=== PATIENT | female | born 1960 | race African-American/Black ===

== ENCOUNTER 2019-05-13 16:35 | Inpatient (IN) | payer OTHER ==
[~2019-05-13 16:35] MED LIST: Heparin 1,000 UNITS/ML VIAL ONE; Heparin 10,000 UNITS/ 10 ML VIAL ONE; Iopamidol-370 76% 500 ML 1 ML ONE
--- NOTE | 2019-05-13 17:22 | RAD ---
RADIOGRAPH CHEST 1 VIEW: DATE: 05/13/2019 TIME: 4:58 PM HISTORY: 62-year-old female with dyspnea COMPARISON: none FINDINGS: ETT at mid thoracic trachea. Esophagogastric tube visualized down to at least the level of the lower mediastinum. Cardiomegaly and widened mediastinum obscure most of the left lung inspiration is shallow. Prominent interstitial markings in the right lung. No pneumothorax identified. IMPRESSION: 1. Status post intubation with endotracheal tube. 2. Esophagogastric tube visualized down to at least the lower mediastinum, possibly in the stomach, b ut abdominal radiograph is recommended for confirmation. 3. Cardiomegaly and widening of the mediastinum.
--- NOTE | 2019-05-13 18:07 | CT ---
CT BRAIN WITHOUT CONTRAST: Comparison: 01-03-19 History: Altered mental status. Technique: Multiple contiguous axial images were obtained in a CT of the brain without contrast. FINDINGS: The brain is normal in morphology and attenuation without focal lesions or confluent areas of infarct ion. There is no evidence of hydrocephalus, intracranial hemorrhage or extraaxial fluid. The calvarium and overlying soft tissues are unremarkable. There is opacification of the majority of the ethmoid air cells. The mastoid air cells are well aerated. Mucosal thickening is seen in the maxi llary sinuses. IMPRESSION: No evidence of acute intracranial abnormality. POS: C
[2019-05-13 18:36] LABS: Hemoglobin 12.6 g/dL (12.0-16.0); Mean Corpuscular Hemoglobin 28.8 pg (27.0-31.0); Mean Corpuscular Volume 92.9 fL (78.0-98.0); Mean Platelet Volume 8.7 fL (7.4-10.4); Platelet Count 233 thou/uL (130-400); RBC Distribution Width 15.3 % (11.5-14.5); Red Blood Cell (RBC) Count 4.39 mill/uL (4.20-5.40); White Blood Cell (WBC) Count 14.6 thou/uL (4.8-10.8)
[2019-05-13 18:41] LABS: ALT (SGPT) 86 U/L (8-55); AST (SGOT) 164 U/L (5-34); Alkaline Phosphatase 129 U/L (40-110); Anion Gap 25 mmol/L (10-20); BUN (Urea Nitrogen) 108 mg/dL (9.8-20.1); Bilirubin, Total 0.7 mg/dL (0.2-1.2); Calc. Creatinine Clearance 0 mL/min (70-130); Calcium 9.3 mg/dL (7.8-10.44); Carbon Dioxide 21 mmol/L (22-29); Chloride 99 mmol/L (98-107); Estimated GFR-MDRD 5; Globulin 3.5 g/dL (2.4-3.5); Protein, Total 7.5 g/dL (6.0-8.3); Sodium 138 mmol/L (136-145)
[2019-05-13] MEDS ORDERED: Propofol 500 MG/50 ML VIAL ONE (18:43)
[2019-05-13] MEDS ORDERED: Propofol 1,000 MG/100 ML VIAL IV ONE (18:43)
[2019-05-13 18:44] LABS: Glucose 177 mg/dL (70-105); Potassium 6.9 mmol/L (3.5-5.1)
[2019-05-13 18:51] LABS: Band 5 % (5-11); Eosinophils 1 % (0-10); Lymphocytes 5 % (21-51); MDiff Complete? YES; Macrocytosis SLIGHT = 6-15 cells (100X) (0-5/hpf); Monocytes 3 % (0-10); Neutrophil 85 % (42-75); Platelet Morphology Comment Appears Adequate
[2019-05-13 19:03] LABS: CKMB 6.2 ng/mL (0-6.6)
[2019-05-13] MEDS ORDERED: Sodium Bicarb 50 MEQ/50 ML VIAL ONE (19:10)
[2019-05-13] MEDS ORDERED: Dextrose 50% Abboject 50 ML SYRINGE ONE (19:10)
[2019-05-13] MEDS ORDERED: Insulin Regular 300 UNITS/3 ML VIAL ONE (19:10)
[2019-05-13] MEDS ORDERED: Calcium Chloride 1 GM/10 ML Abboject SYRINGE ONE (19:10)
[2019-05-13 19:45] LABS: Actual Bicarbonate (HCO3a) 21.3 mEq/L (22-28); Analyzer IN Cardio ER; Base Excess (BEa) -4.3 mEq/L (-2.0 to +3.0); CO2 Tension 41.1 mmHg (35.0-45.0); Calcium, Ionized 1.25 mmol/L (1.12-1.30); Carboxyhemoglobin (COHb) 0.8 gm% (0.0-3.0); Hemoglobin (Hb) 13.1 g/dL (12.0-16.0); O2 Tension (PaO2), arterial 71.2 mmHg (80.0-100.0); Potassium - ABG Lab 5.25 mmol/L (3.70-5.30); pH, Arterial 7.33 (7.35-7.45)
[2019-05-13] MEDS ORDERED: Lorazepam 2 MG/ML VIAL ONE ×2 (19:45→20:44)
--- NOTE | 2019-05-13 20:30 | PDOC.FPRHP ---
- History of Present Illness Chief Complaint: Unresposive History of Present Illness: This is a 59 yo female with a pmh of ESRD on HD, schizophrenia with hx of catatonia, HTN, COPD, ROSITA, who presents to the ER unresponsive. Pt was at Dr. Sy's office for a shunt clot removal when she became unresponsive. She had 2 attempts at intubation in the field and then was intubated in the ER. Dr. Schulz was consulted for trialysis catheter placement. She also developed hypertensive urgency while she was in the ER with a BP as high as 226/120 that has improved with the sedation protocol. History is limited by pt's state. Pt was last hospitalized in 12/16/2018 and was there for 24 days. She was treated for acute metabolic encephalopathy, hypotension, schizophrenia with catatonia, ESRD, and deconditioning. At that point in time she was coming from rehab in which she had recently been discharged in 12/11/18 for persistent metabolic encephalopathy. She appears to be noncompliant with her ESRD and HD which maybe contributing to her current condition. ED Course: Propofol Bolus/drip Lorazepam 2mg x2 1 amp D50, 10 u reg insulin Calcium chloride - Allergies/Adverse Reactions Allergies Allergy/AdvReac Type Severity Reaction Status Date / Time Influenza Virus Vaccines Allergy Verified 05/13/19 22:18 iodine Allergy Verified 05/13/19 22:18 Iodine and Iodide Containing Allergy Verified 05/13/19 22:18 Produc Penicillins Allergy Verified 05/13/19 22:18 quetiapine Allergy Verified 05/13/19 22:18 - Home Medications Medication Instructions Recorded Confirmed Type Calcium Acetate 667 mg PO TID 05/13/19 05/13/19 History Carvedilol 3.125 mg PO BID 05/13/19 05/13/19 History Cholecalciferol (Vitamin D3) 1,000 unit PO BID 05/13/19 05/13/19 History [Vitamin D] risperiDONE 2 mg PO QPM 05/13/19 05/13/19 History - History PMHx: ESRD on HD, medical noncompliance, schizophrenia with catatonia, HTN, IDDM @ [facility]: cholecystecomy, AV fistula placement, hernia repair, BTL, tunneled right internal jugular hemodialysis catheter, right fem trialysis catheter FHx: Unknown Social: Unknown - Review of Systems ROS unobtainable: due to endotracheal tube - Vital signs BP: 207/126 HR: 72 RR: 22 Tmax: 97.5 Pox: 95% on Ventilator (Fio2 of 60%) Wt: Est. 136kg - Physical Exam Constitutional: other (Intubated, sedated) HEENT: normocephalic and atraumatic, PERRLA, MMM Neck: trachea midline, no JVD Heart: RRR, normal S1/S2, no murmurs/rubs/gallops, pulses present Lungs: good air movement, other (limited posterior exam due to positio nand body habitus. Anterior lungs clear) Abdomen: other (Moderate distension, BS+) Musculoskeletal: normal structure Neurological: DTRs 2+ Skin: no rash/lesions, capillary refill <2 seconds Heme/Lymphatic: no unusual bruising or bleeding FMR H&P: Results - Labs Result Diagrams: 05/14/19 03:29 05/14/19 03:29 Lab results: WBC 14.6 thou/uL (4.8-10.8) H 05/13/19 18:06 Hgb 12.6 g/dL (12.0-16.0) 05/13/19 18:06 Hct 40.8 % (36.0-47.0) 05/13/19 18:06 MCV 92.9 fL (78.0-98.0) 05/13/19 18:06 Plt Count 233 thou/uL (130-400) 05/13/19 18:06 Band Neuts % (Manual) 5 % (5-11) 05/13/19 18:06 Sodium 138 mmol/L (136-145) 05/13/19 18:06 Potassium 6.9 mmol/L (3.5-5.1) H* 05/13/19 18:06 Chloride 99 mmol/L (98-107) 05/13/19 18:06 Carbon Dioxide 21 mmol/L (22-29) L 05/13/19 18:06 BUN 108 mg/dL (9.8-20.1) H 05/13/19 18:06 Creatinine 10.62 mg/dL (0.6-1.1) H 05/13/19 18:06 Glucose 177 mg/dL (70-105) H 05/13/19 18:06 Lactic Acid 0.9 mmol/L (0.5-2.2) 05/13/19 18:06 Calcium 9.3 mg/dL (7.8-10.44) 05/13/19 18:06 Total Bilirubin 0.7 mg/dL (0.2-1.2) 05/13/19 18:06 AST 164 U/L (5-34) H 05/13/19 18:06 ALT 86 U/L (8-55) H 05/13/19 18:06 Alkaline Phosphatase 129 U/L (40-110) H 05/13/19 18:06 CK-MB (CK-2) 6.2 ng/mL (0-6.6) 05/13/19 18:06 B-Natriuretic Peptide 261.7 pg/mL (0-100) H 05/13/19 18:06 Serum Total Protein 7.5 g/dL (6.0-8.3) 05/13/19 18:06 Albumin 4.0 g/dL (3.5-5.0) 05/13/19 18:06 - Radiology Interpretation CT scan - head Status: report reviewed by me (No acute intracranial process) Chest x-ray Status: image reviewed by me, report reviewed by me (1. Status post intubation with endotracheal tube. 2. Esophagogastric tube visualized down to at least the lower mediastinum, possibly in the stomach, b ut abdominal radiograph is recommended for confirmation. 3. Cardiomegaly and widening of the mediastinum.) FMR H&P: A/P - Problem List (1) ESRD (end stage renal disease) Current Visit: Yes Status: Acute Code(s): N18.6 - END STAGE RENAL DISEASE (2) COPD (chronic obstructive pulmonary disease) Current Visit: Yes Status: Acute (3) Schizophrenia Current Visit: Yes Status: Acute Code(s): F20.9 - SCHIZOPHRENIA, UNSPECIFIED (4) HTN (hypertension) Current Visit: Yes Status: Acute Code(s): I10 - ESSENTIAL (PRIMARY) HYPERTENSION - Plan This is a 59 yo female with a pmh of ESRD on HD, Acute metabolic encephalopathy likely 2/2 uremia vs infection -Admit to ICU -Pt has been intubated, continue sedation protocol -ABG suggests Anion gap metabolic acidosis -CXR shows widened mediastinum, pulmonary artery congestion, cardiomegaly -Blood cultures and broad spectrum abx -Plan for emergent dialysis -BUN 108, Cr 10.6 -WBC 14.6 -Pending procal -CT chest to r/o aortic dissection -CT brain negative for hemorrhage -Consult Dr. Lowry Hyperkalemia -S/P calcium chloride, sodium bicarb, D50 and insulin -Pending emergent dialysis Hypertensive urgency -Improving on sedation protocol. Will reassess after dialysis to determine if pt needs drip Transaminitis -Slightly elevated AST/ALT, will trend. Bili normal ESRD on HD -Nephrology consulted COPD -Will monitor ROSITA Schizophrenia with hx of catatonia Code: Full Prophylaxis: Pepcid, heparin Family: none at bedside Fluids: SL Diet: NPO Lines and tubes: OG tube, 7.5 ET tube, right humoral IO, right Fem trialysis catheter Disposition: DC in 4-5 days PCP: CC Addendum - Attending - Attending Attestation Date/Time: 05/14/19 0901 I personally evaluated the patient and discussed the management with Dr. Purcell. See separate attestation. I agree with the History, Examination, Assessment and Plan documented above with any addition or exceptions noted below.
[2019-05-13 21:18] LABS: Puncture Site R RADIAL
[2019-05-13 21:19] LABS: ALV-art Gradient 305.225 (0-20)
--- NOTE | 2019-05-13 21:31 | CON ---
DATE OF CONSULTATION: 05/13/2019 CONSULTING PHYSICIAN: Kerrie Crane MD REQUESTING PHYSICIAN: Chuy Piper MD REASON FOR CONSULTATION: Need for emergent hemodialysis. IMPRESSION: 1. End-stage renal disease, on hemodialysis, unable to dialyze today due to clotted access. 2. Severe hyperkalemia, improving in the context of end-stage renal disease. 3. Cardiopulmonary failure in the context of fluid overload. 4. Hypovolemia. PLAN: 1. The patient will need an alternative access, possibly temporary femoral dialysis catheter for emergent hemodialysis. The patient to remain on daily dialysis until the ultrafiltration optimizes the patient's hemodynamics. 2. Further management will be dependent on the clinical course. HISTORY OF PRESENT ILLNESS: History is that of 59-year-old female patient who could not get dialysis today because of the clotted access. The patient went to [facility] and was in the middle of thrombectomy when the patient developed severe respiratory distress, necessitating the EMS to be called to transfer the patient to the emergency room. On presentation to the emergency room, the patient was noted to be severely hyperkalemic and hypovolemic with pulmonary congestion, decision has been taken to involve Renal because of the need for emergent hemodialysis. PAST MEDICAL HISTORY: Significant for end-stage renal disease, hypertension, morbid obesity, and schizophrenic bipolar disorder. MEDICATIONS: Reviewed as documented on [facility]. ALLERGIES: TO CONTRAST. FAMILY HISTORY: Unremarkable. SOCIAL HISTORY: No alcohol. No tobacco. No illicit drug use. Lives at home. REVIEW OF SYSTEMS: Could not be obtained given the patient is intubated and sedated. PHYSICAL EXAMINATION: GENERAL: The patient was noted to be on life support. HEENT: Remarkable for endotracheal tube in place. CARDIOVASCULAR SYSTEM: First and second heart sounds were heard. RESPIRATORY SYSTEM: Revealed vented sounds. DIGESTIVE SYSTEM: Revealed an obese abdomen. EXTREMITIES: Showed no peripheral edema. SKIN: No new gross rash. LYMPHATICS: No peripheral lymphadenopathy. SUMMARY: A 59-year-old female patient who suffered from cardiopulmonary failure while undergoing thrombectomy necessitating transfer to the ER where the patient was noted to be severely hyperkalemic and hypovolemic. Thank you for this consultation. We will follow with you. Job ID: [id number]
[2019-05-13] MEDS ORDERED: Acetaminophen 650 MG Suppository PR PRN (21:59)
[2019-05-13] MEDS ORDERED: Piperacillin/Tazobactam 4.5 GM in Sodium Chloride 0.9% 100 ML IVPB SCH (21:59)
[2019-05-13] MEDS ORDERED: Ventilator Sedation Protocol 1 EACH FS ONE (21:59)
[2019-05-13] MEDS ORDERED: Vancomycin HCl 1 GM in Sodium Chloride 0.9% 250 ML 250 ML IVPB SCH (21:59)
[2019-05-13] MEDS ORDERED: Morphine 2 MG/ML SYRINGE SLOW IVP PRN (22:02)
[2019-05-13] MEDS ORDERED: Propofol BOLUS 1,000 MG/100 ML VIAL IV PRN (22:02)
[2019-05-13] MEDS ORDERED: DISCONTINUE PREVIOUS NARCOTIC PAIN MEDICATIONS AND BENZODIAZEPINES FS SCH (22:02)
[2019-05-13] MEDS ORDERED: fentaNYL Citrate/PF 2,000 MCG in Sodium Chloride 0.9% 60 ML IV SCH (22:02)
[2019-05-13] MEDS ORDERED: Fentanyl BOLUS 250 ML IVPB PRN (22:02)
[2019-05-13] MEDS ORDERED: Vancomycin 1 GM in Premix Bag 1 BAG IVPB SCH ×2 (22:15→23:45)
[2019-05-13] MEDS ORDERED: Hydrocortisone Sod Succ/PF 100 mg/2 ml Vial IVP SCH (22:15)
[2019-05-13] MEDS ORDERED: diphenhydrAMINE 50 MG/ML VIAL IVP SCH (22:15)
--- NOTE | 2019-05-13 22:32 | PDOC.BPN ---
- Brief Progress Note Date/Time: 05/13/196 I personally evaluated the patient and discussed the management with Dr. Michaels in the ER. I agree with the History, Examination, Assessment and Plan documented as discussed. History leading up to mental status change is scant. This could be sepsis form pulmonary infections or bacteriemia or hyperkalemia/uremia. In light of broad differential, COVID testing performed, emergency HD arranged. Ventilatory support. CT of chest report pending. Empiric antibiotics initiated.
--- NOTE | 2019-05-13 22:54 | CT ---
CT THORAX WITH CONTRAST: DATE: 05/13/2019 HISTORY: 59-year-old female with respiratory failure. Abnormal chest radiograph: Widened mediastinum COMPARISON: 06/22/2012 FINDINGS: Endotracheal tube distal tip at mid-lower thoracic trachea. Widening of the mediastinum is due to med iastinal lipomatosis plus a large number of mildly and moderately enlarged mediastinal lymph nodes, similar to the previous CT. Enteric tube within the esophagus, coursing through the gastric corpus, distal tip outside of the fie ld of view. There is area of consolidation in the left lower lobe stretching from superior segment 2 posterior la teral base, with air bronchogram. This is new since the previous CT. There is a smaller area of consolidation broadly abutting the right posteromedial pleural surface. Questionable tiny bilateral pleural effusions. There is cardiomegaly with four-chamber dilation. The previously demonstrated moderate-sized pericard ial effusion is no longer present. There is another focus of consolidation at the apex of the left upper lobe, abutting the apical pleur al surface without air bronchogram. This could represent atelectasis. IMPRESSION: 1. Widening of the mediastinum is due to combination of mediastinal lipomatosis and a large number of mildly enlarged and moderately enlarged mediastinal lymph nodes, similar to 06/22/2012. 2. Bilateral lower lobe consolidations, left greater than right, could represent pneumonia or aspirat ion pneumonitis. 3. Left apical consolidation. 4. Cardiomegaly with four-chamber dilation.
[2019-05-13] MEDS: Propofol 1,000 MG/100 ML VIAL IV PRN (23:13)
[2019-05-13] MEDS ORDERED: HOLD VANCOMYCIN FOR LEVEL >20 FS SCH (23:45)
[2019-05-13] MEDS ORDERED: Vancomycin HCl 1.5 GM in Sodium Chloride 0.9% 250 ML 300 ML IVPB SCH (23:45)
[2019-05-13] MEDS ORDERED: Vancomycin HCl 750 MG in Sodium Chloride 0.9% 250 ML 250 ML IVPB SCH (23:45)
[2019-05-14 00:44] LABS: HBSAg Index 0.16 S/CO (0-0.99); Hep B Surf Ag Non-Reactive S/CO (NonReactive)
[2019-05-14] MEDS ORDERED: Vancomycin 1 GM in Premix Bag 1 BAG IVPB SCH (02:30)
[2019-05-14] MEDS ORDERED: Cefepime 1 GM in Sodium Chloride 0.9% 100 ML IVPB SCH (03:00)
[2019-05-14] MEDS: Propofol 1,000 MG/100 ML VIAL IV PRN ×6 (03:16→23:16)
[2019-05-14 04:45] LABS: ALT (SGPT) 78 U/L (8-55); AST (SGOT) 82 U/L (5-34); Albumin 4.2 g/dL (3.5-5.0); Alkaline Phosphatase 121 U/L (40-110); Anion Gap 25 mmol/L (10-20); BUN (Urea Nitrogen) 45 mg/dL (9.8-20.1); Calc. Creatinine Clearance 21 mL/min (70-130); Calcium 9.9 mg/dL (7.8-10.44); Carbon Dioxide 22 mmol/L (22-29); Chloride 93 mmol/L (98-107); Estimated GFR-MDRD 10; Globulin 3.7 g/dL (2.4-3.5); Glucose 138 mg/dL (70-105); Protein, Total 7.9 g/dL (6.0-8.3); Sodium 136 mmol/L (136-145)
[2019-05-14 04:48] LABS: Band 4 % (5-11); Lymphocytes 10 % (21-51); MDiff Complete? YES; Mean Corpuscular HGB CONC 30.8 g/dL (32.0-36.0); Mean Corpuscular Hemoglobin 28.2 pg (27.0-31.0); Mean Corpuscular Volume 91.6 fL (78.0-98.0); Mean Platelet Volume 9.1 fL (7.4-10.4); Neutrophil 86 % (42-75); Platelet Count 259 thou/uL (130-400); RBC Distribution Width 15.5 % (11.5-14.5); Red Blood Cell (RBC) Count 4.61 mill/uL (4.20-5.40); White Blood Cell (WBC) Count 14.1 thou/uL (4.8-10.8)
--- NOTE | 2019-05-14 06:48 | PDOC.FM ---
- Subjective Subjective: pt intubated and sedated, responding to verbal and painful stimuli - Objective Vital Signs & Weight: Vital Signs (12 hours) Temp Pulse Resp Pulse Ox 05/14/19 06:00 14 05/14/19 04:00 98.1 F 14 05/14/19 03:07 81 05/14/19 02:00 14 05/14/19 00:41 74 05/14/19 00:02 79 05/14/19 00:00 97.8 F 14 05/13/19 22:30 75 05/13/19 22:00 98.7 F 05/13/19 21:59 14 96 Weight Weight 120.9 kg Most Recent Monitor Data Heart Rate from ECG 80 NIBP 147/90 NIBP BP-Mean 109 Respiration from ECG 14 SpO2 100 I&O: 05/12/19 05/13/19 05/14/19 06:59 06:59 06:59 Intake Total 336 Output Total 50 Balance 286 Result Diagrams: 05/14/19 03:29 05/14/19 03:29 Phys Exam - Physical Examination Constitutional: NAD HEENT: moist MMs Neck: no JVD, supple Respiratory: no wheezing, no rales, no rhonchi Cardiovascular: no significant murmur Gastrointestinal: soft, no distention Musculoskeletal: pulses present, edema present Neurological: moves all 4 limbs Psychiatric: normal affect Skin: no rash Dx/Plan (1) Acute metabolic encephalopathy Code(s): G93.41 - METABOLIC ENCEPHALOPATHY Status: Acute (2) COPD (chronic obstructive pulmonary disease) Status: Acute (3) ESRD (end stage renal disease) Code(s): N18.6 - END STAGE RENAL DISEASE Status: Acute (4) HTN (hypertension) Code(s): I10 - ESSENTIAL (PRIMARY) HYPERTENSION Status: Acute (5) Schizophrenia Code(s): F20.9 - SCHIZOPHRENIA, UNSPECIFIED Status: Acute - Plan Plan: Acute metabolic encephalopathy likely 2/2 uremia vs infection - intubated, continue sedation protocol - CT/CXR c/w fluid overload, interstitial edema - B/UCx NGTD, procal elevated - continue broad spectrum abx - COVID pending Hyperkalemia -S/P calcium chloride, sodium bicarb, D50 and insulin -nephro consulted, dialyze as needed Hypertensive urgency -resolved Transaminitis -Slightly elevated AST/ALT on admission - Bili normal, monitor ESRD on HD -Nephrology consulted COPD -Will monitor ROSITA Schizophrenia with hx of catatonia Code: Full Prophylaxis: Pepcid, heparin Lines and tubes: OG tube, 7.5 ET tube, right humoral IO, right Fem trialysis catheter Disposition: continue eval and treatment Addendum - Attending - Attending Attestation Date/Time: 05/14/19 1322 I personally evaluated the patient and discussed the management with Dr. Valdez. I agree with the History, Examination, Assessment and Plan documented above with any addition or exceptions noted below. Patient here with acute onset of respiratory distress associated with missing HD due to clogged access. She is on ventilator at the current time. COVID testing is pending as she has worsening infiltrates, continue isolation precautions. Continue HD, await further Nephro and Pulm consults.
--- NOTE | 2019-05-14 08:15 | RAD ---
PORTABLE CHEST 1 VIEW: DATE: 05/14/2019. TIME: 4:39 AM. HISTORY: Respiratory failure. COMPARISON: Previous day. FINDINGS/IMPRESSION: Endotracheal and nasogastric tubes remain in place. The heart is enlarged. Consolidation/atelectati c change of the left lung base is again noted. New infiltrates have developed at the right lung base . No pneumothoraces are seen. POS: MZA
[2019-05-14] MEDS: Heparin 5,000 UNITS/ML VIAL SC SCH ×3 (08:32→20:52)
[2019-05-14 08:35] LABS: Actual Bicarbonate (HCO3a) 25.6 mEq/L (22-28); Base Excess (BEa) 0.5 mEq/L (-2.0 to +3.0); CO2 Tension 43.1 mmHg (35.0-45.0); Calcium, Ionized 1.16 mmol/L (1.12-1.30); Carboxyhemoglobin (COHb) 1.2 gm% (0.0-3.0); Hemoglobin (Hb) 13.1 g/dL (12.0-16.0); O2 Tension (PaO2), arterial 62.5 mmHg (80.0-100.0); Potassium - ABG Lab 4.45 mmol/L (3.70-5.30); pH, Arterial 7.39 (7.35-7.45)
[2019-05-14 08:36] LABS: Puncture Site RRA
[2019-05-14 08:37] LABS: ALV-art Gradient 240.125 (0-20)
--- NOTE | 2019-05-14 09:18 | OP ---
DATE OF PROCEDURE: 05/13/2019 PREOPERATIVE DIAGNOSES: Left upper arm dialysis graft thrombosed; right AC IV started by EMS removed; in need of dialysis, acute; failed declotting effort by Dr. Sy at outpatient center today as the patient arrested, required EMS transport and procedure had to be terminated short of completion; prior history of multiple to axillary vein, graft anastomosis with normal arterial inflow. POSTOPERATIVE DIAGNOSES: Left upper arm dialysis graft thrombosed; right AC IV started by EMS removed; in need of dialysis, acute; failed declotting effort by Dr. Sy at outpatient center today as the patient arrested, required EMS transport and procedure had to be terminated short of completion; prior history of multiple to axillary vein, graft anastomosis with normal arterial inflow. PROCEDURE PERFORMED: Right femoral vein Trialysis catheter. ANESTHESIA: 1% Xylocaine. DESCRIPTION OF PROCEDURE: With the patient at bedside in the emergency room, right groin was prepared with ChloraPrep and draped in routine fashion. Local anesthetic was infiltrated in the skin and subcutaneous tissue. Seldinger technique used to place a Trialysis catheter, secured with 3-0 nylon suture. Sterile dressing applied. The patient tolerated the procedure well. Job ID: [id number]
[2019-05-14] MEDS ORDERED: Heparin 10,000 UNITS/ 10 ML VIAL ONE (09:45)
--- NOTE | 2019-05-14 14:02 | CON ---
DATE OF CONSULTATION: 05/14/2019 HISTORY OF PRESENT ILLNESS: Ana Rosa De La Torre is a 59-year-old female. She has end-stage renal disease. She also has a history of COPD. She has apparently had to her summer camp counselor's office for shunt clot removal. She developed respiratory failure in the office and apparently, attempts of intubations were unsuccessful. She subsequently was intubated in the emergency room care. She is mechanically ventilated now. It is unclear to me at this time whether or not she had missed dialysis. Looking at her lab on presentation, her potassium was 6.9, her BUN was 108, and a creatinine was 10.6, which led me to believe that she had missed dialysis. PAST MEDICAL HISTORY: Remarkable for: 1. Schizophrenia. 2. End-stage renal disease. 3. History of medical noncompliance. 4. History of hypertension. 5. Diabetes. 6. History of cholecystectomy. 7. History of multiple vascular access procedures. 8. History of herniorrhaphy. FAMILY HISTORY: Unknown. REVIEW OF SYSTEMS: Not obtainable. PHYSICAL EXAMINATION: VITAL SIGNS: She is extremely hypertensive when she presented. Currently, blood pressure 118/76, heart rate 78, respiratory rates in the teens. HEAD AND NECK: Unremarkable. LUNGS: Clear anteriorly. HEART: Regular rhythm. ABDOMEN: Soft. DIAGNOSTIC DATA: Chest x-ray shows an alveolar infiltrate in the right. MEDICATIONS: Reviewed. She is on: 1. Cefepime. 2. Vancomycin. IMPRESSION: 1. Dialysis access malfunction. 2. Right lung infiltrate, it could be an aspiration-related pneumonitis or an atypical presentation for volume overload. 3. Bilateral pleural effusions. 4. Mediastinal lymph nodes seen on CT, which are unchanged compared to 7 years ago. 5. Cardiomegaly. 6. Hypertension. 7. Diabetes. 8. Schizophrenia. 9. History of medical noncompliance. 10. Respiratory failure. Hopefully, we can see an improvement in her respiratory status. COVID screen was ordered. It seems unlikely that this is a COVID case. We will make further recommendations we know the COVID status. Critical care time was 40 min. Job ID: [id number] MTDD
--- NOTE | 2019-05-14 19:27 | PRG ---
DATE OF SERVICE: 05/14/2019 SUBJECTIVE: The patient was seen and examined, still on life support, hemodynamically stable. OBJECTIVE: HEENT: Unremarkable except for endotracheal tube in place. CARDIOVASCULAR SYSTEM: First and second heart sounds were heard. RESPIRATORY SYSTEM: Revealed vented sounds. DIGESTIVE SYSTEM: Revealed an obese abdomen. EXTREMITIES: Showed no peripheral edema. SKIN: No new gross rash. LYMPHATICS: No peripheral lymphadenopathy. LABORATORY INVESTIGATION: Showed a creatinine of 5.53, BUN of 45. IMPRESSION: 1. End-stage renal disease, hemodialysis dependent. 2. Cardiopulmonary failure in the context of fluid overload and hyperkalemia. 3. Morbid obesity. 4. Bilateral pleural effusions. PLAN: 1. The patient to undergo dialysis today with ultrafiltration as tolerated by hemodynamics. Hopefully, this will improve the patient's respiratory status towards extubation. 2. Further management to be dependent on the clinical course. Job ID: [id number]
[2019-05-14] MEDS: Famotidine/PF 20 mg/2ml Vial SLOW IVP SCH (20:52)
[2019-05-14] MEDS: Cefepime 0.5 GM, Admixture Fee 1 EACH in Sodium Chloride 0.9% 100 ML IVPB SCH (20:52)
[2019-05-15] MEDS: Lorazepam 2 MG/ML VIAL SLOW IVP PRN ×2 (00:53→17:59)
[2019-05-15] MEDS: Propofol 1,000 MG/100 ML VIAL IV PRN ×6 (03:28→23:53)
[2019-05-15 04:46] LABS: #Basophils 0.1 thou/uL (0.0-0.2); #Lymphocytes 1.7 thou/uL (1.20-3.40); #Monocytes 1.2 thou/uL (0.11-0.59); #Neutrophils 7.2 thou/uL (1.40-6.50); %Basophils 0.6 % (0.0-1.0); %Eosinophils 0.4 % (0.0-10.0); %Lymphocytes 16.8 % (21.0-51.0); %Monocytes 11.8 % (0.0-10.0); %Neutrophils 70.4 % (42.0-75.0); Hemoglobin 12.4 g/dL (12.0-16.0); Mean Corpuscular HGB CONC 31.7 g/dL (32.0-36.0); Mean Corpuscular Hemoglobin 28.4 pg (27.0-31.0); Mean Corpuscular Volume 89.7 fL (78.0-98.0); Mean Platelet Volume 8.8 fL (7.4-10.4); Platelet Count 242 thou/uL (130-400); RBC Distribution Width 15.5 % (11.5-14.5); Red Blood Cell (RBC) Count 4.38 mill/uL (4.20-5.40); White Blood Cell (WBC) Count 10.3 thou/uL (4.8-10.8)
[2019-05-15 05:19] LABS: ALT (SGPT) 47 U/L (8-55); AST (SGOT) 33 U/L (5-34); Albumin 3.5 g/dL (3.5-5.0); Alkaline Phosphatase 95 U/L (40-110); Anion Gap 20 mmol/L (10-20); BUN (Urea Nitrogen) 37 mg/dL (9.8-20.1); Bilirubin, Total 0.6 mg/dL (0.2-1.2); Calc. Creatinine Clearance 21 mL/min (70-130); Calcium 9.7 mg/dL (7.8-10.44); Carbon Dioxide 24 mmol/L (22-29); Chloride 95 mmol/L (98-107); Estimated GFR-MDRD 9; Globulin 3.5 g/dL (2.4-3.5); Glucose 84 mg/dL (70-105); Potassium 3.7 mmol/L (3.5-5.1); Sodium 135 mmol/L (136-145)
--- NOTE | 2019-05-15 06:38 | PDOC.FM ---
- Subjective Subjective: pt intubated and sedated. minimally responsive. - Objective Vital Signs & Weight: Vital Signs (12 hours) Temp Pulse Resp Pulse Ox 05/15/19 06:00 14 05/15/19 04:00 97.1 F L 14 05/15/19 02:47 82 05/15/19 02:00 16 05/15/19 00:00 98.6 F 14 05/14/19 22:00 14 05/14/19 21:43 99 05/14/19 20:00 98.6 F 16 95 05/14/19 19:48 105 H Weight Admit Weight 120.9 kg Weight 120.9 kg Most Recent Monitor Data Heart Rate from ECG 77 NIBP 123/66 NIBP BP-Mean 85 Respiration from ECG 19 SpO2 100 I&O: 05/13/19 05/14/19 05/15/19 06:59 06:59 06:59 Intake Total 336 295 Output Total 200 550 Balance 136 -255 Result Diagrams: 05/15/19 04:17 05/15/19 04:17 Phys Exam - Physical Examination Constitutional: NAD HEENT: moist MMs Neck: no JVD Respiratory: clear to auscultation bilateral Cardiovascular: no significant murmur Gastrointestinal: non-tender, no distention Musculoskeletal: no edema Neurological: moves all 4 limbs Psychiatric: normal affect Skin: no rash Dx/Plan (1) Acute metabolic encephalopathy Code(s): G93.41 - METABOLIC ENCEPHALOPATHY Status: Acute (2) COPD (chronic obstructive pulmonary disease) Status: Acute (3) ESRD (end stage renal disease) Code(s): N18.6 - END STAGE RENAL DISEASE Status: Acute (4) HTN (hypertension) Code(s): I10 - ESSENTIAL (PRIMARY) HYPERTENSION Status: Acute (5) Schizophrenia Code(s): F20.9 - SCHIZOPHRENIA, UNSPECIFIED Status: Acute - Plan Plan: Acute metabolic encephalopathy likely 2/2 uremia vs infection - intubated, continue sedation protocol, initiate tube feeds - CT/CXR c/w fluid overload, interstitial edema - B/UCx NGTD, procal elevated - continue broad spectrum abx, consider adding atypical coverage if pt decompensates - COVID pending Hyperkalemia -S/P calcium chloride, sodium bicarb, D50 and insulin -nephro consulted, dialyze as needed Hypertensive urgency -resolved Transaminitis -Slightly elevated AST/ALT on admission - Bili normal, monitor ESRD on HD -Nephrology consulted COPD -Will monitor ROSITA Schizophrenia with hx of catatonia Code: Full Prophylaxis: Pepcid, heparin Lines and tubes: OG tube, 7.5 ET tube, right humoral IO, right Fem trialysis catheter Disposition: continue respiratory support, dialyze as needed Addendum - Attending - Attending Attestation Date/Time: 05/15/19 1208 I personally evaluated the patient and discussed the management with Dr. Valdez. I agree with the History, Examination, Assessment and Plan documented above with any addition or exceptions noted below. Patient overall stable. Continues to be ventilated. On isolation bc COVID pending. I have lower suspicion for that at this time as her CXR tends to be improving on my read. Continue current mgmt and continue HD per Nephro.
--- NOTE | 2019-05-15 08:18 | RAD ---
CHEST 1 VIEW: INDICATION: History of ICU and pulmonary congestion. COMPARISON: Prior exam dated 05/14/2019. FINDINGS: There is persistent cardiomegaly. There is improvement in the pulmonary vascular congestion and cent ral edema pattern. Small bilateral pleural effusions persist, left greater than right. No pneumotho rax is evident. ET tube and gastric catheter are unchanged in position. No pneumothorax is evident. IMPRESSION: 1. Improvement in the central edema pattern and pulmonary vascular congestion. No airspace consolid ation to suggest pneumonia. 2. Residual small bilateral pleural effusions. POS: BH
[2019-05-15 08:35] LABS: Actual Bicarbonate (HCO3a) 23.9 mEq/L (22-28); CO2 Tension 32.6 mmHg (35.0-45.0); Calcium, Ionized 1.14 mmol/L (1.12-1.30); Carboxyhemoglobin (COHb) 1.3 gm% (0.0-3.0); Hemoglobin (Hb) 12.9 g/dL (12.0-16.0); O2 Tension (PaO2), arterial 124.4 mmHg (80.0-100.0); Potassium - ABG Lab 3.85 mmol/L (3.70-5.30); pH, Arterial 7.48 (7.35-7.45)
[2019-05-15 08:43] LABS: Puncture Site RB
[2019-05-15 09:45] LABS: Vancomycin, Random 5.5 ug/mL (See Comment)
[2019-05-15] MEDS: Heparin 5,000 UNITS/ML VIAL SC SCH ×3 (09:54→20:27)
[2019-05-15] MEDS ORDERED: Heparin 10,000 UNITS/ 10 ML VIAL ONE (10:38)
--- NOTE | 2019-05-15 13:55 | PRG ---
DATE OF SERVICE: 05/15/2019 SUBJECTIVE: Ms. De La Torre's COVID status is still unknown. I do believe that she will be COVID negative. Her chest x-ray has improved dramatically. This argues that this is all volume related. Her hemodynamics are unchanged. OBJECTIVE: VITAL SIGNS: Blood pressure 111/70, heart rate is in the 80s, respiratory rates in the teens. LUNGS: Unchanged. HEART: Unchanged. ABDOMEN: Unchanged. LABORATORY DATA: Potassium 3.7, BUN 37, creatinine 5.6. LABORATORY DATA: White count 10.3, hemoglobin 12.4, platelets 242. IMPRESSION: 1. End-stage renal disease with a history of noncompliance with dialysis. 2. Difficult dialysis access. 3. Status post failed declotting attempt for access, now with a right femoral vein Trialysis catheter. PLAN: Continue with dialysis. Awaiting COVID. If her COVID is negative, which I suspect it will be, isolation can be discontinued. She can be moved out of Critical Care Unit. Critical care time 30 min. Job ID: [id number] MTDD
[2019-05-15] MEDS: Vancomycin HCl 1.25 GM in Sodium Chloride 0.9% 250 ML 250 ML IVPB SCH ×2 (15:52→16:14)
--- NOTE | 2019-05-15 15:58 | PQF ---
CLINICAL DOCUMENTATION IMPROVEMENT CLARIFICATION FORM: ICD-10 Updated PLEASE DO AN ADDENDUM TO THE PROGRESS NOTE WITH ANY DOCUMENTATION UPDATES OR ADDITIONS AND CARRY THROUGH TO DC SUMMARY. THANK YOU. DATE: 05/15/19 ATTN: DR. OCONNELL Please exercise your independent, professional judgment in responding to the clarification form. Clinical indicators are provided on the bottom of this form for your review Please check appropriate box(s): [ x] Acute Respiratory Failure: [ x] with Hypoxia[ ] with Hypercapnia [ ] Acute On Chronic Respiratory Failure: [ ] with Hypoxia [ ] with Hypercapnia [ ] Acute Respiratory Failure due to: (etiology) [ ] ARDS (Acute Respiratory Distress Syndrome) [ ] Chronic Respiratory Failure only [ ] with Hypoxia [ ] with Hypercapnia [ ] Respiratory Insufficiency [ ] Hypoxia [ ] Other diagnosis [ ] Unable to determine In addition, please specify: Present on Admission (POA): [ ] Yes [ ] No [ ] Unable to determine For continuity of documentation, please document condition throughout progress notes and discharge summary. Thank You. CLINICAL INDICATORS - SIGNS / SYMPTOMS / LABS / RESULTS AND LOCATION IN MR ER NOTE: "THE PATIENT BECAME UNRESPONSIVE DURING HER APPOINTMENT. ON ARRIVAL, EMS REPORTS THE PATIENT WAS HYPOXIC AND IN SEVERE RESPIRATORY DISTRESS" RISKS: HYPERKALEMIA (ER NOTE) PULMONARY EDEMA (ER NOTE) HYPERTENSIVE EMERGENCY (ER NOTE) END STAGE RENAL DISEASE (ER NOTE) TREATMENT: INTUBATION WITH MECHANICAL VENTILATION (ER NOTE) CRITICAL CARE MONITORING PULMONARY CONSULT 05/13 ABGS SAP Structural Design Engineer Crystal Reports Winform ViewerAcute Respiratory Failure: ABG pH < 7.35 or > 7.45; Decreased oxygen saturation (<90% room air or < 95% on oxygen); PCO2 > 50 mm Hg; PO2 < 60 mm Hg; Labored or rapid respirations ARDS: Dx Criteria [[place] ARDS]: Respiratory symptoms within one week of a known clinical insult (e.g. shock, infection, surgery, trauma) Bilateral opacities in CXR/Chest CT not due to CHF or fluid (This form is maintained as a part of the permanent medical record) 2014 [employer]. All Rights Reserved [email or web address] [email or web address] THROAT HOSPITALLowell
--- NOTE | 2019-05-15 19:02 | PRG ---
DATE OF SERVICE: SUBJECTIVE: The patient noted still on life support. Noted with following vital signs. OBJECTIVE: VITAL SIGNS: Afebrile, temperature 97.7, pulse 97, respiratory rate of , blood pressure 101/65, O2 saturation 100%. HEENT: Unremarkable. CARDIOVASCULAR: First and second heart sounds were heard. RESPIRATORY: Clear to auscultation. DIGESTIVE SYSTEMS: Revealed a benign abdomen with positive bowel sounds. EXTREMITIES: No peripheral edema. SKIN: No new gross rash. LYMPHATICS: No peripheral lymphadenopathy. LABORATORY INVESTIGATION: Showed a potassium of 3.7, BUN of 37, creatinine 5.64. IMPRESSION: 1. End-stage renal disease. 2. Cardiopulmonary failure. 3. Severe hyperkalemia, resolved. PLAN: 1. The patient to be dialyzed today in accordance with the schedule. 2. Hopefully, the patient could be extubated very soon. 3. Still awaiting the COVID-19 result. 4. Further management to be dependent on the clinical course. Job ID: [id number]
[2019-05-15] MEDS: Famotidine/PF 20 mg/2ml Vial SLOW IVP SCH (20:26)
[2019-05-15] MEDS: Cefepime 0.5 GM, Admixture Fee 1 EACH in Sodium Chloride 0.9% 100 ML IVPB SCH (20:26)
[2019-05-16] MEDS: Lorazepam 2 MG/ML VIAL SLOW IVP PRN ×3 (00:24→20:09)
[2019-05-16] MEDS: Propofol 1,000 MG/100 ML VIAL IV PRN ×4 (04:39→20:48)
--- NOTE | 2019-05-16 06:54 | PDOC.FM ---
- Subjective Subjective: pt intubated and sedated, no spontaneous breaths. agitation with sedation holidays. - Objective Vital Signs & Weight: Vital Signs (12 hours) Temp Pulse Resp Pulse Ox 05/16/19 06:00 14 05/16/19 04:00 97.9 F 16 05/16/19 03:08 78 05/16/19 02:00 14 05/16/19 00:46 79 05/16/19 00:00 98.4 F 14 05/15/19 22:26 81 05/15/19 22:00 14 05/15/19 20:00 17 05/15/19 19:30 96 05/15/19 19:00 97.8 F Weight Admit Weight 120.9 kg Weight 121.2 kg Most Recent Monitor Data Heart Rate from ECG 82 NIBP 136/87 NIBP BP-Mean 103 Respiration from ECG 14 SpO2 98 I&O: 05/14/19 05/15/19 05/16/19 06:59 06:59 06:59 Intake Total 834 734 9046 Output Total 200 550 300 Balance 136 -255 1936 Result Diagrams: 05/16/19 09:49 05/16/19 09:48 Phys Exam - Physical Examination Constitutional: NAD HEENT: moist MMs Neck: no JVD Respiratory: clear to auscultation bilateral transmitted breath sounds Cardiovascular: RRR, no significant murmur Gastrointestinal: soft, no distention Musculoskeletal: no edema, pulses present Skin: no rash Dx/Plan (1) Acute metabolic encephalopathy Code(s): G93.41 - METABOLIC ENCEPHALOPATHY Status: Acute (2) COPD (chronic obstructive pulmonary disease) Status: Acute (3) ESRD (end stage renal disease) Code(s): N18.6 - END STAGE RENAL DISEASE Status: Acute (4) HTN (hypertension) Code(s): I10 - ESSENTIAL (PRIMARY) HYPERTENSION Status: Acute (5) Schizophrenia Code(s): F20.9 - SCHIZOPHRENIA, UNSPECIFIED Status: Acute - Plan Plan: Acute Hypoxic respiratory failure, likely 2/2 volume overload - intubated, continue sedation protocol, tube feeds - CT/CXR c/w fluid overload, interstitial edema - B/UCx NGTD, procal downtrended - continue broad spectrum abx, consider adding atypical coverage if pt decompensates - COVID pending Hyperkalemia -S/P calcium chloride, sodium bicarb, D50 and insulin -nephro consulted, dialyze as needed Hypertensive urgency -resolved Transaminitis -Slightly elevated AST/ALT on admission - Bili normal, monitor ESRD on HD -Nephrology consulted COPD -Will monitor ROSITA Schizophrenia with hx of catatonia Code: Full Prophylaxis: Pepcid, heparin Lines and tubes: OG tube, 7.5 ET tube, right humoral IO, right Fem trialysis catheter Disposition: continue respiratory support, dialyze as needed Addendum - Attending - Attending Attestation Date/Time: 05/16/19 1111 I personally evaluated the patient and discussed the management with Dr. Valdez. I agree with the History, Examination, Assessment and Plan documented above with any addition or exceptions noted below.
--- NOTE | 2019-05-16 07:50 | RAD ---
EXAM: Portable chest PROVIDED CLINICAL HISTORY: Respiratory insufficiency COMPARISON: 05/15/2019 FINDINGS: Significant interval change with respect to the prior examination is not apparent. IMPRESSION: As above.
[2019-05-16] MEDS: Heparin 5,000 UNITS/ML VIAL SC SCH ×3 (09:22→20:08)
[2019-05-16 10:11] LABS: Hemoglobin 13.1 g/dL (12.0-16.0); Mean Corpuscular HGB CONC 31.9 g/dL (32.0-36.0); Mean Corpuscular Hemoglobin 28.4 pg (27.0-31.0); Mean Corpuscular Volume 88.9 fL (78.0-98.0); Platelet Count 228 thou/uL (130-400); RBC Distribution Width 15.6 % (11.5-14.5)
[2019-05-16 10:22] LABS: Band 1 % (5-11); Lymphocytes 18 % (21-51); MDiff Complete? YES; Monocytes 15 % (0-10); Neutrophil 65 % (42-75); RBC Morphology Normal
[2019-05-16 10:32] LABS: ALT (SGPT) 32 U/L (8-55); AST (SGOT) 19 U/L (5-34); Albumin 3.5 g/dL (3.5-5.0); Alkaline Phosphatase 89 U/L (40-110); Anion Gap 23 mmol/L (10-20); BUN (Urea Nitrogen) 50 mg/dL (9.8-20.1); Bilirubin, Total 0.6 mg/dL (0.2-1.2); Calc. Creatinine Clearance 17 mL/min (70-130); Calcium 10.1 mg/dL (7.8-10.44); Carbon Dioxide 21 mmol/L (22-29); Chloride 92 mmol/L (98-107); Estimated GFR-MDRD 7; Globulin 3.6 g/dL (2.4-3.5); Glucose 100 mg/dL (70-105); Potassium 4.5 mmol/L (3.5-5.1); Protein, Total 7.1 g/dL (6.0-8.3); Sodium 131 mmol/L (136-145)
--- NOTE | 2019-05-16 16:35 | PDOC.EVN ---
Event Note - Event Note Event Note: Discussed patient's case with family resource management specialist , and have been reviewing her [facility] notes daily. I had previously discussed her case with Dr. Alexander as well. She is still awaiting the results of her COVID-19 testing and as of this morning was still intubated although Dr. Brewer had not rounded on her yet. They are going to keep me informed of her clinical progression but while she is still on isolation precautions I am not going to schedule interventional radiology for thrombectomy or OR for catheter placement since she has a femoral dialysis catheter in place.
--- NOTE | 2019-05-16 16:45 | PRG ---
DATE OF SERVICE: 05/16/2019 SUBJECTIVE: The patient is seen and examined. Still intubated. Noted with following vital signs. OBJECTIVE: VITAL SIGNS: Afebrile, temperature 97.9, pulse 78, respiratory rate of 16, O2 saturation of 96% with blood pressure 136/87. HEENT: Remarkable for endotracheal tube in place. CARDIOVASCULAR SYSTEM: First and second heart sounds were heard. RESPIRATORY SYSTEM: Revealed vented sounds. DIGESTIVE SYSTEM: Revealed an obese abdomen. EXTREMITIES: No peripheral edema. SKIN: No new gross rash. LYMPHATICS: No peripheral lymphadenopathy. LABORATORY INVESTIGATION: Showed a creatinine of 6.88, BUN of 50, potassium 4.5. IMPRESSION: 1. End-stage renal disease, on a Monday, Monday, Monday schedule dialysis. 2. Cardiopulmonary failure in the context of hypervolemia/hyperkalemia. 3. Morbid obesity. 4. Schizophrenic bipolar disorder. PLAN: 1. The patient to be dialyzed tomorrow in accordance with the schedule. Ultrafiltration as tolerated by hemodynamics. 2. Please note that this patient has a court-mandated Risperdal dosing. Therefore, at the time of the extubation of this patient, recommendation will be for this patient to go back on her Risperdal because of her schizophrenic bipolar disorder. Otherwise, the patient goes into a catatonic phase. 3. Still awaiting the results of the COVID-19. All further management to be dependent on the clinical course. Job ID: [id number]
[2019-05-16] MEDS ORDERED: methylPREDNISolone Sod Succ/PF 125 MG/2 ML VIAL IVP SCH (17:00)
[2019-05-16] MEDS: Famotidine/PF 20 mg/2ml Vial SLOW IVP SCH (20:08)
[2019-05-16] MEDS: risperiDONE 1 MG TAB PO SCH (20:08)
[2019-05-16] MEDS: Cefepime 0.5 GM, Admixture Fee 1 EACH in Sodium Chloride 0.9% 100 ML IVPB SCH (20:09)
[2019-05-17] MEDS: Propofol 1,000 MG/100 ML VIAL IV PRN ×2 (01:02→05:45)
[2019-05-17] MEDS: Acetaminophen 325 MG TAB PO PRN (04:17)
[2019-05-17 04:54] LABS: ALT (SGPT) 26 U/L (8-55); AST (SGOT) 16 U/L (5-34); Albumin 3.3 g/dL (3.5-5.0); Alkaline Phosphatase 78 U/L (40-110); Anion Gap 23 mmol/L (10-20); BUN (Urea Nitrogen) 66 mg/dL (9.8-20.1); Bilirubin, Total 0.7 mg/dL (0.2-1.2); Calc. Creatinine Clearance 14 mL/min (70-130); Calcium 9.6 mg/dL (7.8-10.44); Carbon Dioxide 19 mmol/L (22-29); Chloride 94 mmol/L (98-107); Estimated GFR-MDRD 6; Globulin 3.5 g/dL (2.4-3.5); Glucose 177 mg/dL (70-105); Potassium 5.2 mmol/L (3.5-5.1); Protein, Total 6.8 g/dL (6.0-8.3); Sodium 131 mmol/L (136-145)
[2019-05-17 04:55] LABS: Band 5 % (5-11); Hemoglobin 11.2 g/dL (12.0-16.0); Lymphocytes 11 % (21-51); MDiff Complete? YES; Mean Corpuscular HGB CONC 31.2 g/dL (32.0-36.0); Mean Corpuscular Hemoglobin 27.6 pg (27.0-31.0); Mean Corpuscular Volume 88.4 fL (78.0-98.0); Mean Platelet Volume 8.7 fL (7.4-10.4); Monocytes 1 % (0-10); Neutrophil 82 % (42-75); Nucleated RBC 3 % (0); Platelet Count 259 thou/uL (130-400); Platelet Morphology Comment Appears Adequate; RBC Distribution Width 15.4 % (11.5-14.5); Red Blood Cell (RBC) Count 4.06 mill/uL (4.20-5.40); White Blood Cell (WBC) Count 10.6 thou/uL (4.8-10.8)
--- NOTE | 2019-05-17 07:05 | PDOC.FM ---
- Subjective Subjective: pt intubated, mildly sedated, responds to verbal stimuli. no events overnight - Objective Vital Signs & Weight: Vital Signs (12 hours) Temp Pulse Resp BP Pulse Ox 05/17/19 06:00 99.5 F 14 05/17/19 04:00 100.8 F H 14 05/17/19 02:30 84 05/17/19 02:00 21 H 05/17/19 00:00 100.3 F H 14 05/16/19 23:00 100.5 F H 05/16/19 22:08 95 133/74 05/16/19 22:00 16 05/16/19 20:00 14 05/16/19 19:28 100 Weight Admit Weight 120.9 kg Weight 113.4 kg Most Recent Monitor Data Heart Rate from ECG 88 NIBP 95/51 NIBP BP-Mean 65 Respiration from ECG 14 SpO2 100 I&O: 05/16/19 05/17/19 05/18/19 06:59 06:59 06:59 Intake Total 2236 1349 Output Total 300 0 Balance 1936 1349 Result Diagrams: 05/17/19 04:14 05/17/19 04:14 Phys Exam - Physical Examination Constitutional: NAD HEENT: moist MMs Respiratory: clear to auscultation bilateral Cardiovascular: no significant murmur Gastrointestinal: no distention Musculoskeletal: no edema Neurological: moves all 4 limbs Psychiatric: normal affect Skin: no rash Dx/Plan (1) Acute metabolic encephalopathy Code(s): G93.41 - METABOLIC ENCEPHALOPATHY Status: Acute (2) COPD (chronic obstructive pulmonary disease) Status: Acute (3) ESRD (end stage renal disease) Code(s): N18.6 - END STAGE RENAL DISEASE Status: Acute (4) HTN (hypertension) Code(s): I10 - ESSENTIAL (PRIMARY) HYPERTENSION Status: Acute (5) Schizophrenia Code(s): F20.9 - SCHIZOPHRENIA, UNSPECIFIED Status: Acute - Plan Plan: Acute Hypoxic respiratory failure, likely 2/2 volume overload - intubated, continue sedation protocol, hold tube feeds for possible surgery - CT/CXR c/w fluid overload, interstitial edema - B/UCx NGTD, procal downtrended - continue broad spectrum abx, consider adding atypical coverage if pt decompensates - COVID neg Hyperkalemia -S/P calcium chloride, sodium bicarb, D50 and insulin -nephro consulted, dialyze as needed Hypertensive urgency -resolved Transaminitis -Slightly elevated AST/ALT on admission - Bili normal, monitor ESRD on HD -Nephrology consulted - declot fistula today, tunnel cath placement by surg COPD -Will monitor ROSITA Schizophrenia with hx of catatonia Code: Full Prophylaxis: Pepcid, heparin Lines and tubes: OG tube, 7.5 ET tube, right Fem trialysis catheter Disposition: pt to remain intubated/sedated for possible surg today, consider extubation afterward. hold tube feeds Addendum - Attending - Attending Attestation Date/Time: 05/17/19 4128 I personally evaluated the patient and discussed the management with Dr. Valdez. I agree with the History, Examination, Assessment and Plan documented above with any addition or exceptions noted below. Patient overall stable. COVID negative. Anticipate that all of her respiratory arrest was due to fluid overload from lack of HD. She continue to improve with subsequent HD sessions. Nephro and Pulm on board. Hopeful extubation in the near future. She is going for fistula maintenance today with General Surgery.
[2019-05-17] MEDS ORDERED: methylPREDNISolone Sod Succ/PF 125 MG/2 ML VIAL IVP SCH (07:45)
--- NOTE | 2019-05-17 07:48 | RAD ---
EXAM: Portable chest PROVIDED CLINICAL HISTORY: Respiratory insufficiency COMPARISON: 05/16/2019 FINDINGS: Significant interval change with respect to the prior examination is not apparent. IMPRESSION: As above.
[2019-05-17] MEDS ORDERED: Dextrose 50% Abboject 50 ML SYRINGE ONE (07:49)
--- NOTE | 2019-05-17 07:50 | PRG ---
DATE OF SERVICE: 05/17/2019 SUBJECTIVE: Ana Rosa De La Torre's COVID was negative fortunately. OBJECTIVE: VITAL SIGNS: She is afebrile, respiratory rates in the teens, blood pressure currently 143/78, heart rate is 103, and oximetry is 100%. We turned her IMV down to 2. LUNGS: Remarkable for distant breath sounds. HEART: Regular rhythm. ABDOMEN: Soft. EXTREMITIES: Without edema. DIAGNOSTIC DATA: Chest x-ray shows recurrence of pulmonary edema. Today, she is positive 1349 on intake and output. White count 10.6, hemoglobin 11.2, platelets 259. Sodium 131, potassium 5.2, chloride 94, bicarb 19, BUN 66, and creatinine 8.44. IMPRESSION: 1. Respiratory failure after respiratory arrest associated with volume overload, most likely. 2. Recurrent volume overload. She probably needs to be dialyzed on a daily basis. PLAN: She does have an adequate leak today. She had a very small leak yesterday when the cuff was deflated. She has received 2 doses of steroids as of this morning. She will be extubated after dialysis if she is stable. CRITICAL CARE TIME: 30 minutes. Job ID: [id number]
--- NOTE | 2019-05-17 07:51 | PRG ---
DATE OF SERVICE: 05/16/2019 SUBJECTIVE: Ms. De La Torre remains intubated. OBJECTIVE: VITAL SIGNS: Afebrile. Heart rate 75, blood pressure 135/78, respiratory rate 14. Lungs ,heart , abdomen unchanged LABORATORY DATA: Her COVID test is still pending . Chest radiographs reviewed. Pulmonary edema has resolved. IMPRESSION: Until we know her COVID status, extubation will not be attempted. I suspect all of her problems were related to inadequate dialysis combined with noncompliance. Unfortunately, we do not have the COVID test back. Extubate once COVID status known. Index of suspicion for COVID is low. Job ID: [id number] MTDD
[2019-05-17] MEDS ORDERED: Lidocaine 2% w/Epinephrine 1:200K 20 ML VIAL ONE (08:23)
[2019-05-17] MEDS ORDERED: Heparin 10,000 UNITS/1 ML VIAL ONE (08:23)
[2019-05-17] MEDS ORDERED: Sodium Chloride 0.9% 20 ML ONE (08:23)
[2019-05-17] MEDS ORDERED: Bupivacaine 0.25% HCL 30 ML VIAL ONE (08:23)
[2019-05-17] MEDS ORDERED: Heparin 5,000 UNITS/ML VIAL ONE (08:23)
[2019-05-17] MEDS ORDERED: Protamine Sulfate 50 MG/5 ML VIAL ONE (08:23)
[2019-05-17] MEDS ORDERED: Midazolam HCl 2 mg/2 ml Vial ONE (08:43)
[2019-05-17] MEDS ORDERED: Fentanyl 100 MCG/2 ML VIAL ONE (08:43)
--- NOTE | 2019-05-17 09:27 | CON ---
DATE OF CONSULTATION: REASON FOR CONSULT: Need for dialysis access. HISTORY OF PRESENT ILLNESS: Ms. De La Torre is a 59-year-old woman, who has a left upper arm AV graft placed in August of 2017. She apparently presented to the [facility] and was found to have thrombosis of the graft and was sent to [facility] for thrombectomy. In the middle of this procedure; however, she became very short of breath and was transferred to the emergency room. She ended up getting intubated and admitted to CCU for rule out COVID versus fluid overload. She has responded to dialysis and has not been febrile and her COVID test came back negative. She has a femoral Trialysis catheter in place, which was placed by Dr. Schulz, and has been undergoing dialysis regularly and her inspector glass or mirror feels like she is likely going to be ready for extubation today after dialysis. However, her graft is still clotted and she does not have good permanent access. I do not have images from the [facility], but apparently this has had problems with thrombosis in the past. He had been able to clear the outflow and that looked good, but had not evaluated the inflow when she had her respiratory issues by report. PAST MEDICAL HISTORY: Diabetes, hypertension, heart failure, hyperlipidemia, end-stage renal disease, on dialysis; schizophrenia, and obstructive sleep apnea. SURGICAL HISTORY: Tubal ligation, hernia surgery, laparoscopic cholecystectomy, left AV fistula, and left AV graft. FAMILY HISTORY: Cancer in her father of unknown type. SOCIAL HISTORY: The patient does not smoke, drink, or use illicit drugs. ALLERGIES: SHE REPORTS ALLERGIES OR ADVERSE DRUG REACTIONS TO PENICILLIN, IODINE, INFLUENZA VACCINES, AND QUETIAPINE. CURRENT MEDICATIONS: Include, 1. Cefepime. 2. Pepcid. 3. Vent sedation protocol. 4. Subcu heparin. 5. Solu-Medrol. 6. Risperidone. 7. Sliding scale vancomycin. 8. Multiple p.r.n.. REVIEW OF SYSTEMS: Not obtainable as the patient is intubated and sedated. PHYSICAL EXAMINATION: VITAL SIGNS: The patient's T-max has been 100.8, T current 99.6. Heart rate this morning is 104. She is 100% saturated on the ventilator. Blood pressure 90/57. Breathing 14 times a minute. GENERAL: Reveals a deeply sedated woman, in no acute distress. She is not flushed or toxic, jaundiced or icteric. HEENT: Unremarkable. OG tube and endotracheal tube are in place. HEART: Regular in its rate and rhythm without murmurs, rubs, or gallops. LUNGS: She has coarse breath sounds bilaterally. ABDOMEN: Soft and nondistended. She does not exhibit any apparent tenderness on palpation and does not have any palpable masses or hernias. EXTREMITIES: Warm, well perfused without edema. There is no thrill or bruit in her left upper arm AV graft. NEURO: Unable to evaluate. PSYCHIATRIC: Unable to evaluate. LABORATORY DATA: Her white count is normal at 10.6. She does have a bit of a left shift with 82% neutrophils, hematocrit is 35.9, and platelets are 259. Potassium this morning is 5.2, bicarb 19. BUN and creatinine, 66 and 8.44. ASSESSMENT AND PLAN: End-stage renal failure with clotted dialysis access. Apparently, this has clotted before and it is unclear whether she might have an inflow problem, although by Dr. Sy's report, her outflow looks good. This has likely been thrombosed for at least a week, so chances of restoring flow and salvaging the graft are rather low. I have recommended placement of a tunneled dialysis catheter and attempted thrombectomy. Her daughter has given consent for this by phone and she is being taken to the operating room for this procedure. She is on scheduled antibiotics with a dose of cefepime last night and her last dose of vancomycin on the , so we will likely give her another dose of antibiotics preoperatively. Job ID: [id number] MTDD
[2019-05-17] MEDS ORDERED: Heparin 10,000 UNITS/ 10 ML VIAL ONE (09:38)
[2019-05-17] MEDS ORDERED: Ioversol 68 % 50 ML VIAL ONE ×2 (10:06→10:41)
[2019-05-17] MEDS ORDERED: Ondansetron PF 4 MG/2 ML Vial ONE (10:47)
[2019-05-17] MEDS ORDERED: diphenhydrAMINE 50 MG/ML VIAL ONE (10:47)
[2019-05-17] MEDS ORDERED: PHENYLEPHRINE-NS 100 MCG/ML 10 ML SYRINGE ONE (10:47)
[2019-05-17] MEDS ORDERED: EPHEDRINE 25 MG/5 ML SYRINGE ONE (10:47)
[2019-05-17] MEDS ORDERED: Metoclopramide HCl 10 MG/2 ML VIAL ONE (10:47)
--- NOTE | 2019-05-17 11:51 | RAD ---
EXAM: XR Fluoro Per Hour Portable PROVIDED CLINICAL HISTORY: : Left upper extremity arteriovenous dialysis fistula COMPARISON: None FINDINGS\IMPRESSION: Fluoroscopy was provided for Dr. Ventura for evaluation of a left upper extremity arteriovenous dialy sis fistula correlation with intraoperative findings is recommended. Fluoroscopy: Time-16 seconds Dose 0.252 brewer centimeter squared
[2019-05-17] MEDS: Heparin 5,000 UNITS/ML VIAL SC SCH ×3 (12:15→20:57)
--- NOTE | 2019-05-17 12:33 | RAD ---
EXAM: CHEST ONE VIEW HISTORY: Post left internal jugular vein hemodialysis catheter placement. COMPARISON: 05/17/2019 FINDINGS: Endotracheal tube and nasogastric tubes remain in place. There has been interval placement of a tunne led left internal jugular vein hemodialysis catheter with the tip overlying the expected location of the SVC. Cardiac silhouette and mediastinal structures are accentuated due to patient rotation to the left. Mild increase in perihilar vasculature is seen. There is mild increase in interstitial and patchy parenchymal densities at the right lung base. Small bilateral pleural effusions are seen. No pneumothorax is identified on this exam. No other interval change. IMPRESSION: 1. Interval placement of a tunneled left internal jugular vein hemodialysis catheter without evidence of a pneumothorax. 2. Mild cardiomegaly and pulmonary vascular congestion. 3. Increased interstitial and patchy parenchymal densities right lung base which could be related to aspiration pneumonitis or pneumonia. Follow-up to resolution is recommended. 4. Small bilateral pleural effusions.
--- NOTE | 2019-05-17 12:41 | PDOC.OP ---
Operative Note - Operative Note Operative Note: DATE OF PROCEDURE: 05/17/2019 PROCEDURE: Placement of left internal jugular tunneled hemodialysis catheter with ultrasound and fluoroscopic guidance and thrombectomy of left upper arm AV graft. SURGEON: Jesus Alberto Ventura M.D. PREOPERATIVE DIAGNOSIS: End-stage renal failure and thrombosed left upper arm AV graft. POSTOPERATIVE DIAGNOSIS: End-stage renal failure and thrombosed left upper arm AV graft. HISTORY: Patient with renal failure and thrombosed left upper arm AV graft. She has a femoral dialysis catheter in place but requires permanent access. A tunneled hemodialysis catheter for ongoing dialysis has been requested by the patients bisque placer. Her AV graft has been thrombosed for about a week but an attempted thrombectomy will also be undertaken to try to salvage it. PROCEDURE: After informed consent was obtained and appropriate preoperative antibiotics were administered, the patient was taken to the Operating Room, placed in the supine position and monitored anesthesia care was administered. The neck and chest were prepped and draped in a standard sterile fashion and the patient placed in Trendelenburg position. A sterile ultrasound probe was used to identify the right IJ vein but this was only partially compressible indicating chronic thrombus. Attention was turned to the left internal jugular vein which was patent and compressible. This was accessed under direct ultrasound guidance. A wire was threaded through the needle and confirmed by ultrasound to be within the patent compressible vessel with the tip in the vena cava by fluoroscopy. Local anesthesia was infused to the skin and subcutaneous tissues of the left neck and chest. An infraclavicular incision was made and a catheter tunneled from the infraclavicular to the left IJ access site. The left IJ was sequentially dilated over the wire following which a dilator and sheath were placed over the wire and the dilator and wire removed leaving the sheath in place. The catheter was tunneled through the sheath which was then split and removed leaving the catheter in place. This was confirmed by fluoroscopy to be in good position in the superior vena cava with no kinking of the course of the catheter. Both ports easily aspirated dark venous nonpulsatile blood and easily flushed without resistance. Heparin was instilled to the quantity specified on the hub, and the hub was secured to the skin with 3-0 nylon sutures. The skin incision at the neck was closed in two layers with 4-0 Monocryl suture and Dermabond dressings were placed. The skin at the exit site was snugged up around the catheter with 4-0 Monocryl suture and Dermabond was placed there as well. Once the Dermabond was dry, an antimicrobial occlusive dressing was placed at the exit site. Attention was then turned to thrombectomy of the left upper arm AV graft. The patient's left arm was prepped and draped in standard sterile fashion and a longitudinal incision made over the proximal graft. Dissection was carried down to the graft which was dissected free circumferentially and Vesseloops placed proximally and distally. A transverse incision was made and a Kareem catheter passed up into the axillary vein and withdrawn with the balloon up removing both soft and organized thrombus. This process was repeated until there was excellent backflow. The venous arm of the graft was then flushed with heparinized saline and clamped and attention turned to the arterial inflow. The Kareem catheter was passed down into the artery and drawn back with the balloon up removing both soft and organized thrombus with excellent inflow achieved. This was flushed with heparinized saline and clamped. Angiography of the venous outflow was then performed and persistent stenosis seen near the anastomosis. Kareem catheter was used to remove some additional organized thrombus following which repeat angiography showed improved patency of that area. There was still some irregularity near the anastomosis and of the axillary vein just above the level of the anastomosis but this was not flow- limiting. Angiography of the arterial inflow showed wide patency of the anastomosis. Both arms were flushed with heparinized saline again clamped and the transverse incision and closed with a running 6-0 Prolene suture with excellent technical result flow was established through the graft and hemostasis verified. The Doppler was used to confirm that there was ongoing flow in the graft. The subcutaneous tissues were reapproximated with a running 3-0 Monocryl suture and the skin was closed with a running subcuticular 4-0 Monocryl suture. Dermabond dressings were placed. The patient was taken to CCU in good condition. Estimated blood loss was minimal. There were no complications. There were no specimens.
[2019-05-17] MEDS ORDERED: Vancomycin HCl 750 MG in Sodium Chloride 0.9% 250 ML 250 ML IVPB SCH (14:15)
--- NOTE | 2019-05-17 16:32 | PRG ---
DATE OF SERVICE: 05/17/2019 SUBJECTIVE: The patient was seen and examined. Awake, on life support, hemodynamically stable. OBJECTIVE: HEENT: Unremarkable. CARDIOVASCULAR SYSTEM: First and second heart sounds were heard. RESPIRATORY SYSTEM: Clear to auscultation. DIGESTIVE SYSTEM: Revealed a benign abdomen. EXTREMITIES: No peripheral edema. SKIN: No new gross rash. LYMPHATICS: No peripheral lymphadenopathy. IMPRESSION: 1. End-stage renal disease, on hemodialysis due for dialysis today. 2. Mild hyperkalemia. 3. Cardiopulmonary failure in the context of hypervolemia. 4. Morbid obesity. 5. Bipolar schizophrenia. PLAN: 1. The patient to be dialyzed today. 2. Likely after dialysis, the patient to be extubated. 3. Further management to be dependent on the clinical course. Job ID: [id number]
[2019-05-17] MEDS ORDERED: Activase 2 MG VIAL CATH SCH (18:30)
[2019-05-17] MEDS: Famotidine/PF 20 mg/2ml Vial SLOW IVP SCH (20:56)
[2019-05-17] MEDS ORDERED: Morphine 2 MG/ML SYRINGE SLOW IVP PRN (21:21)
[2019-05-17] MEDS ORDERED: fentaNYL Citrate/PF 2,000 MCG in Sodium Chloride 0.9% 60 ML IV SCH (21:21)
[2019-05-17] MEDS ORDERED: Propofol BOLUS 1,000 MG/100 ML VIAL IV PRN (21:21)
[2019-05-17] MEDS ORDERED: Propofol 1,000 MG/100 ML VIAL IV PRN (21:21)
[2019-05-17] MEDS ORDERED: DISCONTINUE PREVIOUS NARCOTIC PAIN MEDICATIONS AND BENZODIAZEPINES FS SCH (21:21)
[2019-05-17] MEDS ORDERED: Fentanyl BOLUS 250 ML IVPB PRN (21:21)
[2019-05-17] MEDS ORDERED: Lorazepam 2 MG/ML VIAL SLOW IVP PRN (21:21)
[2019-05-18] MEDS: Cefepime 0.5 GM, Admixture Fee 1 EACH in Sodium Chloride 0.9% 100 ML IVPB SCH (01:30)
[2019-05-18] MEDS: risperiDONE 1 MG TAB PO SCH ×2 (01:30→21:33)
--- NOTE | 2019-05-18 06:36 | PDOC.FM ---
- Objective Vital Signs & Weight: Vital Signs (12 hours) Temp Pulse Resp BP Pulse Ox 05/18/19 06:00 16 05/18/19 04:00 17 05/18/19 02:00 100 14 126/83 05/18/19 00:00 99.4 F 18 05/17/19 22:00 27 H 05/17/19 21:57 91 125/66 05/17/19 20:00 15 100 05/17/19 19:00 98.8 F Weight Admit Weight 120.9 kg Weight 110.9 kg Most Recent Monitor Data Heart Rate from ECG 82 NIBP 128/63 NIBP BP-Mean 84 Respiration from ECG 15 SpO2 99 I&O: 05/16/19 05/17/19 05/18/19 06:59 06:59 06:59 Intake Total 2236 1349 302.3 Output Total 300 0 Balance 1936 1349 302.3 Result Diagrams: 05/17/19 04:14 05/17/19 04:14 Dx/Plan (1) Acute metabolic encephalopathy Code(s): G93.41 - METABOLIC ENCEPHALOPATHY Status: Acute (2) COPD (chronic obstructive pulmonary disease) Status: Acute (3) ESRD (end stage renal disease) Code(s): N18.6 - END STAGE RENAL DISEASE Status: Acute (4) HTN (hypertension) Code(s): I10 - ESSENTIAL (PRIMARY) HYPERTENSION Status: Acute (5) Schizophrenia Code(s): F20.9 - SCHIZOPHRENIA, UNSPECIFIED Status: Acute
--- NOTE | 2019-05-18 06:39 | PDOC.FM ---
- Subjective Subjective: pt intubated and sedated, no events overnight. - Objective Vital Signs & Weight: Vital Signs (12 hours) Temp Pulse Resp BP Pulse Ox 05/18/19 06:00 16 05/18/19 04:00 17 05/18/19 02:00 100 14 126/83 05/18/19 00:00 99.4 F 18 05/17/19 22:00 27 H 05/17/19 21:57 91 125/66 05/17/19 20:00 15 100 05/17/19 19:00 98.8 F Weight Admit Weight 120.9 kg Weight 110.9 kg Most Recent Monitor Data Heart Rate from ECG 82 NIBP 128/63 NIBP BP-Mean 84 Respiration from ECG 15 SpO2 99 I&O: 05/16/19 05/17/19 05/18/19 06:59 06:59 06:59 Intake Total 2236 1349 302.3 Output Total 300 0 Balance 1936 1349 302.3 Result Diagrams: 05/18/19 06:42 05/18/19 06:42 Phys Exam - Physical Examination Constitutional: NAD HEENT: moist MMs Neck: no JVD Respiratory: clear to auscultation bilateral Cardiovascular: no significant murmur Gastrointestinal: non-tender, no distention Musculoskeletal: no edema Skin: no rash Dx/Plan (1) Acute metabolic encephalopathy Code(s): G93.41 - METABOLIC ENCEPHALOPATHY Status: Acute (2) COPD (chronic obstructive pulmonary disease) Status: Acute (3) ESRD (end stage renal disease) Code(s): N18.6 - END STAGE RENAL DISEASE Status: Acute (4) HTN (hypertension) Code(s): I10 - ESSENTIAL (PRIMARY) HYPERTENSION Status: Acute (5) Schizophrenia Code(s): F20.9 - SCHIZOPHRENIA, UNSPECIFIED Status: Acute - Plan Plan: Acute Hypoxic respiratory failure, likely 2/2 volume overload - intubated, continue sedation protocol, resume tube feeds - CT/CXR c/w fluid overload, interstitial edema - B/UCx NGTD, procal downtrended - continue broad spectrum abx, consider adding atypical coverage if pt decompensates - COVID neg Hyperkalemia -S/P calcium chloride, sodium bicarb, D50 and insulin -nephro consulted, dialyze as needed Hypertensive urgency -resolved Transaminitis -Slightly elevated AST/ALT on admission - Bili normal, monitor ESRD on HD -Nephrology consulted - s/p declot fistula, tunnel cath placement by surg COPD -Will monitor ROSITA Schizophrenia with hx of catatonia Code: Full Prophylaxis: Pepcid, heparin Lines and tubes: OG tube, 7.5 ET tube, right Fem trialysis catheter Disposition: evaluate for extubation today Addendum - Attending - Attending Attestation Date/Time: 05/18/19 1092 I personally evaluated the patient and discussed the management with Dr. Valdez. I agree with the History, Examination, Assessment and Plan documented above with any addition or exceptions noted below. Patient stable. Awaiting hopeful extubation today from her respiratory failure from fluid overload. Anticipate stopping abx today as no evidence for infection. Continue HD per Nephro recs.
[2019-05-18 06:51] LABS: #Basophils 0.1 thou/uL (0.0-0.2); #Eosinphils 0.1 thou/uL (0.0-0.7); #Lymphocytes 2.2 thou/uL (1.20-3.40); #Monocytes 1.8 thou/uL (0.11-0.59); #Neutrophils 8.4 thou/uL (1.40-6.50); %Eosinophils 0.5 % (0.0-10.0); %Lymphocytes 17.5 % (21.0-51.0); %Monocytes 14.3 % (0.0-10.0); %Neutrophils 66.6 % (42.0-75.0); Hemoglobin 11.4 g/dL (12.0-16.0); Mean Corpuscular HGB CONC 31.2 g/dL (32.0-36.0); Mean Corpuscular Hemoglobin 28.3 pg (27.0-31.0); Mean Corpuscular Volume 90.7 fL (78.0-98.0); Mean Platelet Volume 8.7 fL (7.4-10.4); Platelet Count 263 thou/uL (130-400); RBC Distribution Width 15.6 % (11.5-14.5); Red Blood Cell (RBC) Count 4.04 mill/uL (4.20-5.40); White Blood Cell (WBC) Count 12.6 thou/uL (4.8-10.8)
[2019-05-18 07:10] LABS: ALT (SGPT) 16 U/L (8-55); AST (SGOT) 23 U/L (5-34); Albumin 3.6 g/dL (3.5-5.0); Alkaline Phosphatase 79 U/L (40-110); Anion Gap 23 mmol/L (10-20); BUN (Urea Nitrogen) 35 mg/dL (9.8-20.1); Calc. Creatinine Clearance 18 mL/min (70-130); Carbon Dioxide 23 mmol/L (22-29); Chloride 93 mmol/L (98-107); Estimated GFR-MDRD 9; Globulin 3.8 g/dL (2.4-3.5); Glucose 75 mg/dL (70-105); Potassium 4.1 mmol/L (3.5-5.1); Protein, Total 7.4 g/dL (6.0-8.3); Sodium 135 mmol/L (136-145)
[2019-05-18] MEDS: Heparin 5,000 UNITS/ML VIAL SC SCH ×3 (08:03→21:33)
--- NOTE | 2019-05-18 09:35 | PRG ---
DATE OF SERVICE: 05/18/2019 SUBJECTIVE: The patient was reduced to vent rate of 2 yesterday which she tolerated relatively well. She had placement of tunnelled dialysis catheter last evening and underwent dialysis until late last night. As such, she was placed on IMV over the night and is currently on CPAP in anticipation of weaning and possible extubation. She is awake and follow simple commands. She complains of pain most commonly in the upper chest, associated with her catheter placement. OBJECTIVE: VITAL SIGNS: Blood pressure 114/69, heart rate 104, saturation 95% . GENERAL: She is comfortable on the ventilator and has maximal spontaneous vital capacity of 1100. She is awake and follow simple commands. She nods her head that she wishes to be extubated. NECK: Modest JVD, although she is fairly supine. LUNGS: Clear to auscultation. HEART: Regular rate and rhythm with resting tachycardia. ABDOMEN: Obese, soft. There is no organomegaly. EXTREMITIES: No edema. Her access in the left upper arm does not have a palpable thrill or palpable pulse. She has a new tunnelled catheter over the left anterior chest. LABORATORY DATA: White count 12,600, hemoglobin 11.4, platelet count 263,000. Electrolytes notable for BUN 35 and creatinine of 5.9. Her coronavirus screen is negative. IMPRESSION: 1. Respiratory failure, most likely secondary to volume overload and under dialysis. 2. End-stage renal disease with clotted left upper arm graft and placement of new tunnelled catheter. 3. History of schizophrenia. PLAN: She is tolerating significant reduction in IMV. She is awake and alert with a good spontaneous volume and oxygen status. Hemodynamically she is stable and I anticipate extubation today. Job ID: [id number] [facility]
[2019-05-18] MEDS ORDERED: Haloperidol Lactate 5 MG/ML VIAL SLOW IVP SCH (14:45)
[2019-05-18] MEDS: Carvedilol 3.125 MG TAB PO SCH (21:33)
[2019-05-18] MEDS: Famotidine/PF 20 mg/2ml Vial SLOW IVP SCH (21:33)
[2019-05-19 05:26] LABS: ALT (SGPT) 8 U/L (8-55); AST (SGOT) 24 U/L (5-34); Albumin 3.4 g/dL (3.5-5.0); Alkaline Phosphatase 78 U/L (40-110); Anion Gap 24 mmol/L (10-20); BUN (Urea Nitrogen) 50 mg/dL (9.8-20.1); Bilirubin, Total 0.8 mg/dL (0.2-1.2); Calc. Creatinine Clearance 13 mL/min (70-130); Calcium 9.6 mg/dL (7.8-10.44); Carbon Dioxide 22 mmol/L (22-29); Chloride 94 mmol/L (98-107); Estimated GFR-MDRD 6; Globulin 3.6 g/dL (2.4-3.5); Glucose 85 mg/dL (70-105); Potassium 4.9 mmol/L (3.5-5.1); Sodium 135 mmol/L (136-145)
--- NOTE | 2019-05-19 07:19 | PDOC.FM ---
- Subjective Subjective: pt resting comfortably in bed, pain associated with tunnel cath. denies sob, cough - Objective Vital Signs & Weight: Vital Signs (12 hours) Temp Pulse Resp BP BP Pulse Ox 05/19/19 04:29 98.1 F 93 18 123/65 100 05/19/19 00:00 98.4 F 96 18 171/106 H 100 05/18/19 20:00 98.2 F 106 H 26 H 106/65 100 Weight Admit Weight 120.9 kg Weight 110.9 kg Most Recent Monitor Data Heart Rate from ECG 118 NIBP 160/73 NIBP BP-Mean 102 Respiration from ECG 28 SpO2 100 I&O: 05/18/19 05/19/19 05/20/19 06:59 06:59 06:59 Intake Total 302.3 295 Balance 302.3 295 Result Diagrams: 05/18/19 06:42 05/19/19 05:00 Phys Exam - Physical Examination Constitutional: NAD HEENT: moist MMs Respiratory: clear to auscultation bilateral Cardiovascular: no significant murmur Gastrointestinal: no distention Musculoskeletal: pulses present Neurological: moves all 4 limbs Psychiatric: normal affect Skin: no rash Dx/Plan (1) Acute metabolic encephalopathy Code(s): G93.41 - METABOLIC ENCEPHALOPATHY Status: Acute (2) COPD (chronic obstructive pulmonary disease) Status: Acute (3) ESRD (end stage renal disease) Code(s): N18.6 - END STAGE RENAL DISEASE Status: Acute (4) HTN (hypertension) Code(s): I10 - ESSENTIAL (PRIMARY) HYPERTENSION Status: Acute (5) Schizophrenia Code(s): F20.9 - SCHIZOPHRENIA, UNSPECIFIED Status: Acute - Plan Plan: Acute Hypoxic respiratory failure, likely 2/2 volume overload - extubated 05/17 - CT/CXR c/w fluid overload, interstitial edema - B/UCx NGTD, procal downtrended - COVID neg Hyperkalemia -S/P calcium chloride, sodium bicarb, D50 and insulin -nephro consulted, dialyze as needed Hypertensive urgency -resolved Transaminitis -Slightly elevated AST/ALT on admission - Bili normal, monitor ESRD on HD -Nephrology consulted - s/p declot fistula, tunnel cath placement by surg COPD -Will monitor ROSITA Schizophrenia with hx of catatonia Code: Full Prophylaxis: Pepcid, heparin Disposition: dc planning Addendum - Attending - Attending Attestation Date/Time: 05/19/19 7806 I personally evaluated the patient and discussed the management with Dr. Valdez. I agree with the History, Examination, Assessment and Plan documented above with any addition or exceptions noted below. Patient stable, continue to wean O2. She is overall doing well s/p extubation. Continue HD per Nephro.
[2019-05-19] MEDS: Aspirin 81 mg Enteric Coated Tablet PO SCH (08:52)
[2019-05-19] MEDS: Carvedilol 3.125 MG TAB PO SCH ×2 (08:53→23:07)
[2019-05-19] MEDS: Atorvastatin Calcium 20 MG TAB PO SCH (08:53)
[2019-05-19] MEDS: Heparin 5,000 UNITS/ML VIAL SC SCH ×3 (08:53→23:08)
[2019-05-19 17:23] LABS: #Eosinphils 0.2 thou/uL (0.0-0.7); #Lymphocytes 1.5 thou/uL (1.20-3.40); #Monocytes 1.1 thou/uL (0.11-0.59); #Neutrophils 5.3 thou/uL (1.40-6.50); %Basophils 0.4 % (0.0-1.0); %Eosinophils 2.1 % (0.0-10.0); %Lymphocytes 18.8 % (21.0-51.0); %Monocytes 13.9 % (0.0-10.0); %Neutrophils 64.8 % (42.0-75.0); Hemoglobin 11.4 g/dL (12.0-16.0); Mean Corpuscular HGB CONC 32.8 g/dL (32.0-36.0); Mean Corpuscular Volume 88.4 fL (78.0-98.0); Mean Platelet Volume 8.4 fL (7.4-10.4); Platelet Count 303 thou/uL (130-400); RBC Distribution Width 15.6 % (11.5-14.5); Red Blood Cell (RBC) Count 3.92 mill/uL (4.20-5.40); White Blood Cell (WBC) Count 8.2 thou/uL (4.8-10.8)
--- NOTE | 2019-05-19 18:11 | PRG ---
DATE OF SERVICE: 05/19/2019 SUBJECTIVE: Ms. De La Torre has done well since she was extubated. She did not receive dialysis today. She has no recollection of the events surrounding her deterioration in hospitalization. PHYSICAL EXAMINATION: VITAL SIGNS: Blood pressure 149/65, heart rate 111, temperature 99.1, respiratory rate 20, saturation is 95 on 4 L oxygen. GENERAL: She is slow, probably consistent with her schizophrenia. She does note that she is in the hospital, but needed to be oriented that she was in [place]. LUNGS: Show basilar crackles, but no wheezing. HEART: Regular rate and rhythm. She has a grade 1 murmur. ABDOMEN: Obese, soft. EXTREMITIES: Her fistula in the left upper arm has no thrill. She has a left subclavian tunneled catheter. LABORATORY DATA: White count today 8200, hemoglobin 11.4, platelet count 303,000. Differential is normal. Her electrolytes include sodium 135, potassium 4.9, chloride 94, CO2 of 22, BUN 50, creatinine 8.2. Liver tests are normal. IMPRESSION: 1. End-stage renal disease without absolute indication for dialysis today. 2. History of schizophrenia. 3. Status post respiratory failure requiring intubation. This most likely related to volume overload and noncompliance with home dialysis regimen. PLAN: Slowly increase her activity as tolerated. There have been issues with her medication compliance in the past and it would seem that she would do better in a supervised long-term care setting. Job ID: [id number]
[2019-05-19] MEDS: risperiDONE 1 MG TAB PO SCH (23:08)
[2019-05-19] MEDS: Famotidine/PF 20 mg/2ml Vial SLOW IVP SCH (23:08)
[2019-05-20] MEDS: Acetaminophen 325 MG TAB PO PRN ×2 (00:49→14:57)
[2019-05-20] MEDS ORDERED: Heparin 10,000 UNITS/ 10 ML VIAL ONE (08:45)
[2019-05-20 08:51] LABS: Anion Gap 23 mmol/L (10-20); BUN (Urea Nitrogen) 73 mg/dL (9.8-20.1); Calc. Creatinine Clearance 10 mL/min (70-130); Carbon Dioxide 26 mmol/L (22-29); Chloride 92 mmol/L (98-107); Estimated GFR-MDRD 5; Glucose 145 mg/dL (70-105); Potassium 4.5 mmol/L (3.5-5.1); Sodium 136 mmol/L (136-145)
[2019-05-20] MEDS: Atorvastatin Calcium 20 MG TAB PO SCH (09:28)
[2019-05-20] MEDS: Carvedilol 3.125 MG TAB PO SCH ×2 (09:28→20:50)
[2019-05-20] MEDS: Aspirin 81 mg Enteric Coated Tablet PO SCH (09:28)
[2019-05-20] MEDS: Heparin 5,000 UNITS/ML VIAL SC SCH ×3 (09:29→20:50)
--- NOTE | 2019-05-20 09:47 | PDOC.FM ---
- Subjective Subjective: Doing well, pt has continued pain associated with tunnel cath. No new complaints at this time. - Objective Vital Signs & Weight: Vital Signs (12 hours) Temp Pulse Resp BP Pulse Ox 05/20/19 07:45 98.7 F 84 22 H 150/85 H 95 Weight Admit Weight 120.9 kg Weight 110.9 kg Most Recent Monitor Data Heart Rate from ECG 118 NIBP 160/73 NIBP BP-Mean 102 Respiration from ECG 28 SpO2 100 I&O: 05/19/19 05/20/19 05/21/19 06:59 06:59 06:59 Intake Total 295 Balance 295 Result Diagrams: 05/19/19 17:15 05/22/19 05:16 Phys Exam - Physical Examination Constitutional: NAD HEENT: moist MMs, sclera anicteric Neck: no JVD, supple Respiratory: no wheezing, clear to auscultation bilateral Cardiovascular: RRR, no significant murmur Gastrointestinal: soft, non-tender Musculoskeletal: pulses present Neurological: normal sensation, moves all 4 limbs Psychiatric: normal affect, A&O x 3 Skin: no rash, normal turgor Dx/Plan (1) Volume overload Code(s): E87.70 - FLUID OVERLOAD, UNSPECIFIED Status: Resolved Qualifiers: Hypervolemia type: unspecified Qualified Code(s): E87.70 - Fluid overload, unspecified (2) COPD (chronic obstructive pulmonary disease) Status: Acute (3) ESRD (end stage renal disease) Code(s): N18.6 - END STAGE RENAL DISEASE Status: Acute (4) HTN (hypertension) Code(s): I10 - ESSENTIAL (PRIMARY) HYPERTENSION Status: Acute (5) Schizophrenia Code(s): F20.9 - SCHIZOPHRENIA, UNSPECIFIED Status: Acute (6) Obstructive sleep apnea Code(s): G47.33 - OBSTRUCTIVE SLEEP APNEA (ADULT) (PEDIATRIC) Status: Chronic (7) Schizophrenia Code(s): F20.9 - SCHIZOPHRENIA, UNSPECIFIED Status: Chronic Qualifiers: Schizophrenia type: unspecified Qualified Code(s): F20.9 - Schizophrenia, unspecified (8) Hyperkalemia Code(s): E87.5 - HYPERKALEMIA Status: Resolved - Plan Plan: Acute Hypoxic respiratory failure, likely 2/2 volume overload A- improving. extubated /. Pt still on 4L O2. CT/CXR c/w fluid overload, interstitial edema. B/UCx negative, procal downtrended. COVID neg P- continue dialysis, expect respiratory status to improve with more fluid pulled off. -f/u nephro recs Hyperkalemia -resolved. 2/2 ESRD. Dailysis per nephro Hypertensive urgency -resolved Transaminitis -Slightly elevated AST/ALT on admission. Bili normal, monitor ESRD on HD -Nephrology consulted. s/p declot fistula, tunnel cath placement by surg COPD -stable, Will monitor ROSITA -MD aware Schizophrenia with hx of catatonia -stable, continue risperidal Code: Full Prophylaxis: Pepcid, heparin Addendum - Attending - Attending Attestation Date/Time: 05/28/19 5705 I personally evaluated the patient and discussed the management with Dr. Ingram on 05/20/19. I agree with the History, Examination, Assessment and Plan documented above with any addition or exceptions noted below. Stable of Vent. For surgical revision of dialysis catheter tomorrow.
[2019-05-20 13:46] VITALS: BMI 41.9
--- NOTE | 2019-05-20 14:54 | RAD ---
Exam: Modified barium swallow, the presence of a speech pathologist HISTORY: Dysphagia, unspecified. Feeding difficulties Exposure: 1.5 minutes, 94.0 mcg/sq m FINDINGS: In the presence of a speech pathologist, the patient was ministered nectar thick, thin liquid, puree and mechanical soft consistencies. Penetration with nectar thick consistencies. Penetration and aspiration with thin liquid consistency. IMPRESSION: Penetration and aspiration. Please refer to speech pathologist report for feeding recomme ndation.
[2019-05-20] MEDS: predniSONE 50 MG TAB PO SCH (18:13)
[2019-05-20] MEDS: Famotidine/PF 20 mg/2ml Vial SLOW IVP SCH (20:50)
[2019-05-20] MEDS: risperiDONE 1 MG TAB PO SCH (20:50)
--- NOTE | 2019-05-20 20:54 | PRG ---
DATE OF SERVICE: 05/20/2019 SUBJECTIVE: Ana Rosa De La Torre is doing reasonably well. She has no recollection of her stay in the ICU. OBJECTIVE: VITAL SIGNS: She is afebrile. Heart rate is 99, respiratory rate is 22, oximetry on a cannula, blood pressure . LUNGS: Clear. HEART: Regular rhythm. ABDOMEN: Soft. LABORATORY DATA: Sodium 136, potassium 4.5, chloride 92, bicarb 26, BUN 73, creatinine 10.51. IMPRESSION: 1. Respiratory failure associated with volume overload, clotted access. 2. History of medical noncompliance. PLAN: Long-term care would be the best option, meaning permanent long-term care given that she cannot reliably be compliant with followup. From pulmonary standpoint, she is stable at this point in time. We will follow from a distance. Job ID: [id number]
--- NOTE | 2019-05-20 21:45 | PRG ---
DATE OF SERVICE: 05/20/2019 SUBJECTIVE: The patient was seen and examined today at dialysis, doing very well. Noted with the following vital signs. OBJECTIVE: VITAL SIGNS: Afebrile, temperature 98.7, pulse 84, respiratory rate 22, blood pressure 160/85, O2 saturation 95%. HEENT: Unremarkable. CARDIOVASCULAR: First and second heart sounds were heard. RESPIRATORY: Clear to auscultation. DIGESTIVE: Benign abdomen with positive bowel sounds. EXTREMITIES: No peripheral edema. SKIN: No new gross rash. LYMPHATICS: No peripheral lymphadenopathy. IMPRESSION: 1. End-stage renal disease, on hemodialysis. 2. Cardiopulmonary failure, status post ventilatory support. 3. Morbid obesity. 4. Bipolar schizophrenia disorder. PLAN: 1. The patient to continue with dialysis on Monday, Monday, and Monday. 2. Further management to be dependent on the clinical course. Job ID: [id number]
[2019-05-21] MEDS: predniSONE 50 MG TAB PO SCH ×2 (01:32→06:16)
[2019-05-21 05:37] LABS: Anion Gap 15 mmol/L (10-20); BUN (Urea Nitrogen) 53 mg/dL (9.8-20.1); Calc. Creatinine Clearance 13 mL/min (70-130); Calcium 9.9 mg/dL (7.8-10.44); Carbon Dioxide 28 mmol/L (22-29); Chloride 96 mmol/L (98-107); Estimated GFR-MDRD 6; Glucose 188 mg/dL (70-105); Potassium 5.2 mmol/L (3.5-5.1); Sodium 134 mmol/L (136-145)
[2019-05-21] MEDS ORDERED: diphenhydrAMINE 50 MG CAP PO SCH (06:30)
[2019-05-21] MEDS ORDERED: Activase 2 MG VIAL CATH SCH (06:45)
[2019-05-21] MEDS ORDERED: Sterile Water 10 ML VIAL IVP SCH (06:45)
[2019-05-21] MEDS: Carvedilol 3.125 MG TAB PO SCH ×2 (07:05→21:29)
[2019-05-21] MEDS: Aspirin 81 mg Enteric Coated Tablet PO SCH (07:47)
[2019-05-21] MEDS: Heparin 5,000 UNITS/ML VIAL SC SCH ×3 (07:47→21:29)
[2019-05-21] MEDS: Atorvastatin Calcium 20 MG TAB PO SCH (07:47)
[2019-05-21] MEDS ORDERED: Fentanyl 100 MCG/2 ML VIAL ONE (08:09)
[2019-05-21] MEDS ORDERED: Ketamine 50 MG/ML (10ML VIAL) ONE (08:10)
--- NOTE | 2019-05-21 08:51 | PDOC.FM ---
- Subjective Subjective: Pt has no complaints today. no sob, no cp, no cough. - Objective Vital Signs & Weight: Vital Signs (12 hours) Pulse Ox 05/21/19 08:00 98 Weight Admit Weight 120.9 kg Weight 110.9 kg Most Recent Monitor Data Heart Rate from ECG 118 NIBP 160/73 NIBP BP-Mean 102 Respiration from ECG 28 SpO2 100 Result Diagrams: 05/19/19 17:15 05/22/19 05:16 Phys Exam - Physical Examination Constitutional: NAD HEENT: moist MMs, sclera anicteric Neck: supple, full ROM Respiratory: no wheezing bilateral crackles in lung base Cardiovascular: RRR, no significant murmur Gastrointestinal: soft, non-tender Musculoskeletal: no edema, pulses present Neurological: normal sensation, moves all 4 limbs Psychiatric: normal affect, A&O x 3 Skin: no rash, normal turgor Dx/Plan (1) Volume overload Code(s): E87.70 - FLUID OVERLOAD, UNSPECIFIED Status: Resolved Qualifiers: Hypervolemia type: unspecified Qualified Code(s): E87.70 - Fluid overload, unspecified (2) COPD (chronic obstructive pulmonary disease) Status: Acute (3) ESRD (end stage renal disease) Code(s): N18.6 - END STAGE RENAL DISEASE Status: Acute (4) HTN (hypertension) Code(s): I10 - ESSENTIAL (PRIMARY) HYPERTENSION Status: Acute (5) Schizophrenia Code(s): F20.9 - SCHIZOPHRENIA, UNSPECIFIED Status: Acute (6) Obstructive sleep apnea Code(s): G47.33 - OBSTRUCTIVE SLEEP APNEA (ADULT) (PEDIATRIC) Status: Chronic (7) Schizophrenia Code(s): F20.9 - SCHIZOPHRENIA, UNSPECIFIED Status: Chronic Qualifiers: Schizophrenia type: unspecified Qualified Code(s): F20.9 - Schizophrenia, unspecified (8) Hyperkalemia Code(s): E87.5 - HYPERKALEMIA Status: Resolved - Plan Plan: Acute Hypoxic respiratory failure, likely 2/2 volume overload A- improving. extubated /. Pt still on 2L O2. CT/CXR c/w fluid overload, interstitial edema. B/UCx negative, procal downtrended. COVID neg P- continue dialysis, expect respiratory status to improve with more fluid pulled off. -f/u nephro recs ESRD on HD -Nephrology consulted. s/p declot fistula, tunnel cath placement by surg. Plans for new HD cath and possible angioplasty of fistula Hyperkalemia -2/2 ESRD. Dailysis per nephro Hypertensive urgency -resolved Transaminitis -Slightly elevated AST/ALT on admission. Bili normal, monitor COPD -stable, Will monitor ROSITA -MD aware Schizophrenia with hx of catatonia -stable, continue risperidal Code: Full Prophylaxis: Pepcid, heparin Addendum - Attending - Attending Attestation Date/Time: 06/14/19 2883 I personally evaluated the patient and discussed the management with Dr. Ingram on 05/21/19 I agree with the History, Examination, Assessment and Plan documented above with any addition or exceptions noted below. Improved volume status. For shunt revision. HD.
[2019-05-21] MEDS ORDERED: Midazolam HCl 2 mg/2 ml Vial ONE (09:32)
[2019-05-21] MEDS ORDERED: Iopamidol 300 61% 100 ML VIAL FS ONE (10:53)
[2019-05-21] MEDS ORDERED: Lidocaine 2% w/Epinephrine 1:200K 20 ML VIAL ONE (11:05)
[2019-05-21] MEDS ORDERED: Bupivacaine 0.25% HCL 30 ML VIAL ONE (11:05)
[2019-05-21] MEDS ORDERED: Sodium Chloride 0.9% 20 ML ONE (11:05)
[2019-05-21] MEDS ORDERED: Heparin 10,000 UNITS/1 ML VIAL ONE (11:05)
--- NOTE | 2019-05-21 11:32 | SPC ---
EXAM: SPC INTRO CATH DIALY CIRC/AV S Thrombolysis, thrombectomy and TYPEWRITER OPERATOR AUTOMATIC of venous outflow of the arteriovenous dialysis fistula PROVIDED CLINICAL HISTORY: End-stage renal disease. Patient has clotted left upper extremity arteriovenous dialysis fistula. Eulalio w was reestablished 1-2 days ago in the operating room. However, the left upper extremity arteriovenous dialysis fistula is again clotted. COMPARISON: 12/14/2018 TECHNIQUE: After informed consent was obtained, the patient was placed on the angiography table in the supine po sition. The left upper extremity was meticulously prepped and draped in usual sterile fashion. The skin and subcutaneous tissues were infiltrated with buffered 1% lidocaine for local anesthesia at the intended puncture sites. The arteriovenous dialysis fistula was accessed in both the venous and arterial directions utilizing micropuncture technique. 5 Cymraes vascular sheaths were placed. A 5 Cymraes Berenstein catheter was advanced over a 0.035 inch Bentson guidewire to the level of the s ubclavian vein. The guidewire was removed, and venography was performed. Catheter was withdrawn and venography was again performed demonstrating narrowing in the region of the left axillary vein. The c atheter was advanced to the level of the subclavian vein. An additional 5 Cymraes Berenstein catheter and 0.035 inch Bentson guidewire were then advanced to the arteriovenous anastomosis and int o the artery. Guidewire was removed, and contrast was injected demonstrating occlusion of the left upper extremity arteriovenous fistula with appropriate arterial runoff. Approximately 3 mL of a mixture initially consisting of 5 mg of recombinant TPA mixed with sterile wa ter for a total volume of 10 mL was injected along the arterial inflow. Approximately 6 mL was then injected along the venous outflow. A 6 mm x 4 cm angioplasty balloon was placed over the guidewire an d angioplasty was performed from the level of the axillary vein to the level of the vascular sheath along the venous outflow. The 5 Cymraes vascular sheath directed in the arterial direction was replace d for a 6 Cymraes vascular sheath. A 5.5 Cymraes Kareem catheter was then advanced over the 0.035 inch Bentson guidewire directed in the arterial direction and placed just distal to the arteriovenous anastomosis. Thrombectomy was performed after inflation of the balloon. No flow was present within the arteriovenous dialysis fistula. TYPEWRITER OPERATOR [employer]AT[employer] was then again performed along the venous outflow followed ag ain by thrombectomy with the Kareem balloon. Again flow was unable to be established in the fistula. At this time, the procedure was terminated. The sheath was removed, and hemostasis was achie jose juan with direct pressure. Dry sterile dressing was placed at catheter entry sites. Patient tolerated the procedure well and without immediate complication. Fluoroscopy: Time-7.5 minutes Dose 6020 mGy centimeter squared IMPRESSION: 1. Clotted left upper extremity arteriovenous dialysis fistula with focal narrowing at the level of t he axillary vein. 2. Thrombolysis with recombinant TPA followed by percutaneous transluminal angioplasty and mechanical thrombectomy were performed. However, flow was unable to be reestablished in the arteriovenous dialysis fistula in the left upper extremity. 3. Above findings discussed with Dr. Ventura at the termination of this procedure.
[2019-05-21] MEDS ORDERED: Ondansetron HCl/PF 4 MG/2 ML Vial IVP PRN (12:52)
[2019-05-21] MEDS ORDERED: Promethazine HCl 25 MG/ML VIAL SLOW IVP PRN (12:52)
[2019-05-21] MEDS ORDERED: Promethazine HCl 25 MG/ML VIAL IM PRN (12:52)
--- NOTE | 2019-05-21 13:28 | RAD ---
CHEST 1 VIEW: Date: 05/21/2019 HISTORY: Status post hemodialysis catheter placement. COMPARISON: Radiograph dated 05/17/2019. FINDINGS: Left IJ dialysis catheter is in place with tip in the inferior SVC. Mild volume overload. Heart size is enlarged. No pneumothorax. IMPRESSION: Uncomplicated placement of the hemodialysis catheter. POS: HOME
--- NOTE | 2019-05-21 15:24 | PDOC.OP ---
Operative Note - Operative Note Operative Note: PROCEDURE: Replacement of tunneled left internal jugular hemodialysis catheter with fluoroscopic guidance PREOPERATIVE DIAGNOSIS: Poorly functioning hemodialysis catheter POSTOPERATIVE DIAGNOSIS: Poorly functioning hemodialysis catheter SURGEON: Jesus Alberto Ventura MD DATE OF SERVICE: 05/21/2019 PROCEDURE IN DETAIL: After informed consent was obtained and appropriate preoperative antibiotics were administered, the patient was taken to the operating room and was placed in the supine position and total IV sedation was administered. The neck and chest were prepped and draped in the standard sterile fashion including the old hemodialysis catheter within the sterile prep. After draping, the external portion of the existing catheter was excluded from the field with a Tegaderm. Local anesthesia was infused to the skin and subcutaneous tissues of the left neck and chest. The previous IJ access site was reopened and the catheter dissected free circumferentially. An infraclavicular incision was made and a new catheter tunneled up from this site to the right IJ access site. The existing right IJ hemodialysis catheter was then clamped and cut. The patient was placed in Trendelenburg and a wire placed through the internal portion of the old catheter following which that portion was removed and discarded. The wire was confirmed by fluoroscopy to be within the superior vena cava. The dilator and sheath were placed over the wire and the wire and dilator removed leaving the sheath in place. The new catheter was tunneled through the sheath which was split and removed leaving the old catheter in place. The tip was not advancing appropriately down into the superior vena cava, instead going across likely into the right subclavian vein. The catheter was drawn back and then readvanced several times to try to get the tip to curve appropriately downward. The guidewire was placed through the catheter, following which it was able to be advanced down into the superior vena cava over the wire and the wire was removed. The hub was sutured to the skin. The course of the catheter was confirmed by fluoroscopy to be smooth with the tip in the superior vena cava. Both ports easily aspirated dark nonpulsatile blood and easily flushed without resistance. Heparin was instilled into the ports to the quantity specified on the hub. The left IJ access site was closed in 2 layers with 4-0 Monocryl suture and Dermabond dressings were applied. The skin at the exit site was snugged up around the catheter with a 4-0 Monocryl suture and Dermabond placed at that site as well. A Biopatch and Tegaderm dressing was placed. The external portion of the old catheter was then removed and a sterile gauze and Tegaderm dressing placed at that site. The patient was taken to recovery in good condition. Estimated blood loss was minimal. There were no complications. There were no specimens.
[2019-05-21] MEDS: Acetaminophen 325 MG TAB PO PRN ×2 (16:37→21:29)
--- NOTE | 2019-05-21 19:13 | PRG ---
DATE OF SERVICE: SUBJECTIVE: Patient noted with the following vital signs. OBJECTIVE: VITAL SIGNS: Afebrile, temperature 98.6, pulse 106, respiratory rate of 18, O2 saturation of 97%, and blood pressure 136/82. HEENT EXAMINATION: Unremarkable. CARDIOVASCULAR SYSTEM: First and second heart sounds were heard. RESPIRATORY SYSTEM: Clear to auscultation. DIGESTIVE SYSTEM: Revealed a benign abdomen. EXTREMITIES: No peripheral edema. SKIN EXAMINATION: No new gross rash. LYMPHATICS: No peripheral lymphadenopathy. LABORATORY INVESTIGATION: Showed a chemistry with potassium of 5.2 and creatinine IMPRESSION: 1. End-stage renal disease, hemodialysis dependent. 2. Morbid obesity. 3. Cardiopulmonary failure. 4. Clotted arteriovenous graft. PLAN: 1. The patient to undergo hemodialysis catheter replacement today. 2. Couple of attempts at declotting this patient's AV graft proved abortive. The patient likely to be evaluated as an outpatient with possible attempt at declotting the graft. 3. Further management will be dependent on the clinical course. Job ID: [id number]
[2019-05-21] MEDS: risperiDONE 1 MG TAB PO SCH (21:29)
[2019-05-21] MEDS: Famotidine/PF 20 mg/2ml Vial SLOW IVP SCH (21:29)
[2019-05-22 05:50] LABS: Anion Gap 19 mmol/L (10-20); BUN (Urea Nitrogen) 76 mg/dL (9.8-20.1); Calc. Creatinine Clearance 10 mL/min (70-130); Carbon Dioxide 24 mmol/L (22-29); Chloride 97 mmol/L (98-107); Estimated GFR-MDRD 5; Potassium 4.5 mmol/L (3.5-5.1); Sodium 135 mmol/L (136-145)
[2019-05-22 05:51] LABS: Calcium 9.6 mg/dL (7.8-10.44); Glucose 225 mg/dL (70-105)
[2019-05-22] MEDS: Atorvastatin Calcium 20 MG TAB PO SCH (07:40)
[2019-05-22] MEDS: Aspirin 81 mg Enteric Coated Tablet PO SCH (07:40)
[2019-05-22] MEDS: Carvedilol 3.125 MG TAB PO SCH (07:41)
[2019-05-22] MEDS: Heparin 5,000 UNITS/ML VIAL SC SCH ×2 (07:41→14:44)
--- NOTE | 2019-05-22 08:37 | PDOC.FM ---
- Subjective Subjective: Pt reports feeling well, denies SOB. no new complaints - Objective Vital Signs & Weight: Vital Signs (12 hours) Temp Pulse Resp BP Pulse Ox 05/22/19 07:04 98 F 94 19 99/62 100 05/21/19 23:21 99.0 F 108 H 20 118/60 100 Weight Admit Weight 120.9 kg Weight 110.9 kg Most Recent Monitor Data Heart Rate from ECG 118 NIBP 160/73 NIBP BP-Mean 102 Respiration from ECG 28 SpO2 100 I&O: 05/21/19 05/22/19 05/23/19 06:59 06:59 06:59 Intake Total 600 Balance 600 Result Diagrams: 05/19/19 17:15 05/22/19 05:16 Phys Exam - Physical Examination Constitutional: NAD HEENT: moist MMs, sclera anicteric Neck: supple, full ROM Respiratory: no wheezing mild bilat crackles in lung bases Cardiovascular: no significant murmur tachy Gastrointestinal: soft, non-tender Musculoskeletal: pulses present Neurological: normal sensation, moves all 4 limbs Psychiatric: normal affect, A&O x 3 Skin: no rash, normal turgor Dx/Plan (1) COPD (chronic obstructive pulmonary disease) Status: Acute (2) ESRD (end stage renal disease) Code(s): N18.6 - END STAGE RENAL DISEASE Status: Acute (3) HTN (hypertension) Code(s): I10 - ESSENTIAL (PRIMARY) HYPERTENSION Status: Acute (4) Schizophrenia Code(s): F20.9 - SCHIZOPHRENIA, UNSPECIFIED Status: Acute (5) Obstructive sleep apnea Code(s): G47.33 - OBSTRUCTIVE SLEEP APNEA (ADULT) (PEDIATRIC) Status: Chronic (6) Schizophrenia Code(s): F20.9 - SCHIZOPHRENIA, UNSPECIFIED Status: Chronic Qualifiers: Schizophrenia type: unspecified Qualified Code(s): F20.9 - Schizophrenia, unspecified - Plan Plan: Acute Hypoxic respiratory failure, likely 2/2 volume overload A- stable extubated /. Pt now on RA. CT/CXR c/w fluid overload, interstitial edema. B/UCx negative, procal downtrended. COVID neg P- continue dialysis, expect respiratory status to improve with more fluid pulled off. -f/u nephro recs -possible DC today ESRD on HD -HD cath replaced yesterday per surgery. dialysis today. possible DC after Hyperkalemia -resolved. dialysis today Hypertensive urgency -resolved Transaminitis -Slightly elevated AST/ALT on admission. Bili normal, monitor COPD -stable, Will monitor ROSITA -MD aware Schizophrenia with hx of catatonia -stable, continue risperidal Code: Full Prophylaxis: Pepcid, heparin Addendum - Attending - Attending Attestation Date/Time: 06/14/19 0337 I personally evaluated the patient and discussed the management with Dr. Ingram on 05/22/19. I agree with the History, Examination, Assessment and Plan documented above with any addition or exceptions noted below. Stable for d/c.
[2019-05-22] MEDS ORDERED: Heparin 10,000 UNITS/ 10 ML VIAL ONE (10:39)
[2019-05-22] MEDS: Acetaminophen 325 MG TAB PO PRN (14:43)
--- NOTE | 2019-05-22 17:14 | PRG ---
DATE OF SERVICE: SUBJECTIVE: The patient noted with the following vital signs. OBJECTIVE: VITAL SIGNS: Afebrile, temperature 98, pulse 94, respiratory rate of 19, O2 saturation of 100%, blood pressure 99/62. GENERAL: The patient is seen and examined at dialysis, doing very well. HEENT: Unremarkable. CARDIOVASCULAR: First and second heard sounds were heard. RESPIRATORY: Clear to auscultation. DIGESTIVE: Revealed a benign abdomen. Positive bowel sounds. EXTREMITIES: No peripheral edema. SKIN: No new gross rash. LYMPHATICS: No peripheral lymphadenopathy. IMPRESSION: 1. End-stage renal disease, on hemodialysis. 2. Cardiopulmonary failure, much improved. PLAN: 1. We will continue with scheduled Monday, Monday, and Monday schedule dialysis. 2. Further management to be dependent on the clinical course. Job ID: [id number]
[2019-05-22 21:12] VITALS: BP 103/71; TEMP 99
--- NOTE | 2019-05-23 14:20 | DIS ---
DATE OF ADMISSION: 05/13/2019 DATE OF DISCHARGE: 05/22/2019 DISCHARGE ATTENDING: Gianfranco Smith MD RESIDENT: Gianfranco Ingram MD I personally saw the patient for a total of 3 days. CONSULTATIONS: 1. Surgery, Dr. Jesus Alberto Ventura. 2. Pulmonology, Dr. Jose Brewer. 3. Palliative Care. 4. Nephrology, Dr. Kerrie Crane. PROCEDURES: 1. On 05/13/2019, chest CT, impression, widening of the mediastinum, which is due to combination of mediastinal lipomatosis and a large number of mildly enlarged and moderately enlarged mediastinal lymph nodes, similar to 06/22/2012; bilateral lobe consolidations, left greater than the right, could represent pneumonia or aspiration pneumonitis; left apical consolidation; cardiomegaly with 4-chamber dilation. 2. On 05/13/2019, brain CT, impression, no evidence of acute intracranial abnormality. 3. On 05/13/2019, chest x-ray, impression, status post intubation with endotracheal tube. Esophagogastric tube visualized down to at least the lower mediastinum, possibly in the stomach, but abdominal radiography is recommended for confirmation. Cardiomegaly, widening of mediastinum. 4. C-arm fluoroscopy on 06/13/2019. Impression, fluoroscopy was provided for Dr. Ventura. 5. On 05/21/2019, impression, clotted left upper extremity AV dialysis fistula with focal narrowing at the level of the axillary vein, thrombolysis with recombinant tPA followed by percutaneous transluminal angioplasty and mechanical thrombectomy were performed. However, the flow was unable to be reestablished in the arteriovenous dialysis fistula in the left upper extremity. 6. On 05/21/2019, chest x-ray, uncomplicated placement of hemodialysis catheter. DISCHARGE MEDICATIONS: 1. Furosemide 40 mg p.o. daily, resumed at home. 2. Aspirin 81 mg p.o. daily. 3. Atorvastatin 20 mg p.o. daily. 4. Ropinirole one tablet p.o. daily. 5. Sensipar one tablet p.o. daily. 6. Multivitamin one each p.o. daily. 7. Guaifenesin 200 mg p.o. q.4 hours p.r.n. 8. Simethicone 80 mg p.o. t.i.d. p.r.n. 9. MiraLAX p.r.n. 10. Loperamide p.r.n. 11. Tums p.r.n. 12. Acetaminophen p.r.n. 13. Coreg 3.125 mg p.o. b.i.d. with meals. 14. Keppra 500 mg p.o. b.i.d. 15. Risperdal 2 mg daily. 16. Renvela 800 mg p.o. b.i.d. 17. Vitamin D 1000 units p.o. b.i.d. 18. Calcium acetate 667 mg p.o. t.i.d. DISCONTINUED MEDICATIONS: 1. Furosemide 40 mg p.o. b.i.d. 2. Clonidine 0.1 mg TD daily. 3. Carvedilol 6.25 mg p.o. b.i.d. Of note, the patient had home insulin regimen, but dosing was not certain and so, the patient was instructed to resume her home regimen once she gets home and knows what it is. PRIMARY DIAGNOSIS: Acute hypoxic respiratory failure secondary to volume overload. SECONDARY DIAGNOSES: 1. End-stage renal disease, on hemodialysis. 2. Hyperkalemia. 3. Hypertensive urgency. 4. Transaminitis. 5. Chronic obstructive pulmonary disease. 6. Obstructive sleep apnea. 7. Schizophrenia with history of catatonia. HISTORY OF PRESENT ILLNESS AND HOSPITAL COURSE: This is a 59-year-old female, who presented to the emergency department, unresponsive. The patient has history of end-stage renal disease, noncompliance to hemodialysis requiring hospitalizations in past for this problem. The patient had respiratory distress and was intubated. The patient was dialyzed and respiratory status improved. The patient was eventually extubated. Of note, the patient was for some time placed on broad-spectrum antibiotics for concern for infection. Blood cultures resulted negative and antibiotics were eventually discontinued. The patient had no improvement of respiratory status with further dialysis. The patient was eventually weaned from nasal cannula oxygen to room air. Goals of care discussions were had with the patient considering history of frequent readmissions for noncompliance and end-stage renal disease. The possibility of hospice was discussed with the patient who decided to continue dialysis and expressed a newfound fervor to adhere to dialysis regimen without missing any in the future. Otherwise hospitalization was significant for hyperkalemia, which was resolved with dialysis. Hypertensive urgency, which was resolved with dialysis. Otherwise, chronic medical conditions were managed with home medication regimen. Procedures were significant for the fact that the patient had clotted off fistula access in the left upper extremity. A hemodialysis catheter was placed and then replaced during this hospitalization. Plans were made for further outpatient management of dialysis access. She was discharged with stable working access through a hemodialysis catheter. DISPOSITION: Stable. DISCHARGE INSTRUCTIONS: 1. Location: Home. 2. Activity: As tolerated. 3. Followup: Follow up with primary care physician in 14 days, with Dr. Sy in 7 days. 4. Diet: Renal diet, diabetic diet. Job ID: [id number]
== END 2019-05-22 20:05 | disposition home or self-care (01) | DRG 981 ==
LOC: EDBD 16:35 → ERS 16:35 → CCU 17:32 → T4-A 05-18 21:15
PROVIDERS: ADMIT Family Medicine; ATTEND Family Medicine
PROC: 0BH18EZ Insertion of Endotracheal Airway into Trachea, Via Natural or Artificial Opening Endoscopic (ICD-10-PCS; principal; 2019-05-13)
PROC: 06HM33Z Insertion of Infusion Device into Right Femoral Vein, Percutaneous Approach (ICD-10-PCS; 2019-05-13)
PROC: 8E0ZXY6 Isolation (ICD-10-PCS; 2019-05-13)
PROC: 5A1955Z Respiratory Ventilation, Greater than 96 Consecutive Hours (ICD-10-PCS; 2019-05-13)
PROC: 05C80ZZ Extirpation of Matter from Left Axillary Vein, Open Approach (ICD-10-PCS; 2019-05-17)
PROC: 0JH63XZ Insertion of Tunneled Vascular Access Device into Chest Subcutaneous Tissue and Fascia, Percutaneous Approach (ICD-10-PCS; 2019-05-17)
PROC: 02HV33Z Insertion of Infusion Device into Superior Vena Cava, Percutaneous Approach (ICD-10-PCS; 2019-05-17)
PROC: B518YZA Fluoroscopy of Superior Vena Cava using Other Contrast, Guidance (ICD-10-PCS; 2019-05-17)
PROC: B548ZZA Ultrasonography of Superior Vena Cava, Guidance (ICD-10-PCS; 2019-05-17)
PROC: 0J2TXYZ Change Other Device in Trunk Subcutaneous Tissue and Fascia, External Approach (ICD-10-PCS; 2019-05-22)
PROC: 5A1D70Z Performance of Urinary Filtration, Intermittent, Less than 6 Hours Per Day (ICD-10-PCS; 2019-05-22)
DX: J96.01 Acute respiratory failure with hypoxia (principal); N18.6 End stage renal disease; G93.41 Metabolic encephalopathy; I12.0 Hypertensive chronic kidney disease with stage 5 chronic kidney disease or end stage renal disease; E87.2 Acidosis; T82.868A Thrombosis due to vascular prosthetic devices, implants and grafts, initial encounter; J90 Pleural effusion, not elsewhere classified; Z68.42 Body mass index [BMI] 45.0-49.9, adult; E87.5 Hyperkalemia; I16.0 Hypertensive urgency; R74.0 Nonspecific elevation of levels of transaminase and lactic acid dehydrogenase [LDH]; E87.70 Fluid overload, unspecified; J44.9 Chronic obstructive pulmonary disease, unspecified; G47.33 Obstructive sleep apnea (adult) (pediatric); E11.22 Type 2 diabetes mellitus with diabetic chronic kidney disease; F20.9 Schizophrenia, unspecified; Y83.1 Surgical operation with implant of artificial internal device as the cause of abnormal reaction of the patient, or of later complication, without mention of misadventure at the time of the procedure; E86.1 Hypovolemia; E66.01 Morbid (severe) obesity due to excess calories; F31.9 Bipolar disorder, unspecified; Z99.2 Dependence on renal dialysis; Z91.15 Patient's noncompliance with renal dialysis; Z90.49 Acquired absence of other specified parts of digestive tract; Z98.51 Tubal ligation status; Z20.828 Contact with and (suspected) exposure to other viral communicable diseases
CPT/HCPCS: 31500; 36415; 36416; 36901; 36902; 36904; 70450; 71045; 71260; 74230; 75902; 76000; 80048; 80053; 80202; 82553; 82805; 83605; 83880; 84145; 84484; 85025; 87040; 87340; 90935; 94002; 94003; 96365; 96366; 96375; 96376; 99292; C1725; C1752; C1757; C1769; G0257; J0692; J1200; J1630; J1642; J1644; J1815; J2060; J2250; J2405; J2704; J2720; J2765; J2930; J2997; J3010; J3370; J3490; J7050; J7512; Q0163; Q9967; S0020; S0028; U0001

== ENCOUNTER 2019-07-26 15:51 | Inpatient (IN) | payer OTHER ==
[~2019-07-26 15:51] MED LIST changes: -Heparin 1,000 UNITS/ML VIAL ONE; -Iopamidol-370 76% 500 ML 1 ML ONE
[2019-07-26] MEDS: Propofol 1,000 MG/100 ML VIAL IV PRN ×2 (17:30→20:53)
[2019-07-26] MEDS ORDERED: Acetaminophen 325 MG TAB PO PRN (17:44)
[2019-07-26] MEDS ORDERED: Ondansetron PF 4 MG/2 ML Vial IVP PRN (17:44)
[2019-07-26] MEDS ORDERED: Ventilator Sedation Protocol 1 EACH FS ONE (17:50)
[2019-07-26 17:53] LABS: Actual Bicarbonate (HCO3a) 24.3 mEq/L (22-28); Base Excess (BEa) 0.5 mEq/L (-2.0 to +3.0); CO2 Tension 36.4 mmHg (35.0-45.0); Calcium, Ionized (arterial) 1.29 mmol/L (1.12-1.30); Carboxyhemoglobin (COHb) 0.9 gm% (0.0-3.0); Hemoglobin (Hb) 11.5 g/dL (12.0-16.0); O2 Tension (PaO2), arterial 76.4 mmHg (80.0-100.0); Potassium - ABG Lab 3.93 mmol/L (3.70-5.30); pH, Arterial 7.44 (7.35-7.45)
[2019-07-26 17:55] LABS: Puncture Site RRAD
[2019-07-26] MEDS ORDERED: Morphine 2 MG/ML SYRINGE SLOW IVP PRN (17:58)
[2019-07-26] MEDS ORDERED: Propofol BOLUS 1,000 MG/100 ML VIAL IV PRN (17:58)
[2019-07-26] MEDS ORDERED: Fentanyl BOLUS 250 ML IVPB PRN (17:58)
[2019-07-26] MEDS ORDERED: DISCONTINUE PREVIOUS NARCOTIC PAIN MEDICATIONS AND BENZODIAZEPINES FS SCH (17:58)
[2019-07-26] MEDS: Lorazepam 2 MG/ML VIAL SLOW IVP PRN (18:19)
--- NOTE | 2019-07-26 18:29 | RAD ---
RADIOGRAPH CHEST 1 VIEW: DATE: 07/26/2019 TIME: 6:12 PM HISTORY: 59-year-old female with acute respiratory failure COMPARISON: 07/01/2019 FINDINGS: Left internal jugular double lumen dialysis catheter remains deep in the lower portion of the right a trium. There is a new endotracheal tube at mid thoracic trachea. New esophageal tube coursing into left upper quadrant of abdomen, distal portion outside of field of view. New finding of dense opacifi cation of lower two thirds of left lung, and new finding of mild haziness throughout the right lung. No pneumothorax identified. IMPRESSION: 1) status post intubation 2) opacification of large portion of left lower lobe: Pneumonia is a possibility 3) questionable diffuse mild pulmonary interstitial edema
[2019-07-26 18:36] LABS: #Eosinphils 0.1 thou/uL (0.0-0.7); #Lymphocytes 2.9 thou/uL (1.20-3.40); #Monocytes 1.1 thou/uL (0.11-0.59); #Neutrophils 6.1 thou/uL (1.40-6.50); %Basophils 0.3 % (0.0-1.0); %Eosinophils 1.2 % (0.0-10.0); %Lymphocytes 28.4 % (21.0-51.0); %Monocytes 10.5 % (0.0-10.0); %Neutrophils 59.6 % (42.0-75.0); Hemoglobin 11.3 g/dL (12.0-16.0); Mean Corpuscular HGB CONC 27.7 g/dL (32.0-36.0); Mean Corpuscular Hemoglobin 26.8 pg (27.0-31.0); Mean Corpuscular Volume 96.7 fL (78.0-98.0); Mean Platelet Volume 8.5 fL (7.4-10.4); Platelet Count 274 thou/uL (130-400); RBC Distribution Width 15.2 % (11.5-14.5); Red Blood Cell (RBC) Count 4.21 mill/uL (4.20-5.40); White Blood Cell (WBC) Count 10.2 thou/uL (4.8-10.8)
--- NOTE | 2019-07-26 18:40 | HP ---
REASON FOR ADMISSION: Acute respiratory failure with hypoxia and hypercarbia, acute metabolic encephalopathy, possible seizure. HISTORY OF PRESENTING ILLNESS: Please note majority of this history is obtained by talking to ER physician at [facility] and [facility] where the patient arrived initially and was later transferred here. Per records from [facility], the patient was found to be confused by her daughter. She was scheduled to go for her dialysis and was getting ready, but then she was found confused by her daughter. EMS was summoned and the patient was taken to [facility]. She was initially tried on BiPAP due to hypoxia. As the patient became more obtunded, she was intubated for airway and elevated CO2 of around 80. Currently, the patient is not oriented and is sedated with propofol and is on the ventilator. She is not in any distress at present. PAST MEDICAL AND SURGICAL HISTORY: 1. History of end-stage renal disease, on hemodialysis. 2. Underlying psychiatric history, likely schizoaffective disorder. 3. Obesity. 4. Hypertension. 5. History of catatonia with schizophrenia. She has prolonged periods of days when she does not talk or communicate. 6. History of COPD. 7. Obstructive sleep apnea. 8. She was intubated in April of 2019 and hospitalized here. 9. Noncompliance with medication. 10. Diabetes mellitus, which is insulin dependent. 11. Cholecystectomy. 12. Dialysis access procedures in the left upper extremity. 13. Hernia repair. 14. Currently has a tunneled catheter in the left subclavian for dialysis. CURRENT MEDICATIONS: Per Glance, the patient is on: 1. Lipitor 20 mg daily. 2. Aspirin 81 mg daily. 3. Calcium acetate 667 mg p.o. 3 times daily. 4. Carvedilol 3.125 mg twice daily. 5. Vitamin D3 of 1000 units p.o. twice daily. 6. Sensipar 30 mg daily. 7. Multivitamin one tablet once daily. 8. Risperidone 2 mg p.o. q.p.m. 9. Ropinirole 0.25 mg p.o. daily. 10. Keppra 500 mg twice daily. 11. Sevelamer 800 mg twice daily. ALLERGIES: TO INFLUENZA VACCINE, IODINE, PENICILLIN, AND SEROQUEL. PERSONAL HISTORY: Per prior records, does not abuse alcohol or drugs. She lives with her daughter. FAMILY HISTORY: Per prior records, positive for hypertension and diabetes. CODE STATUS: Presumed to be full in the past. Her daughter is involved in her care. I will try to contact her shortly. REVIEW OF SYSTEMS: Cannot be obtained as the patient is currently intubated. PHYSICAL EXAMINATION: GENERAL: The patient is a 59-year-old female who is currently intubated and is on the ventilator. VITAL SIGNS: Blood pressure 124/70, pulse 70 per minute, respiratory rate 16 per minute, saturating 99% on 50% FiO2. NECK: Supple. There is mild elevation in JVP. EYES: Extraocular muscles intact. Pupils are 3 mm and sluggishly reacting to light. ORAL CAVITY: Mucous membranes are dry. No exudates or congestion. CARDIOVASCULAR: S1 and S2 heard. Regular rhythm. RESPIRATORY: Air entry 1+ bilateral. No rhonchi, but has rales in the infra-axillary area. ABDOMEN: Soft. Bowel sounds heard. No tenderness, rigidity, or guarding. Likely has a ventral hernia, which is reducible. EXTREMITIES: No peripheral edema or calf tenderness. VASCULAR: Peripheral pulses 1+ bilateral. No ischemic ulcerations or gangrene. CENTRAL NERVOUS SYSTEM: No gross focal deficits noted. The patient is currently intubated and is sedated on propofol. PSYCHIATRIC: Cannot be assessed as the patient is currently intubated and sedated. LABORATORY DATA: Please note all of these labs were done at [facility]. ABG done here shows a pH of 7.44, pCO2 of 36, PO2 of 76, bicarb of 24. Electrolytes on the blood gas shows sodium of 137, potassium of 3.9, calcium 1.29, chloride 98. Further blood work done at [facility] shows a white count of 7, hemoglobin and hematocrit 10 and 38, platelet count is 278, MCV is 103 with 54% neutrophils, and 29% lymphocytes. Sodium 139, potassium 4.3, chloride 100, serum bicarb 33, serum glucose 134, BUN 61, creatinine 11, albumin is 3.0, AST 19, ALT 19, total bilirubin 0.4, and alkaline phosphatase 80. Serum alcohol levels were less than 3 mg/dL. Urine drug screen done is negative. Lactic acid 0.9. Troponin-I 0.04, CK-MB 0.6, and CK levels 32. Venous blood gas done at [facility] shows a pH of 7.19, pCO2 of 84, PO2 of 64. CLINICAL IMPRESSION AND PLAN: The patient will be admitted to ICU for acute respiratory failure with hypoxia and hypercarbia; acute encephalopathy, unclear whether it is related to seizure versus obesity hypoventilation with sleep apnea. She is currently on ventilator with a rate of 16, tidal volume of 500, FiO2 of 50, pressure support of 10, and PEEP of 5. I have spoken to Dr. Sy, will be dialyzing her shortly. Dr. Brewer is aware of the patient in the ICU. Her current blood gas on current settings appears to be stable. We will continue her on aspirin, Lipitor, PhosLo, Sensipar, Keppra for seizures, and ropinirole along with Risperdal for schizoaffective disorder. We will obtain a portable stat x-ray and EEG if one can be obtained on the weekend. The patient is well known to our service due to prior hospitalization with schizoaffective disorder and catatonia. Job ID: [id number]
[2019-07-26] MEDS ORDERED: Vecuronium 10 MG VIAL IV PRN (18:47)
[2019-07-26] MEDS ORDERED: Sterile Water 10 ML VIAL IVP PRN (18:48)
[2019-07-26 18:56] LABS: ALT (SGPT) 11 U/L (8-55); AST (SGOT) 13 U/L (5-34); Albumin 3.5 g/dL (3.5-5.0); Alkaline Phosphatase 81 U/L (40-110); Anion Gap 20 mmol/L (10-20); BUN (Urea Nitrogen) 63 mg/dL (9.8-20.1); Bilirubin, Total 0.5 mg/dL (0.2-1.2); Calc. Creatinine Clearance 0 mL/min (70-130); Calcium 10.8 mg/dL (7.8-10.44); Carbon Dioxide 28 mmol/L (22-29); Chloride 98 mmol/L (98-107); Estimated GFR-MDRD 4; Globulin 3.2 g/dL (2.4-3.5); Glucose 71 mg/dL (70-105); Potassium 4.5 mmol/L (3.5-5.1); Protein, Total 6.7 g/dL (6.0-8.3); Sodium 141 mmol/L (136-145)
[2019-07-26] MEDS: Atorvastatin Calcium 20 MG TAB PO SCH (20:53)
[2019-07-26] MEDS: levETIRAcetam 500 MG TAB PO SCH (20:53)
[2019-07-26] MEDS: Sevelamer Carbonate 800 MG TAB PO SCH (20:53)
[2019-07-27 01:27] LABS: HBSAB Concentration 1.25 mIU/mL; HBSAg Index 0.14 S/CO (0-0.99); Hep B Core Total Ab Non-Reactive (NonReactive); Hep B Core Total Index 0.08 S/CO (0-0.79); Hep B Surf AB Non-Reactive (NonReactive); Hep B Surf Ag Non-Reactive S/CO (NonReactive); Hep C IgG Ab Non-Reactive (NonReactive); Hep C Index 0.19 S/CO (0-0.79)
[2019-07-27] MEDS: Propofol 1,000 MG/100 ML VIAL IV PRN ×3 (03:55→20:02)
[2019-07-27 05:00] LABS: #Basophils 0.1 thou/uL (0.0-0.2); #Eosinphils 0.1 thou/uL (0.0-0.7); #Lymphocytes 2.7 thou/uL (1.20-3.40); #Neutrophils 7.7 thou/uL (1.40-6.50); %Basophils 0.9 % (0.0-1.0); %Lymphocytes 23.4 % (21.0-51.0); %Monocytes 8.3 % (0.0-10.0); %Neutrophils 66.4 % (42.0-75.0); Hemoglobin 11.7 g/dL (12.0-16.0); Mean Corpuscular HGB CONC 29.5 g/dL (32.0-36.0); Mean Corpuscular Hemoglobin 27.6 pg (27.0-31.0); Mean Corpuscular Volume 93.7 fL (78.0-98.0); Mean Platelet Volume 8.7 fL (7.4-10.4); Platelet Count 324 thou/uL (130-400); RBC Distribution Width 15.6 % (11.5-14.5); Red Blood Cell (RBC) Count 4.25 mill/uL (4.20-5.40); White Blood Cell (WBC) Count 11.6 thou/uL (4.8-10.8)
[2019-07-27 05:15] LABS: Anion Gap 21 mmol/L (10-20); BUN (Urea Nitrogen) 48 mg/dL (9.8-20.1); Calc. Creatinine Clearance 11 mL/min (70-130); Calcium 10.4 mg/dL (7.8-10.44); Carbon Dioxide 25 mmol/L (22-29); Chloride 97 mmol/L (98-107); Estimated GFR-MDRD 5; Glucose 64 mg/dL (70-105); Potassium 3.5 mmol/L (3.5-5.1); Sodium 139 mmol/L (136-145)
[2019-07-27] MEDS ORDERED: Dextrose 50% Abboject 50 ML SYRINGE ONE (05:46)
[2019-07-27] MEDS ORDERED: Dextrose 5% in Water 1,000 ML IV PRN (05:47)
[2019-07-27] MEDS ORDERED: Dextrose 50% Abboject 50 ML SYRINGE IVP PRN (05:47)
[2019-07-27] MEDS: rOPINIRole HCl 0.25 MG TAB PO SCH (08:55)
[2019-07-27] MEDS: Multivit, Therapeutic 1 TAB PO SCH (08:56)
[2019-07-27] MEDS: levETIRAcetam 500 MG TAB PO SCH ×2 (08:56→20:02)
[2019-07-27] MEDS: Enoxaparin Sodium 30 MG/0.3 ML SYRINGE SC SCH (08:57)
[2019-07-27] MEDS: Cinacalcet HCl 30 MG TAB PO SCH (08:58)
[2019-07-27] MEDS: Calcium Acetate 667 MG CAP PO SCH ×3 (08:59→17:18)
[2019-07-27] MEDS: Cefepime 1 GM in Sodium Chloride 0.9% 100 ML IVPB SCH (08:59)
[2019-07-27] MEDS: Aspirin 81 mg Enteric Coated Tablet PO SCH (08:59)
[2019-07-27] MEDS: Sevelamer Carbonate 800 MG TAB PO SCH ×2 (09:00→20:02)
[2019-07-27] MEDS ORDERED: Prevnar 13-Val Conj/PF 0.5 ML SYRINGE IM ONE (09:00)
[2019-07-27] MEDS ORDERED: Haloperidol Lactate 5 MG/ML VIAL ONE (09:59)
--- NOTE | 2019-07-27 11:45 | PDOC.HOSPP ---
- Subjective Encounter Date: 07/27/19 Encounter Time: 09:30 Subjective: is awake on vent will be shortly getting HD - Objective Vital Signs & Weight: Vital Signs (12 hours) Temp Pulse Resp BP 07/27/19 10:00 19 07/27/19 09:00 97.4 F L 07/27/19 08:00 18 07/27/19 07:33 70 113/78 07/27/19 06:00 19 07/27/19 04:00 98.4 F 18 07/27/19 02:41 66 110/71 07/27/19 02:00 16 07/27/19 00:00 98.6 F 16 Weight Weight 229 lb 15.074 oz Most Recent Monitor Data Heart Rate from ECG 73 NIBP 115/63 NIBP BP-Mean 80 Respiration from ECG 16 SpO2 96 I&O: 07/26/19 07/27/19 07/28/19 06:59 06:59 06:59 Intake Total 30 Output Total 15 0 Balance 15 0 Result Diagrams: 07/27/19 03:56 07/27/19 03:56 Hospitalist ROS - Medication Medications: Active Medications Generic Name Dose Route Start Last Admin Trade Name Freq PRN Reason Stop Dose Admin Aspirin 81 mg 07/27/19 09:00 07/27/19 08:59 Ecotrin PO 81 mg DAILY LILLY Administration Atorvastatin Calcium 20 mg 07/26/19 21:00 07/26/19 20:53 Lipitor PO 20 mg HS LILLY Administration Calcium Acetate 667 mg 07/27/19 08:00 07/27/19 08:59 Phoslo PO 667 mg TID-WM LILLY Administration Cinacalcet 30 mg 07/27/19 09:00 07/27/19 08:58 Sensipar PO 30 mg DAILY LILLY Administration Enoxaparin Sodium 30 mg 07/27/19 09:00 07/27/19 08:57 Lovenox SC 30 mg 0900 LILLY Administration Cefepime HCl 1 gm/ Sodium 100 mls @ 200 mls/hr 07/27/19 09:00 07/27/19 08:59 Chloride IVPB 100 mls Q24H LILLY Administration Levetiracetam 500 mg 07/26/19 21:00 07/27/19 08:56 Keppra PO 500 mg BID LILLY Administration Lorazepam 2 mg 07/26/19 17:58 07/26/19 18:19 Ativan SLOW IVP 08/25/19 17:58 2 mg Q1H PRN Administration Breakthrough agitation Multivitamins 1 tab 07/27/19 09:00 07/27/19 08:56 Theragran PO 1 tab DAILY LILLY Administration Propofol 1,000 mg 07/26/19 17:58 07/27/19 10:05 Diprivan IV 08/25/19 17:58 1,000 mg INF PRN Administration TO ACHIEVE GOAL RASS Protocol Ropinirole HCl 0.25 mg 07/27/19 09:00 07/27/19 08:55 Requip PO 0.25 mg DAILY LILLY Administration Sevelamer Carbonate 800 mg 07/26/19 21:00 07/27/19 09:00 Renvela PO 800 mg BID LILLY Administration - Exam General Appearance: awake alert Eye: PERRL, anicteric sclera ENT: no oropharyngeal lesions, moist mucosa Neck: supple, no JVD Heart: RRR, no murmur Respiratory: no wheezes, no rales, rhonchi Gastrointestinal: soft, non-tender, non-distended, normal bowel sounds Extremities: no cyanosis, no edema Neurological: cranial nerve grossly intact, no focal deficits Hosp A/P (1) Acute respiratory failure with hypoxia and hypercapnia Code(s): J96.01 - ACUTE RESPIRATORY FAILURE WITH HYPOXIA; J96.02 - ACUTE RESPIRATORY FAILURE WITH HYPERCAPNIA Status: Acute (2) Volume overload Code(s): E87.70 - FLUID OVERLOAD, UNSPECIFIED Status: Acute Qualifiers: (3) Acute metabolic encephalopathy Code(s): G93.41 - METABOLIC ENCEPHALOPATHY Status: Acute (4) HTN (hypertension) Code(s): I10 - ESSENTIAL (PRIMARY) HYPERTENSION Status: Chronic Qualifiers: Hypertension type: essential hypertension Qualified Code(s): I10 - Essential (primary) hypertension (5) Schizophrenia Code(s): F20.9 - SCHIZOPHRENIA, UNSPECIFIED Status: Chronic Qualifiers: Schizophrenia type: unspecified Qualified Code(s): F20.9 - Schizophrenia, unspecified (6) Anemia of renal disease Code(s): D63.1 - ANEMIA IN CHRONIC KIDNEY DISEASE Status: Chronic (7) Diabetes type 2, controlled Code(s): E11.9 - TYPE 2 DIABETES MELLITUS WITHOUT COMPLICATIONS Status: Chronic Qualifiers: Diabetes mellitus inspector of dredging insulin use: with inspector of dredging use Diabetes mellitus complication status: with kidney complications Diabetes mellitus complication detail: with chronic kidney disease Chronic kidney disease stage : on chronic dialysis Qualified Code(s): E11.22 - Type 2 diabetes mellitus with diabetic chronic kidney disease; N18.6 - End stage renal disease; Z79.4 - care home (current) use of insulin; Z99.2 - Dependence on renal dialysis (8) Dyslipidemia Code(s): E78.5 - HYPERLIPIDEMIA, UNSPECIFIED Status: Chronic (9) ESRD (end stage renal disease) on dialysis Code(s): N18.6 - END STAGE RENAL DISEASE; Z99.2 - DEPENDENCE ON RENAL DIALYSIS Status: Chronic (10) Obstructive sleep apnea Code(s): G47.33 - OBSTRUCTIVE SLEEP APNEA (ADULT) (PEDIATRIC) Status: Chronic (11) Physical deconditioning Code(s): R53.81 - OTHER MALAISE Status: Chronic (12) Obesity (BMI 30-39.9) Code(s): E66.9 - OBESITY, UNSPECIFIED Status: Acute - Plan await covid 19 test results from [place] [facility], if they dont arrive by this afternoon please obtain another specimen she got HD yesterday with removal of 5 lts and will have another 3 hr session today on empiric cefepime will see patient today nebs, risperdal and home meds as above was intubated in april of this year as well prognosis guarded weaning and extubation per pulmonary advice hemostable now
[2019-07-27] MEDS ORDERED: Heparin 10,000 UNITS/ 10 ML VIAL ONE (12:37)
--- NOTE | 2019-07-27 14:03 | CON ---
DATE OF CONSULTATION: 07/27/2019 HISTORY OF PRESENT ILLNESS: Ms. De La Torre is a 59-year-old female with a history of mental illness and end-stage renal disease. She presented to [facility], was intubated, transferred to [facility]. She is admitted and dialyzed yesterday at 5 L and they are attempting to dialyze another 5 L today. It is unclear whether or not she is compliant, but I doubt she is. She has a history of catatonic schizophrenia. PAST MEDICAL HISTORY: Remarkable for: 1. COPD. 2. Sleep apnea. 3. Respiratory failure in April of this year. 4. Reported history of noncompliance according to old records. 5. Diabetes. 6. History of cholecystectomy. 7. History of vascular access procedures. 8. History of herniorrhaphy. 9. History of lipid disorder. FAMILY HISTORY: Negative for lung disease in early age. REVIEW OF SYSTEMS: Not obtainable. PHYSICAL EXAMINATION: GENERAL: She is mechanically ventilated. She is currently being dialyzed. VITAL SIGNS: Heart rate is in the 70s, blood pressure 111/89, respiratory rates in the teens. HEAD AND NECK: Unremarkable. LUNGS: Clear anteriorly. HEART: Regular rhythm. ABDOMEN: Soft. EXTREMITIES: Without edema. IMAGING STUDIES: Chest x-ray showed mild pulmonary edema on presentation. LABORATORY DATA: White count 11.6, hemoglobin 11.7, and platelets 324. Electrolytes are normal. BUN 48 and creatinine 9.37. COVID serology is pending. It is unclear why COVID serology was ordered on her. She has not been febrile since admission. IMPRESSION: Respiratory failure associated with volume overload. PLAN: Supportive care. Extubation once her COVID status is known and once she has been adequately dialyzed. Critical care time 30 min. Job ID: [id number] MTDD
--- NOTE | 2019-07-27 14:09 | RAD ---
Exam: Chest one view HISTORY:Ventilated patient. Respiratory distress. Comparison: 07/26/2019 FINDINGS: Lines and tubes: Stable endotracheal tube, nasogastric tube and left-sided HemoSplit dialysis cathete r. Cardiac silhouette: Normal Aorta: Unremarkable Pulmonary vessels: Normal Costophrenic angles: Clear LUNGS: Persistent opacification of the left lung base. Pneumothorax: None Osseous abnormalities: None IMPRESSION: No significant interval change.
--- NOTE | 2019-07-27 18:19 | PRG ---
DATE OF SERVICE: 07/27/2019 SUBJECTIVE: The patient was seen and examined, still on life support. Noted with the following vital signs. OBJECTIVE: VITAL SIGNS: Blood pressure 124/97, pulse 76, respirations 16, O2 saturation 100%. HEENT: Unremarkable. CARDIOVASCULAR: First and second heart sounds were heard. RESPIRATORY: Clear to auscultation. DIGESTIVE SYSTEM: Revealed a benign abdomen. EXTREMITIES: No peripheral edema. IMPRESSION: 1. End-stage renal disease, on dialysis. The patient was dialyzed today with ultrafiltration of 3 L. 2. Cardiopulmonary failure, on ventilator. PLAN: 1. The patient will be re-evaluated tomorrow for possible continued need for dialysis. Otherwise, most likely, dialysis will be skipped tomorrow and put back the patient on normal schedule of Monday, Monday, and Monday. 2. Cardiopulmonary management per the Pulmonary Team. 3. Further management to be dependent on the clinical course. Job ID: [id number]
[2019-07-27] MEDS: Atorvastatin Calcium 20 MG TAB PO SCH (20:02)
[2019-07-27] MEDS: risperiDONE 1 MG TAB PO SCH (20:02)
[2019-07-27] MEDS: Lorazepam 2 MG/ML VIAL SLOW IVP PRN (21:55)
[2019-07-27] MEDS: fentaNYL Citrate/PF 2,000 MCG in Sodium Chloride 0.9% 60 ML IV SCH (22:58)
[2019-07-28] MEDS: Lorazepam 2 MG/ML VIAL SLOW IVP PRN ×4 (02:13→23:50)
[2019-07-28 04:10] LABS: #Basophils 0.1 thou/uL (0.0-0.2); #Eosinphils 0.2 thou/uL (0.0-0.7); #Lymphocytes 3.2 thou/uL (1.20-3.40); #Monocytes 1.1 thou/uL (0.11-0.59); #Neutrophils 8.3 thou/uL (1.40-6.50); %Basophils 1.1 % (0.0-1.0); %Eosinophils 1.6 % (0.0-10.0); %Lymphocytes 24.8 % (21.0-51.0); %Monocytes 8.3 % (0.0-10.0); %Neutrophils 64.2 % (42.0-75.0); Hemoglobin 12.5 g/dL (12.0-16.0); Mean Corpuscular HGB CONC 29.1 g/dL (32.0-36.0); Mean Corpuscular Volume 92.8 fL (78.0-98.0); Mean Platelet Volume 8.6 fL (7.4-10.4); Platelet Count 351 thou/uL (130-400); RBC Distribution Width 16.2 % (11.5-14.5); Red Blood Cell (RBC) Count 4.63 mill/uL (4.20-5.40)
[2019-07-28 04:31] LABS: Anion Gap 20 mmol/L (10-20); BUN (Urea Nitrogen) 44 mg/dL (9.8-20.1); Calc. Creatinine Clearance 11 mL/min (70-130); Calcium 10.6 mg/dL (7.8-10.44); Carbon Dioxide 24 mmol/L (22-29); Chloride 97 mmol/L (98-107); Estimated GFR-MDRD 5; Glucose 121 mg/dL (70-105); Potassium 3.7 mmol/L (3.5-5.1); Sodium 137 mmol/L (136-145)
[2019-07-28] MEDS: Calcium Acetate 667 MG CAP PO SCH ×3 (07:25→17:08)
[2019-07-28] MEDS: Aspirin 81 mg Enteric Coated Tablet PO SCH (07:25)
[2019-07-28] MEDS: Cefepime 1 GM in Sodium Chloride 0.9% 100 ML IVPB SCH (07:36)
[2019-07-28] MEDS: levETIRAcetam 500 MG TAB PO SCH ×2 (07:37→20:37)
[2019-07-28] MEDS: Cinacalcet HCl 30 MG TAB PO SCH (07:37)
[2019-07-28] MEDS: Enoxaparin Sodium 30 MG/0.3 ML SYRINGE SC SCH (07:37)
[2019-07-28] MEDS: Multivit, Therapeutic 1 TAB PO SCH (07:38)
[2019-07-28] MEDS: rOPINIRole HCl 0.25 MG TAB PO SCH (07:38)
[2019-07-28] MEDS: Sevelamer Carbonate 800 MG TAB PO SCH ×2 (07:38→20:36)
--- NOTE | 2019-07-28 11:08 | PDOC.HOSPP ---
- Subjective Encounter Date: 07/28/19 Encounter Time: 07:30 Subjective: On vent, awake not in distress - Objective Vital Signs & Weight: Vital Signs (12 hours) Temp Pulse Resp BP 07/28/19 10:05 98 07/28/19 07:48 96 104/76 07/28/19 06:00 18 07/28/19 04:00 18 07/28/19 03:00 97.9 F 07/28/19 02:23 89 117/79 07/28/19 02:00 19 07/28/19 00:00 19 Weight Admit Weight 229 lb Weight 229 lb 0.964 oz Most Recent Monitor Data Heart Rate from ECG 88 NIBP 85/51 NIBP BP-Mean 62 Respiration from ECG 17 SpO2 100 I&O: 07/27/19 07/28/19 07/29/19 06:59 06:59 06:59 Intake Total 30 324.5 Output Total 15 150 0 Balance 15 174.5 0 Result Diagrams: 07/28/19 03:30 07/28/19 03:30 Hospitalist ROS - Medication Medications: Active Medications Generic Name Dose Route Start Last Admin Trade Name Freq PRN Reason Stop Dose Admin Aspirin 81 mg 07/27/19 09:00 07/28/19 07:25 Ecotrin PO 81 mg DAILY LILLY Administration Atorvastatin Calcium 20 mg 07/26/19 21:00 07/27/19 20:02 Lipitor PO 20 mg HS LILLY Administration Calcium Acetate 667 mg 07/27/19 08:00 07/28/19 07:25 Phoslo PO 667 mg TID-WM LILLY Administration Cinacalcet 30 mg 07/27/19 09:00 07/28/19 07:37 Sensipar PO 30 mg DAILY LILLY Administration Enoxaparin Sodium 30 mg 07/27/19 09:00 07/28/19 07:37 Lovenox SC 30 mg 0900 LILLY Administration Fentanyl Citrate 2,000 mcg/ 100 mls @ 0 mls/hr 07/26/19 17:58 07/27/19 22:58 Sodium Chloride IV 08/25/19 17:58 100 mls INF LILLY Administration Protocol Per Protocol Cefepime HCl 1 gm/ Sodium 100 mls @ 200 mls/hr 07/27/19 09:00 07/28/19 07:36 Chloride IVPB 100 mls Q24H LILLY Administration Levetiracetam 500 mg 07/26/19 21:00 07/28/19 07:37 Keppra PO 500 mg BID LILLY Administration Lorazepam 2 mg 07/26/19 17:58 07/28/19 05:33 Ativan SLOW IVP 08/25/19 17:58 2 mg Q1H PRN Administration Breakthrough agitation Multivitamins 1 tab 07/27/19 09:00 07/28/19 07:38 Theragran PO 1 tab DAILY LILLY Administration Propofol 1,000 mg 07/26/19 17:58 07/27/19 20:02 Diprivan IV 08/25/19 17:58 1,000 mg INF PRN Administration TO ACHIEVE GOAL RASS Protocol Risperidone 2 mg 07/27/19 21:00 07/27/19 20:02 Risperidone PO 2 mg QPM LILLY Administration Ropinirole HCl 0.25 mg 07/27/19 09:00 07/28/19 07:38 Requip PO 0.25 mg DAILY LILLY Administration Sevelamer Carbonate 800 mg 07/26/19 21:00 07/28/19 07:38 Renvela PO 800 mg BID LILLY Administration - Exam General Appearance: awake alert Eye: PERRL, anicteric sclera ENT: no oropharyngeal lesions, moist mucosa Neck: supple, no JVD Heart: RRR, no murmur Respiratory: no wheezes, no rales Gastrointestinal: soft, non-tender, non-distended, normal bowel sounds Extremities: no cyanosis, no edema Neurological: cranial nerve grossly intact, no focal deficits Hosp A/P (1) Acute respiratory failure with hypoxia and hypercapnia Code(s): J96.01 - ACUTE RESPIRATORY FAILURE WITH HYPOXIA; J96.02 - ACUTE RESPIRATORY FAILURE WITH HYPERCAPNIA Status: Acute (2) Volume overload Code(s): E87.70 - FLUID OVERLOAD, UNSPECIFIED Status: Resolved Qualifiers: (3) Acute metabolic encephalopathy Code(s): G93.41 - METABOLIC ENCEPHALOPATHY Status: Resolved (4) HTN (hypertension) Code(s): I10 - ESSENTIAL (PRIMARY) HYPERTENSION Status: Chronic Qualifiers: Hypertension type: essential hypertension Qualified Code(s): I10 - Essential (primary) hypertension (5) Schizophrenia Code(s): F20.9 - SCHIZOPHRENIA, UNSPECIFIED Status: Chronic Qualifiers: Schizophrenia type: unspecified Qualified Code(s): F20.9 - Schizophrenia, unspecified (6) Anemia of renal disease Code(s): D63.1 - ANEMIA IN CHRONIC KIDNEY DISEASE Status: Chronic (7) Diabetes type 2, controlled Code(s): E11.9 - TYPE 2 DIABETES MELLITUS WITHOUT COMPLICATIONS Status: Chronic Qualifiers: Diabetes mellitus penitentiary insulin use: with penitentiary use Diabetes mellitus complication status: with kidney complications Diabetes mellitus complication detail: with chronic kidney disease Chronic kidney disease stage : on chronic dialysis Qualified Code(s): E11.22 - Type 2 diabetes mellitus with diabetic chronic kidney disease; N18.6 - End stage renal disease; Z79.4 - half-way (current) use of insulin; Z99.2 - Dependence on renal dialysis (8) Dyslipidemia Code(s): E78.5 - HYPERLIPIDEMIA, UNSPECIFIED Status: Chronic (9) ESRD (end stage renal disease) on dialysis Code(s): N18.6 - END STAGE RENAL DISEASE; Z99.2 - DEPENDENCE ON RENAL DIALYSIS Status: Chronic (10) Obstructive sleep apnea Code(s): G47.33 - OBSTRUCTIVE SLEEP APNEA (ADULT) (PEDIATRIC) Status: Chronic (11) Physical deconditioning Code(s): R53.81 - OTHER MALAISE Status: Chronic (12) Obesity (BMI 30-39.9) Code(s): E66.9 - OBESITY, UNSPECIFIED Status: Chronic - Plan await covid 19 test results from [place] [facility] she got back to back HD with nearly 8 liters fluid removed. on empiric cefepime nebs, risperdal and home meds as above was intubated in april of this year as well prognosis guarded weaning and extubation per pulmonary advice hemostable
--- NOTE | 2019-07-28 12:27 | CON ---
DATE OF CONSULTATION: CONSULTING PHYSICIAN: Kerrie Crane MD REQUESTING PHYSICIAN: Nash Bone MD REASON FOR CONSULTATION: Need for maintenance hemodialysis. IMPRESSION: 1. End-stage renal disease, hemodialysis dependent. 2. Cardiopulmonary failure, query cause possibly related to fluid overload. 3. Morbid obesity. 4. Bipolar schizophrenic disorder. PLAN: 1. The patient to be dialyzed today with a modified dialysis to lay emphasis more on ultrafiltration with passage of about 5 L of ultrafiltration by the end of dialysis. 2. Repeat dialysis likely tomorrow with continued ultrafiltration as tolerated by hemodynamics pending when patient is able to be extubated. 3. Further management will be dependent on the clinical course. Whatever this patient's weight is at the end of dialysis will become the new estimated dry weight of this patient. HISTORY OF PRESENT ILLNESS: History is that of a 59-year-old female patient with bipolar schizophrenia, who was preparing to go to dialysis and became confused, and so was redirected to the [facility] ER, where BiPAP was initially used and the patient subsequently got intubated, and transferred to the hospital here for further management. The need for maintenance hemodialysis necessitated this renal consultation. PAST MEDICAL HISTORY: As documented in the body of the history. In addition, the patient does have history of hypertension, COPD, obstructive sleep apnea, hernia, type 2 diabetes, status post cholecystectomy. MEDICATIONS: Reviewed as documented on [employer]. FAMILY HISTORY: Not significantly related to present illness. SOCIAL HISTORY: The patient does have history of schizoaffective disorder with occasional . REVIEW OF SYSTEMS: Could not be obtained as the patient is intubated. PHYSICAL EXAMINATION: GENERAL: The patient was found to be on ventilator, hemodynamically stable. HEENT: Unremarkable. Endotracheal tube in place. CARDIOVASCULAR SYSTEM: First and second heart sounds were heard. RESPIRATORY SYSTEM: Revealed vented sounds. DIGESTIVE SYSTEM: Revealed obese abdomen. EXTREMITIES: No peripheral edema. SKIN: No new gross rash. LYMPHATICS: No peripheral lymphadenopathy. SUMMARY: A 59-year-old female patient with end-stage renal disease, here with cardiopulmonary failure. Thank you for this consultation. We will follow with you. Job ID: [id number]
[2019-07-28] MEDS ORDERED: Sodium Chloride 0.9% 250 ML IV SCH (13:15)
[2019-07-28] MEDS ORDERED: Sodium Chloride 0.9% 1,000 ML IV SCH ×2 (13:30)
--- NOTE | 2019-07-28 15:39 | PRG ---
DATE OF SERVICE: 07/28/2019 SUBJECTIVE: Ana Rosa De La Torre awakens and nods, follows commands. She moves all extremities. OBJECTIVE: VITAL SIGNS: Heart rate is in 80s, respiratory rates in the teens, blood pressure is 94/78. GENERAL: She was sedated this morning, anticipating that her COVID test would not come back, but after lunch, it came back negative. LUNGS: Clear. HEART: Regular rhythm. ABDOMEN: Soft. EXTREMITIES: Without edema. NEUROLOGIC: Nonfocal. LABORATORY DATA: White count 13, hemoglobin 12.5, platelets 351. Electrolytes are normal. BUN 44, creatinine 9.01. IMPRESSION: 1. Respiratory failure associated with noncompliance with dialysis, volume overload. 2. End-stage renal disease. 3. COVID negative. 4. Schizophrenia that tends to be paranoid at times and catatonic at other times. I have recommended extubation when she wakes up if she passes a leak test. She had a spontaneous breathing trial, was started after COVID test came back . Critical care time 35 min. Job ID: [id number] MTDD
[2019-07-28] MEDS: methylPREDNISolone Sod Succ 40 MG VIAL IVP SCH ×2 (17:08→23:50)
[2019-07-28] MEDS: Atorvastatin Calcium 20 MG TAB PO SCH (20:36)
[2019-07-28] MEDS: risperiDONE 1 MG TAB PO SCH (20:37)
[2019-07-29] MEDS: Lorazepam 2 MG/ML VIAL SLOW IVP PRN ×4 (04:14→19:55)
[2019-07-29 05:02] LABS: #Lymphocytes 1.4 thou/uL (1.20-3.40); #Monocytes 0.2 thou/uL (0.11-0.59); #Neutrophils 8.6 thou/uL (1.40-6.50); %Basophils 0.4 % (0.0-1.0); %Eosinophils 0.2 % (0.0-10.0); %Lymphocytes 13.4 % (21.0-51.0); %Monocytes 1.8 % (0.0-10.0); %Neutrophils 84.2 % (42.0-75.0); Hemoglobin 11.8 g/dL (12.0-16.0); Mean Corpuscular HGB CONC 31.2 g/dL (32.0-36.0); Mean Corpuscular Hemoglobin 28.8 pg (27.0-31.0); Mean Corpuscular Volume 92.5 fL (78.0-98.0); Platelet Count 272 thou/uL (130-400); RBC Distribution Width 16.2 % (11.5-14.5); Red Blood Cell (RBC) Count 4.08 mill/uL (4.20-5.40); White Blood Cell (WBC) Count 10.2 thou/uL (4.8-10.8)
[2019-07-29] MEDS: methylPREDNISolone Sod Succ 40 MG VIAL IVP SCH ×3 (05:46→17:45)
[2019-07-29] MEDS: Aspirin 81 mg Enteric Coated Tablet PO SCH (10:02)
[2019-07-29] MEDS: Multivit, Therapeutic 1 TAB PO SCH (10:02)
[2019-07-29] MEDS: Calcium Acetate 667 MG CAP PO SCH ×3 (10:02→17:45)
[2019-07-29] MEDS: Sevelamer Carbonate 800 MG TAB PO SCH ×2 (10:02→22:32)
[2019-07-29] MEDS: Cinacalcet HCl 30 MG TAB PO SCH (10:02)
[2019-07-29] MEDS: Enoxaparin Sodium 30 MG/0.3 ML SYRINGE SC SCH ×3 (10:03→17:51)
[2019-07-29] MEDS: rOPINIRole HCl 0.25 MG TAB PO SCH (10:03)
[2019-07-29] MEDS: levETIRAcetam 500 MG TAB PO SCH ×2 (10:03→22:32)
[2019-07-29] MEDS: Cefepime 1 GM in Sodium Chloride 0.9% 100 ML IVPB SCH (10:08)
--- NOTE | 2019-07-29 10:38 | PRG ---
DATE OF SERVICE: 07/29/2019 SUBJECTIVE: Ana Rosa De La Torre remains mechanically ventilated. She did not pass a leak test today. OBJECTIVE: VITAL SIGNS: Blood pressure , heart rate 91, respiratory rate is in the teens. She is having an EEG done. LUNGS: Clear. HEART: Regular rhythm. ABDOMEN: Soft. She nods. Moves all extremities to command. LABORATORY DATA: White count 10.2, hemoglobin 11.8, platelets 272. Sodium 137, potassium 3.7, chloride 97, bicarb 24, BUN 44, creatinine 9. IMPRESSION: 1. Respiratory failure associated with volume overload, clinically improving. 2. She has failed a leak test again. It is unlikely that she has vocal cord edema, but to be safe, we will give her steroids for one more day and then extubate her with the bronchoscope at the bedside tomorrow most likely. Critical care time 30 min. Job ID: [id number] MTDD
[2019-07-29] MEDS: fentaNYL Citrate/PF 2,000 MCG in Sodium Chloride 0.9% 60 ML IV SCH ×2 (10:54→22:23)
[2019-07-29] MEDS ORDERED: Heparin 10,000 UNITS/ 10 ML VIAL ONE (12:35)
--- NOTE | 2019-07-29 16:59 | EKG ---
Test Reason : Blood Pressure : / mmHG Vent. Rate : 070 BPM Atrial Rate : 070 BPM P-R Int : 142 ms QRS Dur : 086 ms QT Int : 370 ms P-R-T Axes : 054 087 072 degrees QTc Int : 399 ms Normal sinus rhythm T wave abnormality, consider anterior ischemia Abnormal ECG Confirmed by JOSE BUTLER ([id number]) on 07/29/2019 4:59:28 PM Referred By: SONIA Confirmed By:JOSE BUTLER
--- NOTE | 2019-07-29 19:49 | PDOC.HOSPP ---
- Subjective Encounter Date: 07/29/19 - Objective Vital Signs & Weight: Vital Signs (12 hours) Temp Pulse Resp BP 07/29/19 18:37 59 L 07/29/19 18:00 16 07/29/19 16:00 16 07/29/19 14:50 51 L 117/74 07/29/19 14:00 16 07/29/19 12:00 97.7 F 16 07/29/19 10:31 75 07/29/19 10:00 16 07/29/19 08:00 98.0 F 18 Weight Admit Weight 229 lb Weight 229 lb 8.019 oz Most Recent Monitor Data Heart Rate from ECG 50 NIBP 131/72 NIBP BP-Mean 91 Respiration from ECG 23 SpO2 97 I&O: 07/28/19 07/29/19 07/30/19 06:59 06:59 06:59 Intake Total 324.5 2611.9 500 Output Total 150 0 Balance 174.5 2611.9 500 Result Diagrams: 07/29/19 04:24 07/28/19 03:30 Additional Labs: Accuchecks 07/28/19 07/28/19 07/28/19 20:43 17:35 12:11 POC Glucose 112 H 110 118 H 07/28/19 07/27/19 07/27/19 03:35 20:16 15:29 POC Glucose 116 H 135 H 131 H 07/27/19 09:11 POC Glucose 96 Hospitalist ROS - Medication Medications: Active Medications Generic Name Dose Route Start Last Admin Trade Name Freq PRN Reason Stop Dose Admin Aspirin 81 mg 07/27/19 09:00 07/29/19 10:02 Ecotrin PO 81 mg DAILY LILLY Administration Atorvastatin Calcium 20 mg 07/26/19 21:00 07/28/19 20:36 Lipitor PO 20 mg HS LILLY Administration Calcium Acetate 667 mg 07/27/19 08:00 07/29/19 17:45 Phoslo PO 667 mg TID-WM LILLY Administration Cinacalcet 30 mg 07/27/19 09:00 07/29/19 10:02 Sensipar PO 30 mg DAILY LILLY Administration Enoxaparin Sodium 30 mg 07/27/19 09:00 07/29/19 17:51 Lovenox SC 30 mg 0900 LILLY Administration Fentanyl Citrate 2,000 mcg/ 100 mls @ 0 mls/hr 07/26/19 17:58 07/29/19 10:54 Sodium Chloride IV 08/25/19 17:58 100 mls INF LILLY Administration Protocol Per Protocol Cefepime HCl 1 gm/ Sodium 100 mls @ 200 mls/hr 07/27/19 09:00 07/29/19 10:08 Chloride IVPB 100 mls Q24H LILLY Administration Levetiracetam 500 mg 07/26/19 21:00 07/29/19 10:03 Keppra PO 500 mg BID LILLY Administration Lorazepam 2 mg 07/26/19 17:58 07/29/19 17:45 Ativan SLOW IVP 08/25/19 17:58 2 mg Q1H PRN Administration Breakthrough agitation Methylprednisolone Sodium Succinate 40 mg 07/28/19 18:00 07/29/19 17:45 Solu-Medrol IVP 40 mg Q6HR LILLY Administration Multivitamins 1 tab 07/27/19 09:00 07/29/19 10:02 Theragran PO 1 tab DAILY LILLY Administration Propofol 1,000 mg 07/26/19 17:58 07/27/19 20:02 Diprivan IV 08/25/19 17:58 1,000 mg INF PRN Administration TO ACHIEVE GOAL RASS Protocol Risperidone 2 mg 07/27/19 21:00 07/28/19 20:37 Risperidone PO 2 mg QPM LILLY Administration Ropinirole HCl 0.25 mg 07/27/19 09:00 07/29/19 10:03 Requip PO 0.25 mg DAILY LILLY Administration Sevelamer Carbonate 800 mg 07/26/19 21:00 07/29/19 10:02 Renvela PO 800 mg BID LILLY Administration Hosp A/P - Plan Hosp A/P (1) Acute respiratory failure with hypoxia and hypercapnia Code(s): J96.01 - ACUTE RESPIRATORY FAILURE WITH HYPOXIA; J96.02 - ACUTE RESPIRATORY FAILURE WITH HYPERCAPNIA Status: Acute (2) Volume overload Code(s): E87.70 - FLUID OVERLOAD, UNSPECIFIED Status: Resolved Qualifiers: (3) Acute metabolic encephalopathy Code(s): G93.41 - METABOLIC ENCEPHALOPATHY Status: Resolved (4) HTN (hypertension) Code(s): I10 - ESSENTIAL (PRIMARY) HYPERTENSION Status: Chronic Qualifiers: Hypertension type: essential hypertension Qualified Code(s): I10 - Essential (primary) hypertension (5) Schizophrenia Code(s): F20.9 - SCHIZOPHRENIA, UNSPECIFIED Status: Chronic Qualifiers: Schizophrenia type: unspecified Qualified Code(s): F20.9 - Schizophrenia, unspecified (6) Anemia of renal disease Code(s): D63.1 - ANEMIA IN CHRONIC KIDNEY DISEASE Status: Chronic (7) Diabetes type 2, controlled Code(s): E11.9 - TYPE 2 DIABETES MELLITUS WITHOUT COMPLICATIONS Status: Chronic Qualifiers: Diabetes mellitus marine oil terminal superintendent insulin use: with snf use Diabetes mellitus complication status: with kidney complications Diabetes mellitus complication detail: with chronic kidney disease Chronic kidney disease stage : on chronic dialysis Qualified Code(s): E11.22 - Type 2 diabetes mellitus with diabetic chronic kidney disease; N18.6 - End stage renal disease; Z79.4 - rat exterminator (current) use of insulin; Z99.2 - Dependence on renal dialysis (8) Dyslipidemia Code(s): E78.5 - HYPERLIPIDEMIA, UNSPECIFIED Status: Chronic (9) ESRD (end stage renal disease) on dialysis Code(s): N18.6 - END STAGE RENAL DISEASE; Z99.2 - DEPENDENCE ON RENAL DIALYSIS Status: Chronic (10) Obstructive sleep apnea Code(s): G47.33 - OBSTRUCTIVE SLEEP APNEA (ADULT) (PEDIATRIC) Status: Chronic (11) Physical deconditioning Code(s): R53.81 - OTHER MALAISE Status: Chronic (12) Obesity (BMI 30-39.9) Code(s): E66.9 - OBESITY, UNSPECIFIED Status: Chronic - Plan Respiratory failure due to volume overload improving with hemodialysis and fluid removal. Plan for extubation tomorrow. No signs of sepsis. Discontinue cefepime. Change enoxaparin to subcu heparin for DVT prophylaxis since the patient is on dialysis.
[2019-07-29] MEDS: Atorvastatin Calcium 20 MG TAB PO SCH (22:32)
[2019-07-29] MEDS: risperiDONE 1 MG TAB PO SCH (22:32)
[2019-07-29] MEDS: Heparin 5,000 UNITS/ML VIAL SC SCH (22:34)
[2019-07-30] MEDS: methylPREDNISolone Sod Succ 40 MG VIAL IVP SCH ×4 (01:58→21:21)
[2019-07-30 05:08] LABS: Hypochromia SLIGHT = 6-15 cells (100X) (0-5/hpf); Lymphocytes 14 % (21-51); MDiff Complete? YES; Mean Corpuscular HGB CONC 30.3 g/dL (32.0-36.0); Mean Corpuscular Hemoglobin 27.7 pg (27.0-31.0); Mean Corpuscular Volume 91.5 fL (78.0-98.0); Mean Platelet Volume 8.8 fL (7.4-10.4); Monocytes 3 % (0-10); Neutrophil 83 % (42-75); Platelet Count 295 thou/uL (130-400); Platelet Morphology Comment Appears Adequate; RBC Distribution Width 15.9 % (11.5-14.5); Red Blood Cell (RBC) Count 3.95 mill/uL (4.20-5.40); White Blood Cell (WBC) Count 9.5 thou/uL (4.8-10.8)
[2019-07-30 05:13] LABS: Anion Gap 17 mmol/L (10-20); BUN (Urea Nitrogen) 41 mg/dL (9.8-20.1); Calc. Creatinine Clearance 14 mL/min (70-130); Calcium 10.4 mg/dL (7.8-10.44); Carbon Dioxide 25 mmol/L (22-29); Chloride 98 mmol/L (98-107); Estimated GFR-MDRD 7; Glucose 129 mg/dL (70-105); Potassium 3.9 mmol/L (3.5-5.1); Sodium 136 mmol/L (136-145)
[2019-07-30] MEDS: Heparin 5,000 UNITS/ML VIAL SC SCH ×2 (08:02→21:22)
[2019-07-30] MEDS: Aspirin 81 mg Enteric Coated Tablet PO SCH (08:04)
[2019-07-30] MEDS: Cinacalcet HCl 30 MG TAB PO SCH (08:05)
[2019-07-30] MEDS: Sevelamer Carbonate 800 MG TAB PO SCH ×3 (08:05→22:03)
[2019-07-30] MEDS: levETIRAcetam 500 MG TAB PO SCH ×3 (08:05→22:04)
[2019-07-30] MEDS: rOPINIRole HCl 0.25 MG TAB PO SCH (08:05)
[2019-07-30] MEDS: Multivit, Therapeutic 1 TAB PO SCH (08:05)
[2019-07-30] MEDS: Calcium Acetate 667 MG CAP PO SCH ×3 (08:05→16:11)
[2019-07-30 13:52] VITALS: BMI 36.9
[2019-07-30] MEDS ORDERED: Haloperidol Lactate 5 MG/ML VIAL IM PRN (15:10)
--- NOTE | 2019-07-30 16:57 | PRG ---
DATE OF SERVICE: 07/30/2019 SUBJECTIVE: Ms. De La Torre did well this morning. She awakened quickly. She passed a leak test. She passed spontaneous breathing trial, although she did spend a lot of time sleeping. She has subsequently been extubated. She has been placed on BiPAP. She nods that she is comfortable on BiPAP. OBJECTIVE: LUNGS: Clear. HEART: Regular rhythm. ABDOMEN: Soft. EXTREMITIES: Without asymmetry. Apparently, she has not planned for dialysis today. Blood pressure is in the 80 to 90 range. LABORATORY DATA: White count is 9.5, hemoglobin 11.0, and platelets 295. Electrolytes are unremarkable. BUN 41 and creatinine 7.33. Intake and outputs positive 1480. She has positive 4 L over the last 2 days. IMPRESSION: Status post mechanical ventilation for volume overload, clinically stable postextubation. She does probably have obesity hypoventilation syndrome. She will be given BiPAP for a while whenever she is sleeping. Critical care time 30 min. Job ID: [id number] MTDD
--- NOTE | 2019-07-30 20:25 | PDOC.HOSPP ---
- Subjective Encounter Date: 07/30/19 Subjective: Extubated this morning. She follows commands but does not communicate verbally. - Objective Vital Signs & Weight: Vital Signs (12 hours) Temp Pulse Resp Pulse Ox 07/30/19 20:00 97.3 F L 100 07/30/19 16:00 98.4 F 98 07/30/19 14:59 82 07/30/19 13:30 93 17 98 07/30/19 13:13 57 L 07/30/19 12:00 97.5 F L 20 92 L 07/30/19 10:35 58 L 07/30/19 10:00 29 H Weight Admit Weight 229 lb Weight 222 lb 0.088 oz Most Recent Monitor Data Heart Rate from ECG 63 NIBP 128/69 NIBP BP-Mean 88 Respiration from ECG 16 SpO2 100 I&O: 07/29/19 07/30/19 07/31/19 06:59 06:59 06:59 Intake Total 2611.9 1480.7 361.6 Output Total 0 0 0 Balance 2611.9 1480.7 361.6 Result Diagrams: 07/30/19 04:05 07/30/19 04:05 Additional Labs: Accuchecks 07/29/19 07/29/19 19:12 04:31 POC Glucose 160 H 184 H Hospitalist ROS - Medication Medications: Active Medications Generic Name Dose Route Start Last Admin Trade Name Freq PRN Reason Stop Dose Admin Aspirin 81 mg 07/27/19 09:00 07/30/19 08:04 Ecotrin PO 81 mg DAILY LILLY Administration Atorvastatin Calcium 20 mg 07/26/19 21:00 07/29/19 22:32 Lipitor PO 20 mg HS LILLY Administration Calcium Acetate 667 mg 07/27/19 08:00 07/30/19 16:11 Phoslo PO Not Given TID-WM LILLY Cinacalcet 30 mg 07/27/19 09:00 07/30/19 08:05 Sensipar PO 30 mg DAILY LILLY Administration Heparin Sodium (Porcine) 5,000 units 07/29/19 21:00 07/30/19 08:02 Heparin SC 5,000 units BID LILLY Administration Sodium Chloride 1,000 mls @ 0 mls/hr 07/28/19 13:30 07/29/19 22:22 Normal Saline 0.9% IV 1,000 mls .Q0M LILLY Administration KVO Levetiracetam 500 mg 07/26/19 21:00 07/30/19 08:05 Keppra PO 500 mg BID LILLY Administration Multivitamins 1 tab 07/27/19 09:00 07/30/19 08:05 Theragran PO 1 tab DAILY LILLY Administration Risperidone 2 mg 07/27/19 21:00 07/29/19 22:32 Risperidone PO 2 mg QPM LILLY Administration Ropinirole HCl 0.25 mg 07/27/19 09:00 07/30/19 08:05 Requip PO 0.25 mg DAILY LILLY Administration Sevelamer Carbonate 800 mg 07/26/19 21:00 07/30/19 08:05 Renvela PO 800 mg BID LILLY Administration - Exam General Appearance: NAD, awake alert Neck: supple, no JVD Heart: RRR Respiratory: normal chest expansion, no tachypnea Neurological: cranial nerve grossly intact Hosp A/P - Plan Hosp A/P (1) Acute respiratory failure with hypoxia and hypercapnia Code(s): J96.01 - ACUTE RESPIRATORY FAILURE WITH HYPOXIA; J96.02 - ACUTE RESPIRATORY FAILURE WITH HYPERCAPNIA Status: Acute (2) Volume overload Code(s): E87.70 - FLUID OVERLOAD, UNSPECIFIED Status: Resolved Qualifiers: (3) Acute metabolic encephalopathy Code(s): G93.41 - METABOLIC ENCEPHALOPATHY Status: Resolved (4) HTN (hypertension) Code(s): I10 - ESSENTIAL (PRIMARY) HYPERTENSION Status: Chronic Qualifiers: Hypertension type: essential hypertension Qualified Code(s): I10 - Essential (primary) hypertension (5) Schizophrenia Code(s): F20.9 - SCHIZOPHRENIA, UNSPECIFIED Status: Chronic Qualifiers: Schizophrenia type: unspecified Qualified Code(s): F20.9 - Schizophrenia, unspecified (6) Anemia of renal disease Code(s): D63.1 - ANEMIA IN CHRONIC KIDNEY DISEASE Status: Chronic (7) Diabetes type 2, controlled Code(s): E11.9 - TYPE 2 DIABETES MELLITUS WITHOUT COMPLICATIONS Status: Chronic Qualifiers: Diabetes mellitus salvage determiner insulin use: with salvage determiner use Diabetes mellitus complication status: with kidney complications Diabetes mellitus complication detail: with chronic kidney disease Chronic kidney disease stage : on chronic dialysis Qualified Code(s): E11.22 - Type 2 diabetes mellitus with diabetic chronic kidney disease; N18.6 - End stage renal disease; Z79.4 - residential (current) use of insulin; Z99.2 - Dependence on renal dialysis (8) Dyslipidemia Code(s): E78.5 - HYPERLIPIDEMIA, UNSPECIFIED Status: Chronic (9) ESRD (end stage renal disease) on dialysis Code(s): N18.6 - END STAGE RENAL DISEASE; Z99.2 - DEPENDENCE ON RENAL DIALYSIS Status: Chronic (10) Obstructive sleep apnea Code(s): G47.33 - OBSTRUCTIVE SLEEP APNEA (ADULT) (PEDIATRIC) Status: Chronic (11) Physical deconditioning Code(s): R53.81 - OTHER MALAISE Status: Chronic (12) Obesity (BMI 30-39.9) Code(s): E66.9 - OBESITY, UNSPECIFIED Status: Chronic - Plan Respiratory failure due to volume overload improving with hemodialysis and fluid removal. Extubated successfully. BiPAP planned as needed for hypercarbia associated with obesity hypoventilation syndrome. No signs of sepsis and antibiotics has been discontinued. Continue subcu heparin for DVT prophylaxis.
[2019-07-30] MEDS: Atorvastatin Calcium 20 MG TAB PO SCH ×2 (21:16→22:04)
[2019-07-30] MEDS: risperiDONE 1 MG TAB PO SCH ×2 (21:16→22:03)
[2019-07-31 04:59] LABS: Anion Gap 18 mmol/L (10-20); BUN (Urea Nitrogen) 62 mg/dL (9.8-20.1); Calc. Creatinine Clearance 11 mL/min (70-130); Calcium 10.6 mg/dL (7.8-10.44); Carbon Dioxide 26 mmol/L (22-29); Chloride 96 mmol/L (98-107); Estimated GFR-MDRD 5; Glucose 148 mg/dL (70-105); Potassium 4.5 mmol/L (3.5-5.1); Sodium 135 mmol/L (136-145)
[2019-07-31 05:27] LABS: Band 9 % (5-11); Hemoglobin 11.1 g/dL (12.0-16.0); Lymphocytes 9 % (21-51); MDiff Complete? YES; Mean Corpuscular HGB CONC 29.4 g/dL (32.0-36.0); Mean Corpuscular Hemoglobin 27.6 pg (27.0-31.0); Mean Corpuscular Volume 94.1 fL (78.0-98.0); Mean Platelet Volume 8.9 fL (7.4-10.4); Monocytes 2 % (0-10); Neutrophil 80 % (42-75); Platelet Count 273 thou/uL (130-400); Platelet Morphology Comment Appears Adequate; RBC Distribution Width 15.8 % (11.5-14.5); Red Blood Cell (RBC) Count 4.03 mill/uL (4.20-5.40); White Blood Cell (WBC) Count 9.1 thou/uL (4.8-10.8)
[2019-07-31] MEDS: Calcium Acetate 667 MG CAP PO SCH ×3 (08:36→18:15)
--- NOTE | 2019-07-31 09:47 | EEG ---
duplicate see other report MTDD
[2019-07-31] MEDS: rOPINIRole HCl 0.25 MG TAB PO SCH (09:54)
[2019-07-31] MEDS: Sevelamer Carbonate 800 MG TAB PO SCH ×2 (09:54→20:37)
[2019-07-31] MEDS: Aspirin 81 mg Enteric Coated Tablet PO SCH (09:54)
[2019-07-31] MEDS: Cinacalcet HCl 30 MG TAB PO SCH (09:54)
[2019-07-31] MEDS: Multivit, Therapeutic 1 TAB PO SCH (09:54)
[2019-07-31] MEDS: methylPREDNISolone Sod Succ 40 MG VIAL IVP SCH ×2 (09:54→20:37)
[2019-07-31] MEDS: levETIRAcetam 500 MG TAB PO SCH ×2 (09:54→20:37)
[2019-07-31] MEDS: Heparin 5,000 UNITS/ML VIAL SC SCH ×2 (09:55→20:37)
--- NOTE | 2019-07-31 10:14 | EEG ---
DATE OF SERVICE: 07/29/2019 This EEG was performed using 24 channel [employer] video digital EEG machine with 24 disk electrodes . This was an extended 2 hour 10 minutes of inpatient video EEG recording. Digital analysis of the EEG was done for spike and seizure detection, which revealed no abnormalities. BACKGROUND: The posterior background rhythm was not observed. HYPERVENTILATION: Not performed. PHOTIC STIMULATION: Not performed. SLEEP: No stage change was observed. EEG DIAGNOSES: 1. Generalized irregular theta activity with superimposed beta. 2. Absence of posterior background rhythm. CLINICAL INTERPRETATION: This EEG is consistent with moderate generalized nonspecific cerebral dysfunction. No ictal or interictal epileptiform abnormalities seen during the recording. Job ID: [id number] [facility]
[2019-07-31] MEDS ORDERED: Heparin 10,000 UNITS/ 10 ML VIAL ONE (12:46)
--- NOTE | 2019-07-31 17:13 | PRG ---
DATE OF SERVICE: 07/31/2019 SUBJECTIVE: Ana Rosa De La Torre is in no distress. Her paranoia is starting to come out. OBJECTIVE: VITAL SIGNS: Heart rates in the 60s, blood pressure 124/68, respiratory rates in the 20s. LUNGS: Clear. HEART: Regular rhythm. ABDOMEN: Soft. LABORATORY DATA: White count 9.1, hemoglobin 11.1, and platelets 273,000. Sodium 135, potassium 4.5, chloride 96, bicarb 26, BUN 62, and creatinine 9.2. IMPRESSION: 1. Respiratory failure, associated with volume overload. 2. Paranoid schizophrenia. She is convinced the dialysis nurse is making her cough. She can transfer out of critical care unit. Probably, she is a candidate to go home here in 24 to 48 hours. Unfortunately, her behavior change much when she is at home. It has been emphasized again how important it is for her not to miss her dialysis appointments. Job ID: [id number]
[2019-07-31] MEDS: Atorvastatin Calcium 20 MG TAB PO SCH (20:37)
[2019-07-31] MEDS: risperiDONE 1 MG TAB PO SCH (20:37)
--- NOTE | 2019-07-31 21:26 | PDOC.HOSPP ---
- Subjective Encounter Date: 07/31/19 Subjective: Feeling better. - Objective Vital Signs & Weight: Vital Signs (12 hours) Temp Pulse Resp BP Pulse Ox 07/31/19 18:46 98.3 F 71 16 147/77 H 99 07/31/19 16:00 97.9 F 07/31/19 12:00 98.4 F Weight Admit Weight 229 lb Weight 231 lb 14.821 oz Most Recent Monitor Data Heart Rate from ECG 85 NIBP 139/70 NIBP BP-Mean 93 Respiration from ECG 17 SpO2 99 I&O: 07/30/19 07/31/19 08/01/19 06:59 06:59 06:59 Intake Total 1480.7 603.6 647 Output Total 0 0 0 Balance 1480.7 603.6 647 Result Diagrams: 07/31/19 03:05 07/31/19 03:05 Additional Labs: Accuchecks 07/31/19 07/31/19 20:44 04:20 POC Glucose 184 H 153 H Hospitalist ROS - Medication Medications: Active Medications Generic Name Dose Route Start Last Admin Trade Name Freq PRN Reason Stop Dose Admin Aspirin 81 mg 07/27/19 09:00 07/31/19 09:54 Ecotrin PO 81 mg DAILY LILLY Administration Atorvastatin Calcium 20 mg 07/26/19 21:00 07/31/19 20:37 Lipitor PO 20 mg HS LILLY Administration Calcium Acetate 667 mg 07/27/19 08:00 07/31/19 18:15 Phoslo PO Not Given TID-WM LILLY Cinacalcet 30 mg 07/27/19 09:00 07/31/19 09:54 Sensipar PO 30 mg DAILY LILLY Administration Heparin Sodium (Porcine) 5,000 units 07/29/19 21:00 07/31/19 20:37 Heparin SC 5,000 units BID LILLY Administration Sodium Chloride 1,000 mls @ 0 mls/hr 07/28/19 13:30 07/29/19 22:22 Normal Saline 0.9% IV 1,000 mls .Q0M LILLY Administration KVO Levetiracetam 500 mg 07/26/19 21:00 07/31/19 20:37 Keppra PO 500 mg BID LILLY Administration Methylprednisolone Sodium Succinate 40 mg 07/30/19 21:00 07/31/19 20:37 Solu-Medrol IVP 40 mg Q12HR LILLY Administration Multivitamins 1 tab 07/27/19 09:00 07/31/19 09:54 Theragran PO 1 tab DAILY LILLY Administration Risperidone 2 mg 07/27/19 21:00 07/31/19 20:37 Risperidone PO 2 mg QPM LILLY Administration Ropinirole HCl 0.25 mg 07/27/19 09:00 07/31/19 09:54 Requip PO 0.25 mg DAILY LILLY Administration Sevelamer Carbonate 800 mg 07/26/19 21:00 07/31/19 20:37 Renvela PO 800 mg BID LILLY Administration - Exam General Appearance: awake alert ENT: normocephalic atraumatic Neck: supple Respiratory: normal chest expansion, no tachypnea Gastrointestinal: soft Extremities: no cyanosis Neurological: cranial nerve grossly intact Hosp A/P - Plan Hosp A/P (1) Acute respiratory failure with hypoxia and hypercapnia Code(s): J96.01 - ACUTE RESPIRATORY FAILURE WITH HYPOXIA; J96.02 - ACUTE RESPIRATORY FAILURE WITH HYPERCAPNIA Status: Acute (2) Volume overload Code(s): E87.70 - FLUID OVERLOAD, UNSPECIFIED Status: Resolved Qualifiers: (3) Acute metabolic encephalopathy Code(s): G93.41 - METABOLIC ENCEPHALOPATHY Status: Resolved (4) HTN (hypertension) Code(s): I10 - ESSENTIAL (PRIMARY) HYPERTENSION Status: Chronic Qualifiers: Hypertension type: essential hypertension Qualified Code(s): I10 - Essential (primary) hypertension (5) Schizophrenia Code(s): F20.9 - SCHIZOPHRENIA, UNSPECIFIED Status: Chronic Qualifiers: Schizophrenia type: unspecified Qualified Code(s): F20.9 - Schizophrenia, unspecified (6) Anemia of renal disease Code(s): D63.1 - ANEMIA IN CHRONIC KIDNEY DISEASE Status: Chronic (7) Diabetes type 2, controlled Code(s): E11.9 - TYPE 2 DIABETES MELLITUS WITHOUT COMPLICATIONS Status: Chronic Qualifiers: Diabetes mellitus superintendent container terminal insulin use: with intermediate use Diabetes mellitus complication status: with kidney complications Diabetes mellitus complication detail: with chronic kidney disease Chronic kidney disease stage : on chronic dialysis Qualified Code(s): E11.22 - Type 2 diabetes mellitus with diabetic chronic kidney disease; N18.6 - End stage renal disease; Z79.4 - computer terminal operator (current) use of insulin; Z99.2 - Dependence on renal dialysis (8) Dyslipidemia Code(s): E78.5 - HYPERLIPIDEMIA, UNSPECIFIED Status: Chronic (9) ESRD (end stage renal disease) on dialysis Code(s): N18.6 - END STAGE RENAL DISEASE; Z99.2 - DEPENDENCE ON RENAL DIALYSIS Status: Chronic (10) Obstructive sleep apnea Code(s): G47.33 - OBSTRUCTIVE SLEEP APNEA (ADULT) (PEDIATRIC) Status: Chronic (11) Physical deconditioning Code(s): R53.81 - OTHER MALAISE Status: Chronic (12) Obesity (BMI 30-39.9) Code(s): E66.9 - OBESITY, UNSPECIFIED Status: Chronic - Plan Respiratory failure due to volume overload improving with hemodialysis and fluid removal. Extubated successfully. BiPAP planned as needed for hypercarbia associated with obesity hypoventilation syndrome. No signs of sepsis and antibiotics has been discontinued. Continue subcu heparin for DVT prophylaxis. Continue HD per nephrology. DC within the next 24hr.
[2019-08-01 06:57] LABS: Anion Gap 15 mmol/L (10-20); BUN (Urea Nitrogen) 56 mg/dL (9.8-20.1); Calc. Creatinine Clearance 12 mL/min (70-130); Calcium 9.5 mg/dL (7.8-10.44); Carbon Dioxide 26 mmol/L (22-29); Chloride 98 mmol/L (98-107); Estimated GFR-MDRD 6; Glucose 177 mg/dL (70-105); Potassium 4.3 mmol/L (3.5-5.1); Sodium 135 mmol/L (136-145)
[2019-08-01 07:54] LABS: Hemoglobin 11.6 g/dL (12.0-16.0); Mean Corpuscular HGB CONC 30.1 g/dL (32.0-36.0); Mean Corpuscular Hemoglobin 28.2 pg (27.0-31.0); Mean Corpuscular Volume 93.7 fL (78.0-98.0); Mean Platelet Volume 8.9 fL (7.4-10.4); Platelet Count 233 thou/uL (130-400); RBC Distribution Width 15.5 % (11.5-14.5); Red Blood Cell (RBC) Count 4.11 mill/uL (4.20-5.40); White Blood Cell (WBC) Count 9.4 thou/uL (4.8-10.8)
[2019-08-01 07:57] VITALS: BP 143/87; TEMP 98.2
[2019-08-01] MEDS: Sevelamer Carbonate 800 MG TAB PO SCH (08:22)
[2019-08-01] MEDS: rOPINIRole HCl 0.25 MG TAB PO SCH (08:23)
[2019-08-01] MEDS: Multivit, Therapeutic 1 TAB PO SCH (08:23)
[2019-08-01] MEDS: Heparin 5,000 UNITS/ML VIAL SC SCH (08:23)
[2019-08-01] MEDS: Cinacalcet HCl 30 MG TAB PO SCH (08:23)
[2019-08-01] MEDS: methylPREDNISolone Sod Succ 40 MG VIAL IVP SCH (08:23)
[2019-08-01] MEDS: Calcium Acetate 667 MG CAP PO SCH ×2 (08:23→13:26)
[2019-08-01] MEDS: levETIRAcetam 500 MG TAB PO SCH (08:23)
[2019-08-01] MEDS: Aspirin 81 mg Enteric Coated Tablet PO SCH (08:23)
[2019-08-01 08:31] LABS: Lymphocytes 26 % (21-51); MDiff Complete? YES; Monocytes 9 % (0-10); Neutrophil 65 % (42-75); RBC Morphology Normal
--- NOTE | 2019-08-01 17:11 | PRG ---
DATE OF SERVICE: 08/01/2019 SUBJECTIVE: The patient is seen and examined, noted with the following vital signs. OBJECTIVE: VITAL SIGNS: Afebrile, temperature 98.2, pulse 95, respiratory rate 20, oxygen saturation 97%, blood pressure 143/87. HEENT: Unremarkable. CARDIOVASCULAR SYSTEM: First and second heart sounds were heard. RESPIRATORY SYSTEM: Clear to auscultation. DIGESTIVE SYSTEM: Revealed a benign abdomen. Positive bowel sounds. EXTREMITIES: No peripheral edema. SKIN: No new gross rash. LYMPHATICS: No peripheral lymphadenopathy. IMPRESSION: 1. End-stage renal disease, on hemodialysis Monday, Monday, Monday. 2. Morbid obesity. 3. Respiratory failure, status post ventilator. 4. Bipolar schizophrenic disorder. PLAN: 1. The patient to continue with current regimen of dialysis on Monday, Monday, Monday with ultrafiltration as tolerated by hemodynamics. 2. The patient's dry weight to be adjusted at the time of discharge. 3. Given clear instruction through the outpatient dialysis unit in terms of goal/target dry weight during dialysis. 4. Further management to be dependent on the clinical course. Job ID: [id number]
--- NOTE | 2019-08-01 21:24 | DIS ---
DATE OF ADMISSION: 07/26/2019 DATE OF DISCHARGE: 08/01/2019 DISCHARGE DIAGNOSES: 1. Acute on chronic respiratory failure with hypoxia and hypercarbia. 2. Volume overload. 3. End-stage renal disease, on dialysis. 4. Dyslipidemia. 5. Acute metabolic encephalopathy. 6. Hypertension. 7. Schizophrenia. 8. Anemia of chronic kidney disease. 9. Diabetes mellitus, type 2. 10. Obstructive sleep apnea. 11. Physical deconditioning. 12. Obesity. DISCHARGE MEDICATIONS: 1. Aspirin 81 mg orally daily. 2. Atorvastatin 20 mg orally daily. 3. Calcium acetate 667 mg orally t.i.d. 4. Cinacalcet 30 mg orally daily. 5. Keppra 500 mg orally twice daily. 6. Multivitamin one tablet orally daily. 7. Ropinirole 0.25 mg orally daily. 8. Sevelamer 800 mg orally b.i.d. 9. Tylenol 500 mg orally q.4 hours as needed for pain or fever. 10. Cepacol sore throat one time daily for throat pain. 11. Calcium carbonate 500 mg take three tablets orally q.6 hours for indigestion. 12. Carvedilol 3.125 orally twice daily with meals. 13. Lasix 40 mg orally daily. 14. Vitamin D3 of 1000 unit orally twice daily. 15. Guaifenesin 200 mg orally q.4 hours as needed for cough. 16. Insulin aspart 10 units subcu twice daily. 17. Loperamide 2 mg as needed for diarrhea. 18. Risperidone 3 mg orally daily. 19. Simethicone 80 mg orally t.i.d. 20. Polyethylene glycol 17 g orally daily. HISTORY OF PRESENT ILLNESS AND HOSPITAL COURSE: The patient is a 59-year-old female with past medical history of end-stage renal disease on hemodialysis, schizoaffective disorder, obesity, hypertension, catatonic behavior with schizophrenia, COPD and ROSITA, who presented to the hospital with confusion and shortness of breath. The patient presented initiating in the ER, where she was placed on BiPAP due to hypoxia. She became more obtunded and was intubated. Blood gas revealed hypercarbia. The patient was transferred to our facility for further management. She was admitted to the ICU and initial imaging studies revealed volume overload. Nephrology Service consulted and the patient underwent dialysis with removal of a liter of fluid. Her status progressively improved and she was successfully extubated within 48 hours. The patient continued her dialysis regimen per Nephrology recommendations. She is requiring CPAP at night for obstructive sleep apnea. At this time, the patient's mental status returned to baseline and she can continue her outpatient dialysis to control her volume overload. Job ID: [id number]
== END 2019-08-01 16:41 | disposition home or self-care (01) | DRG 208 ==
LOC: CCU 17:38 → T4-B 07-31 18:25 → UNDODISIN 08-01 15:29
PROVIDERS: ADMIT Family Medicine; ATTEND Internal Medicine
PROC: 5A1945Z Respiratory Ventilation, 24-96 Consecutive Hours (ICD-10-PCS; principal; 2019-07-26)
PROC: 8E0ZXY6 Isolation (ICD-10-PCS; 2019-07-26)
PROC: 5A1D70Z Performance of Urinary Filtration, Intermittent, Less than 6 Hours Per Day (ICD-10-PCS; 2019-07-29)
PROC: 5A09357 Assistance with Respiratory Ventilation, Less than 24 Consecutive Hours, Continuous Positive Airway Pressure (ICD-10-PCS; 2019-07-30)
PROC: 5A1D70Z Performance of Urinary Filtration, Intermittent, Less than 6 Hours Per Day (ICD-10-PCS; 2019-07-31)
PROC: 5A09357 Assistance with Respiratory Ventilation, Less than 24 Consecutive Hours, Continuous Positive Airway Pressure (ICD-10-PCS; 2019-08-01)
DX: J96.21 Acute and chronic respiratory failure with hypoxia (principal); G93.41 Metabolic encephalopathy; N18.6 End stage renal disease; I12.0 Hypertensive chronic kidney disease with stage 5 chronic kidney disease or end stage renal disease; F20.0 Paranoid schizophrenia; Z20.828 Contact with and (suspected) exposure to other viral communicable diseases; J44.9 Chronic obstructive pulmonary disease, unspecified; G47.33 Obstructive sleep apnea (adult) (pediatric); R56.9 Unspecified convulsions; J96.22 Acute and chronic respiratory failure with hypercapnia; E87.70 Fluid overload, unspecified; D63.1 Anemia in chronic kidney disease; E11.22 Type 2 diabetes mellitus with diabetic chronic kidney disease; E78.5 Hyperlipidemia, unspecified; R53.81 Other malaise; E66.01 Morbid (severe) obesity due to excess calories; F31.9 Bipolar disorder, unspecified; Z90.49 Acquired absence of other specified parts of digestive tract; Z79.82 Long term (current) use of aspirin; Z88.0 Allergy status to penicillin; Z91.041 Radiographic dye allergy status; Z88.7 Allergy status to serum and vaccine; Z88.8 Allergy status to other drugs, medicaments and biological substances; Z79.4 Long term (current) use of insulin; Z99.2 Dependence on renal dialysis; Z68.38 Body mass index [BMI] 38.0-38.9, adult; Z91.15 Patient's noncompliance with renal dialysis
CPT/HCPCS: 36415; 36416; 71045; 80048; 80053; 82805; 83880; 85007; 85025; 85027; 86704; 86706; 86803; 87340; 90935; 93005; 93010; 94002; 94003; 94660; 95712; 95819; 95957; G0257; J0692; J1630; J1644; J1650; J2060; J2704; J2920; J3010; J3490; P9045

== ENCOUNTER 2019-09-12 10:14 | Day surgery (SDC) | payer OTHER ==
[2019-09-11 15:44] VITALS: BMI 38.1
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
[~2019-09-12 10:14] MED LIST changes: +Bupivacaine HCl 0.5%/Epinephrine 1:200,000/PF 30 ml Vial ONE; +EPHEDRINE 25 MG/5 ML SYRINGE ONE; +Glycopyrrolate 0.2 MG/ML 5 ML SYRINGE ONE; -Heparin 10,000 UNITS/ 10 ML VIAL ONE; +Lidocaine 1% PF 5 ML VIAL ONE; +Metoclopramide HCl 10 MG/2 ML VIAL ONE; +Ondansetron PF 4 MG/2 ML Vial ONE; +PHENYLEPHRINE-NS 100 MCG/ML 10 ML SYRINGE ONE; +PROPOFOL 200 MG/20 ML VIAL ONE
[2019-09-12] MEDS ORDERED: Fentanyl 100 MCG/2 ML VIAL ONE ×2 (11:32→11:50)
[2019-09-12] MEDS ORDERED: Heparin 10,000 UNITS/1 ML VIAL ONE (11:39)
[2019-09-12] MEDS ORDERED: Heparin 5,000 UNITS/ML VIAL ONE (11:39)
[2019-09-12] MEDS ORDERED: Bupivacaine PF 0.5% 30 ML VIAL ONE ×2 (11:39→12:04)
[2019-09-12] MEDS ORDERED: Protamine Sulfate 50 MG/5 ML VIAL ONE (11:39)
[2019-09-12] MEDS ORDERED: Lidocaine 1% w/Epinephrine 1:100K 20 ML VIAL ONE (11:39)
[2019-09-12] MEDS ORDERED: Sodium Chloride 0.9% 10 ML ONE (11:39)
[2019-09-12] MEDS ORDERED: Levofloxacin 500 mg/D5W 100 ml Premix Bag ONE (11:47)
[2019-09-12] MEDS ORDERED: Midazolam HCl 2 mg/2 ml Vial ONE ×2 (11:50→12:08)
[2019-09-12] MEDS ORDERED: PROPOFOL 40 ML ONE (11:50)
[2019-09-12] MEDS ORDERED: Propofol 500 MG/50 ML VIAL ONE (11:50)
[2019-09-12] MEDS ORDERED: Famotidine/PF 20 mg/2ml Vial ONE (11:50)
[2019-09-12 11:54] LABS: Potassium 5.4 mmol/L (3.5-5.1)
[2019-09-12] MEDS ORDERED: Ketamine 50 MG/ML (10ML VIAL) ONE (12:08)
[2019-09-12] MEDS ORDERED: Ondansetron HCl/PF 4 MG/2 ML Vial IVP PRN (14:19)
--- NOTE | 2019-09-12 15:01 | RAD ---
Chest one view HISTORY: Dyspnea. Surgery. Follow-up. COMPARISON: 09/10/2019. FINDINGS: Cardiac silhouette is magnified and upper limits of normal in size. Mediastinum is rotated leftward with the patient. Pulmonary vasculature is engorged with patchy bibas ilar infiltrates. No evidence of pneumothorax. Left internal jugular dialysis type catheter is in place. IMPRESSION : Bibasilar infiltrates may be related to pulmonary vascular congestion/edema. Findings are otherwise s table.
--- NOTE | 2019-09-12 15:27 | OP ---
DATE OF PROCEDURE: 09/12/2019 PREOPERATIVE DIAGNOSES: 1. End-stage renal disease. 2. Morbid obesity. 3. Left arm dialysis fistula right arm equivocal for use, more likely basilic vein is a possibility. 4. Dysfunctional left IJ hemodialysis catheter. POSTOPERATIVE DIAGNOSES: 1. End-stage renal disease. 2. Morbid obesity. 3. Left arm dialysis fistula right arm equivocal for use, more likely basilic vein is a possibility. 4. Dysfunctional left IJ hemodialysis catheter. PROCEDURE PERFORMED: 1. Right arm primary fistula, perforating branch antecubital vein, outflow basilic vein only, antecubital regained retrograde fibrotic, cephalic vein fibrotic. The patient will need a basilic vein transposition fistula. 2. Removal of old left IJ cuffed tunneled hemodialysis catheter. 3. Placement of new left IJ cuffed tunneled hemodialysis catheter, fluoroscopy used. ANESTHESIA: Regional, TIVA, and local with 0.5% Marcaine 30 mL, mixed with 1% Xylocaine with epinephrine. INDICATIONS FOR PROCEDURE: In the preoperative area prior to the procedure, I discussed with the patient and her daughter merits of a primary fistula over that of a graft and they consented to proceed with attempts at fistula formation, but a graft is indicated. DESCRIPTION OF PROCEDURE: The patient was taken to the operating room where under regional anesthesia and intravenous sedation, right upper extremity was prepared with ChloraPrep and draped in fashion. Proximal volar incision was made and carried down to skin and subcutaneous tissue below the antecubital fossa longitudinally. The brachial, radial, and ulnar arteries dissected free. There was abundant scar tissue from multiple phlebotomy attempts overlying. The antecubital vein and cephalic vein were thrombosed. Perforating branch dissected free and there was abundant scarring from previous IV access attempts, making this difficult. There was some venous bleeding, controlled with clips and cautery and ties. The vein dissected free. Branches were divided between clips. The brachial, ulnar, and radial arteries dissected free. The patient was given 6000 units of heparin after the perforating branch spatulated and calibrated, passing coronary dilators from a 2 mm to 4 mm coronary dilator, and extracted out the basilic vein outflow. There was good backbleeding. It was flushed with heparinized saline solution. After adequate circulation time, the brachial, radial, and ulnar arteries were clamped with atraumatic vascular clamps and an arteriotomy was made over the distal brachial artery onto the proximal radial artery for a length consideration regions that I could not exclusively use the proximal radial artery. The end vein to proximal radial artery anastomosis created with continuous suture of 6-0 Prolene, completing the anastomosis, releasing clamps, noting a good Doppler signal in outflow of the basilic vein. Good hemostasis noted. The patient was given 25 mg of protamine intravenously. Subcutaneous tissue was approximated with 3-0 Monocryl, skin with subdermal 4-0 Monocryl, and [place] glue applied. Neck and chest and old hemodialysis catheter area were prepared with ChloraPrep and draped in routine fashion. Local anesthetic infiltrated in the skin and subcutaneous tissue about the operative site. An incision was made on the left side of the neck overlying the curve of the catheter and incision carried down to skin and platysma, catheter dissected free, clamped, divided, and a J-wire threaded through the old catheter, which was removed. The old catheter exit site was removed. The area was re-prepared with ChloraPrep. A new stab incision was made over the left chest. Using the tunneling device, pre-curved [employer] cuffed tunneled hemodialysis catheter tunneled between the 2 incisions, placed the fabric cuff beneath the skin exit site. Catheter was secured with 2 interrupted suture of 3-0 nylon. Sterile dressings applied. Dilator and Peel-Away sheath were placed over the J-wire under fluoroscopic visualization into the superior vena cava. Dilator and J-wire were removed. Catheter placed with Peel-Away sheath. Peel-Away sheath removed. Platysma was approximated with 4-0 Monocryl, skin with subdermal 4-0 Monocryl, and [place] glue and sterile dressings applied. Each port aspirated blood and flushed with saline solution and heparinized saline solution with 1000 units of heparin per mL, indicating volume of the port. Job ID: [id number]
== END 2019-09-12 16:25 | disposition home or self-care (01) ==
LOC: SDC 10:14
PROVIDERS: ATTEND Specialist
PROC: 03180ZD Bypass Left Brachial Artery to Upper Arm Vein, Open Approach (ICD-10-PCS; principal; 2019-09-12)
DX: I13.0 Hypertensive heart and chronic kidney disease with heart failure and stage 1 through stage 4 chronic kidney disease, or unspecified chronic kidney disease (principal); E11.22 Type 2 diabetes mellitus with diabetic chronic kidney disease; N18.6 End stage renal disease; I50.9 Heart failure, unspecified; Z79.4 Long term (current) use of insulin; Z79.82 Long term (current) use of aspirin; Z79.899 Other long term (current) drug therapy; Z88.0 Allergy status to penicillin; Z88.8 Allergy status to other drugs, medicaments and biological substances; Z91.041 Radiographic dye allergy status; Z99.2 Dependence on renal dialysis
CPT/HCPCS: 36416; 71045; 84132; C1752; J0670; J1644; J1956; J2250; J2405; J2704; J2720; J2765; J3010; S0020; S0028

== ENCOUNTER 2019-10-17 07:49 | Outpatient (CLI) | payer OTHER ==
--- NOTE | 2019-09-10 17:12 | RAD ---
Exam: Chest one view HISTORY:Preoperative exam Comparison: 01/15/2014 FINDINGS: Cardiac silhouette:Cardiomegaly. Lines and tubes: Left-sided HemoSplit dialysis catheter terminates over the right atrial silhouette Aorta: Unremarkable Pulmonary vessels: Normal Costophrenic angles: Clear LUNGS: Hyperinflated. Chronic changes. No masses or consolidation. Pneumothorax: None Osseous abnormalities: None IMPRESSION: No acute cardiopulmonary process.
[2019-09-10 18:16] LABS: #Basophils 0.1 thou/uL (0.0-0.2); #Eosinphils 0.2 thou/uL (0.0-0.7); #Lymphocytes 2.4 thou/uL (1.20-3.40); #Monocytes 0.8 thou/uL (0.11-0.59); #Neutrophils 5.1 thou/uL (1.40-6.50); %Basophils 0.8 % (0.0-1.0); %Eosinophils 2.1 % (0.0-10.0); %Lymphocytes 28.4 % (21.0-51.0); %Monocytes 8.8 % (0.0-10.0); Hemoglobin 10.7 g/dL (12.0-16.0); Mean Corpuscular HGB CONC 30.2 g/dL (32.0-36.0); Mean Corpuscular Volume 95.9 fL (78.0-98.0); Platelet Count 289 thou/uL (130-400); RBC Distribution Width 15.5 % (11.5-14.5); Red Blood Cell (RBC) Count 3.69 mill/uL (4.20-5.40); White Blood Cell (WBC) Count 8.5 thou/uL (4.8-10.8)
[2019-09-10 18:39] LABS: Anion Gap 20 mmol/L (10-20); BUN (Urea Nitrogen) 73 mg/dL (9.8-20.1); Calc. Creatinine Clearance 0 mL/min (70-130); Calcium 9.4 mg/dL (7.8-10.44); Carbon Dioxide 26 mmol/L (22-29); Chloride 99 mmol/L (98-107); Estimated GFR-MDRD 5; Glucose 180 mg/dL (70-105); Potassium 5.3 mmol/L (3.5-5.1); Sodium 140 mmol/L (136-145)
[2019-09-11 11:52] LABS: SARS-CoV-2 MS2 Positive; SARS-CoV-2 N Gene Negative; SARS-CoV-2 S Gene Negative; SARS-CoV-2 by NAA Not Detected (NotDetected); SARS-CoV-2 orf1ab Negative
== END 2019-10-17 07:50 | disposition home or self-care (01) ==
LOC: EEVIPCON → LABBT 07:49
PROVIDERS: ATTEND Specialist
DX: Z01.818 Encounter for other preprocedural examination (principal); Z20.828 Contact with and (suspected) exposure to other viral communicable diseases; N18.6 End stage renal disease; E66.01 Morbid (severe) obesity due to excess calories
CPT/HCPCS: 71045; 80048; 85025; 87635; 93005; 93010; U0003

== ENCOUNTER 2019-10-18 06:53 | Outpatient (CLI) | payer OTHER ==
[2019-10-19 12:32] LABS: SARS-CoV-2 MS2 Positive; SARS-CoV-2 N Gene Negative; SARS-CoV-2 S Gene Negative; SARS-CoV-2 by NAA Not Detected (NotDetected); SARS-CoV-2 orf1ab Negative
== END 2019-10-18 06:54 | disposition home or self-care (01) ==
LOC: LABBT 06:53
PROVIDERS: ATTEND Specialist
DX: Z20.828 Contact with and (suspected) exposure to other viral communicable diseases (principal)
CPT/HCPCS: 87635; U0003

== ENCOUNTER 2019-10-22 10:33 | Day surgery (SDC) | payer OTHER ==
[2019-10-17 10:14] VITALS: BMI 41.1
--- NOTE | 2019-10-18 14:09 | HP ---
HISTORY OF PRESENT ILLNESS: Ana Rosa De La Torre is a 59-year-old morbidly obese black female, on home oxygen, followed up in my office after 09/12/2019 right arm primary fistula and removal of old dialysis catheter and placement of a new one. This was done under regional and TIVA anesthesia. Findings at operation were that her cephalic vein was fibrotic due to iatrogenic blood draws and IVs, and she has basilic vein outflow. She will need a basilic vein transposition fistula in the future. Plan is under regional and TIVA anesthesia local supplementation. IV access and blood draws through dialysis catheter. We will schedule that. She dialyzes Monday, Monday, and Monday at [facility]. PAST MEDICAL HISTORY: Morbidly obese, 232 pounds, 63 inches; chronic heart failure; end-stage renal disease; Dr. Sy; benign hypertension; chronic back pain; epigastric pain; bipolar illness; sleep apnea; COPD. PAST SURGICAL HISTORY: Bilateral tubal ligation, laparoscopic cholecystectomy, hernia repair in 1984, left AV fistula by Dr. Ventura on 03/10/2017, thrombosed; and EGD, colonoscopy, hyperplastic polypectomy, repeat colonoscopy in five years. Colonoscopy performed on 06/13/2016, left arm dialysis access, thrombectomy attempt unsuccessful, recent 09/12/2019 right upper arm fistula. ASSESSMENT AND PLAN: End-stage renal disease. We will plan basilic vein transposition fistula, regional and TIVA anesthesia. IV access and blood draws through dialysis catheter. Risks and benefits explained. We will plan this in early October. Job ID: [id number]
[~2019-10-22 10:33] MED LIST changes: -Bupivacaine HCl 0.5%/Epinephrine 1:200,000/PF 30 ml Vial ONE; -Glycopyrrolate 0.2 MG/ML 5 ML SYRINGE ONE; -Metoclopramide HCl 10 MG/2 ML VIAL ONE; -Ondansetron PF 4 MG/2 ML Vial ONE; +Rocuronium Bromide 10 MG/ML (10ML VIAL) ONE
[2019-10-22] MEDS ORDERED: Acetaminophen 500 MG TAB ONE (11:26)
[2019-10-22 11:36] LABS: #Basophils 0.1 thou/uL (0.0-0.2); #Eosinphils 0.2 thou/uL (0.0-0.7); #Lymphocytes 2.2 thou/uL (1.20-3.40); #Monocytes 0.7 thou/uL (0.11-0.59); #Neutrophils 6.1 thou/uL (1.40-6.50); %Basophils 0.5 % (0.0-1.0); %Eosinophils 1.7 % (0.0-10.0); %Lymphocytes 24.1 % (21.0-51.0); %Monocytes 7.7 % (0.0-10.0); Hemoglobin 11.2 g/dL (12.0-16.0); Mean Corpuscular HGB CONC 29.4 g/dL (32.0-36.0); Mean Corpuscular Hemoglobin 28.4 pg (27.0-31.0); Mean Corpuscular Volume 96.7 fL (78.0-98.0); Mean Platelet Volume 7.8 fL (7.4-10.4); Platelet Count 315 thou/uL (130-400); RBC Distribution Width 14.5 % (11.5-14.5); Red Blood Cell (RBC) Count 3.93 mill/uL (4.20-5.40); White Blood Cell (WBC) Count 9.3 thou/uL (4.8-10.8)
[2019-10-22 11:37] LABS: Polychromasia SLIGHT = 2-3 cells (100X) (0-2/hpf)
[2019-10-22 11:58] LABS: Anion Gap 13 mmol/L (10-20); BUN (Urea Nitrogen) 38 mg/dL (9.8-20.1); Calc. Creatinine Clearance 16 mL/min (70-130); Calcium 9.6 mg/dL (7.8-10.44); Carbon Dioxide 30 mmol/L (22-29); Chloride 96 mmol/L (98-107); Estimated GFR-MDRD 8; Glucose 175 mg/dL (70-105); Potassium 4.3 mmol/L (3.5-5.1); Sodium 135 mmol/L (136-145)
[2019-10-22] MEDS ORDERED: Bupivacaine 0.25% HCL 30 ML VIAL ONE (13:16)
[2019-10-22] MEDS ORDERED: Lidocaine 1% w/Epinephrine 1:100K 20 ML VIAL ONE (13:16)
[2019-10-22] MEDS ORDERED: Protamine Sulfate 50 MG/5 ML VIAL ONE (13:16)
[2019-10-22] MEDS ORDERED: Heparin 5,000 UNITS/ML VIAL ONE (13:16)
[2019-10-22] MEDS ORDERED: SUGAMMADEX SODIUM 200 MG/2 ML VIAL ONE (13:21)
[2019-10-22] MEDS ORDERED: Fentanyl 100 MCG/2 ML VIAL ONE ×3 (13:21→15:41)
[2019-10-22] MEDS ORDERED: Levofloxacin 500 mg/D5W 100 ml Premix Bag ONE (14:35)
[2019-10-22] MEDS ORDERED: HYDROcodone/Acetaminophen 5/325 mg Tablet ONE (15:42)
[2019-10-22] MEDS ORDERED: Heparin 1,000 UNITS/ML VIAL ONE (16:26)
--- NOTE | 2019-10-22 18:46 | OP ---
DATE OF PROCEDURE: 10/22/2019 PREOPERATIVE DIAGNOSES: End-stage renal disease, thrombosed fistula in right arm, had planned basilic vein transposition fistula but thrombosed on arrival. PROCEDURE PERFORMED: Right arm dialysis graft, tapered 4T06 PTFE graft, brachial artery above the antecubital fossa to the axillary vein. Axillary vein of excellent caliber and plenty of room for revision if necessary. ANESTHESIA: General, local 0.25% Marcaine 60 mL with 1% Xylocaine with epinephrine 20 mL, 30 mL volume mixture used. DESCRIPTION OF PROCEDURE: The patient was taken to the operating room, where under general anesthesia, right upper extremity was prepared with ChloraPrep and draped in routine fashion. She had a previous fistula that on presentation for surgery this morning, I could not hear a thrill or bruit and anticipated need for a prosthetic graft. At the time of surgery, I listened with a Doppler and thought that I could hear a signal in the fistula. Incision was made in the proximal volar forearm, carried across the antecubital fossa and the fistula noted to be thrombosed. Brachial artery dissected free with silastic vessel loops. Incision was made in the right axilla, carried down through skin and subcutaneous tissue, deep fascia, identifying a large brachial/axillary vein. This was dissected free, controlled with silastic Ramirez loops proximally and distally. There was a with silastic loops. Dionna Wick tunneler was used to tunnel a tapered PTFE graft, placing the 4 mm end of the brachial artery above the antecubital fossa and 6 mm end near the axilla. The patient was given 6000 units of heparin intravenously. After adequate circulation time, the brachial artery clamped proximally and distally, and longitudinal arteriotomy made sharply to accommodate a 2.5 to 3 cm anastomosis and 4 mm end of the PTFE graft to the side brachial artery with continuous suture of 6-0 Prolene for anastomosis. Completed anastomosis and releasing the vascular clamps, noting good arterial flow. Axillary vein was controlled proximally and distally with silastic vessel loops. Longitudinal venotomy made sharply, elongated with the Ramirez scissors for a 3 cm anastomosis, placing stay sutures of 6-0 Prolene in the vein and graft tailored for length in the 6 mm end, and end graft to side axillary vein anastomosis was completed with continuous suture of 6-0 Prolene. Arterial inflow released, flushing the air, and then venous outflow released and flow established and good Doppler signal noted. Good hemostasis noted. Protamine 50 mg intravenously administered by Anesthesia. Subcutaneous tissue was approximated with 3-0 Monocryl, skin with subdermal 4-0 Monocryl, and [place] glue applied. The patient tolerated the procedure well. Job ID: [id number]
== END 2019-10-22 17:50 | disposition home or self-care (01) ==
LOC: SDC 10:33
PROVIDERS: ATTEND Specialist
PROC: 05SB3ZZ Reposition Right Basilic Vein, Percutaneous Approach (ICD-10-PCS; principal; 2019-10-22)
DX: I13.2 Hypertensive heart and chronic kidney disease with heart failure and with stage 5 chronic kidney disease, or end stage renal disease (principal); N18.6 End stage renal disease; I50.9 Heart failure, unspecified; E66.01 Morbid (severe) obesity due to excess calories; F31.9 Bipolar disorder, unspecified; J44.9 Chronic obstructive pulmonary disease, unspecified; G47.30 Sleep apnea, unspecified; Z68.41 Body mass index [BMI] 40.0-44.9, adult; Z79.4 Long term (current) use of insulin; Z79.899 Other long term (current) drug therapy; Z88.0 Allergy status to penicillin; Z88.7 Allergy status to serum and vaccine; Z88.8 Allergy status to other drugs, medicaments and biological substances; Z91.041 Radiographic dye allergy status
CPT/HCPCS: 36416; 80048; 85025; J1644; J1956; J2704; J2720; J3010; L8670; S0020

== ENCOUNTER 2019-11-14 21:07 | Emergency (ER) | payer OTHER ==
[2019-11-14 22:15] LABS: #Basophils 0.1 thou/uL (0.0-0.2); #Eosinphils 0.2 thou/uL (0.0-0.7); #Lymphocytes 2.5 thou/uL (1.20-3.40); #Monocytes 0.9 thou/uL (0.11-0.59); #Neutrophils 4.9 thou/uL (1.40-6.50); %Basophils 0.9 % (0.0-1.0); %Eosinophils 2.6 % (0.0-10.0); %Monocytes 10.8 % (0.0-10.0); %Neutrophils 56.6 % (42.0-75.0); Hemoglobin 10.5 g/dL (12.0-16.0); Mean Corpuscular HGB CONC 30.6 g/dL (32.0-36.0); Mean Corpuscular Hemoglobin 29.5 pg (27.0-31.0); Mean Corpuscular Volume 96.2 fL (78.0-98.0); Mean Platelet Volume 8.4 fL (7.4-10.4); Platelet Count 270 thou/uL (130-400); RBC Distribution Width 14.3 % (11.5-14.5); Red Blood Cell (RBC) Count 3.56 mill/uL (4.20-5.40); White Blood Cell (WBC) Count 8.6 thou/uL (4.8-10.8)
[2019-11-14 22:22] LABS: INR-International Normal Ratio 0.9; PTT 26.9 sec (22.9-36.1); Prothrombin Time 12.8 sec (12.0-14.7)
--- NOTE | 2019-11-14 23:23 | ULT ---
TRANSABDOMINAL AND TRANSVAGINAL PELVIC ULTRASOUND WITH GRAYSCALE, COLOR-FLOW AND SPECTRAL DOPPLER FABRIZIO GING: HISTORY:Pelvic pain. Heavy vaginal bleeding. Abnormal Pap smear FINDINGS: Uterus: 12.2 x 4.6 x 4.8cm Endometrium: 4 mm in thickness Right ovary: 2.2 x 1.3 x 2.3cm Left ovary: 1.7 x 2.7 x 2.1 cm No endometrial fluid is seen. Flow is demonstrated to both ovaries. No adnexal mass or free fluid in the cul-de-sac is identified. There is a hyperechoic mass in the lower uterine segment measuring 5.5 x 4.4 x 4.3 cm. IMPRESSION: 5.5 x 4.4 x 4.3 cm hyperechoic mass in the lower uterine segment. Gynecologic consultatio n and biopsy would be helpful.
== END 2019-11-15 00:27 | disposition home or self-care (01) ==
LOC: ERS 21:07
DX: N93.9 Abnormal uterine and vaginal bleeding, unspecified (principal); E11.9 Type 2 diabetes mellitus without complications; I10 Essential (primary) hypertension; J44.9 Chronic obstructive pulmonary disease, unspecified; Z79.4 Long term (current) use of insulin
CPT/HCPCS: 36415; 76856; 85025; 85610; 85730; 93976

== ENCOUNTER 2019-11-19 14:46 | Inpatient (IN) | payer OTHER ==
[2019-11-19] MEDS ORDERED: Acetaminophen 500 MG TAB ONE (16:21)
[2019-11-19 16:24] LABS: #Basophils 0.1 thou/uL (0.0-0.2); #Eosinphils 0.2 thou/uL (0.0-0.7); #Lymphocytes 2.6 thou/uL (1.20-3.40); #Monocytes 0.9 thou/uL (0.11-0.59); #Neutrophils 5.4 thou/uL (1.40-6.50); %Basophils 0.9 % (0.0-1.0); %Eosinophils 2.3 % (0.0-10.0); %Lymphocytes 28.2 % (21.0-51.0); %Monocytes 9.3 % (0.0-10.0); %Neutrophils 59.3 % (42.0-75.0); Hemoglobin 10.4 g/dL (12.0-16.0); Mean Corpuscular HGB CONC 31.3 g/dL (32.0-36.0); Mean Corpuscular Hemoglobin 29.3 pg (27.0-31.0); Mean Corpuscular Volume 93.4 fL (78.0-98.0); Mean Platelet Volume 7.6 fL (7.4-10.4); Platelet Count 309 thou/uL (130-400); RBC Distribution Width 14.4 % (11.5-14.5); Red Blood Cell (RBC) Count 3.55 mill/uL (4.20-5.40); White Blood Cell (WBC) Count 9.2 thou/uL (4.8-10.8)
[2019-11-19 16:46] LABS: ALT (SGPT) Less than 7 U/L (8-55); AST (SGOT) 14 U/L (5-34); Albumin 3.6 g/dL (3.5-5.0); Alkaline Phosphatase 84 U/L (40-110); Anion Gap 17 mmol/L (10-20); BUN (Urea Nitrogen) 52 mg/dL (9.8-20.1); Bilirubin, Total 0.5 mg/dL (0.2-1.2); Calc. Creatinine Clearance 0 mL/min (70-130); Calcium 9.4 mg/dL (7.8-10.44); Carbon Dioxide 27 mmol/L (22-29); Chloride 97 mmol/L (98-107); Estimated GFR-MDRD 6; Globulin 3.4 g/dL (2.4-3.5); Glucose 159 mg/dL (70-105); Potassium 4.2 mmol/L (3.5-5.1); Sodium 137 mmol/L (136-145)
[2019-11-19] MEDS ORDERED: Ondansetron PF 4 MG/2 ML Vial ONE (17:26)
[2019-11-19] MEDS ORDERED: Morphine 2 MG/ML VIAL ONE (17:26)
[2019-11-19] MEDS ORDERED: Acetaminophen 650 MG Suppository PR PRN (20:08)
[2019-11-19] MEDS ORDERED: Dextrose 5% in Water 1,000 ML IV PRN (20:14)
[2019-11-19] MEDS ORDERED: HumaLOG 300 UNITS/3 ML VIAL SC PRN (20:14)
[2019-11-19] MEDS ORDERED: Dextrose 50% Abboject 50 ML SYRINGE SLOW IVP PRN (20:14)
[2019-11-19] MEDS: Famotidine 20 MG TAB PO SCH (21:45)
[2019-11-19 23:59] VITALS: BMI 41.3
--- NOTE | 2019-11-20 00:51 | HP ---
CHIEF COMPLAINT: Vaginal bleeding. HISTORY OF PRESENT ILLNESS: This is a 59-year-old female who was sent for admission from the clinic at [facility] [place] where she saw Dr. Nieves today. She was seen in the emergency department on 11/13 with episodic bleeding since August. It started getting very heavy last week, where she was soaking through 1-1/2 packs diapers in a day. It was apparently stable and an ultrasound had been performed, which showed a 5.5 x 4.4 x 4.3 cm hyperechoic mass in the lower uterine segment. that was thought to be a fibroid. She was set up for outpatient followup, which she had today. She was seen by Dr. Nieves and was having very heavy vaginal bleeding. He performed a pelvic exam which showed a fungating mass involving the cervix. A tissue biopsy was taken and sent to pathology. Monsel's solution was then applied with Kerlix packing to help with the bleeding. She reportedly had a Pap smear on August 28 showing ASCUS with positive high-risk HPV type 18. She has not had followup for that yet. When trying to take history from the patient, she was very sleepy and had difficulty staying awake for the conversation after receiving morphine in the ED, but was able to tell me that she has not had any change in her history since she was operated on by Dr. Schulz last month. PAST MEDICAL HISTORY: In reviewing her chart includes end-stage renal disease, on dialysis; morbid obesity; chronic heart failure; hypertension; COPD; schizophrenia; obstructive sleep apnea; insulin-dependent diabetes. PAST SURGICAL HISTORY: Includes: 1. Bilateral tubal ligation. 2. Laparoscopic cholecystectomy. 3. Hernia repair. 4. Left AV fistula. 5. Right fistula. 6. Right arm dialysis graft on 11/02. MEDICATIONS: Include: 1. Carvedilol 2. NovoLog. 3. Calcium acetate. 4. Risperdal ALLERGIES: 1. INFLUENZA VIRUS VACCINE. 2. IODINE. 3. PENICILLINS. 4. QUETIAPINE. SOCIAL HISTORY: Denies alcohol, drug use, or tobacco use. FAMILY HISTORY: Unable to obtain. PHYSICAL EXAMINATION: VITAL SIGNS: Blood pressure 105/65, pulse 84, respiratory rate 18, temperature 98.1, O2 saturation 94% on 2 L nasal cannula. GENERAL: Sleepy, but arousable. Exam otherwise deferred at this time, as the patient does not stay awake for consent. GENITOURINARY: The diaper appears clean and dry at this time. LABORATORY: Hemoglobin 10.4, hematocrit 33.2, creatinine 8.14, glucose 159. ASSESSMENT AND PLAN: A 59-year-old female with a bleeding, fungating mass likely to be cervical cancer. The tissue biopsy performed in the office was sent to pathology and is pending. I will consult the internal medicine hospitalist group to manage her numerous medical comorbidities. I will also consult Nephrology for her dialysis needs. I appreciate all input from these consulting providers regarding her non gynecologic issues. We will continue pad counts and I will defer further exam until tomorrow to remove her packing. Job ID: [id number] [facility]
--- NOTE | 2019-11-20 03:45 | CON ---
DATE OF CONSULTATION: 11/19/2019 DATE OF REFERRAL: 11/19/2019. TIME OF ASSESSMENT: PRIMARY CARE PHYSICIAN: Dr. Debra Weiss. CHIEF COMPLAINT: Vaginal bleeding. HISTORY OF PRESENT ILLNESS: Ms. De La Torre is a 59-year-old woman who was admitted to the hospital by Dr. Frank of [facility] due to severe vaginal bleeding. Currently, the patient is drowsy after given morphine in the emergency department, therefore ability to provide much history is limited. Per her notes, the patient has been having intermittent vaginal bleeding since August 2019 with recent visits to the emergency department. In the last week, the bleeding has gotten significantly worse. At the moment, the patient states that the bleeding has lessened. She has had workup including a pelvic ultrasound on 11/14/2019, which showed a 5.5 x 4.4 x 4.3 cm hyperechoic mass in the lower uterine segment. The patient followed up as an outpatient and was seen by Dr. Nieves. Apparently, she was found to have a fungating mass involving the cervix and biopsies were taken. Per ED reports, she recently started to experience rectal pain. REVIEW OF SYSTEMS: All other review of systems apart from those mentioned above, unable to be assessed due to degree of drowsiness during assessment. The patient denies any nausea or vomiting. Denies any abdominal pain at present. No lightheadedness or dizziness. No chest pain or palpitations. ED COURSE: In the emergency department, the patient was noted to have a low blood pressure of 108/63 at initial presentation. Repeat blood pressure was 129/76. She was given 1 g of extra-strength Tylenol for her pain. Following that, she was given 2 mg of morphine and 4 mg of ondansetron. LABORATORY STUDIES: The patient had laboratory studies done, which showed a white count of 9.2, hemoglobin of 10.4, hematocrit 33.2, platelets 309. Sodium 137, potassium 4.2, BUN 52, creatinine 8.14, GFR 6, glucose 159, calcium 9.4. LFTs unremarkable. Albumin 3.6. The patient does have end-stage renal disease and is under the care of Dr. Lara. She gets dialysis Monday, Monday, and Fridays. PAST MEDICAL HISTORY: 1. Type 2 diabetes mellitus. 2. Heart failure. 3. Hyperlipidemia. 4. End-stage renal disease, on dialysis Monday, Monday, and Monday. 5. Essential hypertension. 6. Chronic back pain. 7. Bipolar disorder. 8. Sleep apnea. 9. COPD. 10. Obesity. PAST SURGICAL HISTORY: 1. Bilateral tubal ligation in February 1984. 2. Umbilical hernia repair in October 1984. 3. Laparoscopic cholecystectomy in February 2001. 4. Left AV fistula done by Dr. Ventura in February 2017. 5. EGD/colonoscopy with hyperplastic polypectomy. 6. Left arm graft declot, unsuccessful on June 2019. 7. Right arm dialysis graft in October 2019. SOCIAL HISTORY: She denies any tobacco use. Denies any alcohol consumption or drug use. FAMILY HISTORY: Father and diagnosed with hypertension. Mother alive and diagnosed with diabetes and hypertension. ALLERGIES: 1. IODINE CONTRAST. 2. PENICILLIN. 3. QUETIAPINE. 4. INFLUENZA VIRUS VACCINE. CURRENT MEDICATIONS: 1. Acetaminophen. 2. Calcium acetate. 3. Carvedilol. 4. Vitamin D3. 5. Benadryl. 6. NovoLog. 7. Multivitamin with iron. 8. Risperidone. PHYSICAL EXAMINATION: GENERAL: The patient appears to be in no acute distress, but with difficulty staying awake. She is very drowsy following morphine given in the emergency department. She is responsive to voice, but falls asleep quickly. VITAL SIGNS: Temperature 98.1, pulse 84, respirations 18, O2 saturation 94% on 2 L by nasal cannula, blood pressure 105/65. Repeat blood pressure was 107/69. HEENT: Normocephalic and atraumatic. Pupils equal, round, reactive to light. Sclerae without icterus. Oropharynx is clear. NECK: Supple. LUNGS: Clear bilaterally without wheezes, rales, or rhonchi. CARDIAC: Regular rate and rhythm. ABDOMEN: Soft, nontender, and nondistended. Normoactive bowel sounds present. No guarding or rigidity. No renal angle tenderness. EXTREMITIES: No lower extremity swelling or edema. NEUROLOGIC: The patient is alert and oriented x3, but quickly falls asleep during assessment. Easily woken and responsive to voice. States she feels tired. SKIN: Warm and dry. INVESTIGATIONS: As mentioned above in HPI. IMPRESSION AND PLAN: Ms. De La Torre is a 59-year-old woman, who is admitted to the hospital by Dr. Frank due to persistent heavy vaginal bleeding associated with a uterine mass, who has been referred to us for medical management of the following. 1. Diabetes mellitus. We will check glucose. Monitor insulin sliding scale. The patient is being kept n.p.o.; therefore, we will hold home dose of insulin to avoid any hypoglycemic episodes. We will hold off any fluids given the fact she is a renal patient on dialysis and due for dialysis tomorrow. 2. Hypertension. Blood pressure is on the low side. Continue to monitor blood pressure closely. If blood pressure drops, we will consider a small bolus of 250 mL D5 half-normal saline. We will continue to monitor closely for now. 3. End-stage renal disease. The patient is on dialysis Monday, Monday, and Monday. Nephrology has been consulted. She is due for dialysis tomorrow. Continue to monitor renal function. Add on phosphorus and magnesium to the labs. 4. Heart failure. We will check with morning labs. Resume home medications as appropriate once verified. Obtain baseline EKG. 5. Vaginal bleeding. As per Dr. Frank's recommendations. 6. Gastrointestinal prophylaxis with famotidine. 7. Deep venous thrombosis prophylaxis. Mechanical SCDs only. No pharmacoprophylaxis given active bleeding. 8. Surrogate decision maker is her daughter, Afsaneh Naranjo. Case discussed with attending, who agrees with plan of care as described above. Job ID: [id number]
[2019-11-20] MEDS: Acetaminophen 325 MG TAB PO PRN ×2 (03:50→16:59)
--- NOTE | 2019-11-20 07:39 | PDOC.BPN ---
- Brief Progress Note Encounter Date: 11/20/19 Encounter Time: 07:20 S: Patient remains very drowsy but reports she is doing ok. Feels like bleeding was not an issue overnight. O: Vital Signs - Most Recent Temp Pulse Resp BP Pulse Ox 97.8 F 96 18 124/75 94 L 11/20/19 03:21 11/20/19 03:21 11/20/19 03:21 11/20/19 03:21 11/20/19 04:02 Gen - drowsy but arousable, NAD Abd - obese, mildly tender diffusely, non-distended, no rebound or guarding Pelvic - deferred Ext - No edema A/P: Plan to remove packing later this morning to assess bleeding. Biopsy pathology pending. Will hand off to Dr. Madrigal this morning for further management. Appreciate input from consulting providers.
[2019-11-20] MEDS: Calcium Acetate 667 MG CAP PO SCH ×3 (08:15→16:59)
[2019-11-20] MEDS: Carvedilol 3.125 MG TAB PO SCH ×2 (08:16→16:59)
[2019-11-20] MEDS: Multivitamin W/ Minerals 1 TAB PO SCH (08:16)
[2019-11-20] MEDS: Cholecalciferol 1,000 UNITS (25 MCG) TAB PO SCH ×2 (08:16→20:38)
--- NOTE | 2019-11-20 08:28 | PDOC.HOSPP ---
- Subjective Encounter Date: 11/20/19 Encounter Time: 09:00 Subjective: Patient very sleepy. Was alert and acting normal last night. This AM has been very lethargic, hard to wake up. Dr. Madrigal called me to bedside because she looked so different than yesterday. Patient denies any focal neuro complaints, pain, or other symptoms besides being very sleepy and hard to wake up. - Objective Vital Signs & Weight: Vital Signs (12 hours) Temp Pulse Resp BP Pulse Ox 11/20/19 07:45 98.3 F 94 18 123/77 100 11/20/19 04:02 94 L 11/20/19 03:21 97.8 F 96 18 124/75 93 L 11/19/19 23:14 98.3 F 88 18 108/69 92 L 11/19/19 21:00 94 L 11/19/19 20:54 88 107/69 Weight Weight 233 lb 11.04 oz Result Diagrams: 11/20/19 09:52 11/20/19 09:52 Hospitalist ROS - Review of Systems Constitutional: denies: fever, chills Respiratory: denies: cough, shortness of breath Cardiovascular: denies: chest pain, palpitations Gastrointestinal: denies: nausea, vomiting, abdominal pain, diarrhea - Medication Medications: Active Medications Generic Name Dose Route Start Last Admin Trade Name Freq PRN Reason Stop Dose Admin Acetaminophen 650 mg 11/19/19 20:08 11/20/19 03:50 Acetaminophen 325 Mg Tab PO 650 mg Q4H PRN Administration Headache/Fever/Mild Pain (1-3) Calcium Acetate 1,334 mg 11/20/19 08:00 11/20/19 08:15 Calcium Acetate 667 Mg Cap PO 1,334 mg TID-WM LILLY Administration Carvedilol 3.125 mg 11/20/19 08:00 11/20/19 08:16 Carvedilol 3.125 Mg Tab PO 3.125 mg BID-WM LILLY Administration Cholecalciferol 2,000 units 11/20/19 09:00 11/20/19 08:16 Cholecalciferol 1,000 Units (25 Mcg) Tab PO 2,000 units BID LILLY Administration Famotidine 20 mg 11/19/19 21:00 11/19/19 21:45 Famotidine 20 Mg Tab PO 20 mg QPM LILLY Administration Iron/Minerals/Multivitamins 1 tab 11/20/19 09:00 11/20/19 08:16 Multivitamin W/ Minerals 1 Tab PO 1 tab DAILY LILLY Administration - Exam General - other findings: lethargic, will answer questions very slowly, barely opens eyes ENT: moist mucosa Heart: RRR, no murmur, no gallops, no rubs Respiratory: CTAB, no wheezes, no rales, no ronchi Gastrointestinal: soft, non-tender, non-distended, normal bowel sounds Neurological: cranial nerve grossly intact, no weakness, no focal deficits, no new deficit Neurological - other findings: speech a little slurred, nurse says she has a little at baseline Psychiatric: somnolent Hosp A/P (1) Acute metabolic encephalopathy Code(s): G93.41 - METABOLIC ENCEPHALOPATHY Status: Acute (2) Vaginal bleeding Code(s): N93.9 - ABNORMAL UTERINE AND VAGINAL BLEEDING, UNSPECIFIED Status: Acute (3) COPD (chronic obstructive pulmonary disease) Status: Chronic (4) Diabetes type 2, controlled Code(s): E11.9 - TYPE 2 DIABETES MELLITUS WITHOUT COMPLICATIONS Status: Chronic Qualifiers: (5) Dyslipidemia Code(s): E78.5 - HYPERLIPIDEMIA, UNSPECIFIED Status: Chronic (6) ESRD (end stage renal disease) on dialysis Code(s): N18.6 - END STAGE RENAL DISEASE; Z99.2 - DEPENDENCE ON RENAL DIALYSIS Status: Chronic (7) HTN (hypertension) Code(s): I10 - ESSENTIAL (PRIMARY) HYPERTENSION Status: Chronic Qualifiers: (8) Morbid obesity with BMI of 40.0-44.9, adult Code(s): E66.01 - MORBID (SEVERE) OBESITY DUE TO EXCESS CALORIES; Z68.41 - BODY MASS INDEX [BMI]40.0-44.9, ADULT Status: Chronic (9) Obstructive sleep apnea Code(s): G47.33 - OBSTRUCTIVE SLEEP APNEA (ADULT) (PEDIATRIC) Status: Chronic - Plan Vitals stable Uncertain eitiology of somnolence. Will get labs that patient apparently refused this AM. Blood sugar check right now 115. Will also get blood culture and ABG. Patient with history of blood sugar dropping per patient. Will consider adding some IV fluids if patient not able to eat today per gynecology. 1106- reassessment, patient much more alert, got up and ambulated to bathroom, lab unchanged. Uncertain eitiology of somnolence but no evidence stroke, infection, or electrolyte abnormality. Will continue to monitor.
--- NOTE | 2019-11-20 10:04 | CON ---
DATE OF CONSULTATION: 11/19/2019 HISTORY OF PRESENT ILLNESS: This is a 59-year-old female who was admitted to the hospital for vaginal bleeding. The patient denies any nausea, vomiting, or chest pain. PAST MEDICAL HISTORY: Significant for hypertension, diabetes mellitus, end-stage renal disease, hypertension, bipolar disorder, sleep apnea, COPD, tubal ligation, history of left graft multiple surgeries, history of right arm graft surgery. SOCIAL HISTORY: No alcohol or drug use. FAMILY HISTORY: Negative for ESRD. ALLERGIES: REVIEWED. HOME MEDICATIONS: List reviewed. HOSPITAL MEDICATIONS: List reviewed. REVIEW OF SYSTEMS: A 15-point review of system was performed negative except for positives noted above. HEENT: Eyes intact, no diplopia. Ears: No hearing loss or earache. Nose: No discharge or bleeding. Chest: No cough or phlegm. Abdomen: No nausea or vomiting. Genitourinary: No hematuria. No Park catheter. Musculoskeletal: No low back pain. No joint swelling or pain. Neurological: No syncope. No seizures. Skin: No complaints of rash or itching. Psychiatric: No depression. Constitutional: No weight loss or loss of appetite. PHYSICAL EXAMINATION: General: The patient is awake and alert. Vital Signs: Afebrile, pulse 75, breathing at 16, blood pressure 130/70. HEENT: Head normocephalic and atraumatic. Eyes intact, no ulcers. Nose intact, no ulcers. Ears intact, no ulcers. Neck: Supple. No JVD. Chest: Symmetrical and clear. Cardiovascular: Shows S1 and S2, no rub, no murmur. Gastrointestinal: Abdomen is soft, bowel sounds positive. Extremities: Show no edema or ulcers. Skin: Shows no rash or petechiae. Musculoskeletal: Shows no joint swelling or stiffness. Genitourinary: Shows no Park or CVA tenderness. Neurologic: Motor intact. Cranial nerves intact. LABORATORY DATA: Labs reviewed. ASSESSMENT: 1. Stage 6 chronic kidney disease, plan dialysis tomorrow. 2. Hypertension, stable. 3. Anemia, stable. 4. Medication based on GFR appropriate. Job ID: [id number]
[2019-11-20 10:10] LABS: INR-International Normal Ratio 0.9; PTT 29.7 sec (22.9-36.1)
[2019-11-20 10:11] LABS: #Basophils 0.1 thou/uL (0.0-0.2); #Eosinphils 0.2 thou/uL (0.0-0.7); #Lymphocytes 2.1 thou/uL (1.20-3.40); #Monocytes 0.8 thou/uL (0.11-0.59); #Neutrophils 5.7 thou/uL (1.40-6.50); %Basophils 1.7 % (0.0-1.0); %Eosinophils 2.7 % (0.0-10.0); %Lymphocytes 23.6 % (21.0-51.0); %Monocytes 9.1 % (0.0-10.0); Hemoglobin 9.4 g/dL (12.0-16.0); Mean Corpuscular HGB CONC 29.8 g/dL (32.0-36.0); Mean Corpuscular Hemoglobin 28.8 pg (27.0-31.0); Mean Corpuscular Volume 96.7 fL (78.0-98.0); Mean Platelet Volume 7.4 fL (7.4-10.4); Platelet Count 290 thou/uL (130-400); RBC Distribution Width 14.2 % (11.5-14.5); Red Blood Cell (RBC) Count 3.26 mill/uL (4.20-5.40)
[2019-11-20 10:24] LABS: Anion Gap 17 mmol/L (10-20); BUN (Urea Nitrogen) 58 mg/dL (9.8-20.1); Calc. Creatinine Clearance 12 mL/min (70-130); Calcium 9.7 mg/dL (7.8-10.44); Carbon Dioxide 30 mmol/L (22-29); Chloride 96 mmol/L (98-107); Estimated GFR-MDRD 6; Glucose 120 mg/dL (70-105); Magnesium 2.6 mg/dL (1.6-2.6); Phosphorus 7.4 mg/dL (2.3-4.7); Potassium 5.1 mmol/L (3.5-5.1); Sodium 138 mmol/L (136-145)
[2019-11-20 10:57] LABS: HBSAg Index 0.15 S/CO (0-0.99); Hep B Surf Ag Non-Reactive S/CO (NonReactive)
[2019-11-20 11:27] LABS: Hypochromia SLIGHT = 6-15 cells (100X) (0-5/hpf); MDiff Complete? YES; Platelet Morphology Comment Appears Adequate; Polychromasia SLIGHT = 2-3 cells (100X) (0-2/hpf)
--- NOTE | 2019-11-20 11:55 | PRG ---
DATE OF SERVICE: 11/20/2019 SUBJECTIVE: A 59-year-old female, being seen for end-stage renal disease. The patient denied nausea, vomiting, or chest pain. OBJECTIVE: General: The patient is awake and alert. Vital signs: Afebrile, pulse 94, breathing 16, blood pressure 123/77. HEENT: Head normocephalic and atraumatic. Eyes intact, no ulcers. Nose intact, no ulcers. Ears intact, no ulcers. Neck: Supple. No JVD. Chest: Symmetrical and clear. Cardiovascular: Shows S1 and S2, no rub, no murmur. Gastrointestinal: Abdomen is soft, bowel sounds positive. Extremities: Show no edema or ulcers. Skin: Shows no rash or petechiae. Musculoskeletal: Shows no joint swelling or stiffness. Genitourinary: Shows no Park or CVA tenderness. Neurologic: Motor intact. Cranial nerves intact. LABORATORY DATA: Hemoglobin 9.4. ASSESSMENT: 1. Stage 6 chronic kidney disease, stable. 2. Hypertension, stable. 3. Anemia, stable. PLAN: Dialysis today. Job ID: [id number]
[2019-11-20] MEDS ORDERED: Heparin 10,000 UNITS/ 10 ML VIAL ONE (13:13)
--- NOTE | 2019-11-20 15:09 | PDOC.EVN ---
Event Note - Event Note Event Note: cervical biopsy shows squamous cell carcinoma. Stains pending. I have consulted oncology for further evaluation. Given multiple comorbidities may not be a surgical candidate. Not clinically staged at this point. Thanks oncolgy for your service with Ms De La Torre.
--- NOTE | 2019-11-20 17:25 | PDOC.EVN ---
Event Note - Event Note Event Note: The patient has been counselled to the new diagnosis of squamous cell carcimona of the cervix. In our conversation family has requested evaluation with gynecology oncology. We have made contact with Dr Anne-Marie Gonzalez's office. A CT scan with contrast has been ordered. Vaginal packing has been removed which showed no evidence of persistent bleeding. Plan at this time is discharge home, pending agreement from the rest of the care team, tomorrow after CT scan. The patient is requiring premedication due to iodine allergy.
[2019-11-20] MEDS: Famotidine 20 MG TAB PO SCH (20:38)
[2019-11-20] MEDS: risperiDONE 1 MG TAB PO SCH (20:38)
[2019-11-20] MEDS ORDERED: Prevnar 13-Val Conj/PF 0.5 ML SYRINGE IM ONE (21:00)
[2019-11-20] MEDS ORDERED: predniSONE 20 MG TAB PO SCH (23:00)
[2019-11-21] MEDS: predniSONE 20 MG TAB PO SCH ×2 (02:20→08:29)
[2019-11-21] MEDS ORDERED: diphenhydrAMINE 25 MG CAP PO SCH (08:00)
[2019-11-21] MEDS: Calcium Acetate 667 MG CAP PO SCH ×3 (08:29→16:16)
[2019-11-21] MEDS: Multivitamin W/ Minerals 1 TAB PO SCH (08:31)
[2019-11-21] MEDS: Carvedilol 3.125 MG TAB PO SCH ×2 (08:31→16:16)
[2019-11-21] MEDS: Cholecalciferol 1,000 UNITS (25 MCG) TAB PO SCH ×2 (08:32→20:21)
[2019-11-21] MEDS: Acetaminophen 325 MG TAB PO PRN (08:49)
--- NOTE | 2019-11-21 11:42 | PDOC.HOSPP ---
- Subjective Encounter Date: 11/21/19 Encounter Time: 09:15 Subjective: feels good, no new complaints is eating well - Objective Vital Signs & Weight: Vital Signs (12 hours) Temp Pulse Resp BP Pulse Ox 11/21/19 07:32 98.5 F 79 18 128/73 96 11/21/19 04:20 97.3 F L 80 12 119/75 96 Weight Weight 233 lb 11.04 oz I&O: 11/20/19 11/21/19 11/22/19 06:59 06:59 06:59 Intake Total 730 Balance 730 Result Diagrams: 11/20/19 09:52 11/20/19 09:52 Additional Labs: Accuchecks 11/21/19 11/21/19 11/20/19 11:39 06:00 21:41 POC Glucose 208 H 168 H 115 H 11/20/19 11/20/19 11/20/19 16:41 09:39 05:26 POC Glucose 95 115 H 154 H Hospitalist ROS - Medication Medications: Active Medications Generic Name Dose Route Start Last Admin Trade Name Freq PRN Reason Stop Dose Admin Acetaminophen 650 mg 11/19/19 20:08 11/21/19 08:49 Acetaminophen 325 Mg Tab PO 650 mg Q4H PRN Administration Headache/Fever/Mild Pain (1-3) Calcium Acetate 1,334 mg 11/20/19 08:00 11/21/19 08:29 Calcium Acetate 667 Mg Cap PO 1,334 mg TID-WM LILLY Administration Carvedilol 3.125 mg 11/20/19 08:00 11/21/19 08:31 Carvedilol 3.125 Mg Tab PO 3.125 mg BID-WM LILLY Administration Cholecalciferol 2,000 units 11/20/19 09:00 11/21/19 08:32 Cholecalciferol 1,000 Units (25 Mcg) Tab PO 2,000 units BID LILLY Administration Famotidine 20 mg 11/19/19 21:00 11/20/19 20:38 Famotidine 20 Mg Tab PO 20 mg QPM LILLY Administration Iron/Minerals/Multivitamins 1 tab 11/20/19 09:00 11/21/19 08:31 Multivitamin W/ Minerals 1 Tab PO 1 tab DAILY LILLY Administration Risperidone 2 mg 11/20/19 21:00 10/07/20 20:38 Risperidone 1 Mg Tab PO 2 mg HS LILLY Administration - Exam General Appearance: awake alert Eye: PERRL, anicteric sclera ENT: no oropharyngeal lesions, moist mucosa Neck: supple, no JVD Heart: RRR, no murmur Respiratory: no wheezes, no rales Gastrointestinal: soft, non-tender, non-distended, normal bowel sounds Extremities: no cyanosis, no edema Neurological: cranial nerve grossly intact, no focal deficits Hosp A/P (1) Vaginal bleeding Code(s): N93.9 - ABNORMAL UTERINE AND VAGINAL BLEEDING, UNSPECIFIED Status: Acute (2) Anemia of renal disease Code(s): D63.1 - ANEMIA IN CHRONIC KIDNEY DISEASE Status: Chronic (3) COPD (chronic obstructive pulmonary disease) Status: Chronic Qualifiers: COPD type: unspecified COPD Qualified Code(s): J44.9 - Chronic obstructive pulmonary disease, unspecified (4) Diabetes type 2, controlled Code(s): E11.9 - TYPE 2 DIABETES MELLITUS WITHOUT COMPLICATIONS Status: Chronic Qualifiers: Diabetes mellitus termite helper insulin use: with long-term use Diabetes mellitus complication status: with kidney complications Diabetes mellitus complication detail: with chronic kidney disease Chronic kidney disease stage: on chronic dialysis Qualified Code(s): E11.22 - Type 2 diabetes mellitus with diabetic chronic kidney disease; N18.6 - End stage renal disease; Z79.4 - MCFP (current) use of insulin; Z99.2 - Dependence on renal dialysis (5) ESRD (end stage renal disease) on dialysis Code(s): N18.6 - END STAGE RENAL DISEASE; Z99.2 - DEPENDENCE ON RENAL DIALYSIS Status: Chronic (6) GERD (gastroesophageal reflux disease) Code(s): K21.9 - GASTRO-ESOPHAGEAL REFLUX DISEASE WITHOUT ESOPHAGITIS Status: Chronic Qualifiers: Esophagitis presence: without esophagitis Qualified Code(s): K21.9 - Gastro-esophageal reflux disease without esophagitis (7) HTN (hypertension) Code(s): I10 - ESSENTIAL (PRIMARY) HYPERTENSION Status: Chronic Qualifiers: (8) Morbid obesity with BMI of 40.0-44.9, adult Code(s): E66.01 - MORBID (SEVERE) OBESITY DUE TO EXCESS CALORIES; Z68.41 - BODY MASS INDEX [BMI]40.0-44.9, ADULT Status: Chronic (9) Obstructive sleep apnea Code(s): G47.33 - OBSTRUCTIVE SLEEP APNEA (ADULT) (PEDIATRIC) Status: Chronic (10) Schizophrenia Code(s): F20.9 - SCHIZOPHRENIA, UNSPECIFIED Status: Chronic Qualifiers: Schizophrenia type: unspecified Qualified Code(s): F20.9 - Schizophrenia, unspecified - Plan is going for CT abd and pelvis with contrast this am dc plan per Obgyn she is being set up for OBgyn onc appointment in [place] [facility] will sign off, please recall anytime if she ends up staying in hospital
--- NOTE | 2019-11-21 12:24 | PRG ---
DATE OF SERVICE: 11/21/2019 TIME OF SERVICE: 11:50. SUBJECTIVE: The patient is resting comfortably. She is responsive, although slightly inappropriate. This does not really seem to be a significant change off her baseline. Vaginal bleeding is minimal at this time. OBJECTIVE: VITAL SIGNS: Temperature 98.5, pulse 79, respirations 18, and blood pressure 128/73. LABORATORY DATA: The patient has no new labs today except [id number] glucose . Nurses have lost IV access and have been unable to re-establish. The patient is awaiting a CT scan of the abdomen and pelvis with IV contrast to further characterize her cervical cancer. Because of her arteriovenous grafts placed by Dr. Ahsan Schulz, she needs a central line for her IV contrast. We will consult General Surgery for this. Dr. Abdi has been consulted on the patient as well as Medical Oncology. The patient has been seen by CHRISTI Azar. We will await further evaluation of her tumor via imaging. Job ID: [id number]
[2019-11-21] MEDS: HumaLOG 300 UNITS/3 ML VIAL SC PRN ×2 (12:34→16:18)
[2019-11-21] MEDS ORDERED: predniSONE 50 MG TAB PO SCH (15:15)
[2019-11-21] MEDS ORDERED: diphenhydrAMINE 50 MG CAP PO SCH (15:15)
--- NOTE | 2019-11-21 17:04 | CON ---
DATE OF CONSULTATION: 11/21/2019 REASON FOR CONSULTATION: Ms. 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 HISTORY OF PRESENT ILLNESS: Ms. De La Torre is a poor historian. Much of the time I was visiting with her, she was falling asleep. She has a history of end-stage renal disease and schizophrenia and obstructive sleep apnea. She apparently recently began having difficulties with vaginal bleeding. This was episodic since August, but got worse last week, and she was seen in the emergency room. She apparently had an ultrasound that suggested a fibroid in the uterus. She was seen by Dr. Nieves as an outpatient and was noted to have a fungating cervical mass. Biopsy was performed. The bleeding was fairly extensive, so she was admitted to the hospital. She had Monsel solution applied and had a vaginal packing. This vaginal packing was removed yesterday and she has not been having bleeding since then. Pathology has returned as a squamous cell carcinoma. I have been asked to see her to discuss her options with radiation. Again, she is a poor historian. She does not report any difficulty with her urination or bowel movements. She is having no pain. She voices no other complaints. PAST MEDICAL HISTORY: 1. End-stage renal disease, on dialysis. 2. Congestive heart failure. 3. Hypertension. 4. COPD. 5. Schizophrenia. 6. Morbid obesity. 7. Obstructive sleep apnea. 8. Insulin dependent diabetes. 9. Status post bilateral tubal ligation. 10. Status post laparoscopic cholecystectomy. 11. Status post hernia repair. 12. Status post multiple fistula placement in the past for her dialysis. MEDICATIONS: 1. Carvedilol. 2. NovoLog insulin. 3. Calcium. 4. Risperdal. 5. Pepcid. ALLERGIES: INFLUENZA VIRUS VACCINE, IODINE, PENICILLIN, AND QUETIAPINE. SOCIAL HISTORY: She is disabled and lives with her daughter here in [place]. She has no alcohol or tobacco use at the present time. FAMILY HISTORY: Unable to be obtained as no family is with her at this time. REVIEW OF SYSTEMS: Twelve-system review of systems is otherwise negative. PHYSICAL EXAMINATION: VITAL SIGNS: Height 5 feet 3 inches and weight 233 pounds. Blood pressure is 139/83, pulse is 84, respirations are 20, temperature is 98.5, O2 saturation is 96% on room air. CONSTITUTIONAL: She is somewhat somnolent, but does respond to commands appropriately. She is well-developed and well-nourished. Karnofsky performance status is 70%. EYES: Pupils are equal, round, and reactive to light. Extraocular movements are intact. ENT: Oral cavity and oropharynx are normal without lesion or erythema. Palate elevates symmetrically. Gingiva is intact. NECK: Supple without cervical or supraclavicular adenopathy. No thyromegaly. Larynx midline. LUNGS: Breathing nonlabored. Clear to auscultation and percussion. CARDIOVASCULAR: Heart, regular rate and rhythm without murmur. No lower extremity edema. BACK: No tenderness on fist percussion of her spine. LYMPHATIC: No axillary or inguinal adenopathy. ABDOMEN: Obese, soft, nontender, nondistended without mass or hepatosplenomegaly. Liver percusses to normal size. SKIN: Without rash or purpura. PELVIC: Deferred at this time. Per my discussion with Dr. Nieves, she had a fungating cervical mass that was a difficult exam because of her morbid obesity and the bleeding. The mass seem to just occupy the cervix. He did not feel definite parametrial involvement. NEUROLOGIC: Cranial nerves 2 through 12 are grossly intact. Motor strength is 5/5 in both upper and lower extremities in all muscle groups tested. Reflexes are diminished, but symmetrical. Gait was not tested. LABORATORY DATA: Pathology is currently pending, but per my discussion with Dr. Nieves it showed squamous cell carcinoma. Special stains are pending. CBC revealed white blood cell count of 9000, hemoglobin of 9.4, hematocrit of 31.6, platelet count of 290,000. Chemistry group showed a BUN of 58 with a creatinine of 8.95. Phosphorus is 7.4. RADIOLOGIC DATA: CT scans have been ordered and are currently pending. ASSESSMENT: Ms. 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 She has numerous comorbidities. PLAN: I agree with Dr. Nieves that she is likely not going to be a surgical candidate even if her lesion was amenable to surgery given her extensive comorbidities. Most likely, she would be treated with radiation and preferably with chemotherapy, but this may not be possible given her need for dialysis. We will have to discuss this with Medical Oncology. The logistics of radiation as well as the benefits and risks were briefly discussed with her. The simulation and daily treatment procedure were discussed. Side effects would include but not be limited to skin reaction, fatigue, lower blood counts, burning with urination, frequency or urination, diarrhea, tenesmus, and small risk of damage to her intestines or other structures which receive radiation therapy. I will have to discuss this with family when they are available. We will discuss whether she has adequate transportation to come for her daily treatment if that is the way we decide to proceed with her treatment. We would like to initiate treatment somewhat quickly because of her recent bleeding. We will await the results of her CT scans and then best determine how to proceed. Thank you for this interesting consultation. Job ID: [id number]
--- NOTE | 2019-11-21 18:01 | PRG ---
DATE OF SERVICE: 11/21/2019 SUBJECTIVE: This is a 59-year-old female, being seen for end-stage renal disease. The patient denies any nausea, vomiting, or chest pain. OBJECTIVE: GENERAL: The patient is awake and alert. VITAL SIGNS: Afebrile. Pulse 84, breathing 16, blood pressure 139/83. HEENT: Head normocephalic and atraumatic. Eyes intact, no ulcers. Nose intact, no ulcers. Ears intact, no ulcers. NECK: Supple. No JVD. CHEST: Symmetrical and clear. CARDIOVASCULAR: Shows S1 and S2, no rub, no murmur. GASTROINTESTINAL: Abdomen is soft, bowel sounds positive. EXTREMITIES: Show no edema or ulcers. SKIN: Shows no rash or petechiae. MUSCULOSKELETAL: Shows no joint swelling or stiffness. GENITOURINARY: Shows no [place] or CVA tenderness. NEUROLOGIC: Motor intact. Cranial nerves intact. LABORATORY DATA: Reviewed. ASSESSMENT AND PLAN: 1. Stage 6 chronic kidney disease. Plan dialysis on Monday, Monday, Monday. 2. Hypertension, stable. 3. Anemia, stable. 4. Medication based on GFR appropriate. Job ID: [id number]
--- NOTE | 2019-11-21 18:03 | CT ---
EXAM: CT ABDOMEN AND PELVIS HISTORY: Pelvic mass noted on ultrasound. Cancer workup. COMPARISON: 10/17/2006 Correlation: Pelvic ultrasound 11/14/2019 Procedure: Multiple contiguous axial images were obtained and a CT of the abdomen and pelvis with IV contrast. C oronal reformats were performed. FINDINGS: Lower Chest: Scarring and atelectasis in the left lower lobe. Minimal atelectasis in the middle lobe. Vessels: Normal caliber aorta. Minimal atherosclerotic disease. Heart: Enlarged. No significant pericardial fluid Abdomen: Portal vein:Patent Gallbladder: Surgically absent Liver: within normal limits. Pancreas: within normal limits. Spleen: Triangular-shaped hypodensity involving the lateral margin of the spleen, incompletely evalua josh. Attenuation coefficient is 61 Hounsfield. Adrenals: within normal limits. Kidneys: Symmetric enhancement. No obstructive uropathy. Subcentimeter hypodensity in the right renal cortex cannot be further characterized Peritoneum: No ascites or free air, no fluid collection. Bowel: Gastric mucosa, duodenum and multiple normal caliber small bowel loops. No small bowel obstruc tion. Normal ileocecal junction. Normal caliber appendix, filled with contrast and air. Contrast in a nondistended, nondilated colon. There are diverticula in the sigmoid colon. There is bowel wall thi ckening likely due to remote bouts of diverticulitis. Currently there is no active inflammation. Mesentery and Retroperitoneum: No enlarged mesenteric or retroperitoneal lymph nodes. Abdominal Wall: Increased density involving the midline cutaneous fat suggesting calcification. Findi ngs may represent a calcified mesh from previous hernia repair versus calcification of a hematoma. Correlate clinically. Pelvis: Reproductive Organs: Heterogeneous attenuation involving the lower uterine segment. Positive cervical malignancy cannot be excluded. There is evidence of hyperdense material at the level of the lower uterine segment and vaginal vault. Correlate for possible recent intervention or hemorrhage. There is mixed attenuation fluid in the vaginal vault. Adnexal structures appear to be unremarkable. Pelvis: Enlarged right external iliac lymph node measuring 1.1 x 0.8 cm. Bladder: Mild mucosal thickening of the bladder mucosa likely due to inadequate distention. Presacral fat is preserved There is evidence of a vascular catheter via the right groin, terminating in the right common iliac v ein Bones: within normal limits. IMPRESSION: 1. Heterogeneous mass in the lower uterine segment. Correlate for cervical malignancy. 2. Mildly enlarged right external iliac lymph node. 3. Incompletely evaluated hypodensity in the spleen. Consider abdomen MRI. 4. Additional findings as above. Transcribed Date/Time: 11/21/2019 6:23 PM
[2019-11-21] MEDS: risperiDONE 1 MG TAB PO SCH (20:21)
[2019-11-21] MEDS: Famotidine 20 MG TAB PO SCH (20:21)
--- NOTE | 2019-11-21 20:44 | CON ---
DATE OF CONSULTATION: REASON FOR CONSULTATION: Squamous cell cervical cancer. HISTORY OF PRESENT ILLNESS: Ms. De La Torre is a 59-year-old female, who was seen at the [facility] [place] for vaginal bleeding since August. She underwent an ultrasound, which showed a 5.5 x 4.4 x 4.3 cm mass in the lower uterine segment. She underwent pelvic exam, which showed a fungating mass involving the cervix. A tissue biopsy was performed, which was reported positive for squamous cell carcinoma. The patient has been treated with antibiotics and had a vaginal packing, which has controlled her bleeding. PAST MEDICAL HISTORY: 1. End-stage renal disease, on dialysis. 2. Chronic heart failure. 3. Hypertension. 4. COPD. 5. Schizophrenia. 6. Obstructive sleep apnea. 7. Diabetes. 8. History of respiratory failure, requiring intubation. PAST SURGICAL HISTORY: 1. Bilateral tubal ligation. 2. Cholecystectomy. 3. Hernia repair. 4. Fistula placement. 5. Dialysis graft. ALLERGIES: TO IODINE, PENICILLIN, AND FLU VACCINE. HOME MEDICATIONS: 1. Tylenol. 2. Benadryl. 3. Calcium. 4. Carvedilol. 5. Multivitamin. 6. NovoLog insulin. 7. Risperdal. 8. D3. FAMILY HISTORY: She denies any history of breast or cervical cancer. SOCIAL HISTORY: Lives with her daughter. No alcohol, tobacco, or illicit drug use. REVIEW OF SYSTEMS: Positive for pain at central line insertion site. Otherwise, negative. PHYSICAL EXAMINATION: VITAL SIGNS: Temperature is 98.5, pulse is 84, respiratory rate 20, blood pressure is 139/83. She is 96% on room air. GENERAL: This is a well-developed, well-nourished female, in no acute distress. HEENT: Normocephalic, atraumatic. Pupils are equal and reactive to light. CV: Regular rate and rhythm. LUNGS: Clear. ABDOMEN: Obese, nontender. Bowel sounds are positive. EXTREMITIES: No clubbing or cyanosis. SKIN: No rash. NEUROLOGIC: Nonfocal. PSYCH: The patient is alert, oriented, and answering appropriately. PERTINENT LABORATORY DATA AND X-RAYS: Current WBCs are 9, hemoglobin 9.4, hematocrit 31.6, platelet count 290,000, 63% neutrophils, 24% lymphocytes. PT is 13, INR is 0.9, PTT is 29.7. Sodium is 138, potassium 5.1, chloride 96, CO2 is 30, BUN is 58, creatinine 8.95, calcium 9.7, phosphorus 7.4, magnesium 2.6, total bilirubin is 0.5, AST is 14, ALT is less than 7, alkaline phosphatase is 84. BNP is 173. Serum total protein is 7, albumin 3.6, globulin 3.4. Serology is negative for hepatitis B. ASSESSMENT: 1. Squamous cell carcinoma of the cervix. 2. End-stage renal disease, on dialysis. DISCUSSION: The patient's vaginal bleeding has been controlled with packing. She needs further staging with a CT scan. A central line has been placed in her right femoral area. She understands that we recommend she be seen by gynecological oncologist, Dr. Gonzalez in the [place] for possible hysterectomy. She will then return to our clinic for radiation and/or chemotherapy. I believe Dr. Abdi has been consulted and seen the patient. We will follow along with her hospital course. Thank you for the consult. Further recommendations once the CT scan has been obtained. Job ID: [id number]
--- NOTE | 2019-11-21 23:32 | PRG ---
DATE OF SERVICE: 11/21/2019 Ana Rosa De La Torre is one month out from placement of right upper extremity dialysis graft. We will place orders for them to use her dialysis graft for dialysis tomorrow. It has a good thrill and bruit. Job ID: [id number]
[2019-11-22] MEDS: Acetaminophen 325 MG TAB PO PRN ×2 (00:58→15:23)
[2019-11-22] MEDS: HumaLOG 300 UNITS/3 ML VIAL SC PRN (06:00)
--- NOTE | 2019-11-22 07:34 | OP ---
DATE OF PROCEDURE: 11/21/2019 PREOPERATIVE DIAGNOSES: Ana Rosa De La Torre is a 59-year-old female, evaluated and found to have cervical cancer, needs IV access for CAT scan. The patient has apparent iodine allergy. She has been prepped for that. She has been followed by Dr. Nieves. She has end-stage renal disease with difficult dialysis access. She has had a right arm fistula that thrombosed and more recently had a right upper extremity dialysis graft placed 10/22/2019. The wounds are healed. She has good thrill and bruit. She has a hemodialysis catheter present. I have been asked to see her by Dr. Nieves to place a central line. POSTOPERATIVE DIAGNOSES: Ana Rosa De La Torre is a 59-year-old female, evaluated and found to have cervical cancer, needs IV access for CAT scan. The patient has apparent iodine allergy. She has been prepped for that. She has been followed by Dr. Nieves. She has end-stage renal disease with difficult dialysis access. She has had a right arm fistula that thrombosed and more recently had a right upper extremity dialysis graft placed 10/22/2019. The wounds are healed. She has good thrill and bruit. She has a hemodialysis catheter present. I have been asked to see her by Dr. Nieves to place a central line. PROCEDURE PERFORMED: Right femoral vein triple-lumen catheter. ANESTHESIA: 1% Xylocaine. DESCRIPTION OF PROCEDURE: With the patient at bedside, right groin was clipped of hair, prepared with ChloraPrep and draped in routine fashion. Local anesthetic 1% Xylocaine was infiltrated in the skin and subcutaneous tissue and trocar catheter cannulated this femoral vein. J-wire threaded, trocar catheter removed. Seldinger technique used to place a triple-lumen catheter, secured with 3-0 silk sutures. Sterile dressing applied. Each port aspirated of blood and flushed with saline solution. The patient tolerated the procedure well. Job ID: [id number]
[2019-11-22] MEDS: Calcium Acetate 667 MG CAP PO SCH ×3 (08:23→18:29)
[2019-11-22] MEDS: Cholecalciferol 1,000 UNITS (25 MCG) TAB PO SCH (08:24)
[2019-11-22] MEDS: Multivitamin W/ Minerals 1 TAB PO SCH (08:24)
[2019-11-22] MEDS: Carvedilol 3.125 MG TAB PO SCH ×2 (08:24→18:30)
--- NOTE | 2019-11-22 08:29 | PRG ---
DATE OF SERVICE: 11/22/2019 TIME OF SERVICE: 0730 hours. SUBJECTIVE: Ms. De La Torre is resting comfortably in bed at this time. She has no complaints. She states her bleeding is decreased. OBJECTIVE: VITAL SIGNS: Temperature 97.7, pulse 86, respirations 20, O2 saturation 97%, blood pressure 155/77, T-max 98.5. LUNGS: Clear to auscultation bilaterally. ABDOMEN: Soft and nontender. Perineum has small amount of blood. EXTREMITIES: No clubbing, cyanosis, or edema. LABORATORY DATA: Point of care Accu-Chek this morning was 155. Pathology report reveals poorly differentiated squamous cell carcinoma, strongly positive P16 consistent with squamous cell. IMAGING: CT scan report is noted. CT was performed at approximately 1800 hours on 11/20 secondary to the patient needing a central line for IV contrast. Summary of CT report is a heterogeneous mass in the lower uterine segment. Measurements not given, appears to be approximately 4-5 cm and does not appear to extend significantly into the parametria. There is a mildly enlarged right external iliac lymph node. Dr. Raman came to see the patient yesterday afternoon, unfortunately her CT scan had not been performed at that time. IMPRESSION: Invasive squamous cells cancer of the cervix with significant bleeding, now improved. Likely pelvic lymphadenopathy secondary to malignancy, although cannot be definitively diagnosed at this time. Clinically, cancer is stage IIB or greater and is likely not amenable to surgical management. PLAN: Contact with the patient's family has been difficult. The only phone number was for daughter who left yesterday evening and left her cell phone in the room, so was able to contact her. Decision today will be regarding disposition. The patient is ready for discharge home. May either need follow up with Oncology and Radiation Oncology here versus followup with the Gynecologic Oncology in the [place] with Dr. Anne-Marie Gonzalez. We will communicate this with Dr. Madrigal, who is the OB hospitalist taking over at 8 a.m. and plan on discharge with appropriate outpatient followup. The patient will need PET scan in all likelihood to further identify and characterize the presence of metastasis and pelvic lymph nodes or elsewhere. No indication for transfusion at this time. Job ID: [id number]
[2019-11-22 10:08] LABS: Hemoglobin 8.5 g/dL (12.0-16.0); Mean Corpuscular HGB CONC 31.6 g/dL (32.0-36.0); Mean Corpuscular Hemoglobin 29.4 pg (27.0-31.0); Mean Platelet Volume 7.4 fL (7.4-10.4); Platelet Count 272 thou/uL (130-400); RBC Distribution Width 14.3 % (11.5-14.5); Red Blood Cell (RBC) Count 2.88 mill/uL (4.20-5.40)
--- NOTE | 2019-11-22 10:15 | PRG ---
DATE OF SERVICE: 11/22/2019 SUBJECTIVE: Visit with Ms. De La Torre this morning. She remains somnolent. She will awaken and answer questions appropriately, but fairly quickly falls back asleep. She has been this way ever since I saw her. She is not having pain. She had a little bit of vaginal bleeding last night, but has not had any since then. She voices no other complaints. OBJECTIVE: VITAL SIGNS: Height 5 feet 3 inches, weight 233 pounds, blood pressure 146/75, pulse is 90, respirations are 18, temperature is 97.7, O2 saturation is 90% on room air. GENERAL: She is very somnolent, but awakens to questions and answers appropriately. She is well developed and well nourished. Her Karnofsky performance status is 70%. LUNGS: Breathing nonlabored. Clear to auscultation. CARDIOVASCULAR: Heart, regular rate and rhythm without murmur. EXTREMITIES: No lower extremity edema. ABDOMEN: Obese, soft, nontender, nondistended without mass. DIAGNOSTIC STUDIES: CT scan of the abdomen and pelvis performed yesterday was personally reviewed. She has a hypodensity in the spleen of unknown significance. She appears to have a mass involving the cervix and possibly the lower uterine segment. By my measurements, the mass seems to measure at least 6 x 7 cm. There is a 1.1 cm right external iliac lymph node of unknown significance that is perhaps mildly enlarged. There was no other overt evidence of distant metastatic disease. 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 ASSESSMENT: Ms. 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 PLAN: I attempted to have a discussion with Ms. De La Torre this morning. Again, she will awaken and answer questions appropriately, but when she is not being talked to she usually falls back asleep. She has been this way since I have seen her. The nurse confirms that she is this way pretty much all the time. I do not know if that is related to her sleep apnea. She does not seem to be on any medications that would be causing that issue. I think it is very likely that her cancer is too large for surgery and that she should be managed with radiation plus or minus chemotherapy. I am not sure she is a candidate for chemotherapy given all her comorbidities, but will need Medical Oncology's input regarding that. Nevertheless, I explained to Ms. De La Torre that I am not a surgeon, and if she was a surgical candidate, she would need to see a gynecological oncologist in [place]. She is unsure if she wants to do that. We will need to discuss this not only with her, but also with her family. She wishes to discuss this with her family. In regard to completing her staging, I would recommend that we obtain a PET scan as an outpatient. This will help to evaluate not only the lesion in the spleen, but also the lymph node. We would like to get treatment moving fairly soon as she has had some episodes of bleeding. Nevertheless, from my standpoint, I think she could be discharged and return as an outpatient to complete her test. Obviously, if her bleeding becomes severe, she could return to the hospital for transfusion, but thus far she has not needed a transfusion. We will discuss the case with family and try to make arrangements as an outpatient. Job ID: [id number]
[2019-11-22 10:24] LABS: Anion Gap 17 mmol/L (10-20); BUN (Urea Nitrogen) 56 mg/dL (9.8-20.1); Calc. Creatinine Clearance 14 mL/min (70-130); Calcium 9.7 mg/dL (7.8-10.44); Carbon Dioxide 23 mmol/L (22-29); Chloride 94 mmol/L (98-107); Estimated GFR-MDRD 7; Glucose 188 mg/dL (70-105); Potassium 4.8 mmol/L (3.5-5.1); Sodium 129 mmol/L (136-145)
[2019-11-22 10:36] LABS: Band 1 % (5-11); Eosinophils 1 % (0-10); Hypochromia SLIGHT = 6-15 cells (100X) (0-5/hpf); Lymphocytes 20 % (21-51); MDiff Complete? YES; Monocytes 9 % (0-10); Neutrophil 69 % (42-75); Platelet Morphology Comment Appears Adequate
[2019-11-22] MEDS ORDERED: Epoetin (ESRD) 10,000 UNITS/ML VIAL SC SCH (11:15)
--- NOTE | 2019-11-22 11:29 | PRG ---
DATE OF SERVICE: 11/22/2019 SUBJECTIVE: A 59-year-old female, being seen for end-stage renal disease. The patient denied nausea, vomiting, or chest pain. PHYSICAL EXAMINATION: GENERAL: The patient is awake and alert. VITAL SIGNS: Pulse 75, breathing 16, blood pressure 156/74. HEENT: Head normocephalic and atraumatic. Eyes intact, no ulcers. Nose intact, no ulcers. Ears intact, no ulcers. Neck: Supple. No JVD. Chest: Symmetrical and clear. Cardiovascular: Shows S1 and S2, no rub, no murmur. Gastrointestinal: Abdomen is soft, bowel sounds positive. Extremities: Show no edema or ulcers. Skin: Shows no rash or petechiae. Musculoskeletal: Shows no joint swelling or stiffness. Genitourinary: Shows no [place] or CVA tenderness. Neurologic: Motor intact. Cranial nerves intact. LABORATORY DATA: Labs reviewed. ASSESSMENT AND PLAN: 1. Stage 6 chronic kidney disease, getting hemodialysis. 2. Hypertension, stable. 3. Anemia, stable. 4. Medication based on GFR appropriate. 5. has worsened, the patient will need blood if her hemoglobin drops any further. Job ID: [id number]
[2019-11-22] MEDS ORDERED: EPOETIN ALFA-EPBX (ESRD) 10,000 UNIT/ML VIAL SC SCH (12:00)
[2019-11-22 16:47] VITALS: TEMP 98.1
[2019-11-22 18:37] VITALS: BP 138/80
== END 2019-11-22 19:38 | disposition home or self-care (01) | DRG 754 ==
LOC: EEVIPCON 14:46 → ERS 14:46 → SJJU 16:17
PROVIDERS: ADMIT Obstetrics & Gynecology; ATTEND Obstetrics & Gynecology
PROC: 5A1D70Z Performance of Urinary Filtration, Intermittent, Less than 6 Hours Per Day (ICD-10-PCS; principal; 2019-11-20)
PROC: 06HY33Z Insertion of Infusion Device into Lower Vein, Percutaneous Approach (ICD-10-PCS; 2019-11-21)
DX: C53.9 Malignant neoplasm of cervix uteri, unspecified (principal); N18.6 End stage renal disease; G93.41 Metabolic encephalopathy; I13.2 Hypertensive heart and chronic kidney disease with heart failure and with stage 5 chronic kidney disease, or end stage renal disease; Z68.41 Body mass index [BMI] 40.0-44.9, adult; I50.9 Heart failure, unspecified; E11.22 Type 2 diabetes mellitus with diabetic chronic kidney disease; J44.9 Chronic obstructive pulmonary disease, unspecified; F20.9 Schizophrenia, unspecified; G47.33 Obstructive sleep apnea (adult) (pediatric); E78.5 Hyperlipidemia, unspecified; G89.29 Other chronic pain; D63.1 Anemia in chronic kidney disease; F31.9 Bipolar disorder, unspecified; M54.9 Dorsalgia, unspecified; K21.9 Gastro-esophageal reflux disease without esophagitis; E66.01 Morbid (severe) obesity due to excess calories; Z99.2 Dependence on renal dialysis; Z88.0 Allergy status to penicillin; Z28.21 Immunization not carried out because of patient refusal; Z79.899 Other long term (current) drug therapy; Z79.4 Long term (current) use of insulin; Z88.7 Allergy status to serum and vaccine; Z88.8 Allergy status to other drugs, medicaments and biological substances; Z98.51 Tubal ligation status; Z91.041 Radiographic dye allergy status
CPT/HCPCS: 36415; 36416; 74177; 80048; 80053; 83735; 83880; 84100; 85007; 85025; 85027; 85610; 85730; 86850; 86900; 86901; 87040; 87149; 87340; 90935; 96374; 96375; G0257; J1642; J1644; J2270; J2405; J7512; Q0163; Q5105

== ENCOUNTER 2019-12-16 00:09 | Emergency (ER) | payer OTHER ==
[2019-12-16 01:13] LABS: ALT (SGPT) 19 U/L (8-55); AST (SGOT) 39 U/L (5-34); Albumin 3.3 g/dL (3.5-5.0); Alkaline Phosphatase 110 U/L (40-110); BUN (Urea Nitrogen) 75 mg/dL (9.8-20.1); Bilirubin, Total 0.3 mg/dL (0.2-1.2); Calc. Creatinine Clearance 0 mL/min (70-130); Calcium 9.4 mg/dL (7.8-10.44); Carbon Dioxide 24 mmol/L (22-29); Chloride 94 mmol/L (98-107); Estimated GFR-MDRD 5; Globulin 3.6 g/dL (2.4-3.5); Glucose 146 mg/dL (70-105); Lipase 24 U/L (8-78); Potassium 5.3 mmol/L (3.5-5.1); Protein, Total 6.9 g/dL (6.0-8.3); Sodium 136 mmol/L (136-145)
[2019-12-16 01:14] LABS: Anion Gap 23 mmol/L (10-20)
[2019-12-16] MEDS ORDERED: Ondansetron ODT 8 MG TAB ONE (01:18)
[2019-12-16] MEDS ORDERED: Morphine 10 MG/ML VIAL ONE (01:18)
[2019-12-16 01:22] LABS: #Basophils 0.1 thou/uL (0.0-0.2); #Eosinphils 0.4 thou/uL (0.0-0.7); #Lymphocytes 1.5 thou/uL (1.20-3.40); #Monocytes 0.9 thou/uL (0.11-0.59); #Neutrophils 7.5 thou/uL (1.40-6.50); %Basophils 0.6 % (0.0-1.0); %Eosinophils 3.4 % (0.0-10.0); %Lymphocytes 14.3 % (21.0-51.0); %Monocytes 8.8 % (0.0-10.0); %Neutrophils 72.8 % (42.0-75.0); Hemoglobin 8.9 g/dL (12.0-16.0); Mean Corpuscular HGB CONC 32.7 g/dL (32.0-36.0); Mean Corpuscular Hemoglobin 29.8 pg (27.0-31.0); Mean Corpuscular Volume 91.3 fL (78.0-98.0); Mean Platelet Volume 8.4 fL (7.4-10.4); Platelet Count 344 thou/uL (130-400); RBC Distribution Width 14.9 % (11.5-14.5); Red Blood Cell (RBC) Count 2.97 mill/uL (4.20-5.40); White Blood Cell (WBC) Count 10.3 thou/uL (4.8-10.8)
[2019-12-16 01:46] LABS: Bilirubin Negative (Negative); Blood, Urine Trace (Negative); Clarity Clear (Clear); Glucose, Urine (Dipstick) 200 mg/dL (Negative); Ketone, Urine Negative (Negative); Leukocyte 250 Leu/uL (Negative); Nitrite Negative (Negative); Protein, Urine (Dipstick) 300 mg/dL (Neg-Trace); RBC/HPF 0-3 HPF (0-3); Specific Gravity, Urine 1.014 (1.002-1.036); Urobilinogen Normal mg/dL (Less than 2); WBC/HPF 21-50 HPF (0-3)
[2019-12-16 01:50] LABS: Bacteria/HPF 1+ HPF (None Seen)
--- NOTE | 2019-12-16 08:46 | CT ---
PRELIMINARY REPORT/[facility]/EMERGENCY AFTER HOURS PROCEDURE: EXAM: CT Abdomen and Pelvis Without Intravenous Contrast CLINICAL HISTORY: Pt presents to ED for diffuse abd pain s/p new radiation treatment for new diagnosis of ovarian treat ment last month. Pt receives radiation treatment M-F for one week so far. Significant abd distention noted. Denies changes in bowel movements/n/v. Surgical hx of tubal ligation, gall bladder removal, he rnia repair TECHNIQUE: Axial computed tomography images of the abdomen and pelvis without intravenous contrast. CONTRAST: None. COMPARISON: CT\NE\SR - CT ABDOMEN PELVIS W CON - 11/21/2019 05:40 PM CDT FINDINGS: LUNG BASES: No basilar airspace consolidation or pleural effusion. LIVER: Unremarkable. GALLBLADDER AND BILE DUCTS: Unremarkable. No calcified stone. No ductal dilation. PANCREAS: Unremarkable. SPLEEN: Unremarkable. ADRENAL GLANDS: Unremarkable. KIDNEYS, URETERS, AND BLADDER: The uterus and the cervix appears slightly enlarged compared to prior examination. There is a mild wa ll thickening of the urinary bladder which could be due to contraction, cystitis due to radiation can not be excluded. Clinical correlation recommended. STOMACH AND BOWEL: No obstruction. No wall thickening. No CT evidence of colitis or acute diverticulitis. APPENDIX: No CT evidence for appendicitis. PERITONEUM: No free fluid. No free air. LYMPH NODES: No lymphadenopathy. REPRODUCTIVE: Unremarkable as visualized. VASCULATURE: No aortic aneurysm. ABDOMINAL WALL AND SOFT TISSUES: Unremarkable. BONES: No fracture or suspicious osseous abnormality. IMPRESSION: The uterus and the cervix appears slightly enlarged compared to prior examination. There is a mild wa ll thickening of the urinary bladder which could be due to contraction, cystitis due to radiation can not be excluded. Clinical correlation recommended. ELECTRONICALLY SIGNED BY: Verean Esqueda MD Dec 16, 2019 2:27:01 AM [employer] This report is intended for review by the ordering physician only, in accordance of law. If you recei ve this report in error, please call [facility] at [phone]. FINAL REPORT CT ABDOMEN AND PELVIS PERFORMED WITHOUT CONTRAST ENHANCEMENT: Date: 12/16/2019 HISTORY: Patient is status post radiation treatment, now presents with diffuse abdominal pain and abdominal di stention. COMPARISON: 11/21/2019 CT exam. FINDINGS: Lung bases show some minimal parenchymal change in the left base which could be atelectasis. The liver is normal in size and appearance. A hypodensity within the spleen is again noted. It measur es approximately 2.3 cm, which is unchanged in size since the prior exam. It is incompletely characte rized and could be a splenic cyst. The pancreas region is unremarkable. Pancreatic head is somewhat d ifficult to define. The gallbladder has been removed. Right and left adrenal glands, and right and left kidneys are within normal limits of size. There is no obstruction. There are small subcentimeter periaortic nodes present. No significant mesenteric ruben nopathy. CT of pelvis was performed with contrast enhancement. Lower uterine or cervical-type mass is identifi ed. There is some hyperdense material within the lower uterine segment or cervix. This is a similar a ppearance to what was seen on the prior examination. I am not certain whether this represents some so rt of unusual calcification or some hyperdense material that has been previously introduced. There is some fat stranding adjacent to the uterus. There are also sigmoid diverticular changes seen. There i s some fat stranding along the border of the sigmoid colon; however, this is a similar appearance to the prior examination. Some of this may just represent some vessels or small nodes as another possibi lity. I do not believe given the stability since the prior exam it would be diverticulitis change. Bl adder is not distended. Bladder wall appears slightly thickened, even considering the underdistention . No lytic or blastic bony change. IMPRESSION: 1. Sigmoid diverticulosis. Some fat stranding or slightly prominent vessels along the mesenteric bor ruthann of the sigmoid colon. This is a similar finding to the prior examination and therefore I do not b elieve represents diverticulitis. 2. Lower uterine segment or cervical mass with once again hyperdense material seen in this region of uncertain etiology. These findings appear relatively stable as compared to that prior examination. P erhaps some minimal fat stranding in this region. There is also suggestion of some wall thickening to the bladder even through it is not distended and this could represent a radiation cystitis. 3. Stable incompletely characterized hypodense within the spleen, potentially a splenic cyst. Report in agreement with the preliminary report issued by [facility]. [place]: [facility] [place]
== END 2019-12-16 03:06 | disposition home or self-care (01) ==
LOC: ERS 00:09
DX: N30.00 Acute cystitis without hematuria (principal); C76.0 Malignant neoplasm of head, face and neck; J44.9 Chronic obstructive pulmonary disease, unspecified; I13.2 Hypertensive heart and chronic kidney disease with heart failure and with stage 5 chronic kidney disease, or end stage renal disease; I50.9 Heart failure, unspecified; N18.6 End stage renal disease; F31.9 Bipolar disorder, unspecified; F20.9 Schizophrenia, unspecified; E11.22 Type 2 diabetes mellitus with diabetic chronic kidney disease; Z79.899 Other long term (current) drug therapy; Z79.4 Long term (current) use of insulin
CPT/HCPCS: 36415; 74176; 80053; 81003; 81015; 83690; 85025; 93005; 96372; J2270; Q0162

== ENCOUNTER 2020-01-16 07:57 | Emergency (ER) | payer OTHER ==
[2020-01-16] MEDS ORDERED: Ondansetron PF 4 MG/2 ML Vial ONE (09:05)
[2020-01-16] MEDS ORDERED: Morphine 4 MG/ML VIAL ONE (09:05)
[2020-01-16 09:42] LABS: Hemoglobin 9.8 g/dL (12.0-16.0); Mean Corpuscular HGB CONC 30.6 g/dL (32.0-36.0); Mean Corpuscular Hemoglobin 28.1 pg (27.0-31.0); Mean Corpuscular Volume 91.8 fL (78.0-98.0); Mean Platelet Volume 7.4 fL (7.4-10.4); Platelet Count 200 thou/uL (130-400); RBC Distribution Width 15.7 % (11.5-14.5); White Blood Cell (WBC) Count 4.5 thou/uL (4.8-10.8)
[2020-01-16 09:59] LABS: ALT (SGPT) 10 U/L (8-55); AST (SGOT) 18 U/L (5-34); Albumin 3.6 g/dL (3.5-5.0); Alkaline Phosphatase 84 U/L (40-110); Anion Gap 14 mmol/L (10-20); BUN (Urea Nitrogen) 29 mg/dL (9.8-20.1); Bilirubin, Total 0.5 mg/dL (0.2-1.2); Calc. Creatinine Clearance 0 mL/min (70-130); Calcium 10.8 mg/dL (7.8-10.44); Carbon Dioxide 33 mmol/L (22-29); Chloride 96 mmol/L (98-107); Globulin 3.4 g/dL (2.4-3.5); Glucose 186 mg/dL (70-105); Potassium 3.9 mmol/L (3.5-5.1); Sodium 139 mmol/L (136-145)
--- NOTE | 2020-01-16 10:03 | RAD ---
RIGHT HIP 2 VIEWS: HISTORY: Right hip pain. FINDINGS/IMPRESSION: There are mild degenerative changes. No fracture, dislocation, or bony destruction is seen. POS: AH
[2020-01-16 10:10] LABS: MDiff Complete? YES
[2020-01-16 10:11] LABS: Band 3 % (5-11); Eosinophils 4 % (0-10); Hypochromia SLIGHT = 6-15 cells (100X) (0-5/hpf); Lymphocytes 7 % (21-51); Monocytes 18 % (0-10); Myelocyte 1 % (0-0); Neutrophil 66 % (42-75); Platelet Morphology Comment Appears Adequate; Polychromasia SLIGHT = 2-3 cells (100X) (0-2/hpf); Reactive Lymphocytes 1 % (0-10)
--- NOTE | 2020-01-16 10:12 | RAD ---
LUMBAR SPINE 3 VIEWS: Date: 01/16/2020 HISTORY: Low back pain. FINDINGS: Lumbar vertebra maintain normal height and alignment. Loss of disc space at L5-S1. The other disc spa janie are preserved. No evidence of spondylolisthesis. Mild degenerative spurring. Mild facet hypertrop hy. IMPRESSION: There are mild to moderate degenerative changes as described. POS: AG[facility]
[2020-01-16 11:01] LABS: Hemoglobin A1c 4.9 % (4.0-6.0)
== END 2020-01-16 11:44 | disposition home or self-care (01) ==
LOC: ERS 07:57
DX: M25.551 Pain in right hip (principal); M54.5 Low back pain; J44.9 Chronic obstructive pulmonary disease, unspecified; E11.22 Type 2 diabetes mellitus with diabetic chronic kidney disease; I13.2 Hypertensive heart and chronic kidney disease with heart failure and with stage 5 chronic kidney disease, or end stage renal disease; I50.9 Heart failure, unspecified; N18.6 End stage renal disease; Z79.899 Other long term (current) drug therapy; Z79.4 Long term (current) use of insulin
CPT/HCPCS: 36415; 72100; 80053; 83036; 85025; 96374; 96375; J2270; J2405

== ENCOUNTER 2020-02-21 07:24 | Inpatient (IN) | payer OTHER ==
--- NOTE | 2020-02-21 08:01 | RAD ---
XR Chest 1 View Portable HISTORY: Dyspnea COMPARISON: 01/13/2020 FINDINGS: The heart size is enlarged. The aorta is tortuous. The lungs are well expanded without foca l areas of consolidation, pneumothorax or pleural effusions. No kierra pulmonary edema is seen. IMPRESSION: No radiographic evidence of acute cardiopulmonary process.
[2020-02-21 08:20] LABS: #Eosinphils 0.1 thou/uL (0.0-0.7); #Lymphocytes 0.6 thou/uL (1.20-3.40); #Monocytes 0.5 thou/uL (0.11-0.59); #Neutrophils 4.6 thou/uL (1.40-6.50); %Basophils 0.1 % (0.0-1.0); %Eosinophils 2.4 % (0.0-10.0); %Lymphocytes 10.8 % (21.0-51.0); %Monocytes 8.2 % (0.0-10.0); %Neutrophils 78.6 % (42.0-75.0); Hemoglobin 10.4 g/dL (12.0-16.0); Mean Corpuscular HGB CONC 30.5 g/dL (32.0-36.0); Mean Corpuscular Hemoglobin 28.1 pg (27.0-31.0); Mean Corpuscular Volume 92.1 fL (78.0-98.0); Mean Platelet Volume 7.3 fL (7.4-10.4); Platelet Count 237 thou/uL (130-400); RBC Distribution Width 15.9 % (11.5-14.5); Red Blood Cell (RBC) Count 3.71 mill/uL (4.20-5.40); White Blood Cell (WBC) Count 5.9 thou/uL (4.8-10.8)
--- NOTE | 2020-02-21 08:38 | CT ---
CT BRAIN NONCONTRAST: DATE: 02/21/2020 HISTORY: 59-year-old female with altered mental status and acute onset bilateral lower extremity weakness FINDINGS: There is no evidence of acute intra-axial or extra-axial hemorrhage. There is no midline shift or any other mass effect. There is no extra-axial fluid collection. There is no evidence of obstructive hydrocephalus. Calvarium is intact. IMPRESSION: No acute intracranial findings.
[2020-02-21 08:44] LABS: ALT (SGPT) 11 U/L (8-55); AST (SGOT) 13 U/L (5-34); Albumin 3.4 g/dL (3.5-5.0); Alkaline Phosphatase 75 U/L (40-110); Anion Gap 15 mmol/L (10-20); BUN (Urea Nitrogen) 37 mg/dL (9.8-20.1); Bilirubin, Total 0.4 mg/dL (0.2-1.2); Calc. Creatinine Clearance 0 mL/min (70-130); Calcium 11.3 mg/dL (7.8-10.44); Carbon Dioxide 32 mmol/L (22-29); Chloride 95 mmol/L (98-107); Globulin 3.5 g/dL (2.4-3.5); Glucose 95 mg/dL (70-105); Potassium 3.8 mmol/L (3.5-5.1); Protein, Total 6.9 g/dL (6.0-8.3); Sodium 138 mmol/L (136-145)
[2020-02-21 09:04] LABS: CKMB 0.7 ng/mL (0-6.6)
[2020-02-21] MEDS ORDERED: Acetaminophen 325 MG TAB ONE (10:54)
[2020-02-21] MEDS ORDERED: Aspirin Chewable 81 MG TAB ONE (10:54)
[2020-02-21] MEDS ORDERED: hydrALAZINE 20 MG/ML VIAL SLOW IVP PRN ×2 (11:17→14:15)
[2020-02-21] MEDS ORDERED: Labetalol HCl 100 MG/20 ML VIAL SLOW IVP PRN ×2 (11:17→14:16)
[2020-02-21] MEDS ORDERED: Dextrose 5% in Water 1,000 ML IV PRN (11:23)
[2020-02-21] MEDS ORDERED: Dextrose 50% Abboject 50 ML SYRINGE SLOW IVP PRN (11:23)
[2020-02-21] MEDS ORDERED: diphenhydrAMINE 25 MG CAP PO PRN (11:23)
[2020-02-21] MEDS ORDERED: HumaLOG 300 UNITS/3 ML VIAL SC PRN (11:23)
[2020-02-21] MEDS ORDERED: Bisacodyl 5 MG TAB PO PRN (11:25)
[2020-02-21] MEDS ORDERED: Senokot S 8.6-50 MG TAB PO PRN (11:25)
[2020-02-21] MEDS ORDERED: Calcium Carbonate 500 MG ChewTAB PO PRN (11:25)
[2020-02-21] MEDS ORDERED: Ondansetron ODT 4 MG TAB PO PRN (11:25)
[2020-02-21] MEDS ORDERED: Ondansetron PF 4 MG/2 ML Vial IVP PRN (11:25)
[2020-02-21] MEDS ORDERED: Acetaminophen 325 MG TAB PO PRN (11:25)
[2020-02-21 11:34] LABS: Troponin I 0.049 ng/mL (< 0.028)
[2020-02-21 12:21] LABS: Magnesium 2.2 mg/dL (1.6-2.6); Phosphorus 5.8 mg/dL (2.3-4.7)
--- NOTE | 2020-02-21 12:25 | ULT ---
BILATERAL CAROTID DUPLEX ULTRASOUND: HISTORY: Lower extremity weakness. Evaluate for CVA. COMPARISON: 09/22/2011 TECHNIQUE: Grayscale, color-flow and spectral Doppler ultrasound imaging of the extracranial carotid artery syst ems and vertebral arteries was performed bilaterally. FINDINGS: No large amount of echogenic plaque is seen involving the common carotid or internal carotid arteries . The peak systolic velocity in the right ICA cannot be obtained. The peak systolic velocity in the ri ght CCA measures 80.5 cm/s. The peak systolic velocity in the left ICA measures 84.9 cm/s. The peak systolic velocity in the l eft CCA measures 74.6 cm/s. The right IC/CC ratio cannot be determined. The left IC/CC ratio is 1.1. Vertebral flow: Neither vertebral arteries appreciated . IMPRESSION: 1. Possible occlusion of the right internal carotid artery. 2. Neither vertebral arteries appreciated. 3. Further evaluation with CT angiogram of the neck may be beneficial Results of study conveyed to Allen Nicholas via [employer] connect 02/21/2020 at 12:22 PM Code CR
--- NOTE | 2020-02-21 12:32 | HP ---
PRIMARY CARE PHYSICIAN: Margaret Brunner MD CHIEF COMPLAINT: Bilateral lower extremity weakness. HISTORY OF PRESENT ILLNESS: The H and P was gathered from the patient and her daughter at bedside, both of which are poor historians. The patient is a 59-year-old female with a past medical history significant for hypertension; hyperlipidemia; DM, 2; end-stage renal disease (MWF), followed by Dr. Lara; CHF; COPD (2 L NC at home); cervical cancer (radiation on Tuesdays), followed by Dr. Lawson in [place]; ROSITA (noncompliant); schizophrenia affective and bipolar disorder, who presents to the emergency department via personal vehicle driven by her daughter. Both the patient and her daughter report that she was very weak this morning, so much so that she could not get up into her hemodialysis chair for therapy. The onset of her symptoms are vague at best, Both stating that her weakness started sometime yesterday afternoon. The decision was made to send the patient to the ER prior to initiating hemodialysis. The patient reports that she did suffer a fall this morning, landing on her knees. She was assisted up by her nephew. She denies any LOC or hitting her head. She denies any pain associated with the fall. She says that she was just weak. Her daughter reports that her left leg is much more weak than her right. The patient denies any back pain or surgeries to her back. She is not on any blood thinning medications. She denies any headache. She did report some double vision last night; however, it resolved spontaneously and has not reappeared. She denies any changes in speech or difficulty swallowing. No recent fever or illness. No known COVID contacts. No loss of taste or smell. The patient did not take any of her home medications prior to her hemodialysis session. The patient denies any abdominal pain, nausea, vomiting, or diarrhea. She denies any hemoptysis, hematochezia, or melena. She makes a very little urine; however, denies any dysuria or hematuria. In the emergency department, the patient presented hypertensive with a blood pressure of 186/90 with normal pulse, respirations, and SpO2 saturation. She is afebrile. CT of the brain was negative for any acute process. Chest x-ray negative for any acute process. EKG, normal sinus rhythm, no ST elevations. BNP mildly elevated at 316. Initial troponin 0.045. The patient was given full-dose aspirin and Tylenol and will be admitted to the floor. PAST MEDICAL HISTORY: 1. CHF. 2. COPD, (2L NC at home) 3. End-stage renal disease, on hemodialysis on // followed by Dr. Lara. 4. Cervical cancer, (radiation Tuesdays) followed by Dr. Lawson in [place] 5. Hypertension, chronic 6. Hyperlipidemia, chronic 7. Diabetes, type 2, on sliding scale. 8. Anemia of chronic disease. 9. Obstructive sleep apnea, noncompliant with CPAP. 10. Schizophrenia affective and bipolar disorder. SURGICAL HISTORY: 1. Hernia. 2. Gallbladder. 3. Tubal. 4. Right upper extremity fistula. 5. Removal of left upper extremity AV fistula. SOCIAL HISTORY: The patient lives with her family at home. She has no history of heavy alcohol or illicit drug use. She has never smoked. She is independent according to her family; however, sometimes she does require a wheelchair to get around. She does not work. FAMILY HISTORY: Negative for stroke. ALLERGIES: 1. FLU VACCINE. 2. IODINE. 3. PENICILLINS. 4. SEROQUEL. HOME MEDICATIONS: 1. Coreg 3.125 mg p.o. b.i.d. 2. NovoLog 70/30 sliding scale. 3. Calcium acetate 667 mg p.o. 3 times a day. 4. Risperdal 2 mg p.o. q.a.m. 5. Vitamin D3 of 2000 international units p.o. daily. 6. Tramadol 50 mg one tablet p.o. q.6 h. p.r.n. pain. 7. [place] 5/325 one to two tablets q.6 h. p.r.n. pain. REVIEW OF SYSTEMS: All review of systems are negative unless otherwise stated in the HPI. PHYSICAL EXAMINATION: VITAL SIGNS: Temperature 98.8, blood pressure 199/108, pulse 84, respirations 18, and 99% on 2 L nasal cannula. CONSTITUTIONAL: The patient is hypertensive, in no acute distress, appears mildly uncomfortable on the stretcher. HEAD: Atraumatic and normocephalic. EYES: PERRLA. Extraocular muscles intact. Sclerae nonicteric. ENT: Oropharynx clear. Uvula midline. Moist mucous membranes. No oral lesions. NECK: Full range of motion. No cervical spinous tenderness. No cervical adenopathy. RESPIRATORY/CHEST: Respirations are even and nonlabored. Clear to auscultation. Mildly diminished in the lower lobes. No rhonchi, wheezes, or rales. CARDIOVASCULAR: S1 and S2 appreciated. No murmurs, rubs, or gallops. ABDOMEN: Soft and nontender. Distant bowel sounds. No guarding. No rigidity. No rebound. Negative Rovsing. Negative Blanchard sign. BACK: No central spinous tenderness. No CVA tenderness. No swelling or inflammation. No bruising. EXTREMITIES: Upper extremities; full range of motion, normal strength, sensation intact, palpable radial pulses. Lower extremities; the left lower extremity is significantly weak, able to lift against gravity. The right extremity is slightly stronger with slight drift, but did not touch the bed. No swelling. Palpable pedal pulses. Sensation intact. NEUROLOGIC: The patient has GCS of 15. NIH of 4 per her lower extremity weakness. Speech is baseline per daughter. PSYCHIATRIC: Denies SI, HI. A and O x4. DIAGNOSTIC STUDIES: IMAGING STUDIES: CT of the brain was negative for any acute processes. Chest x-ray was negative for any cardiopulmonary process. LABORATORY RESULTS: Sodium 138, potassium 3.8, chloride 95, carbon dioxide 32, BUN 37, creatinine 7.44, glucose 95, and calcium 11.3. Total bilirubin 0.4, AST 13, ALT 11, and alkaline phosphatase 75. Initial troponin 0.045, CK-MB 0.7, and BNP 316.5. WBCs 5.9, hemoglobin 10.4, hematocrit 34.2, and platelets were 237. IMPRESSION: 1. Bilateral lower extremity weakness, rule out cerebrovascular accident. 2. Hypertensive urgency. 3. Indeterminate troponin. 4. End-stage renal disease. 5. Cervical cancer. 6. Congestive heart failure. 7. Chronic obstructive pulmonary disease. 8. Obstructive sleep apnea. 9. Diabetes mellitus, type 2. 10. Hypertension. 11. Hyperlipidemia. 12. Schizoaffective and bipolar disorder. PLAN: A 59-year-old female presents for bilateral lower extremity weakness with unclear time of onset. The patient will be admitted to the stroke unit, observation status. Expected length of stay less than 2 midnights. Upon assessment, the patient's left lower extremity is significantly weak, although both are weaker than usual per her daughter at bedside. Rule out stroke. Order MRI, carotid Doppler, and echocardiogram. Consult Stroke Team and Neurology. Continue aspirin and start high-intensity statin. Permissive hypertension. In terms of her hypertension, the patient did not receive her morning medications because it is her dialysis day. Upon assessment, she was hypertensive in the 200s. We will add labetalol and hydralazine p.r.n. We will trend her troponins. Continue aspirin and check echocardiogram. In terms of her end-stage renal disease, she sees Dr. Lara and has dialysis at [facility], we will consult Dr. Lara for maintenance hemodialysis. In terms of her CHF, BNP mildly elevated at 316. CXR, no fluid volume overload. We will trend troponins. Restart oral beta-sandra home dose. We will check echocardiogram. In terms of her COPD, she is on 2 L nasal cannula at home. We will continue supplemental oxygen as needed. In terms of her obstructive sleep apnea, the patient is noncompliant with CPAP at home. She refuses to wear CPAP in the hospital. In terms of her diabetes, the patient takes sliding scale at home. We will start her on a sliding scale and Accu-Cheks a.c. and at bedtime. In terms of her schizoaffective, bipolar disorder, the patient denies any suicidal homicidal ideation. Restart the patient's home dose of Risperdal. SCDs for DVT prophylaxis. No pharmacological DVT prophylaxis. Pepcid for GI prophylaxis. Code status is full code. Her contact is her daughterAfsaneh at [phone]. Discussed the case with attending physician, Dr. Hays. Addendum: Patient had abnormal CD US, Discussed with Dr. Hays, who consulted Dr. Gaytan via telephone. Pre-medicate for iodine allergy, CTA head and neck in morning. Job ID: [id number] [facility]
[2020-02-21 12:34] LABS: SARS-CoV-2 NAA Rapid Test Not Detected (NotDetected)
--- NOTE | 2020-02-21 14:51 | CON ---
DATE OF CONSULTATION: 02/21/2020 REASON FOR CONSULTATION: Left lower extremity weakness. HISTORY OF PRESENT ILLNESS: Ms. Ana Rosa De La Torre is a 59-year-old female with history significant for congestive heart failure, COPD, end-stage renal disease, cervical cancer, hypertension, hyperlipidemia, diabetes, anemia of chronic disease, obstructive sleep apnea, and schizophrenia and bipolar disorder presented to the emergency room with left lower extremity weakness per patient. The history is taken from the patient' daughter who is at the bedside. According to the daughter, she went to work and when she came back she was not feeling well. Per caregiver, she has not been feeling well all day and did not eat much. In the morning, she realized that she has weakness in her left leg and unable to walk, so she decided to bring her to the emergency room for further evaluation. The patient denies any nausea, vomiting, headache, chest pain, abdominal pain, recent illness or recent exposure to COVID. She also denies focal paresthesias, double vision, or loss of vision. REVIEW OF SYSTEMS: All systems reviewed, which were negative except the pertinent positives and negatives mentioned in the HPI. PAST MEDICAL HISTORY: Congestive heart failure, COPD, end-stage renal disease, cervical cancer, hypertension, hyperlipidemia, diabetes, anemia of chronic disease, obstructive sleep apnea, noncompliant on CPAP, schizophrenia, bipolar disorder. SURGICAL HISTORY: Hernia and gallbladder surgery, tubal ligation, right upper extremity fistula, removal of left upper extremity AV fistula. SOCIAL HISTORY: The patient lives at home with family. Denies smoking, alcohol, illegal drug use. FAMILY HISTORY: Negative for stroke. ALLERGIES: FLU VACCINE, IODINE, PENICILLIN, SEROQUEL. HOME MEDICATIONS: 1. Coreg 3.125 mg p.o. b.i.d. 2. NovoLog 70/30 sliding scale. 3. Calcium acetate 667 mg p.o. 3 times a day. 4. Risperdal 2 mg p.o. q.a.m. 5. Vitamin D3 2000 international units daily. 6. Tramadol 50 mg p.o. q.6 hours. 7. Norco1-2 tablets p.r.n. PHYSICAL EXAMINATION: VITAL SIGNS: Blood pressure 205/120, pulse 80, respiratory rate 18. CVS: Regular rate and rhythm. CHEST: Clear. ABDOMEN: Soft. NECK: Supple. NEUROLOGICAL: Mental status, the patient is extremely somnolent. She does not follow commands. She does not maintain eye contact. Speech is clear. Cranial nerves II through XII intact. Motor, muscle tone and bulk are normal. Strength, moving all 3 extremities except for left lower extremity, 2/5. Sensory, intact. Cerebellar, finger-nose testing intact. GAIT: Deferred due to patient's safety reasons. DATA REVIEWED: I reviewed the CT scan, which was negative for acute intracranial pathology. ASSESSMENT AND PLAN: Ms. Ana Rosa De La Torre is a 59-year-old female who was here for evaluation of left lower extremity weakness. MRI of the brain to rule out acute intracranial process. Carotid Dopplers to rule out hemodynamically significant stenosis. 2D echo to evaluate for left ventricular ejection fraction. Telemetry to rule out arrhythmias. Permissive control of blood pressure at this time. Strict control of blood glucose. Start aspirin and high-intensity statin for secondary stroke prevention. N.p.o. till cleared by speech. PT/OT/Speech. Continue medical management per primary team. Deep venous thrombosis prophylaxis. We will continue to follow. Thank you for the consult. Job ID: [id number] [facility]
[2020-02-21 14:53] LABS: Troponin I 0.053 ng/mL (< 0.028)
--- NOTE | 2020-02-21 18:48 | CON ---
DATE OF CONSULTATION: 02/21/2020 CONSULTING PHYSICIAN: Allen Nicholas NP REASON FOR CONSULTATION: End-stage renal disease evaluation and care. REASON FOR ADMISSION: Bilateral lower extremity weakness. HISTORY OF PRESENT ILLNESS: This is a 59-year-old female with history of CHF, COPD, cervical cancer, hypertension, hyperlipidemia, who came to the hospital with weakness and is having CVA workup and is having a CT angio to rule out stroke. Nephrology consulted for maintenance hemodialysis. She gets dialysis Monday, Monday, and Monday. She missed dialysis today. Last dialysis was on Monday as far as I was informed. No nausea or vomiting. The patient was seen during dialysis and tolerating well. Her blood pressure was high, but it is coming down and also working on establishing IV access to get her blood pressure medicines. PAST MEDICAL HISTORY: Positive for CHF, COPD, end-stage renal disease, cervical cancer, hypertension, hyperlipidemia, type 2 diabetes, anemia, obstructive sleep apnea, schizophrenia, and bipolar disorder. PAST SURGICAL HISTORY: Hernia repair, cholecystectomy, tubal ligation, and fistula placement. HOME MEDICATIONS: Reviewed. ALLERGIES: FLU VACCINE, IODINE, PENICILLIN, AND QUETIAPINE. SOCIAL HISTORY: No smoking, alcohol, or illicit drug abuse. FAMILY HISTORY: No history of any kidney disease. REVIEW OF SYSTEMS: CONSTITUTIONAL: Negative for weight loss or gain, ability to conduct usual activities. SKIN: Negative for rash, itching. EYES: Negative for double vision, pain. ENT/MOUTH: Negative for nose bleeding, neck stiffness, pain, tenderness. CARDIOVASCULAR: Negative for palpitations, dyspnea on exertion, orthopnea. RESPIRATORY: Negative for shortness of breath, wheezing, cough, hemoptysis, fever or night sweats. GASTROINTESTINAL: Negative for poor appetite, abdominal pain, heartburn, nausea, vomiting, constipation, or diarrhea. GENITOURINARY: Negative for urgency, frequency, dysuria, nocturia. MUSCULOSKELETAL: Negative for pain, swelling. NEUROLOGIC/PSYCHIATRIC: Negative for anxiety, depression. ALLERGY/IMMUNOLOGIC: Negative for skin rash, bleeding tendency. PHYSICAL EXAMINATION: GENERAL: This is a well-built female, in no apparent distress. VITAL SIGNS: Temperature 98.3; pulse 86; respiratory rate 20; and blood pressure 222/110, when I saw her, it was 190s/105 during dialysis. HEENT: Atraumatic, normocephalic. NECK: Supple. CV: S1 and S2 heard. RESPIRATORY: Clear. GASTROINTESTINAL: Abdomen is soft. MUSCULOSKELETAL: 1+ edema. DERMATOLOGIC: No skin rash. NEUROLOGICAL: Alert and awake. PSYCHIATRIC: Mood and affect normal. LABORATORY DATA: Hemoglobin is 10.4. Potassium 3.8, BUN is 37, and creatinine is 7.4. ASSESSMENT AND PLAN: 1. End-stage renal disease. Plan to have dialysis. The patient is seen during dialysis and tolerating well. We will continue dialysis. 2. Hypertension. Re-evaluate after hemodialysis and continue home medication and titrate as needed. 3. History of anemia of chronic disease, stable. 4. Edema, controlled. 5. Possible cerebrovascular accident. Continue workup per Primary Team. Plan is to continue dialysis on Monday, Monday, and Monday as tolerated. Thank you for the consult. We will follow. Job ID: [id number]
[2020-02-21] MEDS: risperiDONE 1 MG TAB PO SCH (20:17)
[2020-02-21] MEDS: predniSONE 50 MG TAB PO SCH (20:17)
[2020-02-21] MEDS: Atorvastatin Calcium 40 MG TAB PO SCH (20:18)
[2020-02-21] MEDS: Carvedilol 3.125 MG TAB PO SCH (20:18)
[2020-02-21] MEDS: Cholecalciferol 1,000 UNITS (25 MCG) TAB PO SCH (20:18)
[2020-02-21 20:28] LABS: Uric Acid 7.3 mg/dL (2.6-6.0)
[2020-02-21] MEDS ORDERED: Famotidine 20 MG TAB PO SCH ×2 (21:00)
[2020-02-22] MEDS: predniSONE 50 MG TAB PO SCH ×2 (01:45→10:32)
[2020-02-22] MEDS ORDERED: diphenhydrAMINE 50 MG CAP PO SCH (08:00)
[2020-02-22] MEDS ORDERED: Multivitamins CHEW w/Iron Tablet PO SCH (09:00)
[2020-02-22] MEDS: Cholecalciferol 1,000 UNITS (25 MCG) TAB PO SCH ×2 (10:31→21:09)
[2020-02-22] MEDS: Carvedilol 3.125 MG TAB PO SCH ×2 (10:31→17:32)
[2020-02-22] MEDS: Aspirin 81 mg Enteric Coated Tablet PO SCH (10:32)
--- NOTE | 2020-02-22 11:59 | PRG ---
DATE OF SERVICE: 02/22/2020 SUBJECTIVE: The patient was seen and examined at bedside and overnight events noted. The patient denies any shortness of breath or chest pain or palpitation. No history of nausea or vomiting or diarrhea or fever or chills or cramps. OBJECTIVE: GENERAL: This is a well-build female, in no apparent distress, somnolent. VITAL SIGNS: Temperature 97. Heart rate 89. Respiratory rate 18. Blood pressure 146/84. HEENT: Atraumatic, normocephalic. Oral mucosa is moist NECK: Supple. CARDIOVASCULAR: S1, S2 heard. Rate and rhythm regular. RESPIRATORY: Clear to auscultation. GASTROINTESTINAL: Abdomen is soft. MUSCULOSKELETAL: No tenderness. No edema. DERMATOLOGIC: No skin rash. NEUROLOGIC: Somnolent. PSYCHIATRIC: Mood and affect normal. LABORATORY DATA: No labs done today. ASSESSMENT AND PLAN: 1. End-stage renal disease, continue dialysis Monday, Monday, and Monday. 2. Edema. 3. History of hypertension. 4. Anemia of chronic disease. Plan to continue on dialysis Monday, Monday, and Monday as as tolerated. Job ID: [id number]
--- NOTE | 2020-02-22 13:07 | PDOC.HOSPP ---
- Subjective Encounter Date: 02/22/20 (f/u weakness) Encounter Time: 13:05 Subjective: Pt admitted yesterday for bilateral LE weakness and stroke evaluation. RN reports that pt refused MRI. Pt now somnolent - briefly opens eyes but not following commands or staying awake. Has received benadryl and steroids for CT-Angiogram to f/u ultrasound, but does not have appropriate IV access for the study. Per RN - Neurology eval did not find any Neuro conditions. - Objective Vital Signs & Weight: Vital Signs (12 hours) Temp Pulse Pulse Resp BP BP BP 02/22/20 11:04 100 137/89 02/22/20 07:22 98.7 F 89 12 146/84 H 02/22/20 04:00 98.4 F 88 20 175/91 H Pulse Ox 02/22/20 11:04 02/22/20 07:22 98 02/22/20 04:00 97 Weight Weight 222 lb 6.4 oz I&O: 02/21/20 02/22/20 02/23/20 06:59 06:59 06:59 Intake Total 840 118 Balance 840 118 Result Diagrams: 02/21/20 08:08 02/22/20 15:56 Additional Labs: Accuchecks 02/22/20 02/21/20 02/21/20 10:05 20:09 15:11 POC Glucose 143 H 75 79 EKG Reviewed by me: Yes (tele - sinus 90's ) Hospitalist ROS - Medication Medications: Active Medications Generic Name Dose Route Start Last Admin Trade Name Jaxq PRN Reason Stop Dose Admin Aspirin 81 mg 02/22/20 09:00 02/22/20 10:32 Aspirin 81 Mg Enteric Coated Tablet PO 81 mg DAILY LILLY Administration Atorvastatin Calcium 40 mg 02/21/20 21:00 02/21/20 20:18 Atorvastatin Calcium 40 Mg Tab PO 40 mg HS LILLY Administration Carvedilol 3.125 mg 02/21/20 17:00 02/22/20 10:31 Carvedilol 3.125 Mg Tab PO 3.125 mg BID-WM LILLY Administration Cholecalciferol 2,000 units 02/21/20 21:00 02/22/20 10:31 Cholecalciferol 1,000 Units (25 Mcg) Tab PO 2,000 units BID LILLY Administration Risperidone 2 mg 02/21/20 21:00 02/21/20 20:17 Risperidone 1 Mg Tab PO 2 mg HS LILLY Administration - Exam General Appearance: NAD Heart: RRR, no murmur Respiratory: no wheezes, no rales, no ronchi Respiratory - other findings: snoring while asleep Extremities: no cyanosis, no clubbing, no edema Psychiatric - other findings: unable to adequately assess. Opens eyes and falls back asleep Hosp A/P (1) Weakness Code(s): R53.1 - WEAKNESS Status: Acute (2) ESRD (end stage renal disease) Code(s): N18.6 - END STAGE RENAL DISEASE Status: Chronic (3) Encephalopathy Code(s): G93.40 - ENCEPHALOPATHY, UNSPECIFIED Status: Acute (4) Anemia of renal disease Code(s): D63.1 - ANEMIA IN CHRONIC KIDNEY DISEASE Status: Chronic (5) Diabetes type 2, controlled Code(s): E11.9 - TYPE 2 DIABETES MELLITUS WITHOUT COMPLICATIONS Status: Chronic Qualifiers: Diabetes mellitus medical clinic manager insulin use: with medical clinic manager use Diabetes mellitus complication status: with kidney complications Diabetes mellitus complication detail: with chronic kidney disease Chronic kidney disease stage: on chronic dialysis Qualified Code(s): E11.22 - Type 2 diabetes mellitus with diabetic chronic kidney disease; N18.6 - End stage renal disease; Z79.4 - USP (current) use of insulin; Z99.2 - Dependence on renal dialysis (6) Dyslipidemia Code(s): E78.5 - HYPERLIPIDEMIA, UNSPECIFIED Status: Chronic (7) GERD (gastroesophageal reflux disease) Code(s): K21.9 - GASTRO-ESOPHAGEAL REFLUX DISEASE WITHOUT ESOPHAGITIS Status: Chronic Qualifiers: Esophagitis presence: without esophagitis Qualified Code(s): K21.9 - Gastro-esophageal reflux disease without esophagitis (8) HTN (hypertension) Code(s): I10 - ESSENTIAL (PRIMARY) HYPERTENSION Status: Chronic Qualifiers: (9) Obesity (BMI 30-39.9) Code(s): E66.9 - OBESITY, UNSPECIFIED Status: Chronic (10) Obstructive sleep apnea Code(s): G47.33 - OBSTRUCTIVE SLEEP APNEA (ADULT) (PEDIATRIC) Status: Chronic - Plan 1. Weakness - unable to evaluate, pt with MS changels likely due to steroids/benadryl - d/c steroids/benadryl - monitor MS - check ammonia/bmp/mg/phos - MRi refused - monitor - possible right ICA occlusion on carotid US - will need further evaluation at another time - would need a central line here and I do not think this is indicated. Unilateral carotid stenosis would not cause bilateral weakness 2. Hypercalcemia - recheck 3. ESRD - dialysis per Dr. Murray 4. Elevated bnp and indeterminant troponin - check echo - no abnormalities on telemetry 5. HTN - continue permissive htn and reassess for possible stroke with CT tomorrow or by clinical exam 6. Elevated phos - phosphate binder with meals 7. Hx of ROSITA - will request cpap at night dvt prophy - heparin gi prophy - not indicated - resume PO when safe to take code status full pt remains at high risk in current condition
[2020-02-22 13:10] VITALS: BMI 39.4
[2020-02-22 16:32] LABS: Anion Gap 19 mmol/L (10-20); BUN (Urea Nitrogen) 30 mg/dL (9.8-20.1); Calc. Creatinine Clearance 15 mL/min (70-130); Carbon Dioxide 24 mmol/L (22-29); Chloride 95 mmol/L (98-107); Glucose 171 mg/dL (70-105); Magnesium 2.3 mg/dL (1.6-2.6); Phosphorus 4.6 mg/dL (2.3-4.7); Potassium 4.6 mmol/L (3.5-5.1); Sodium 133 mmol/L (136-145)
[2020-02-22] MEDS: HumaLOG 300 UNITS/3 ML VIAL SC PRN (17:32)
[2020-02-22] MEDS: Calcium Acetate 667 MG CAP PO SCH (17:32)
[2020-02-22] MEDS ORDERED: Folic Acid/Vit B Comp W-C PO SCH (17:45)
[2020-02-22 20:29] LABS: Cardiac Risk 4.7 (Less than 4.5)
[2020-02-22] MEDS: risperiDONE 1 MG TAB PO SCH (21:09)
[2020-02-22] MEDS: Atorvastatin Calcium 40 MG TAB PO SCH (21:09)
[2020-02-22 21:44] LABS: #Lymphocytes 0.6 thou/uL (1.20-3.40); #Monocytes 0.5 thou/uL (0.11-0.59); #Neutrophils 4.9 thou/uL (1.40-6.50); %Eosinophils 0.1 % (0.0-10.0); %Lymphocytes 9.7 % (21.0-51.0); %Monocytes 8.6 % (0.0-10.0); %Neutrophils 81.7 % (42.0-75.0); Hemoglobin 10.1 g/dL (12.0-16.0); Mean Corpuscular HGB CONC 30.5 g/dL (32.0-36.0); Mean Corpuscular Volume 91.6 fL (78.0-98.0); Mean Platelet Volume 7.3 fL (7.4-10.4); Platelet Count 240 thou/uL (130-400); Red Blood Cell (RBC) Count 3.61 mill/uL (4.20-5.40)
[2020-02-23] MEDS: HYDROcodone/Acetaminophen 5/325 mg Tablet PO PRN ×4 (05:23→21:14)
[2020-02-23 05:40] LABS: Anion Gap 17 mmol/L (10-20); BUN (Urea Nitrogen) 46 mg/dL (9.8-20.1); Calc. Creatinine Clearance 13 mL/min (70-130); Calcium 10.2 mg/dL (7.8-10.44); Carbon Dioxide 27 mmol/L (22-29); Chloride 96 mmol/L (98-107); Glucose 119 mg/dL (70-105); Potassium 4.7 mmol/L (3.5-5.1); Sodium 135 mmol/L (136-145)
--- NOTE | 2020-02-23 08:08 | PDOC.HOSPP ---
- Subjective Encounter Date: 02/23/20 (f/u weakness) Encounter Time: 08:05 Subjective: Pt admitted for stroke evaluation with c/o bilateral LE weakness. Yesterday she received steroids/benadryl and was somnolent most of the day, as pre-treatment for a contrast CT-A. Due to lack of appropriate IV access, the study was not performed. Today she is tearful and c/o pain. She points to right hip, lower back, and c/o weakness in her left leg. She states this was occurring at home. - Objective Vital Signs & Weight: Vital Signs (12 hours) Temp Pulse Resp BP Pulse Ox 02/23/20 04:00 97.9 F 77 12 109/59 L 100 02/23/20 03:32 13 02/23/20 00:00 98.4 F 84 22 H 117/70 97 02/22/20 21:20 98.7 F 82 14 140/69 96 Weight Admit Weight 222 lb 6.4 oz Weight 223 lb I&O: 02/22/20 02/23/20 02/24/20 06:59 06:59 06:59 Intake Total 840 1168 Balance 840 1168 Result Diagrams: 02/22/20 21:36 02/23/20 05:04 Additional Labs: Accuchecks 02/23/20 02/22/20 02/22/20 05:19 16:51 10:05 POC Glucose 120 H 179 H 143 H EKG Reviewed by me: Yes (tele - sinus rhythm, no alarms) Hospitalist ROS - Medication Medications: Active Medications Generic Name Dose Route Start Last Admin Trade Name Nabila PRN Reason Stop Dose Admin Hydrocodone Bitart/Acetaminophen 1 tab 02/21/20 11:25 02/23/20 05:23 Hydrocodone/Acetaminophen 5/325 Mg Tablet PO 1 tab Q4H PRN Administration Moderate Pain (4-6) Aspirin 81 mg 02/22/20 09:00 02/22/20 10:32 Aspirin 81 Mg Enteric Coated Tablet PO 81 mg DAILY LILLY Administration Atorvastatin Calcium 40 mg 02/21/20 21:00 02/22/20 21:09 Atorvastatin Calcium 40 Mg Tab PO 40 mg HS LILLY Administration Calcium Acetate 1,334 mg 02/22/20 17:00 02/22/20 17:32 Calcium Acetate 667 Mg Cap PO 1,334 mg TID-WM LILLY Administration Carvedilol 3.125 mg 02/21/20 17:00 02/22/20 17:32 Carvedilol 3.125 Mg Tab PO 3.125 mg BID-WM LILLY Administration Cholecalciferol 2,000 units 02/21/20 21:00 02/22/20 21:09 Cholecalciferol 1,000 Units (25 Mcg) Tab PO 2,000 units BID LILLY Administration Insulin Human Lispro 0 units 02/21/20 11:23 02/22/20 17:32 Humalog 300 Units/3 Ml Vial SC 2 unit .MODERATE SLIDING SC PRN Administration Moderate Correctional Scale Risperidone 2 mg 02/21/20 21:00 02/22/20 21:09 Risperidone 1 Mg Tab PO 2 mg HS LILLY Administration - Exam General Appearance: NAD Heart: RRR, no murmur Respiratory: no wheezes, no rales, no ronchi Respiratory - other findings: diminished breath sounds at bilateral bases Gastrointestinal: soft, non-distended, normal bowel sounds Extremities: no cyanosis, no clubbing, no edema Extremities - other findings: ttp along the right hip, low back without palpable abnormalities Neurological - other findings: LLE strength - 3+/5, RLE strength 5/5 Psychiatric - other findings: tearful with converstaion Hosp A/P (1) Weakness Code(s): R53.1 - WEAKNESS Status: Acute (2) ESRD (end stage renal disease) Code(s): N18.6 - END STAGE RENAL DISEASE Status: Chronic (3) Encephalopathy Code(s): G93.40 - ENCEPHALOPATHY, UNSPECIFIED Status: Acute (4) Anemia of renal disease Code(s): D63.1 - ANEMIA IN CHRONIC KIDNEY DISEASE Status: Chronic (5) Diabetes type 2, controlled Code(s): E11.9 - TYPE 2 DIABETES MELLITUS WITHOUT COMPLICATIONS Status: Chronic Qualifiers: Diabetes mellitus supervisor intermediates insulin use: with supervisor intermediates use Diabetes mellitus complication status: with kidney complications Diabetes mellitus complication detail: with chronic kidney disease Chronic kidney disease stage: on chronic dialysis Qualified Code(s): E11.22 - Type 2 diabetes mellitus with diabetic chronic kidney disease; N18.6 - End stage renal disease; Z79.4 - FPC (current) use of insulin; Z99.2 - Dependence on renal dialysis (6) Dyslipidemia Code(s): E78.5 - HYPERLIPIDEMIA, UNSPECIFIED Status: Chronic (7) GERD (gastroesophageal reflux disease) Code(s): K21.9 - GASTRO-ESOPHAGEAL REFLUX DISEASE WITHOUT ESOPHAGITIS Status: Chronic Qualifiers: Esophagitis presence: without esophagitis Qualified Code(s): K21.9 - Ga stro-esophageal reflux disease without esophagitis (8) HTN (hypertension) Code(s): I10 - ESSENTIAL (PRIMARY) HYPERTENSION Status: Chronic Qualifiers: (9) Obesity (BMI 30-39.9) Code(s): E66.9 - OBESITY, UNSPECIFIED Status: Chronic (10) Obstructive sleep apnea Code(s): G47.33 - OBSTRUCTIVE SLEEP APNEA (ADULT) (PEDIATRIC) Status: Chronic - Plan 1. Weakness - today's history and exam c/w LLE weakness with associated back pain - continue plan for MRI brain to evaluate for stroke - hold on CT-A - pt has received steroids and benadryl as pre-tx but lacks adequate IV access for the study to be performed. Possible right ICA occlusion on carotid ultrasound - await MRI report to see if there is an explanation for the weakness/pain. - Add on hip/pelvic xrays and MRI l-spine 2. Hypercalcemia - resolved, normal calcium today 3. ESRD - dialysis per Dr. Murray 4. Elevated bnp and indeterminant troponin - echo and tele normal - no indication for further work-up 5. HTN - continue permissive htn until MRI brain completed as part of stroke rule-out 6. Elevated phos - continue phosphate binder with meals 7. Hx of ROSITA - continue cpap at night dvt prophy - heparin gi prophy - not indicated code status full pt remains at high risk in current condition. Given significant pain and LLE weakness - changed to inpatient status as I antic ipate pt will be here for another 2+ days for diagnosis and treatment. She is currently unable to ambulate due to function of left leg. Addendum - Reviewed MRI and negative for stroke. The L-spine MRI shows bulging disk with compression of the S1 nerve root. Pt has received steroids for pre-treatment of contrast study - hold on any additional. Will start gabapentin for pain control - low dose, and consult Neurosurgery who will see her tomorrow. Called and left message for daughter to update at 16:23, will try again tomorrow. Treat hypertension with home med of carvedilol + oral clonidine prn. Given the significant elevation, will add on oral hydralazine and plan to titrate. Treat pain as well.
[2020-02-23] MEDS: Calcium Acetate 667 MG CAP PO SCH ×3 (08:19→17:33)
[2020-02-23] MEDS: Carvedilol 3.125 MG TAB PO SCH ×2 (08:19→17:33)
[2020-02-23] MEDS: Aspirin 81 mg Enteric Coated Tablet PO SCH (08:19)
[2020-02-23] MEDS: Folic Acid/Vit B Comp W-C PO SCH (08:19)
[2020-02-23] MEDS: Cholecalciferol 1,000 UNITS (25 MCG) TAB PO SCH ×2 (09:20→21:15)
[2020-02-23] MEDS ORDERED: cloNIDine 0.1 MG TAB PO PRN (09:55)
--- NOTE | 2020-02-23 10:43 | RAD ---
LEFT HIP: Single lateral view obtained. Correlation made to the AP pelvis. HISTORY: Back and hip pain. FINDINGS: Soft tissue attenuation limits detail. No evidence of fracture identified. Femoral head contour amalia l with joint space preserved. IMPRESSION: No acute findings. POS: AGW
--- NOTE | 2020-02-23 10:44 | RAD ---
RIGHT HIP: Single lateral view. Correlation made to AP pelvis exam. HISTORY: Back and hip pain. FINDINGS/IMPRESSION: Soft tissue attenuation limits detail. No evidence of fracture identified. POS: AGW
--- NOTE | 2020-02-23 10:48 | RAD ---
AP PELVIS: Date: 02/23/2020 INDICATION: Back and hip pain. FINDINGS/IMPRESSION: The bony pelvis appears intact. Femoral head contour is normal. No acute fracture is identified. POS: AGW
--- NOTE | 2020-02-23 12:07 | MRI ---
MRI BRAIN WITHOUT CONTRAST: Date: 02/23/2020 INDICATION: Stroke. Correlation made to the CT of 02/21/2020 which showed no acute process. Also, comparison made to MRI brain of 01/15/2020 which showed no acute process. FINDINGS: Ventricles remain normal size and position. Mild chronic ischemic white matter changes described prev iously appear stable. No evidence of restricted diffusion. No evidence of acute infarct, mass, or hemorrhage. No interval change noted. Intracranial internal carotid arteries, cerebral arteries, and basilar arteries demonstrate flow-void s. Paranasal sinuses and mastoids clear. IMPRESSION: No acute finding. No interval change from recent MRI brain. POS: AGW
--- NOTE | 2020-02-23 12:11 | PRG ---
DATE OF SERVICE: SUBJECTIVE: Patient was seen and examined at bedside and overnight events noted. Patient denies any shortness of breath or chest pain or palpitation. No history of nausea or vomiting or diarrhea or fever or chills or cramps. OBJECTIVE: General: This is a well-built female, in no apparent distress. Vital Signs: Temperature 97.9. Heart Rate 77. Respiratory rate . Blood pressure 109/59. HEENT: Atraumatic, normocephalic. Oral mucosa is moist. Neck: Supple. Cardiovascular: S1, S2 heard. Rate and rhythm regular. Respiratory: Clear to auscultation. Gastrointestinal: Abdomen is soft. Musculoskeletal: No tenderness. No edema. Dermatologic: No skin rash. Neurologic: Alert and awake and oriented x3. No focal neurologic deficits. Moving all the extremities. Psychiatric: Mood and affect normal. LABORATORY DATA: Potassium 4.7, BUN is 46, and creatinine is 7.7. ASSESSMENT AND PLAN: 1. End-stage renal disease. Continue hemodialysis on Monday, Monday, Monday as tolerated. 2. Anemia of chronic disease. 3. Hypertension. 4. Edema, controlled. 5. Continue dialysis on Monday, Monday, Monday as tolerated. Job ID: [id number]
--- NOTE | 2020-02-23 12:31 | MRI ---
MRI LUMBAR SPINE WITHOUT CONTRAST: Date: 02/23/2020 INDICATION: Back pain with left lower extremity weakness. FINDINGS: The visualized lumbar vertebra maintain normal height and alignment. Disc spaces are normally preserv ed. There is asymmetric signal seen in the lower thoracic and upper lumbar vertebra. Low T1 and T2 signal is seen in these vertebral bodies. The L4 and L5 vertebra and the sacrum shows high T1 signal. Findi ngs suggest radiation to the lower lumbar spine and pelvis, and the loss of T1 signal in the upper [place] mbar vertebra and visualized thoracic vertebra suggest fatty marrow replacement due to chronic diseas e or anemia. No significant disc bulge seen at L1-2, L2-3, or L3-4. There is mild facet hypertrophy at these level s; however, no central canal or foraminal stenosis. At L4-5, no significant disc bulge or protrusion. Facet hypertrophy. No central canal or foraminal st enosis. At L5-S1, there is a small central protrusion flattening the anterior thecal sac and mildly displacin g the traversing left S1 nerve root. This results in mild central canal stenosis. Mild left foraminal encroachment. IMPRESSION: 1. Small disc protrusion at L5-S1 centrally and to the left with slight displacement of the traversi ng left S1 nerve root and mild left foraminal encroachment as described above. 2. Marrow changes in the lower thoracic and lumbar spine as discussed above. POS: MAYRJANE
[2020-02-23] MEDS: HumaLOG 300 UNITS/3 ML VIAL SC PRN (12:38)
[2020-02-23] MEDS ORDERED: Gabapentin 100 MG CAP PO SCH (16:30)
[2020-02-23] MEDS: hydrALAZINE 25 MG TAB PO SCH ×2 (17:33→21:13)
[2020-02-23] MEDS: Morphine 2 MG/ML VIAL SLOW IVP PRN (17:34)
[2020-02-23] MEDS: Heparin 5,000 UNITS/ML VIAL SC SCH (21:13)
[2020-02-23] MEDS: risperiDONE 1 MG TAB PO SCH (21:13)
[2020-02-23] MEDS: Atorvastatin Calcium 40 MG TAB PO SCH (21:15)
[2020-02-24] MEDS: HYDROcodone/Acetaminophen 5/325 mg Tablet PO PRN ×3 (07:44→20:27)
--- NOTE | 2020-02-24 08:25 | PDOC.HOSPP ---
- Subjective Encounter Date: 02/24/20 (f/u weakness) Encounter Time: 08:23 Subjective: Pt admitted for stroke evaluation due to presenting complaint of bilateral lower extremity weakness. Yesterday the weakness was primarily the left lower extremity. MRI yesterday of l-spine shows bulging disk which explains the pain and weakness. D/W Neurosurgery - no surgery indicated, they will f/u with her as an outpatient. No overnight events. Pt today c/o pain. - Objective Vital Signs & Weight: Vital Signs (12 hours) Temp Pulse Resp BP BP Pulse Ox 02/24/20 07:50 99 02/24/20 07:15 98.4 F 80 16 136/65 99 02/24/20 03:53 98.2 F 72 20 100/57 L 97 02/23/20 23:31 98.4 F 78 18 135/62 92 L 02/23/20 21:00 14 Weight Admit Weight 222 lb 6.4 oz Weight 224 lb 9.6 oz I&O: 02/23/20 02/24/20 02/25/20 06:59 06:59 06:59 Intake Total 1168 1250 Balance 1168 1250 Result Diagrams: 02/22/20 21:36 02/23/20 05:04 Additional Labs: Accuchecks 02/24/20 02/23/20 02/23/20 05:23 21:40 15:43 POC Glucose 101 H 168 H 143 H 02/23/20 02/22/20 12:18 05:10 POC Glucose 163 H 181 H EKG Reviewed by me: Yes (teke - sinus 60-90s) Hospitalist ROS - Medication Medications: Active Medications Generic Name Dose Route Start Last Admin Trade Name Freq PRN Reason Stop Dose Admin Hydrocodone Bitart/Acetaminophen 1 tab 02/21/20 11:25 02/23/20 08:18 Hydrocodone/Acetaminophen 5/325 Mg Tablet PO 1 tab Q4H PRN Administration Moderate Pain (4-6) Hydrocodone Bitart/Acetaminophen 2 tab 02/21/20 11:25 02/24/20 07:44 Hydrocodone/Acetaminophen 5/325 Mg Tablet PO 2 tab Q4H PRN Administration Severe Pain (7-10) Aspirin 81 mg 02/22/20 09:00 02/23/20 08:19 Aspirin 81 Mg Enteric Coated Tablet PO 81 mg DAILY LILLY Administration Atorvastatin Calcium 40 mg 02/21/20 21:00 02/23/20 21:15 Atorvastatin Calcium 40 Mg Tab PO 40 mg HS LILLY Administration Calcium Acetate 1,334 mg 02/22/20 17:00 02/23/20 17:33 Calcium Acetate 667 Mg Cap PO 1,334 mg TID-WM LILLY Administration Carvedilol 3.125 mg 02/21/20 17:00 02/23/20 17:33 Carvedilol 3.125 Mg Tab PO 3.125 mg BID-WM LILLY Administration Cholecalciferol 2,000 units 02/21/20 21:00 02/23/20 21:15 Cholecalciferol 1,000 Units (25 Mcg) Tab PO 2,000 units BID LILLY Administration Clonidine 0.1 mg 02/23/20 09:55 02/23/20 11:56 Clonidine 0.1 Mg Tab PO 0.1 mg Q4H PRN Administration SBP Greater Than 180 Heparin Sodium (Porcine) 5,000 units 02/23/20 21:00 02/23/20 21:13 Heparin 5,000 Units/Ml Vial SC 5,000 units BID LILLY Administration Hydralazine HCl 25 mg 02/23/20 17:00 02/23/20 21:13 Hydralazine 25 Mg Tab PO 25 mg QID LILLY Administration Insulin Human Lispro 0 units 02/21/20 11:23 02/23/20 12:38 Humalog 300 Units/3 Ml Vial SC 2 unit .MODERATE SLIDING SC PRN Administration Moderate Correctional Scale Labetalol HCl 20 mg 02/21/20 14:16 02/23/20 14:23 Labetalol Hcl 100 Mg/20 Ml Vial SLOW IVP 20 mg Q1H PRN Administration BP > 180/100 Morphine Sulfate 2 mg 02/23/20 09:56 02/23/20 17:34 Morphine 2 Mg/Ml Vial SLOW IVP 2 mg Q4H PRN Administration Severe Pain (7-10) Risperidone 2 mg 02/21/20 21:00 02/23/20 21:13 Risperidone 1 Mg Tab PO 2 mg HS LILLY Administration Vitamin B Complex/Vit C/Folic Acid 1 tab 02/23/20 09:00 02/23/20 08:19 Folic Acid/Vit B Comp W-C PO 1 tab DAILY LILLY Administration - Exam General Appearance: NAD General - other findings: wakens to voice, easily falls back asleep Heart: RRR, no murmur Respiratory: no wheezes, no rales, no ronchi Gastrointestinal: soft, non-tender, non-distended, normal bowel sounds Extremities: no cyanosis, no clubbing, no edema Psychiatric - other findings: easily falls asleep, wakes and answers appropriately Hosp A/P (1) Weakness Code(s): R53.1 - WEAKNESS Status: Acute (2) ESRD (end stage renal disease) Code(s): N18.6 - END STAGE RENAL DISEASE Status: Chronic (3) Encephalopathy Code(s): G93.40 - ENCEPHALOPATHY, UNSPECIFIED Status: Acute (4) Anemia of renal disease Code(s): D63.1 - ANEMIA IN CHRONIC KIDNEY DISEASE Status: Chronic (5) Diabetes type 2, controlled Code(s): E11.9 - TYPE 2 DIABETES MELLITUS WITHOUT COMPLICATIONS Status: Chronic Qualifiers: Diabetes mellitus buttermaker continuous churn insulin use: with buttermaker continuous churn use Diabetes mellitus complication status: with kidney complications Diabetes mellitus complication detail: with chronic kidney disease Chronic kidney disease stage: on chronic dialysis Qualified Code(s): E11.22 - Type 2 diabetes mellitus with diabetic chronic kidney disease; N18.6 - End stage renal disease; Z79.4 - penitentiary (current) use of insulin; Z99.2 - Dependence on renal dialysis (6) Dyslipidemia Code(s): E78.5 - HYPERLIPIDEMIA, UNSPECIFIED Status: Chronic (7) GERD (gastroesophageal reflux disease) Code(s): K21.9 - GASTRO-ESOPHAGEAL REFLUX DISEASE WITHOUT ESOPHAGITIS Status: Chronic Qualifiers: Esophagitis presence: without esophagitis Qualified Code(s): K21.9 - Gastro-esophageal reflux disease without esophagitis (8) HTN (hypertension) Code(s): I10 - ESSENTIAL (PRIMARY) HYPERTENSION Status: Chronic Qualifiers: (9) Obesity (BMI 30-39.9) Code(s): E66.9 - OBESITY, UNSPECIFIED Status: Chronic (10) Obstructive sleep apnea Code(s): G47.33 - OBSTRUCTIVE SLEEP APNEA (ADULT) (PEDIATRIC) Status: Chronic - Plan 1. Weakness - secondary to bulging disk L5-S1 - not surgical - gabapentin started yesterday at low dose - will increase to 100 mg BID - pt/ot - for tx and evaluation for needs outside of acute setting - d/c aspirin and statin as no stroke - xrays reviewed and negative - abnormal carotid ultrasound - needs follow up in the outpatient setting 2. Hypercalcemia - resolved 3. ESRD - dialysis per Dr. Murray - anticipate today per M,W,F schedule 4. Elevated bnp and indeterminant troponin - echo and tele normal - no indication for further work-up 5. HTN - resume home meds. Hydralazine ordered yesterday as bp's were significantly elevated 6. Elevated phos - continue phosphate binder with meals 7. Hx of ROSITA - continue cpap at night dvt prophy - heparin gi prophy - not indicated code status full Goal of care in acute setting is to manage pain, evaluate for skilled/rehab needs prior to discharge. Will contact pt's daughter later today. Reviewed plan of care with patient/RN, no questions or further needs at end of eval. Addendum - spoke with the patient's daughter this afternoon regarding diagnosis and plan to improve pain control. Her daughter requests that pt discharge to home when ready, and have outpatient pt/ot. She states there is support with transfers and assistance with adl's. Case management consult placed to assist with arranging this.
--- NOTE | 2020-02-24 08:46 | CON ---
DATE OF CONSULTATION: 02/24/2020 HISTORY OF PRESENT ILLNESS: The patient is a 59-year-old female with multiple medical comorbidities; CHF; COPD; end-stage renal disease, on dialysis; cervical cancer, currently getting radiation treatments down in [place]; hypertension; hyperlipidemia; diabetes; as well as schizoaffective and bipolar disorder; who presented to the emergency department on 02/21/2020 for generalized weakness, particularly in the legs, making it difficult to walk and some complaints of bilateral lower extremity pain, left greater than right. The patient has been evaluated by the Medical team as well as Neurology with MRI of the brain, which has been unremarkable and a recent lumbar MRI. On lumbar MRI, the patient was found to have mild degenerative disk disease at L5-S1 with a slight left-sided disk extrusion, possibly traversing the left S1 nerve root. I visited with the patient at the bedside. She is resting comfortably currently in her room. On discussion of her pain, she reports she is having bilateral leg pain , more proximal, particularly in the left hip. This does not have a classic radicular pattern. She is seen easily moving her legs in the bed, but she is not very cooperative on my exam. PAST MEDICAL HISTORY: Congestive heart failure, COPD, end-stage renal disease, cervical cancer, hypertension, hyperlipidemia, diabetes, anemia, sleep apnea, schizoaffective and bipolar disorder. PAST SURGICAL HISTORY: Hernia repair, cholecystectomy, tubal ligation, and fistula for dialysis. SOCIAL HISTORY: The patient lives at home with her daughter. She does not smoke, drink, or use any drugs. FAMILY HISTORY: Noncontributory. ALLERGIES: SHE IS ALLERGIC TO FLU VACCINE, IODINE, PENICILLIN, AND SEROQUEL. REVIEW OF SYSTEMS: Per HPI. PHYSICAL EXAMINATION: GENERAL: The patient resting comfortably on my arrival. CONSTITUTIONAL: In no acute distress. HEAD: Normocephalic and atraumatic. EYES: PERRLA. Extraocular movements intact. ENT: [place], intact, and moist. NECK: Nontender. Free active range of motion. No meningismus or nuchal rigidity. CARDIAC: Regular rate and rhythm. PULMONARY: Symmetric chest expansion. No evidence of dyspnea. MUSCULOSKELETAL: She is seen spontaneously moving the all 4 extremities in the bed without any difficulty, but she does not cooperate well on my exam to check for focal weakness. She has normal reflexive throughout. Sensation is intact to light touch. NEUROLOGIC: A and O x4. No gross focal deficits are appreciated. ASSESSMENT AND PLAN: This is a patient with multiple medical comorbidities, who has had some recent bilateral leg pain and weakness, left greater than right. She does have some mild disk disease on her lumbar MRI with a small left-sided disk extrusion at L5-S1. However, the degree of nerve compression is quite modest. At this point, we are not recommending any neurosurgical intervention, but would recommend a conservative course with pain management, physical therapy, and possible inpatient rehabilitation if needed. I can arrange followup with our team in the next few weeks to reassess her progress. I have discussed this plan with Dr. Salguero, who is in agreement. Job ID: [id number]
[2020-02-24] MEDS: Heparin 5,000 UNITS/ML VIAL SC SCH ×2 (08:55→20:30)
[2020-02-24] MEDS: Gabapentin 100 MG CAP PO SCH (08:57)
[2020-02-24] MEDS: Folic Acid/Vit B Comp W-C PO SCH (08:57)
[2020-02-24] MEDS: Carvedilol 3.125 MG TAB PO SCH ×2 (08:57→16:27)
[2020-02-24] MEDS: Calcium Acetate 667 MG CAP PO SCH ×3 (08:57→16:27)
[2020-02-24] MEDS: Cholecalciferol 1,000 UNITS (25 MCG) TAB PO SCH ×2 (08:57→20:30)
[2020-02-24] MEDS: hydrALAZINE 25 MG TAB PO SCH ×4 (08:58→20:29)
--- NOTE | 2020-02-24 09:48 | PRG ---
DATE OF SERVICE: 02/24/2020 SUBJECTIVE: A 59-year-old female, being seen for end-stage renal disease. The patient denies any nausea, vomiting, or chest pain. PHYSICAL EXAMINATION: General: The patient is awake and alert. Vital Signs: Afebrile, pulse 75, breathing at 16, blood pressure 136/65. HEENT: Head normocephalic and atraumatic. Eyes intact, no ulcers. Nose intact, no ulcers. Ears intact, no ulcers. Neck: Supple. No JVD. Chest: Symmetrical and clear. Cardiovascular: Shows S1 and S2, no rub, no murmur. Gastrointestinal: Abdomen is soft, bowel sounds positive. Extremities: Show no edema or ulcers. Skin: Shows no rash or petechiae. Musculoskeletal: Shows no joint swelling or stiffness. Genitourinary: Shows no [place] or CVA tenderness. Neurologic: Motor intact. Cranial nerves intact. LABORATORY DATA: Reviewed. ASSESSMENT AND PLAN: 1. Stage 6 chronic kidney disease. Plan dialysis. 2. Hypertension, stable. 3. Anemia, stable. 4. Medication based on GFR, appropriate. Job ID: [id number]
[2020-02-24] MEDS: risperiDONE 1 MG TAB PO SCH (20:29)
[2020-02-25] MEDS: Morphine 2 MG/ML VIAL SLOW IVP PRN (00:15)
[2020-02-25] MEDS: Heparin 5,000 UNITS/ML VIAL SC SCH ×3 (08:06→21:42)
[2020-02-25] MEDS: Folic Acid/Vit B Comp W-C PO SCH (08:06)
[2020-02-25] MEDS: Calcium Acetate 667 MG CAP PO SCH ×3 (08:07→17:17)
[2020-02-25] MEDS: Gabapentin 100 MG CAP PO SCH (08:07)
[2020-02-25] MEDS: hydrALAZINE 25 MG TAB PO SCH ×5 (08:08→21:37)
[2020-02-25] MEDS: Cholecalciferol 1,000 UNITS (25 MCG) TAB PO SCH ×2 (08:08→21:38)
[2020-02-25] MEDS: Carvedilol 3.125 MG TAB PO SCH ×2 (08:09→17:18)
[2020-02-25] MEDS: HYDROcodone/Acetaminophen 5/325 mg Tablet PO PRN ×2 (08:09→21:39)
--- NOTE | 2020-02-25 11:44 | PRG ---
DATE OF SERVICE: 02/25/2020 SUBJECTIVE: A 59-year-old female, being seen for end-stage renal disease. The patient denied nausea, vomiting, or chest pain. SUBJECTIVE: GENERAL: The patient is awake and alert. VITAL SIGNS: Pulse rate 89, breathing rate 16, and blood pressure 141/75. HEENT: Head normocephalic and atraumatic. Eyes intact, no ulcers. Nose intact, no ulcers. Ears intact, no ulcers. Neck: Supple. No JVD. Chest: Symmetrical and clear. Cardiovascular: Shows S1 and S2, no rub, no murmur. Gastrointestinal: Abdomen is soft, bowel sounds positive. Extremities: Show no edema or ulcers. Skin: Shows no rash or petechiae. Musculoskeletal: Shows no joint swelling or stiffness. Genitourinary: Shows no Park or CVA tenderness. Neurologic: Motor intact. Cranial nerves intact. LABORATORY DATA: Reviewed. ASSESSMENT AND PLAN: 1. Stage 6 chronic kidney disease, stable. 2. Hypertension, stable. 3. Anemia, stable. 4. Medication based on GFR, appropriate. Job ID: [id number]
--- NOTE | 2020-02-25 20:21 | PDOC.HOSPP ---
- Subjective Encounter Date: 02/25/20 Encounter Time: 13:00 Subjective: Patient seen and examined for generalized weakness. No new overnight events. Feels generally weak and fatigued. Back pain improving - Objective Vital Signs & Weight: Vital Signs (12 hours) Temp Pulse Resp BP BP BP Pulse Ox 02/25/20 19:54 98.6 F 78 16 100/55 L 100 02/25/20 17:19 79 113/57 L 02/25/20 17:17 79 110/57 L 02/25/20 15:19 98.4 F 79 20 110/57 L 97 02/25/20 11:48 98 F 79 22 H 113/57 L 93 L Weight Admit Weight 222 lb 6.4 oz Weight 214 lb 1.102 oz I&O: 02/24/20 02/25/20 02/26/20 06:59 06:59 06:59 Intake Total 3313 173 9086 Output Total 1500 Balance 1250 -1140 1080 Result Diagrams: 02/22/20 21:36 02/23/20 05:04 Additional Labs: Accuchecks 02/25/20 02/25/20 02/25/20 16:43 11:54 06:00 POC Glucose 98 177 H 92 EKG Reviewed by me: Yes (Sinus rhythm on telemetry) Hospitalist ROS - Review of Systems Respiratory: denies: cough, dry, shortness of breath, hemoptysis, SOB with excertion, pleuritic pain, sputum, wheezing, other Cardiovascular: denies: chest pain, palpitations, orthopnea, paroxysmal noc. dyspnea, edema, light headedness, other - Medication Medications: Active Medications Generic Name Dose Route Start Last Admin Trade Name Freq PRN Reason Stop Dose Admin Hydrocodone Bitart/Acetaminophen 1 tab 02/21/20 11:25 02/23/20 08:18 Hydrocodone/Acetaminophen 5/325 Mg Tablet PO 1 tab Q4H PRN Administration Moderate Pain (4-6) Hydrocodone Bitart/Acetaminophen 2 tab 02/21/20 11:25 02/25/20 08:09 Hydrocodone/Acetaminophen 5/325 Mg Tablet PO 2 tab Q4H PRN Administration Severe Pain (7-10) Bisacodyl 10 mg 02/21/20 11:25 02/24/20 23:06 Bisacodyl 5 Mg Tab PO 10 mg DAILYPRN PRN Administration Constipation Calcium Acetate 1,334 mg 02/22/20 17:00 02/25/20 17:17 Calcium Acetate 667 Mg Cap PO 1,334 mg TID-WM LILLY Administration Carvedilol 3.125 mg 02/21/20 17:00 02/25/20 17:18 Carvedilol 3.125 Mg Tab PO 3.125 mg BID-WM LILLY Administration Cholecalciferol 2,000 units 02/21/20 21:00 02/25/20 08:08 Cholecalciferol 1,000 Units (25 Mcg) Tab PO 2,000 units BID LILLY Administration Clonidine 0.1 mg 02/23/20 09:55 02/23/20 11:56 Clonidine 0.1 Mg Tab PO 0.1 mg Q4H PRN Administration SBP Greater Than 180 Gabapentin 100 mg 02/24/20 09:00 02/25/20 08:07 Gabapentin 100 Mg Cap PO 100 mg DAILY LILLY Administration Heparin Sodium (Porcine) 5,000 units 02/23/20 21:00 02/25/20 08:21 Heparin 5,000 Units/Ml Vial SC Not Given BID [facility] Hydralazine HCl 25 mg 02/23/20 17:00 02/25/20 17:19 Hydralazine 25 Mg Tab PO Not Given QID [facility] Insulin Human Lispro 0 units 02/21/20 11:23 02/23/20 12:38 Humalog 300 Units/3 Ml Vial SC 2 unit .MODERATE SLIDING SC PRN Administration Moderate Correctional Scale Labetalol HCl 20 mg 02/21/20 14:16 02/23/20 14:23 Labetalol Hcl 100 Mg/20 Ml Vial SLOW IVP 20 mg Q1H PRN Administration BP > 180/100 Morphine Sulfate 2 mg 02/23/20 09:56 02/25/20 00:15 Morphine 2 Mg/Ml Vial SLOW IVP 2 mg Q4H PRN Administration Severe Pain (7-10) Ondansetron HCl 4 mg 02/21/20 11:25 02/24/20 23:16 Ondansetron Odt 4 Mg Tab PO 4 mg Q6H PRN Administration Nausea/Vomiting Risperidone 2 mg 02/21/20 21:00 02/24/20 20:29 Risperidone 1 Mg Tab PO 2 mg HS LILLY Administration Senna/Docusate Sodium 2 tab 02/21/20 11:25 02/25/20 08:09 Senokot S 8.6-50 Mg Tab PO 2 tab BIDPRN PRN Administration Constipation Sodium Chloride 10 ml 02/21/20 11:17 02/25/20 00:16 Flush - Normal Saline 10 Ml Syringe IVF 10 ml PRN PRN Administration Saline Flush Vitamin B Complex/Vit C/Folic Acid 1 tab 02/23/20 09:00 02/25/20 08:06 Folic Acid/Vit B Comp W-C PO 1 tab DAILY LILLY Administration - Exam General Appearance: awake alert Neck: supple, no JVD Heart: RRR, no gallops Respiratory: no wheezes, no ronchi Gastrointestinal: soft, non-tender, normal bowel sounds Extremities: no cyanosis, no clubbing Neurological: no new deficit Musculoskeletal: generalized weakness Hosp A/P (1) Generalized weakness Code(s): R53.1 - WEAKNESS Status: Acute (2) Diabetes mellitus, type II Status: Chronic Qualifiers: Chronic kidney disease stage: on chronic dialysis (3) Hypertension Code(s): I10 - ESSENTIAL (PRIMARY) HYPERTENSION Status: Chronic (4) Hyperlipidemia Code(s): E78.5 - HYPERLIPIDEMIA, UNSPECIFIED Status: Chronic (5) Obesity (BMI 30-39.9) Code(s): E66.9 - OBESITY, UNSPECIFIED Status: Chronic (6) Obstructive sleep apnea Code(s): G47.33 - OBSTRUCTIVE SLEEP APNEA (ADULT) (PEDIATRIC) Status: Chronic (7) other issues per previous notes - Plan DVT proph w/SCDs Generalized weakness mainly in bilateral lower extremity of unclear etiology 59-year-old female presented to the emergency room on 02/20 with bilateral lower extremity weakness to the extent that she was unable to get out of her car for her routine hemodialysis. There was no other focal deficit reported. CT scan of the brain was negative for acute CVA. Bilateral carotid Doppler showed possible occlusion of the right internal carotid artery. CT angiogram of the neck was recommended. Echocardiogram showed ejection fraction of 55-60 percent without any intracardiac thrombus. MRI of the brain was negative for acute findings. Lumbar disc protrusion MRI of the lumbar spine showed small disc protrusion at the L5-S1 with slight displacement of the traversing left S1 nerve root and mild left foraminal encroachment. Patient was evaluated by neurosurgery who recommended outpatient follow-up Abnormal carotid Doppler Patient is ALLERGIC to iodine. A CTA of the neck or MRA as outpatient is recommended, primary care physician advised to follow. CTA of neck was ordered earlier and was later canceled. End-stage renal disease on hemodialysis Will continue dialysis during her hospital stay Obstructive sleep apnea Will continue home CPAP Hypertension Will continue carvedilol with hydralazine Diabetes mellitus type II Will continue sliding scale Hyperlipidemia We will continue statins DC planning Will arrange for home health care. PT recommended inpatient rehab placement. Patient continues to have generalized weakness. Will continue physical therapy
[2020-02-25] MEDS: risperiDONE 1 MG TAB PO SCH (21:36)
[2020-02-26] MEDS: HYDROcodone/Acetaminophen 5/325 mg Tablet PO PRN ×2 (08:38→16:23)
--- NOTE | 2020-02-26 10:44 | PRG ---
DATE OF SERVICE: SUBJECTIVE: A 59-year-old female being seen for end-stage renal disease. The patient denied nausea, vomiting, or chest pain. OBJECTIVE: GENERAL: The patient is awake and alert. Vital Signs: Afebrile, pulse 75, breathing at 16, blood pressure 122/62. HEENT: Head normocephalic and atraumatic. Eyes intact, no ulcers. Nose intact, no ulcers. Ears intact, no ulcers. Neck: Supple. No JVD. Chest: Symmetrical and clear. Cardiovascular: Shows S1 and S2, no rub, no murmur. Gastrointestinal: Abdomen is soft, bowel sounds positive. Extremities: Show no edema or ulcers. Skin: Shows no rash or petechiae. Musculoskeletal: Shows no joint swelling or stiffness. Genitourinary: Shows no [place] or CVA tenderness. Neurologic: Motor intact. Cranial nerves intact. LABORATORY DATA: Reviewed. ASSESSMENT: Stage 6 chronic kidney disease, plan dialysis. Hypertension, stable. Anemia, stable. Medication based on GFR appropriate. Job ID: [id number]
[2020-02-26] MEDS: Calcium Acetate 667 MG CAP PO SCH ×3 (13:47→16:23)
[2020-02-26] MEDS: Carvedilol 3.125 MG TAB PO SCH ×2 (13:48→16:22)
[2020-02-26] MEDS: Gabapentin 100 MG CAP PO SCH (13:48)
[2020-02-26] MEDS: Cholecalciferol 1,000 UNITS (25 MCG) TAB PO SCH ×2 (13:48→20:31)
[2020-02-26] MEDS: Folic Acid/Vit B Comp W-C PO SCH (13:48)
[2020-02-26] MEDS: hydrALAZINE 25 MG TAB PO SCH ×4 (13:48→20:31)
[2020-02-26] MEDS: Heparin 5,000 UNITS/ML VIAL SC SCH ×2 (13:52→20:36)
--- NOTE | 2020-02-26 18:22 | PDOC.HOSPP ---
- Subjective Encounter Date: 02/26/20 Encounter Time: 10:30 Subjective: Patient seen and examined during hemodialysis. Continues to have low back pain especially on ambulation. Denies new focal deficit. No chest pain, shortness of breath or palpitations reported. - Objective Vital Signs & Weight: Vital Signs (12 hours) Temp Pulse Resp BP BP BP Pulse Ox 02/26/20 16:22 120/61 02/26/20 15:26 99.7 F H 90 20 120/61 98 02/26/20 13:51 82 133/71 02/26/20 13:48 82 133/71 02/26/20 13:27 98.6 F 82 18 133/71 100 02/26/20 08:38 96 02/26/20 07:52 97.9 F 86 18 122/62 96 Weight Admit Weight 222 lb 6.4 oz Weight 218 lb 4.8 oz I&O: 02/25/20 02/26/20 02/27/20 06:59 06:59 06:59 Intake Total 360 1560 450 Output Total 1500 Balance -1140 1560 450 Result Diagrams: 02/22/20 21:36 02/23/20 05:04 Additional Labs: Accuchecks 02/26/20 02/26/20 02/26/20 16:34 11:04 05:45 POC Glucose 123 H 106 H 100 02/25/20 21:21 POC Glucose 127 H EKG Reviewed by me: Yes (Sinus rhythm on telemetry) Hospitalist ROS - Review of Systems Cardiovascular: denies: chest pain, palpitations, orthopnea, paroxysmal noc. dyspnea, edema, light headedness, other Gastrointestinal: denies: nausea, vomiting, abdominal pain, diarrhea, constipation, melena, hematochezia, other - Medication Medications: Active Medications Generic Name Dose Route Start Last Admin Trade Name Freq PRN Reason Stop Dose Admin Hydrocodone Bitart/Acetaminophen 1 tab 02/21/20 11:25 02/26/20 16:23 Hydrocodone/Acetaminophen 5/325 Mg Tablet PO 1 tab Q4H PRN Administration Moderate Pain (4-6) Hydrocodone Bitart/Acetaminophen 2 tab 02/21/20 11:25 02/25/20 08:09 Hydrocodone/Acetaminophen 5/325 Mg Tablet PO 2 tab Q4H PRN Administration Severe Pain (7-10) Bisacodyl 10 mg 02/21/20 11:25 02/24/20 23:06 Bisacodyl 5 Mg Tab PO 10 mg DAILYPRN PRN Administration Constipation Calcium Acetate 1,334 mg 02/22/20 17:00 02/26/20 16:23 Calcium Acetate 667 Mg Cap PO 1,334 mg TID- LILLY Administration Carvedilol 3.125 mg 02/21/20 17:00 02/26/20 16:22 Carvedilol 3.125 Mg Tab PO 3.125 mg BID- LILLY Administration Cholecalciferol 2,000 units 02/21/20 21:00 02/26/20 13:48 Cholecalciferol 1,000 Units (25 Mcg) Tab PO 2,000 units BID LILLY Administration Clonidine 0.1 mg 02/23/20 09:55 02/23/20 11:56 Clonidine 0.1 Mg Tab PO 0.1 mg Q4H PRN Administration SBP Greater Than 180 Gabapentin 100 mg 02/24/20 09:00 02/26/20 13:48 Gabapentin 100 Mg Cap PO 100 mg DAILY LILLY Administration Heparin Sodium (Porcine) 5,000 units 02/23/20 21:00 02/26/20 13:52 Heparin 5,000 Units/Ml Vial SC Not Given BID [facility] Hydralazine HCl 25 mg 02/23/20 17:00 02/26/20 16:22 Hydralazine 25 Mg Tab PO 25 mg QID LILLY Administration Insulin Human Lispro 0 units 02/21/20 11:23 02/23/20 12:38 Humalog 300 Units/3 Ml Vial SC 2 unit .MODERATE SLIDING SC PRN Administration Moderate Correctional Scale Labetalol HCl 20 mg 02/21/20 14:16 02/23/20 14:23 Labetalol Hcl 100 Mg/20 Ml Vial SLOW IVP 20 mg Q1H PRN Administration BP > 180/100 Morphine Sulfate 2 mg 02/23/20 09:56 02/25/20 00:15 Morphine 2 Mg/Ml Vial SLOW IVP 2 mg Q4H PRN Administration Severe Pain (7-10) Ondansetron HCl 4 mg 02/21/20 11:25 02/24/20 23:16 Ondansetron Odt 4 Mg Tab PO 4 mg Q6H PRN Administration Nausea/Vomiting Risperidone 2 mg 02/21/20 21:00 02/25/20 21:36 Risperidone 1 Mg Tab PO 2 mg HS LILLY Administration Senna/Docusate Sodium 2 tab 02/21/20 11:25 02/25/20 08:09 Senokot S 8.6-50 Mg Tab PO 2 tab BIDPRN PRN Administration Constipation Sodium Chloride 10 ml 02/21/20 11:17 02/25/20 21:38 Flush - Normal Saline 10 Ml Syringe IVF 10 ml PRN PRN Administration Saline Flush Vitamin B Complex/Vit C/Folic Acid 1 tab 02/23/20 09:00 02/26/20 13:48 Folic Acid/Vit B Comp W-C PO 1 tab DAILY LILLY Administration - Exam General Appearance: awake alert Neck: supple, no JVD Heart: RRR, no gallops Respiratory: no wheezes, no ronchi Gastrointestinal: soft, non-tender, normal bowel sounds Extremities: no cyanosis, no clubbing Neurological: no new deficit Psychiatric: normal affect, A&O x 3 Hosp A/P (1) Generalized weakness Code(s): R53.1 - WEAKNESS Status: Acute (2) Diabetes mellitus, type II Status: Chronic Qualifiers: Chronic kidney disease stage: on chronic dialysis (3) Hypertension Code(s): I10 - ESSENTIAL (PRIMARY) HYPERTENSION Status: Chronic (4) Hyperlipidemia Code(s): E78.5 - HYPERLIPIDEMIA, UNSPECIFIED Status: Chronic (5) Obesity (BMI 30-39.9) Code(s): E66.9 - OBESITY, UNSPECIFIED Status: Chronic (6) Obstructive sleep apnea Code(s): G47.33 - OBSTRUCTIVE SLEEP APNEA (ADULT) (PEDIATRIC) Status: Chronic (7) other issues per previous notes - Plan DVT proph w/SCDs Generalized weakness mainly in bilateral lower extremity of unclear etiology 59-year-old female presented to the emergency room on 02/20 with bilateral lower extremity weakness to the extent that she was unable to get out of her car for her routine hemodialysis. There was no other focal deficit reported. CT scan of the brain was negative for acute CVA. Bilateral carotid Doppler showed possible occlusion of the right internal carotid artery. CT angiogram of the neck was recommended. Echocardiogram showed ejection fraction of 55-60 percent without any intracardiac thrombus. MRI of the brain was negative for acute findings. We will continue gabapentin for now. Plan discussed with the patient and her daughter who agreed with outpatient physical therapy Lumbar disc protrusion MRI of the lumbar spine showed small disc protrusion at the L5-S1 with slight displacement of the traversing left S1 nerve root and mild left foraminal encroachment. Patient was evaluated by neurosurgery who recommended outpatient follow-up Abnormal carotid Doppler Patient is ALLERGIC to iodine. A CTA of the neck or MRA as outpatient is recommended, primary care physician advised to follow. CTA of neck was ordered earlier and was later canceled. End-stage renal disease on hemodialysis Will continue dialysis during her hospital stay Obstructive sleep apnea Will continue home CPAP Hypertension Will continue carvedilol with hydralazine Diabetes mellitus type II Will continue sliding scale Hyperlipidemia We will continue statins DC planning Probably in a.m. if stable
[2020-02-26] MEDS: risperiDONE 1 MG TAB PO SCH (20:31)
[2020-02-27 05:55] LABS: #Eosinphils 0.3 thou/uL (0.0-0.7); #Lymphocytes 1.2 thou/uL (1.20-3.40); #Monocytes 0.8 thou/uL (0.11-0.59); #Neutrophils 4.1 thou/uL (1.40-6.50); %Basophils 0.4 % (0.0-1.0); %Eosinophils 4.5 % (0.0-10.0); %Lymphocytes 19.2 % (21.0-51.0); %Monocytes 12.5 % (0.0-10.0); %Neutrophils 63.4 % (42.0-75.0); Hemoglobin 9.4 g/dL (12.0-16.0); Mean Corpuscular HGB CONC 31.3 g/dL (32.0-36.0); Mean Corpuscular Hemoglobin 29.4 pg (27.0-31.0); Mean Corpuscular Volume 93.7 fL (78.0-98.0); Mean Platelet Volume 8.1 fL (7.4-10.4); Platelet Count 176 thou/uL (130-400); RBC Distribution Width 15.7 % (11.5-14.5); Red Blood Cell (RBC) Count 3.21 mill/uL (4.20-5.40); White Blood Cell (WBC) Count 6.4 thou/uL (4.8-10.8)
[2020-02-27 06:21] LABS: ALT (SGPT) 8 U/L (8-55); AST (SGOT) 14 U/L (5-34); Albumin 3.2 g/dL (3.5-5.0); Alkaline Phosphatase 69 U/L (40-110); Anion Gap 15 mmol/L (10-20); BUN (Urea Nitrogen) 28 mg/dL (9.8-20.1); Bilirubin, Total 0.5 mg/dL (0.2-1.2); Calc. Creatinine Clearance 16 mL/min (70-130); Calcium 9.2 mg/dL (7.8-10.44); Carbon Dioxide 28 mmol/L (22-29); Chloride 95 mmol/L (98-107); Globulin 2.8 g/dL (2.4-3.5); Glucose 105 mg/dL (70-105); Potassium 4.1 mmol/L (3.5-5.1); Sodium 134 mmol/L (136-145)
[2020-02-27] MEDS: Calcium Acetate 667 MG CAP PO SCH ×2 (08:57→11:27)
[2020-02-27] MEDS: Carvedilol 3.125 MG TAB PO SCH (08:57)
[2020-02-27] MEDS: hydrALAZINE 25 MG TAB PO SCH ×2 (08:58→11:27)
[2020-02-27] MEDS: Gabapentin 100 MG CAP PO SCH (08:58)
[2020-02-27] MEDS: Heparin 5,000 UNITS/ML VIAL SC SCH (08:58)
[2020-02-27] MEDS: Folic Acid/Vit B Comp W-C PO SCH (08:58)
[2020-02-27] MEDS: Cholecalciferol 1,000 UNITS (25 MCG) TAB PO SCH (08:58)
[2020-02-27] MEDS ORDERED: Aspirin 81 mg Enteric Coated Tablet PO SCH (09:00)
[2020-02-27] MEDS ORDERED: Epoetin (ESRD) 10,000 UNITS/ML VIAL SC SCH (11:00)
--- NOTE | 2020-02-27 11:09 | PRG ---
DATE OF SERVICE: 02/27/2020 SUBJECTIVE: A 59-year-old female being seen for end-stage renal disease. The patient denied nausea, vomiting, or chest pain. OBJECTIVE: GENERAL: The patient is awake, alert. VITAL SIGNS: Afebrile. Pulse 75, breathing 16, blood pressure 142/58. HEENT: Head normocephalic and atraumatic. Eyes intact, no ulcers. Nose intact, no ulcers. Ears intact, no ulcers. Neck: Supple. No JVD. Chest: Symmetrical and clear. Cardiovascular: Shows S1 and S2, no rub, no murmur. Gastrointestinal: Abdomen is soft, bowel sounds positive. Extremities: Show no edema or ulcers. Skin: Shows no rash or petechiae. Musculoskeletal: Shows no joint swelling or stiffness. Genitourinary: Shows no [place] or CVA tenderness. Neurologic: Motor intact. Cranial nerves intact. LABORATORY DATA: Reviewed. ASSESSMENT AND PLAN: 1. Stage 3 chronic kidney disease. Plan dialysis. 2. Hypertension, stable. 3. Anemia, stable. 4. Medication based on GFR appropriate. Job ID: [id number]
[2020-02-27] MEDS: HYDROcodone/Acetaminophen 5/325 mg Tablet PO PRN (11:27)
[2020-02-27] MEDS: HumaLOG 300 UNITS/3 ML VIAL SC PRN (11:28)
[2020-02-27] MEDS ORDERED: EPOETIN ALFA-EPBX (ESRD) 10,000 UNIT/ML VIAL SC SCH (12:00)
[2020-02-27 12:28] VITALS: BP 129/60; TEMP 99
--- NOTE | 2020-02-27 13:07 | PDOC.DS.DS ---
Provider - Provider Date of Admission: 02/23/20 08:05 Date of Discharge: 02/27/20 Admitting Provider: Amando Hays MD Consultations: Nephrology, Neurology, Other (Neurosurgery) Primary Care Physician: Debra Weiss MD Course - Hospital Course Hospital Course: Generalized weakness mainly in bilateral lower extremity of unclear etiology 59-year-old female presented to the emergency room on 02/20 with bilateral lower extremity weakness to the extent that she was unable to get out of her car for her routine hemodialysis. There was no other focal deficit reported. CT scan of the brain was negative for acute CVA. Bilateral carotid Doppler showed possible occlusion of the right internal carotid artery. Echocardiogram showed ejection fraction of 55-60 percent without any intracardiac thrombus. MRI of the brain was negative for acute findings. Lumbar disc protrusion with low back pain MRI of the lumbar spine showed small disc protrusion at the L5-S1 with slight displacement of the traversing left S1 nerve root and mild left foraminal encroachment. Patient was evaluated by neurosurgery who recommended outpatient follow-up. Gabapentin was started with good improvement Abnormal carotid Doppler A CTA of the neck or MRA as outpatient is recommended, primary care physician advised to follow. End-stage renal disease on hemodialysis Will continue dialysis during her hospital stay Obstructive sleep apnea Will continue home CPAP Hypertension Patient will continue carvedilol. Hydralazine was added Diabetes mellitus type II Patient was placed on sliding scale during this hospital stay. Hyperlipidemia Statins will be resumed Plan of care was discussed with the patient and the daughter. The daughter agreed to follow-up on the CTA of the neck. Resuscitation Status: 02/21/20 11:25 Resuscitation Status Routine Co-Sign Provider: Resuscitation Status: FULL: Full Resuscitation Discussed with: patient and daughter Additional comments: Afsaneh Padilla, daughter at [phone] - Labs Lab Results: 02/27/20 05:31 02/27/20 05:31 Abnormal Lab Results - Last 48 hrs 02/27/20 05:31: Sodium 134 L, Chloride 95 L, BUN 28 H, Creatinine 5.92 H, Album in 3.2 L, Albumin/Globulin Ratio 1.1 L 02/27/20 05:31: RBC 3.21 L, Hgb 9.4 L, Hct 30.1 L, MCHC 31.3 L, RDW 15.7 H, Lymphocytes % 19.2 L, Monocytes % 12.5 H, Monocytes # 0.8 H - Physical Exam Vitals: Vital Signs (12 hours) Temp Pulse Resp BP BP Pulse Ox 02/27/20 12:00 99 F 89 20 129/60 98 02/27/20 11:27 89 02/27/20 08:58 89 02/27/20 08:05 98.5 F 89 20 142/58 H 99 02/27/20 03:49 98.2 F 78 18 119/58 L 100 Weight Admit Weight 222 lb 6.4 oz Weight 217 lb 11.177 oz Physical Exam: The patient was seen and examined on the day of discharge. Problem - Problem (1) Generalized weakness Code(s): R53.1 - WEAKNESS Status: Acute (2) Diabetes mellitus, type II Status: Chronic Qualifiers: Chronic kidney disease stage: on chronic dialysis (3) Hypertension Code(s): I10 - ESSENTIAL (PRIMARY) HYPERTENSION Status: Chronic (4) Hyperlipidemia Code(s): E78.5 - HYPERLIPIDEMIA, UNSPECIFIED Status: Chronic (5) Obesity (BMI 30-39.9) Code(s): E66.9 - OBESITY, UNSPECIFIED Status: Chronic (6) Obstructive sleep apnea Code(s): G47.33 - OBSTRUCTIVE SLEEP APNEA (ADULT) (PEDIATRIC) Status: Chronic (7) other issues per previous notes Plan - Discharge Medications Prescriptions: hydrALAZINE [Apresoline] 25 mg PO TID #90 tab Gabapentin [Neurontin] 100 mg PO DAILY #30 cap Home Medications: Medication Instructions Recorded Confirmed Type Calcium Acetate 2 tab PO TID- 05/13/19 02/21/20 History Carvedilol 3.125 mg PO BID-WM 05/13/19 02/21/20 History Cholecalciferol (Vitamin D3) 2,000 unit PO BID 05/13/19 02/21/20 History [Vitamin D] risperiDONE [Risperidone] 2 mg PO HS 07/26/19 02/21/20 History HYDROcodone Bit/APAP 10/325 [Kiester] 1 tab PO TID PRN 02/21/20 02/21/20 History LORazepam [Lorazepam] 0.5 mg PO PRN PRN 02/21/20 02/21/20 History Multivitamin [Daily-Rita] 1 tab PO DAILY 02/21/20 02/21/20 History Aspirin [Ecotrin Low Strength] 81 mg PO DAILY tab 02/27/20 Rx Gabapentin [Neurontin] 100 mg PO DAILY #30 cap 02/27/20 Rx hydrALAZINE [Apresoline] 25 mg PO TID #90 tab 02/27/20 Rx Allergies: Influenza Virus Vaccines Allergy (Verified 02/21/20 16:26) iodine Allergy (Verified 02/21/20 16:26) Iodine and Iodide Containing Produc Allergy (Verified 02/21/20 16:26) Penicillins Allergy (Verified 02/21/20 16:26) quetiapine Allergy (Verified 02/21/20 16:26) - Follow up Plan Referrals: Alberto Salguero MD [Active] - 14 Days Debra Weiss MD [Primary Care Provider] - 7 Days Disposition: HOME Quality - Care Measures CORE MEASURES:: N/A
--- NOTE | 2020-02-29 13:59 | EKG ---
Test Reason : Blood Pressure : / mmHG Vent. Rate : 091 BPM Atrial Rate : 091 BPM P-R Int : 146 ms QRS Dur : 084 ms QT Int : 366 ms P-R-T Axes : 081 089 068 degrees QTc Int : 450 ms Normal sinus rhythm Normal ECG Confirmed by BALWINDER HUMMEL DO ([id number]), scientific publications editor TAYLOR GOSS ([id number]) on 02/29/2020 1:59:07 PM Referred By: Confirmed By:BALWINDER HUMMEL DO
== END 2020-02-27 16:06 | disposition home or self-care (01) | DRG 551 ==
LOC: ERS 07:24 → 2SE 10:29 → OBSVTOIN 02-23 08:05
PROVIDERS: ADMIT Internal Medicine; ATTEND Internal Medicine
PROC: 5A1D70Z Performance of Urinary Filtration, Intermittent, Less than 6 Hours Per Day (ICD-10-PCS; principal; 2020-02-21)
PROC: 5A09357 Assistance with Respiratory Ventilation, Less than 24 Consecutive Hours, Continuous Positive Airway Pressure (ICD-10-PCS; 2020-02-22)
DX: M51.27 Other intervertebral disc displacement, lumbosacral region (principal); N18.6 End stage renal disease; I13.2 Hypertensive heart and chronic kidney disease with heart failure and with stage 5 chronic kidney disease, or end stage renal disease; F20.89 Other schizophrenia; G93.40 Encephalopathy, unspecified; G47.33 Obstructive sleep apnea (adult) (pediatric); E78.5 Hyperlipidemia, unspecified; Z20.822 Contact with and (suspected) exposure to COVID-19; E11.65 Type 2 diabetes mellitus with hyperglycemia; I50.9 Heart failure, unspecified; J44.9 Chronic obstructive pulmonary disease, unspecified; C53.9 Malignant neoplasm of cervix uteri, unspecified; F31.9 Bipolar disorder, unspecified; D63.1 Anemia in chronic kidney disease; I16.0 Hypertensive urgency; E83.52 Hypercalcemia; R79.89 Other specified abnormal findings of blood chemistry; I65.21 Occlusion and stenosis of right carotid artery; Z99.81 Dependence on supplemental oxygen; Z99.2 Dependence on renal dialysis; Z98.51 Tubal ligation status; Z88.1 Allergy status to other antibiotic agents; Z88.0 Allergy status to penicillin; Z88.7 Allergy status to serum and vaccine; Z88.8 Allergy status to other drugs, medicaments and biological substances; Z79.899 Other long term (current) drug therapy; Z79.4 Long term (current) use of insulin; Z91.19 Patient's noncompliance with other medical treatment and regimen; Z91.041 Radiographic dye allergy status
CPT/HCPCS: 0240U; 36415; 36416; 70450; 70551; 71045; 72148; 72170; 80048; 80053; 80061; 82140; 82553; 82607; 82746; 83735; 83880; 84100; 84443; 84484; 84550; 85025; 90935; 93005; 93306; 93880; 94660; G0257; G0378; J1644; J2270; J7512; Q0162; Q0163

== ENCOUNTER 2020-03-26 12:38 | Emergency (ER) | payer OTHER ==
[2020-03-26] MEDS ORDERED: Acetaminophen 325 MG TAB ONE (13:19)
[2020-03-26 13:28] LABS: #Eosinphils 0.1 thou/uL (0.0-0.7); #Lymphocytes 1.1 thou/uL (1.20-3.40); #Monocytes 0.8 thou/uL (0.11-0.59); #Neutrophils 4.6 thou/uL (1.40-6.50); %Basophils 0.4 % (0.0-1.0); %Eosinophils 1.6 % (0.0-10.0); %Lymphocytes 16.2 % (21.0-51.0); %Monocytes 12.2 % (0.0-10.0); %Neutrophils 69.7 % (42.0-75.0); Hemoglobin 10.1 g/dL (12.0-16.0); Mean Corpuscular HGB CONC 31.2 g/dL (32.0-36.0); Mean Corpuscular Hemoglobin 29.9 pg (27.0-31.0); Mean Platelet Volume 7.4 fL (7.4-10.4); Platelet Count 260 thou/uL (130-400); RBC Distribution Width 15.2 % (11.5-14.5); Red Blood Cell (RBC) Count 3.37 mill/uL (4.20-5.40); White Blood Cell (WBC) Count 6.6 thou/uL (4.8-10.8)
--- NOTE | 2020-03-26 13:40 | CT ---
EXAM: CT brain without contrast HISTORY: Headache after ground-level fall COMPARISON: 02/21/2020; MRI brain 02/23/2020 TECHNIQUE: Multiple contiguous axial images were obtained and a CT of the brain without contrast. Sag ittal and coronal reformats were performed. FINDINGS: The brain is normal in morphology and attenuation without focal lesions or confluent areas of infarction. There is no evidence of hydrocephalus, intracranial hemorrhage, or extra-axial fluid collection. The calvarium and overlying soft tissues are unremarkable. The visualized paranasal sinuses and masto id air cells are well aerated. IMPRESSION: No evidence of acute intracranial abnormality
[2020-03-26 13:51] LABS: ALT (SGPT) 7 U/L (8-55); AST (SGOT) 12 U/L (5-34); Albumin 3.4 g/dL (3.5-5.0); Alkaline Phosphatase 70 U/L (40-110); Anion Gap 15 mmol/L (10-20); BUN (Urea Nitrogen) 44 mg/dL (9.8-20.1); Bilirubin, Total 0.5 mg/dL (0.2-1.2); CK (CPK) 29 U/L (29-168); Calc. Creatinine Clearance 0 mL/min (70-130); Calcium 10.5 mg/dL (7.8-10.44); Carbon Dioxide 32 mmol/L (22-29); Chloride 96 mmol/L (98-107); Globulin 3.3 g/dL (2.4-3.5); Glucose 105 mg/dL (70-105); Potassium 3.9 mmol/L (3.5-5.1); Protein, Total 6.7 g/dL (6.0-8.3); Sodium 139 mmol/L (136-145)
--- NOTE | 2020-03-26 14:06 | RAD ---
RADIOGRAPH RIGHT HAND 3VIEWS: DATE: 03/26/2020 HISTORY: 59-year-old female with right hand pain FINDINGS: There is no evidence of fracture or dislocation. There is no evidence of periostitis, permeative lesi on, osteolytic lesion, or osteoblastic lesion. The joint spaces are maintained without erosions or significant osteophytes. IMPRESSION: No osseous abnormality identified
--- NOTE | 2020-03-26 14:08 | RAD ---
EXAM: 3 views of the right wrist HISTORY: Wrist pain COMPARISON: None FINDINGS: 3 views of the right wrist shows no evidence of acute fracture or dislocation. No soft tiss ue swelling is seen. No degenerative changes are present. IMPRESSION: No evidence of acute osseous abnormality.
--- NOTE | 2020-03-26 14:09 | RAD ---
PORTABLE CHEST ONE VIEW: 03/26/20 at 12:42 p.m. HISTORY: Chest pain. COMPARISON: 02/21/20. FINDINGS: The heart is enlarged. The aorta is tortuous. The lungs are expanded without lobar consolidation, pne umothoraces, kierra pulmonary edema, or pleural effusions. There are degenerative changes in the spine . IMPRESSION: No acute process. POS: OFF
== END 2020-03-26 15:15 | disposition home or self-care (01) ==
LOC: ERS 12:38
DX: M25.531 Pain in right wrist (principal); R07.89 Other chest pain; I13.2 Hypertensive heart and chronic kidney disease with heart failure and with stage 5 chronic kidney disease, or end stage renal disease; Z99.2 Dependence on renal dialysis; R51.9 Headache, unspecified; W01.0XXA Fall on same level from slipping, tripping and stumbling without subsequent striking against object, initial encounter; N18.6 End stage renal disease; J44.9 Chronic obstructive pulmonary disease, unspecified; Z79.4 Long term (current) use of insulin; Z79.899 Other long term (current) drug therapy; E11.22 Type 2 diabetes mellitus with diabetic chronic kidney disease; E83.52 Hypercalcemia; I50.9 Heart failure, unspecified
CPT/HCPCS: 29125; 36415; 70450; 71045; 80053; 82550; 84484; 85025; 93005

== ENCOUNTER 2020-04-03 03:18 | Emergency (ER) | payer OTHER ==
[2020-04-03] MEDS ORDERED: Orphenadrine Citrate 60 MG/2 ML VIAL IM SCH (03:45)
--- NOTE | 2020-04-03 08:23 | CT ---
PRELIMINARY REPORT/[facility]/EMERGENCY AFTER HOURS PROCEDURE: EXAM: CT Pelvis Without Intravenous Contrast. CLINICAL HISTORY: LEFT HIP/LEG PAIN PT FELL LAST WEEK COMPARISON: CT\IN\SR - CT ABDOMEN PELVIS WO CON - 12/16/2019 02:[address]\IN\SR - CT ABDOMEN PELVIS W CON - 11/21/2019 05:40 PM CDT FINDINGS: No acute fracture or dislocation is seen in the pelvis or hips within the limitations due to low bone density. Pubic symphysis and sacroiliac joints appear intact. Partially imaged lumbosacral degenerat kathryn changes. No sizable hematoma is seen. Uterus is present with multiple internal calcific patients. Mild urinary bladder wall thickening, possibly reflect cystitis. Numerous colonic diverticula, with minimal stranding adjacent to the sigmoid colon. Trace fluid in the pelvis. Chronic anterior pelvic w all stranding and calcification. Aortoiliac and peripheral artery calcifications. IMPRESSION: 1. No acute fracture or dislocation is seen in the pelvis or hips within the limitations due to low b one density. 2. Possible early acute diverticulitis in the sigmoid colon. ELECTRONICALLY SIGNED BY: Pablo Britt MD Apr 03, 2020 4:30:38 AM SAND DIGGER This report is intended for review by the ordering physician only, in accordance of law. If you recei ve this report in error, please call [facility] at [phone]. FINAL REPORT EMERGENT AFTER HOURS CT OF THE PELVIS WITHOUT CONTRAST: COMPARISON: 12/31/2019. FINDINGS/IMPRESSION: I agree with the findings and impression given in the preliminary report per [facility] physici an. 1. No evidence of acute osseous abnormality. 2. There are stranding changes surrounding the sigmoid colon which contains diverticula consistent w ith acute diverticulitis. POS: PAVEL
== END 2020-04-03 04:54 | disposition home or self-care (01) ==
LOC: ERS 03:18
DX: M25.552 Pain in left hip (principal); M79.605 Pain in left leg; I13.2 Hypertensive heart and chronic kidney disease with heart failure and with stage 5 chronic kidney disease, or end stage renal disease; N18.6 End stage renal disease; I50.9 Heart failure, unspecified; J44.9 Chronic obstructive pulmonary disease, unspecified; E11.22 Type 2 diabetes mellitus with diabetic chronic kidney disease; Z99.2 Dependence on renal dialysis; Z79.4 Long term (current) use of insulin; Z79.899 Other long term (current) drug therapy; W18.30XA Fall on same level, unspecified, initial encounter; Y92.009 Unspecified place in unspecified non-institutional (private) residence as the place of occurrence of the external cause
CPT/HCPCS: 72192; 96372; J2360

== ENCOUNTER 2020-04-03 07:15 | Emergency (ER) | payer OTHER ==
[2020-04-03] MEDS ORDERED: HYDROcodone/Acetaminophen 5/325 mg Tablet ONE (07:57)
[2020-04-03] MEDS ORDERED: HYDROcodone/Acetaminophen 10/325 mg Tablet ONE (08:02)
== END 2020-04-03 08:05 | disposition home or self-care (01) ==
LOC: ERS 07:15
DX: S63.501A Unspecified sprain of right wrist, initial encounter (principal); E11.9 Type 2 diabetes mellitus without complications; I10 Essential (primary) hypertension; J44.9 Chronic obstructive pulmonary disease, unspecified; N18.6 End stage renal disease; Z79.4 Long term (current) use of insulin; Z79.899 Other long term (current) drug therapy; M25.552 Pain in left hip; M79.605 Pain in left leg; I13.2 Hypertensive heart and chronic kidney disease with heart failure and with stage 5 chronic kidney disease, or end stage renal disease; I50.9 Heart failure, unspecified; E11.22 Type 2 diabetes mellitus with diabetic chronic kidney disease; Z99.2 Dependence on renal dialysis; W18.30XA Fall on same level, unspecified, initial encounter
CPT/HCPCS: 72192; 96372; 99283; J2360

== ENCOUNTER 2020-04-23 11:35 | Inpatient (IN) | payer OTHER ==
[~2020-04-23 11:35] MED LIST changes: -EPHEDRINE 25 MG/5 ML SYRINGE ONE; +Heparin 1,000 UNITS/ML VIAL ONE; -Lidocaine 1% PF 5 ML VIAL ONE; -PHENYLEPHRINE-NS 100 MCG/ML 10 ML SYRINGE ONE; -PROPOFOL 200 MG/20 ML VIAL ONE; -Rocuronium Bromide 10 MG/ML (10ML VIAL) ONE
[2020-04-23] MEDS ORDERED: Acetaminophen 500 MG TAB PO PRN (13:41)
[2020-04-23 14:17] LABS: #Basophils 0.1 thou/uL (0.0-0.2); #Eosinphils 0.1 thou/uL (0.0-0.7); #Monocytes 0.5 thou/uL (0.11-0.59); #Neutrophils 4.2 thou/uL (1.40-6.50); %Basophils 1.1 % (0.0-1.0); %Eosinophils 2.4 % (0.0-10.0); %Lymphocytes 16.2 % (21.0-51.0); %Neutrophils 71.4 % (42.0-75.0); Hemoglobin 9.9 g/dL (12.0-16.0); Mean Corpuscular HGB CONC 31.2 g/dL (32.0-36.0); Mean Corpuscular Hemoglobin 29.3 pg (27.0-31.0); Mean Corpuscular Volume 94.1 fL (78.0-98.0); Mean Platelet Volume 7.5 fL (7.4-10.4); Platelet Count 253 thou/uL (130-400); RBC Distribution Width 15.2 % (11.5-14.5); Red Blood Cell (RBC) Count 3.36 mill/uL (4.20-5.40); White Blood Cell (WBC) Count 5.9 thou/uL (4.8-10.8)
[2020-04-23 14:38] LABS: Anion Gap 17 mmol/L (10-20); BUN (Urea Nitrogen) 81 mg/dL (9.8-20.1); Calc. Creatinine Clearance 0 mL/min (70-130); Calcium 9.9 mg/dL (7.8-10.44); Carbon Dioxide 29 mmol/L (22-29); Chloride 97 mmol/L (98-107); Glucose 210 mg/dL (70-105); Potassium 4.6 mmol/L (3.5-5.1); Sodium 138 mmol/L (136-145)
[2020-04-23 15:06] VITALS: BMI 37.4
[2020-04-23] MEDS ORDERED: Ondansetron PF 4 MG/2 ML Vial IVP PRN (15:31)
[2020-04-23] MEDS ORDERED: Cepastat Lozenges 1 LOZ PO PRN (15:31)
[2020-04-23] MEDS ORDERED: Sodium Chloride 0.65% Nasal 44 ML BOT EA NARE PRN (15:31)
[2020-04-23] MEDS ORDERED: Senokot S 8.6-50 MG TAB PO PRN (15:31)
[2020-04-23] MEDS ORDERED: GUAIFENESIN SF SOLN 200 MG/10 ML UDCUP PO PRN (15:31)
[2020-04-23] MEDS ORDERED: Bisacodyl 5 MG TAB PO PRN (15:31)
[2020-04-23] MEDS ORDERED: Ondansetron ODT 4 MG TAB PO PRN (15:31)
[2020-04-23] MEDS ORDERED: Loperamide HCl 2 MG CAP PO PRN (15:31)
[2020-04-23] MEDS ORDERED: hydrALAZINE 20 MG/ML VIAL SLOW IVP PRN (15:31)
[2020-04-23] MEDS ORDERED: Loratadine 10 MG TAB PO PRN (15:31)
[2020-04-23] MEDS ORDERED: Calcium Carbonate 500 MG ChewTAB PO PRN (15:31)
[2020-04-23] MEDS ORDERED: Dextrose 50% Abboject 50 ML SYRINGE SLOW IVP PRN (15:33)
[2020-04-23] MEDS ORDERED: HumaLOG 300 UNITS/3 ML VIAL SC PRN ×2 (15:33)
[2020-04-23] MEDS ORDERED: Dextrose 5% in Water 1,000 ML IV PRN (15:33)
[2020-04-23] MEDS ORDERED: hydrALAZINE 25 MG TAB PO SCH (17:00)
[2020-04-23] MEDS: predniSONE 50 MG TAB PO SCH ×2 (17:42→23:13)
[2020-04-23] MEDS: Calcium Acetate 667 MG CAP PO SCH (17:42)
[2020-04-23] MEDS ORDERED: risperiDONE 1 MG TAB PO SCH ×2 (21:00)
[2020-04-23] MEDS: Carvedilol 3.125 MG TAB PO SCH (21:34)
[2020-04-23] MEDS: hydrALAZINE 25 MG TAB PO SCH (21:35)
[2020-04-23 23:38] LABS: SARS-CoV-2 PCR by NAA Not Detected (NotDetected)
[2020-04-23] MEDS ORDERED: cloNIDine 0.1 MG TAB PO SCH (23:45)
[2020-04-23] MEDS ORDERED: Melatonin 3 MG TAB PO SCH (23:45)
[2020-04-24 06:31] LABS: Anion Gap 22 mmol/L (10-20); BUN (Urea Nitrogen) 86 mg/dL (9.8-20.1); Calc. Creatinine Clearance 9 mL/min (70-130); Calcium 9.9 mg/dL (7.8-10.44); Carbon Dioxide 23 mmol/L (22-29); Chloride 98 mmol/L (98-107); Glucose 240 mg/dL (70-105); Potassium 5.2 mmol/L (3.5-5.1); Sodium 138 mmol/L (136-145)
[2020-04-24] MEDS: predniSONE 50 MG TAB PO SCH (06:40)
[2020-04-24] MEDS ORDERED: diphenhydrAMINE 50 MG CAP PO SCH (07:00)
[2020-04-24] MEDS ORDERED: Activase 2 MG VIAL CATH SCH (07:45)
[2020-04-24] MEDS: hydrALAZINE 25 MG TAB PO SCH ×2 (07:59→12:33)
[2020-04-24] MEDS: Carvedilol 3.125 MG TAB PO SCH (07:59)
[2020-04-24] MEDS: Calcium Acetate 667 MG CAP PO SCH (08:00)
[2020-04-24] MEDS ORDERED: Multivit, Therapeutic 1 TAB PO SCH (09:00)
[2020-04-24] MEDS ORDERED: Iopamidol 300 61% 100 ML VIAL FS ONE (11:40)
[2020-04-24 15:58] VITALS: BP 150/48; TEMP 98.4
== END 2020-04-24 18:43 | disposition home or self-care (01) | DRG 252 ==
LOC: SURG A 13:04
PROVIDERS: ADMIT Specialist; ATTEND Specialist
PROC: 5A09357 Assistance with Respiratory Ventilation, Less than 24 Consecutive Hours, Continuous Positive Airway Pressure (ICD-10-PCS; 2020-04-23)
PROC: 05753ZZ Dilation of Right Subclavian Vein, Percutaneous Approach (ICD-10-PCS; principal; 2020-04-24)
PROC: B51W1ZZ Fluoroscopy of Dialysis Shunt/Fistula using Low Osmolar Contrast (ICD-10-PCS; 2020-04-24)
PROC: 3E03317 Introduction of Other Thrombolytic into Peripheral Vein, Percutaneous Approach (ICD-10-PCS; 2020-04-24)
PROC: 5A1D70Z Performance of Urinary Filtration, Intermittent, Less than 6 Hours Per Day (ICD-10-PCS; 2020-04-24)
DX: T82.868A Thrombosis due to vascular prosthetic devices, implants and grafts, initial encounter (principal); N18.6 End stage renal disease; I87.1 Compression of vein; I12.0 Hypertensive chronic kidney disease with stage 5 chronic kidney disease or end stage renal disease; N25.81 Secondary hyperparathyroidism of renal origin; E66.2 Morbid (severe) obesity with alveolar hypoventilation; Y83.2 Surgical operation with anastomosis, bypass or graft as the cause of abnormal reaction of the patient, or of later complication, without mention of misadventure at the time of the procedure; C53.9 Malignant neoplasm of cervix uteri, unspecified; F20.9 Schizophrenia, unspecified; E11.22 Type 2 diabetes mellitus with diabetic chronic kidney disease; I51.89 Other ill-defined heart diseases; D63.1 Anemia in chronic kidney disease; K21.9 Gastro-esophageal reflux disease without esophagitis; H91.90 Unspecified hearing loss, unspecified ear; E11.40 Type 2 diabetes mellitus with diabetic neuropathy, unspecified; J44.9 Chronic obstructive pulmonary disease, unspecified; F41.9 Anxiety disorder, unspecified; F32.9 Major depressive disorder, single episode, unspecified; E87.5 Hyperkalemia; Z79.82 Long term (current) use of aspirin; Z99.2 Dependence on renal dialysis; Z91.041 Radiographic dye allergy status; Z79.899 Other long term (current) drug therapy; Z98.51 Tubal ligation status; Z88.0 Allergy status to penicillin; Z88.8 Allergy status to other drugs, medicaments and biological substances; Z68.37 Body mass index [BMI] 37.0-37.9, adult
CPT/HCPCS: 36415; 36416; 36596; 36901; 36902; 36904; 80048; 85025; 87635; 90935; 93005; 93010; C1725; G0257; J1644; J1815; J7512; Q9967; U0003; U0005

== ENCOUNTER 2020-04-27 08:11 | Observation (INO) | payer OTHER ==
[2020-04-27 09:02] LABS: #Eosinphils 0.1 thou/uL (0.0-0.7); #Lymphocytes 0.9 thou/uL (1.20-3.40); #Monocytes 0.5 thou/uL (0.11-0.59); #Neutrophils 4.6 thou/uL (1.40-6.50); %Basophils 0.6 % (0.0-1.0); %Lymphocytes 14.3 % (21.0-51.0); %Monocytes 7.9 % (0.0-10.0); %Neutrophils 75.2 % (42.0-75.0); Hemoglobin 10.8 g/dL (12.0-16.0); Mean Corpuscular HGB CONC 31.1 g/dL (32.0-36.0); Mean Corpuscular Hemoglobin 29.6 pg (27.0-31.0); Mean Corpuscular Volume 95.2 fL (78.0-98.0); Mean Platelet Volume 8.1 fL (7.4-10.4); Platelet Count 267 thou/uL (130-400); RBC Distribution Width 15.1 % (11.5-14.5); Red Blood Cell (RBC) Count 3.66 mill/uL (4.20-5.40); White Blood Cell (WBC) Count 6.1 thou/uL (4.8-10.8)
[2020-04-27 09:17] LABS: ALT (SGPT) 11 U/L (8-55); AST (SGOT) 12 U/L (5-34); Albumin 3.6 g/dL (3.5-5.0); Alkaline Phosphatase 64 U/L (40-110); Anion Gap 21 mmol/L (10-20); BUN (Urea Nitrogen) 100 mg/dL (9.8-20.1); Bilirubin, Total 0.6 mg/dL (0.2-1.2); Calc. Creatinine Clearance 0 mL/min (70-130); Calcium 10.3 mg/dL (7.8-10.44); Carbon Dioxide 24 mmol/L (22-29); Chloride 101 mmol/L (98-107); Globulin 3.3 g/dL (2.4-3.5); Glucose 168 mg/dL (70-105); Potassium 5.4 mmol/L (3.5-5.1); Protein, Total 6.9 g/dL (6.0-8.3); Sodium 141 mmol/L (136-145)
[2020-04-27] MEDS ORDERED: predniSONE 20 MG TAB ONE ×2 (09:50→12:28)
[2020-04-27] MEDS ORDERED: Heparin 1,000 UNITS/ML VIAL ONE (10:38)
[2020-04-27] MEDS ORDERED: diphenhydrAMINE 25 MG CAP ONE (12:28)
[2020-04-27] MEDS ORDERED: Activase 2 MG VIAL CATH SCH (13:00)
[2020-04-27] MEDS ORDERED: Iopamidol 300 61% 100 ML VIAL FS ONE (13:35)
[2020-04-27] MEDS ORDERED: hydrALAZINE 20 MG/ML VIAL SLOW IVP SCH (16:30)
[2020-04-27 16:34] VITALS: BMI 37.3
[2020-04-27] MEDS ORDERED: HYDROcodone/Acetaminophen 10/325 mg Tablet PO PRN ×2 (17:45)
[2020-04-27] MEDS ORDERED: Morphine 2 MG/ML VIAL SLOW IVP PRN (17:45)
[2020-04-27] MEDS ORDERED: hydrALAZINE 20 MG/ML VIAL SLOW IVP PRN (17:45)
[2020-04-27] MEDS ORDERED: Dextrose 5% in Water 1,000 ML IV PRN (17:45)
[2020-04-27] MEDS ORDERED: Lorazepam 2 MG/ML VIAL SLOW IVP PRN (17:45)
[2020-04-27] MEDS ORDERED: Morphine 4 MG/ML VIAL SLOW IVP PRN (17:45)
[2020-04-27] MEDS ORDERED: Dextrose 50% Abboject 50 ML SYRINGE SLOW IVP PRN (17:45)
[2020-04-27] MEDS ORDERED: HYDROcodone/Acetaminophen 5/325 mg Tablet PO PRN (17:53)
[2020-04-27] MEDS ORDERED: risperiDONE 1 MG TAB PO SCH (21:00)
[2020-04-27] MEDS: hydrALAZINE 25 MG TAB PO SCH (22:17)
[2020-04-28] MEDS: HumaLOG 300 UNITS/3 ML VIAL SC PRN ×2 (06:28→17:04)
[2020-04-28] MEDS ORDERED: Carvedilol 6.25 MG TAB PO SCH ×3 (08:00→17:00)
[2020-04-28] MEDS ORDERED: Calcium Acetate 667 MG CAP PO SCH (08:00)
[2020-04-28] MEDS: hydrALAZINE 25 MG TAB PO SCH ×2 (08:42→17:01)
[2020-04-28 08:44] LABS: #Monocytes 0.8 thou/uL (0.11-0.59); #Neutrophils 4.9 thou/uL (1.40-6.50); %Basophils 0.2 % (0.0-1.0); %Eosinophils 0.7 % (0.0-10.0); %Lymphocytes 14.3 % (21.0-51.0); %Monocytes 11.6 % (0.0-10.0); %Neutrophils 73.2 % (42.0-75.0); Hemoglobin 9.3 g/dL (12.0-16.0); Mean Corpuscular HGB CONC 31.2 g/dL (32.0-36.0); Mean Corpuscular Hemoglobin 29.6 pg (27.0-31.0); Mean Platelet Volume 7.8 fL (7.4-10.4); Platelet Count 233 thou/uL (130-400); RBC Distribution Width 15.1 % (11.5-14.5); Red Blood Cell (RBC) Count 3.15 mill/uL (4.20-5.40); White Blood Cell (WBC) Count 6.8 thou/uL (4.8-10.8)
[2020-04-28] MEDS ORDERED: Lisinopril 5 MG TAB PO SCH (09:00)
[2020-04-28] MEDS ORDERED: Multivit, Therapeutic 1 TAB PO SCH (09:00)
[2020-04-28 09:05] LABS: Anion Gap 14 mmol/L (10-20); BUN (Urea Nitrogen) 56 mg/dL (9.8-20.1); Calc. Creatinine Clearance 14 mL/min (70-130); Calcium 9.1 mg/dL (7.8-10.44); Carbon Dioxide 30 mmol/L (22-29); Chloride 98 mmol/L (98-107); Glucose 165 mg/dL (70-105); Potassium 4.3 mmol/L (3.5-5.1); Sodium 138 mmol/L (136-145)
[2020-04-28] MEDS ORDERED: Apixaban 2.5 MG TAB PO SCH ×2 (16:30→21:00)
[2020-04-28 16:38] VITALS: BP 120/57; TEMP 97.5
[2020-05-04] MEDS ORDERED: Cholecalciferol 1,000 UNITS (25 MCG) TAB PO SCH (09:00)
== END 2020-04-28 19:25 | disposition home or self-care (01) ==
LOC: ERS 08:11 → 2SW 12:50
PROVIDERS: ADMIT Specialist; ATTEND Internal Medicine
PROC: 05WY37Z Revision of Autologous Tissue Substitute in Upper Vein, Percutaneous Approach (ICD-10-PCS; principal; 2020-04-27)
DX: T82.868A Thrombosis due to vascular prosthetic devices, implants and grafts, initial encounter (principal); I13.2 Hypertensive heart and chronic kidney disease with heart failure and with stage 5 chronic kidney disease, or end stage renal disease; E11.22 Type 2 diabetes mellitus with diabetic chronic kidney disease; N18.6 End stage renal disease; I50.9 Heart failure, unspecified; D63.1 Anemia in chronic kidney disease; G47.33 Obstructive sleep apnea (adult) (pediatric); J44.9 Chronic obstructive pulmonary disease, unspecified; K21.9 Gastro-esophageal reflux disease without esophagitis; E78.5 Hyperlipidemia, unspecified; F31.9 Bipolar disorder, unspecified; E11.40 Type 2 diabetes mellitus with diabetic neuropathy, unspecified; E87.5 Hyperkalemia; C53.9 Malignant neoplasm of cervix uteri, unspecified; F25.9 Schizoaffective disorder, unspecified; E66.9 Obesity, unspecified; Z68.37 Body mass index [BMI] 37.0-37.9, adult; Z79.4 Long term (current) use of insulin; Z79.899 Other long term (current) drug therapy; Z88.0 Allergy status to penicillin; Z88.7 Allergy status to serum and vaccine; Z88.8 Allergy status to other drugs, medicaments and biological substances; Z91.041 Radiographic dye allergy status; Z99.2 Dependence on renal dialysis; Z99.81 Dependence on supplemental oxygen
CPT/HCPCS: 36415; 36416; 36901; 36902; 36904; 80048; 80053; 85025; 93005; 93931; 96374; 96375; C1725; C1757; G0378; J0360; J1815; J2060; J2997; J7512; Q0163; Q9967

== ENCOUNTER 2020-06-14 16:37 | Observation (INO) | payer OTHER ==
[2020-06-14] MEDS ORDERED: Aspirin Chewable 81 MG TAB ONE (17:30)
[2020-06-14] MEDS ORDERED: Nitroglycerin 2% Ointment 1 INCH/1 GM Packet ONE (17:30)
[2020-06-14 17:45] LABS: #Eosinphils 0.1 thou/uL (0.0-0.7); #Monocytes 0.7 thou/uL (0.11-0.59); #Neutrophils 4.1 thou/uL (1.40-6.50); %Basophils 0.6 % (0.0-1.0); %Eosinophils 2.5 % (0.0-10.0); %Lymphocytes 17.1 % (21.0-51.0); %Monocytes 11.2 % (0.0-10.0); %Neutrophils 68.7 % (42.0-75.0); Hemoglobin 10.7 g/dL (12.0-16.0); Mean Corpuscular HGB CONC 30.3 g/dL (32.0-36.0); Mean Corpuscular Hemoglobin 29.8 pg (27.0-31.0); Mean Corpuscular Volume 98.1 fL (78.0-98.0); Mean Platelet Volume 7.6 fL (7.4-10.4); Platelet Count 257 thou/uL (130-400); Red Blood Cell (RBC) Count 3.58 mill/uL (4.20-5.40); White Blood Cell (WBC) Count 5.9 thou/uL (4.8-10.8)
[2020-06-14 17:56] LABS: ALT (SGPT) 20 U/L (8-55); AST (SGOT) 19 U/L (5-34); Albumin 3.4 g/dL (3.5-5.0); Alkaline Phosphatase 91 U/L (40-110); Anion Gap 18 mmol/L (10-20); BUN (Urea Nitrogen) 56 mg/dL (9.8-20.1); Bilirubin, Total 0.4 mg/dL (0.2-1.2); Calc. Creatinine Clearance 0 mL/min (70-130); Calcium 10.4 mg/dL (7.8-10.44); Carbon Dioxide 27 mmol/L (22-29); Chloride 99 mmol/L (98-107); Globulin 3.6 g/dL (2.4-3.5); Glucose 95 mg/dL (70-105); Lipase 21 U/L (8-78); Potassium 4.5 mmol/L (3.5-5.1); Sodium 139 mmol/L (136-145)
[2020-06-14] MEDS ORDERED: Zolpidem Tartrate 5 MG TAB PO PRN (19:43)
[2020-06-14] MEDS ORDERED: Bisacodyl 10 MG SUPP PR PRN (19:43)
[2020-06-14] MEDS ORDERED: Ondansetron PF 4 MG/2 ML Vial IVP PRN (19:43)
[2020-06-14] MEDS ORDERED: Acetaminophen 325 MG TAB PO PRN (19:43)
[2020-06-14] MEDS ORDERED: HumaLOG 300 UNITS/3 ML VIAL SC PRN (19:47)
[2020-06-14] MEDS ORDERED: Labetalol HCl 100 MG/20 ML VIAL SLOW IVP PRN (19:47)
[2020-06-14] MEDS ORDERED: Morphine 4 MG/ML VIAL SLOW IVP PRN (20:05)
[2020-06-14] MEDS ORDERED: Heparin 5,000 UNITS/ML VIAL SC SCH (21:00)
[2020-06-14] MEDS ORDERED: Methocarbamol 500 MG TAB PO PRN (21:16)
[2020-06-14] MEDS ORDERED: hydrALAZINE 20 MG/ML VIAL SLOW IVP PRN (21:18)
[2020-06-14] MEDS ORDERED: hydrALAZINE 25 MG TAB PO SCH (22:00)
[2020-06-14] MEDS ORDERED: risperiDONE 1 MG TAB PO SCH (22:00)
[2020-06-14] MEDS ORDERED: Zolpidem Tartrate 5 MG TAB PO SCH (22:00)
[2020-06-14 22:13] LABS: Troponin I 0.028 ng/mL (< 0.028)
[2020-06-14] MEDS: hydrALAZINE 25 MG TAB PO SCH (22:13)
[2020-06-14] MEDS: Nitroglycerin 2% Ointment 1 INCH/1 GM Packet TOP SCH (22:13)
[2020-06-14 23:26] VITALS: BMI 38.4
[2020-06-15 01:11] LABS: Troponin I 0.016 ng/mL (< 0.028)
[2020-06-15] MEDS: Nitroglycerin 2% Ointment 1 INCH/1 GM Packet TOP SCH ×2 (05:59→14:45)
[2020-06-15 06:14] LABS: #Eosinphils 0.2 thou/uL (0.0-0.7); #Lymphocytes 1.1 thou/uL (1.20-3.40); #Monocytes 0.7 thou/uL (0.11-0.59); #Neutrophils 3.7 thou/uL (1.40-6.50); %Basophils 0.3 % (0.0-1.0); %Eosinophils 3.5 % (0.0-10.0); %Lymphocytes 19.5 % (21.0-51.0); %Monocytes 12.6 % (0.0-10.0); %Neutrophils 64.2 % (42.0-75.0); Hemoglobin 8.4 g/dL (12.0-16.0); Mean Corpuscular HGB CONC 30.5 g/dL (32.0-36.0); Mean Corpuscular Hemoglobin 29.5 pg (27.0-31.0); Mean Corpuscular Volume 96.6 fL (78.0-98.0); Mean Platelet Volume 7.5 fL (7.4-10.4); Platelet Count 254 thou/uL (130-400); RBC Distribution Width 15.8 % (11.5-14.5); Red Blood Cell (RBC) Count 2.86 mill/uL (4.20-5.40); White Blood Cell (WBC) Count 5.8 thou/uL (4.8-10.8)
[2020-06-15 06:38] LABS: Anion Gap 18 mmol/L (10-20); BUN (Urea Nitrogen) 67 mg/dL (9.8-20.1); Calc. Creatinine Clearance 11 mL/min (70-130); Calcium 9.2 mg/dL (7.8-10.44); Carbon Dioxide 25 mmol/L (22-29); Cardiac Risk 4.8 (Less than 4.5); Chloride 98 mmol/L (98-107); Cholesterol 173 mg/dl (< 200 Desired); Glucose 101 mg/dL (70-105); HDL Cholesterol 36 mg/dL (>60 Neg Risk); LDL Cholesterol, Calculated 110 mg/dL; Potassium 4.5 mmol/L (3.5-5.1); Sodium 136 mmol/L (136-145); Triglycerides 134 mg/dL (Less than 150)
[2020-06-15] MEDS: Sevelamer Carbonate 800 MG TAB PO SCH ×4 (08:06→16:48)
[2020-06-15] MEDS: HumuLIN 70/30 (300 UNITS/3 ML VIAL) SC SCH ×2 (08:08→16:48)
[2020-06-15 08:36] LABS: SARS-CoV-2 PCR NAA for Saliva Not Detected (NotDetected)
[2020-06-15] MEDS ORDERED: Calcium Acetate 667 MG CAP PO SCH (09:00)
[2020-06-15] MEDS ORDERED: Aspirin Chewable 81 MG TAB PO SCH (09:00)
[2020-06-15] MEDS ORDERED: Famotidine 20 MG TAB PO SCH (09:00)
[2020-06-15] MEDS ORDERED: Folic Acid/Vit B Comp W-C PO SCH (09:00)
[2020-06-15] MEDS ORDERED: Lisinopril 5 MG TAB PO SCH (09:00)
[2020-06-15] MEDS ORDERED: Apixaban 2.5 MG TAB PO SCH (09:00)
[2020-06-15] MEDS: Carvedilol 6.25 MG TAB PO SCH ×2 (09:46→16:47)
[2020-06-15] MEDS ORDERED: Heparin 10,000 UNITS/ 10 ML VIAL ONE (10:12)
[2020-06-15] MEDS: hydrALAZINE 25 MG TAB PO SCH (16:47)
[2020-06-15 16:58] VITALS: BP 159/79; TEMP 99
[2020-06-15] MEDS ORDERED: risperiDONE 1 MG TAB PO SCH (21:00)
[2020-06-15] MEDS ORDERED: Zolpidem Tartrate 5 MG TAB PO SCH (21:00)
== END 2020-06-15 18:30 | disposition home or self-care (01) ==
LOC: ERS 16:37 → 2SW 18:39
PROVIDERS: ADMIT Family Medicine; ATTEND Emergency Medicine
DX: R07.82 Intercostal pain (principal); R53.1 Weakness; I13.2 Hypertensive heart and chronic kidney disease with heart failure and with stage 5 chronic kidney disease, or end stage renal disease; E11.22 Type 2 diabetes mellitus with diabetic chronic kidney disease; N18.6 End stage renal disease; I50.32 Chronic diastolic (congestive) heart failure; D63.1 Anemia in chronic kidney disease; J44.9 Chronic obstructive pulmonary disease, unspecified; C53.9 Malignant neoplasm of cervix uteri, unspecified; E78.2 Mixed hyperlipidemia; E87.79 Other fluid overload; E66.01 Morbid (severe) obesity due to excess calories; Z68.38 Body mass index [BMI] 38.0-38.9, adult; Z79.01 Long term (current) use of anticoagulants; Z79.4 Long term (current) use of insulin; Z79.899 Other long term (current) drug therapy; Z88.0 Allergy status to penicillin; Z88.7 Allergy status to serum and vaccine; Z88.8 Allergy status to other drugs, medicaments and biological substances; Z91.041 Radiographic dye allergy status; Z99.2 Dependence on renal dialysis; Z20.822 Contact with and (suspected) exposure to COVID-19
CPT/HCPCS: 36415; 36416; 71045; 80048; 80053; 80061; 83690; 83880; 84484; 85025; 85379; 87635; 90935; 93005; 94640; 94760; G0257; G0378; J1644; J1815; J7620; U0003; U0005

== ENCOUNTER → 2020-09-17 | Day surgery (SDC) | payer OTHER ==
[2020-09-16 15:46] VITALS: BMI 36.1
[~2020-09-17] MED LIST changes: +Activase 2 MG VIAL CATH SCH; -Heparin 1,000 UNITS/ML VIAL ONE; +Sterile Water 10 ML VIAL IVP SCH; +cloNIDine 0.1 MG TAB ONE
[2020-09-17 16:21] VITALS: BP 199/99; TEMP 98.4
== END ==
LOC: SPEC 12:35
PROVIDERS: ATTEND Specialist
PROC: 05WY3KZ Revision of Nonautologous Tissue Substitute in Upper Vein, Percutaneous Approach (ICD-10-PCS; principal; 2020-09-17)
DX: T82.868A Thrombosis due to vascular prosthetic devices, implants and grafts, initial encounter (principal); J44.9 Chronic obstructive pulmonary disease, unspecified; I12.0 Hypertensive chronic kidney disease with stage 5 chronic kidney disease or end stage renal disease; E11.22 Type 2 diabetes mellitus with diabetic chronic kidney disease; N18.6 End stage renal disease; D63.1 Anemia in chronic kidney disease; G47.30 Sleep apnea, unspecified; K21.9 Gastro-esophageal reflux disease without esophagitis; Z88.0 Allergy status to penicillin; Z88.7 Allergy status to serum and vaccine; Z88.8 Allergy status to other drugs, medicaments and biological substances; Z91.041 Radiographic dye allergy status; Z99.2 Dependence on renal dialysis
CPT/HCPCS: 36901; 36905; 76942; C1725; C1757; J2997

== ENCOUNTER 2020-10-19 03:36 | Inpatient (IN) | payer OTHER ==
[2020-10-19 04:46] LABS: #Eosinphils 0.2 thou/uL (0.0-0.7); #Lymphocytes 0.9 thou/uL (1.20-3.40); #Monocytes 0.6 thou/uL (0.11-0.59); %Basophils 0.4 % (0.0-1.0); %Eosinophils 2.3 % (0.0-10.0); %Lymphocytes 11.8 % (21.0-51.0); %Monocytes 7.5 % (0.0-10.0); %Neutrophils 77.9 % (42.0-75.0); Hemoglobin 10.3 g/dL (12.0-16.0); Mean Corpuscular HGB CONC 30.8 g/dL (32.0-36.0); Mean Corpuscular Hemoglobin 29.5 pg (27.0-31.0); Mean Corpuscular Volume 95.9 fL (78.0-98.0); Mean Platelet Volume 7.5 fL (7.4-10.4); Platelet Count 314 thou/uL (130-400); RBC Distribution Width 16.8 % (11.5-14.5); Red Blood Cell (RBC) Count 3.48 mill/uL (4.20-5.40); White Blood Cell (WBC) Count 7.7 thou/uL (4.8-10.8)
[2020-10-19 05:04] LABS: ALT (SGPT) 8 U/L (8-55); AST (SGOT) 15 U/L (5-34); Albumin 3.3 g/dL (3.5-5.0); Alkaline Phosphatase 93 U/L (40-110); Anion Gap 16 mmol/L (10-20); BUN (Urea Nitrogen) 26 mg/dL (9.8-20.1); Bilirubin, Total 0.5 mg/dL (0.2-1.2); Calc. Creatinine Clearance 0 mL/min (70-130); Calcium 10.1 mg/dL (7.8-10.44); Carbon Dioxide 31 mmol/L (22-29); Chloride 98 mmol/L (98-107); Globulin 3.8 g/dL (2.4-3.5); Glucose 176 mg/dL (70-105); Lipase 9 U/L (8-78); Potassium 4.3 mmol/L (3.5-5.1); Protein, Total 7.1 g/dL (6.0-8.3); Sodium 141 mmol/L (136-145)
[2020-10-19 05:15] LABS: Bacteria/HPF None Seen HPF (None Seen); Bilirubin Negative (Negative); Blood, Urine 1+ (Negative); Clarity Turbid (Clear); Glucose, Urine (Dipstick) 150 mg/dL (Negative); Ketone, Urine Negative (Negative); Leukocyte Negative Leu/uL (Negative); Nitrite Negative (Negative); Protein, Urine (Dipstick) 600 mg/dL (Neg-Trace); RBC/HPF Greater than 50 HPF (0-3); Specific Gravity, Urine 1.028 (1.002-1.036); Squamous Epithelial 21-50 HPF (0-3); Urobilinogen Normal mg/dL (Less than 2); WBC/HPF 21-50 HPF (0-3); pH, Urine 8.5 (5.0-9.0)
[2020-10-19] MEDS ORDERED: Ondansetron PF 4 MG/2 ML Vial ONE (06:23)
[2020-10-19] MEDS ORDERED: metroNIDAZOLE 500 MG/100 ML BAG ONE (06:23)
[2020-10-19] MEDS ORDERED: Morphine 4 MG/ML VIAL ONE (06:23)
[2020-10-19] MEDS ORDERED: HumaLOG 300 UNITS/3 ML VIAL SC PRN ×2 (08:57)
[2020-10-19] MEDS ORDERED: Dextrose 5% in Water 1,000 ML IV PRN (08:57)
[2020-10-19] MEDS ORDERED: Ondansetron PF 4 MG/2 ML Vial IVP PRN (08:57)
[2020-10-19] MEDS ORDERED: Ondansetron ODT 4 MG TAB PO PRN (08:57)
[2020-10-19] MEDS ORDERED: hydrALAZINE 20 MG/ML VIAL SLOW IVP PRN (08:57)
[2020-10-19] MEDS ORDERED: Calcium Acetate 667 MG CAP PO SCH (09:00)
[2020-10-19] MEDS ORDERED: Famotidine 20 MG TAB PO SCH (10:15)
[2020-10-19] MEDS ORDERED: Lisinopril 5 MG TAB PO SCH (10:30)
[2020-10-19] MEDS ORDERED: Carvedilol 6.25 MG TAB PO SCH (10:30)
[2020-10-19 11:49] VITALS: BMI 42.5
[2020-10-19] MEDS ORDERED: metroNIDAZOLE 500 MG in Premix Bag 1 BAG IVPB SCH (12:00)
[2020-10-19] MEDS: Sevelamer Carbonate 800 MG TAB PO SCH ×2 (15:02→17:20)
[2020-10-19] MEDS ORDERED: Heparin 1,000 UNITS/ML VIAL ONE (15:05)
[2020-10-19] MEDS: metroNIDAZOLE 500 MG in Premix Bag 1 BAG IVPB SCH ×2 (15:15→20:17)
[2020-10-19] MEDS: Morphine 4 MG/ML VIAL SLOW IVP PRN (15:26)
[2020-10-19] MEDS ORDERED: Phenazopyridine HCl 100 MG TAB PO SCH (19:30)
[2020-10-19] MEDS: risperiDONE 1 MG TAB PO SCH (20:17)
[2020-10-19] MEDS: Carvedilol 6.25 MG TAB PO SCH (20:24)
[2020-10-20] MEDS: metroNIDAZOLE 500 MG in Premix Bag 1 BAG IVPB SCH ×4 (02:24→19:47)
[2020-10-20 06:33] LABS: #Eosinphils 0.2 thou/uL (0.0-0.7); #Lymphocytes 0.9 thou/uL (1.20-3.40); #Monocytes 0.7 thou/uL (0.11-0.59); %Basophils 0.2 % (0.0-1.0); %Eosinophils 3.8 % (0.0-10.0); %Lymphocytes 18.1 % (21.0-51.0); %Monocytes 13.9 % (0.0-10.0); Hemoglobin 9.4 g/dL (12.0-16.0); Mean Corpuscular HGB CONC 29.6 g/dL (32.0-36.0); Mean Corpuscular Hemoglobin 28.8 pg (27.0-31.0); Mean Corpuscular Volume 97.2 fL (78.0-98.0); Mean Platelet Volume 7.7 fL (7.4-10.4); Platelet Count 263 thou/uL (130-400); RBC Distribution Width 16.3 % (11.5-14.5); Red Blood Cell (RBC) Count 3.27 mill/uL (4.20-5.40); White Blood Cell (WBC) Count 4.7 thou/uL (4.8-10.8)
[2020-10-20 06:50] LABS: Anion Gap 11 mmol/L (10-20); BUN (Urea Nitrogen) 13 mg/dL (9.8-20.1); Calc. Creatinine Clearance 22 mL/min (70-130); Calcium 9.7 mg/dL (7.8-10.44); Carbon Dioxide 30 mmol/L (22-29); Chloride 101 mmol/L (98-107); Glucose 77 mg/dL (70-105); Sodium 138 mmol/L (136-145)
[2020-10-20] MEDS: Folic Acid/Vit B Comp W-C PO SCH (08:39)
[2020-10-20] MEDS: Phenazopyridine HCl 100 MG TAB PO SCH ×3 (08:39→18:14)
[2020-10-20] MEDS: Carvedilol 6.25 MG TAB PO SCH ×2 (08:39→19:50)
[2020-10-20] MEDS: Sevelamer Carbonate 800 MG TAB PO SCH ×3 (08:39→18:13)
[2020-10-20] MEDS: Lisinopril 5 MG TAB PO SCH (08:40)
[2020-10-20] MEDS: Famotidine 20 MG TAB PO SCH (08:40)
[2020-10-20] MEDS: Dextrose 50% Abboject 50 ML SYRINGE SLOW IVP PRN (11:55)
[2020-10-20] MEDS: HYDROcodone/Acetaminophen 5/325 mg Tablet PO PRN ×2 (12:09→23:54)
[2020-10-20 13:56] LABS: SARS-CoV-2 PCR by NAA Not Detected (NotDetected)
[2020-10-20] MEDS ORDERED: Heparin 10,000 UNITS/ 10 ML VIAL SLOW IVP SCH (17:15)
[2020-10-20] MEDS ORDERED: Heparin 25,000 units/D5W 500 ML IVPB SCH (17:15)
[2020-10-20 18:33] LABS: Hemoglobin 9.3 g/dL (12.0-16.0); Platelet Count 262 thou/uL (130-400)
[2020-10-20] MEDS: risperiDONE 1 MG TAB PO SCH (19:48)
[2020-10-21] MEDS: metroNIDAZOLE 500 MG in Premix Bag 1 BAG IVPB SCH ×4 (03:04→21:47)
[2020-10-21 04:56] LABS: PTT Greater than 250.0 sec (22.9-36.1)
[2020-10-21] MEDS: Carvedilol 6.25 MG TAB PO SCH ×2 (08:21→21:46)
[2020-10-21] MEDS: Folic Acid/Vit B Comp W-C PO SCH (08:21)
[2020-10-21] MEDS: Lisinopril 5 MG TAB PO SCH (08:21)
[2020-10-21] MEDS: Famotidine 20 MG TAB PO SCH (08:21)
[2020-10-21] MEDS: Phenazopyridine HCl 100 MG TAB PO SCH ×3 (08:21→16:43)
[2020-10-21] MEDS: Sevelamer Carbonate 800 MG TAB PO SCH ×3 (08:21→16:43)
[2020-10-21] MEDS: HYDROcodone/Acetaminophen 5/325 mg Tablet PO PRN (10:16)
[2020-10-21] MEDS: Dextrose 50% Abboject 50 ML SYRINGE SLOW IVP PRN (16:21)
[2020-10-21] MEDS: Morphine 4 MG/ML VIAL SLOW IVP PRN (16:43)
[2020-10-21] MEDS: Apixaban 2.5 MG TAB PO SCH (18:35)
[2020-10-21] MEDS ORDERED: Heparin 5,000 UNITS/ML VIAL SC SCH (21:00)
[2020-10-21] MEDS: risperiDONE 1 MG TAB PO SCH (21:47)
[2020-10-22] MEDS: metroNIDAZOLE 500 MG in Premix Bag 1 BAG IVPB SCH ×4 (02:30→20:20)
[2020-10-22] MEDS: Apixaban 2.5 MG TAB PO SCH ×2 (05:53→17:15)
[2020-10-22] MEDS: Sevelamer Carbonate 800 MG TAB PO SCH ×3 (08:22→17:11)
[2020-10-22] MEDS ORDERED: Regadenoson 0.4 MG/5 ML SYRINGE ONE (08:46)
[2020-10-22] MEDS: Carvedilol 6.25 MG TAB PO SCH ×2 (09:43→20:20)
[2020-10-22] MEDS: Famotidine 20 MG TAB PO SCH (09:43)
[2020-10-22] MEDS: Folic Acid/Vit B Comp W-C PO SCH (09:43)
[2020-10-22] MEDS: Phenazopyridine HCl 100 MG TAB PO SCH ×3 (09:44→17:15)
[2020-10-22] MEDS: Lisinopril 5 MG TAB PO SCH (09:44)
[2020-10-22 17:45] LABS: Hemoglobin 10.7 g/dL (12.0-16.0); Platelet Count 280 thou/uL (130-400)
[2020-10-22] MEDS: risperiDONE 1 MG TAB PO SCH (20:21)
[2020-10-23] MEDS: metroNIDAZOLE 500 MG in Premix Bag 1 BAG IVPB SCH ×4 (03:38→19:47)
[2020-10-23] MEDS: Apixaban 2.5 MG TAB PO SCH (06:16)
[2020-10-23] MEDS: Sevelamer Carbonate 800 MG TAB PO SCH ×3 (08:00→17:37)
[2020-10-23] MEDS: Phenazopyridine HCl 100 MG TAB PO SCH ×3 (09:00→18:17)
[2020-10-23] MEDS ORDERED: Iopamidol 300 61% 50 ML VIAL FS ONE (11:40)
[2020-10-23] MEDS: Carvedilol 6.25 MG TAB PO SCH ×2 (14:32→19:48)
[2020-10-23] MEDS: Folic Acid/Vit B Comp W-C PO SCH (14:32)
[2020-10-23] MEDS: Famotidine 20 MG TAB PO SCH (14:32)
[2020-10-23] MEDS: Lisinopril 5 MG TAB PO SCH (14:32)
[2020-10-23] MEDS: Polyethylene Glycol 3350 17 GM Packet PO SCH (19:48)
[2020-10-23] MEDS: risperiDONE 1 MG TAB PO SCH (19:48)
[2020-10-23] MEDS: HYDROcodone/Acetaminophen 5/325 mg Tablet PO PRN (19:51)
[2020-10-23 20:23] LABS: #Eosinphils 0.2 thou/uL (0.0-0.7); #Monocytes 0.6 thou/uL (0.11-0.59); #Neutrophils 5.2 thou/uL (1.40-6.50); %Basophils 0.6 % (0.0-1.0); %Eosinophils 2.2 % (0.0-10.0); %Lymphocytes 14.7 % (21.0-51.0); %Monocytes 9.1 % (0.0-10.0); %Neutrophils 73.4 % (42.0-75.0); Mean Corpuscular HGB CONC 30.7 g/dL (32.0-36.0); Mean Corpuscular Hemoglobin 29.3 pg (27.0-31.0); Mean Corpuscular Volume 95.7 fL (78.0-98.0); Mean Platelet Volume 8.1 fL (7.4-10.4); Platelet Count 281 thou/uL (130-400); RBC Distribution Width 16.3 % (11.5-14.5); White Blood Cell (WBC) Count 7.1 thou/uL (4.8-10.8)
[2020-10-23 20:39] LABS: Anion Gap 15 mmol/L (10-20); BUN (Urea Nitrogen) 7 mg/dL (9.8-20.1); Calc. Creatinine Clearance 33 mL/min (70-130); Calcium 9.6 mg/dL (7.8-10.44); Carbon Dioxide 29 mmol/L (22-29); Chloride 99 mmol/L (98-107); Glucose 152 mg/dL (70-105); Potassium 4.4 mmol/L (3.5-5.1); Sodium 139 mmol/L (136-145)
[2020-10-24] MEDS: Acetaminophen 500 MG TAB PO PRN (00:26)
[2020-10-24] MEDS: metroNIDAZOLE 500 MG in Premix Bag 1 BAG IVPB SCH ×4 (01:25→20:35)
[2020-10-24] MEDS: HYDROcodone/Acetaminophen 5/325 mg Tablet PO PRN ×2 (03:07→14:44)
[2020-10-24] MEDS: Sevelamer Carbonate 800 MG TAB PO SCH ×3 (08:53→17:33)
[2020-10-24] MEDS: Folic Acid/Vit B Comp W-C PO SCH (08:53)
[2020-10-24] MEDS: Phenazopyridine HCl 100 MG TAB PO SCH ×3 (08:53→17:33)
[2020-10-24] MEDS: Famotidine 20 MG TAB PO SCH (08:53)
[2020-10-24] MEDS: Lisinopril 5 MG TAB PO SCH (08:54)
[2020-10-24] MEDS: Carvedilol 6.25 MG TAB PO SCH ×2 (08:54→20:38)
[2020-10-24] MEDS: Polyethylene Glycol 3350 17 GM Packet PO SCH ×2 (08:55→20:37)
[2020-10-24 17:42] LABS: Hemoglobin 9.6 g/dL (12.0-16.0); Platelet Count 281 thou/uL (130-400)
[2020-10-24] MEDS: risperiDONE 1 MG TAB PO SCH (20:38)
[2020-10-25] MEDS ORDERED: Calcium Carbonate 500 MG ChewTAB PO PRN (01:18)
[2020-10-25] MEDS: Acetaminophen 500 MG TAB PO PRN (01:28)
[2020-10-25] MEDS: metroNIDAZOLE 500 MG in Premix Bag 1 BAG IVPB SCH ×4 (02:31→21:11)
[2020-10-25] MEDS ORDERED: Magnesium Citrate 300 ML BOT PO SCH ×2 (07:00→17:00)
[2020-10-25 07:17] LABS: #Eosinphils 0.2 thou/uL (0.0-0.7); #Lymphocytes 1.1 thou/uL (1.20-3.40); #Monocytes 0.6 thou/uL (0.11-0.59); #Neutrophils 2.8 thou/uL (1.40-6.50); %Basophils 0.8 % (0.0-1.0); %Eosinophils 4.1 % (0.0-10.0); %Lymphocytes 22.7 % (21.0-51.0); %Monocytes 12.6 % (0.0-10.0); %Neutrophils 59.8 % (42.0-75.0); Hemoglobin 9.4 g/dL (12.0-16.0); Mean Corpuscular HGB CONC 30.5 g/dL (32.0-36.0); Mean Corpuscular Hemoglobin 29.2 pg (27.0-31.0); Mean Corpuscular Volume 95.7 fL (78.0-98.0); Mean Platelet Volume 8.1 fL (7.4-10.4); Platelet Count 265 thou/uL (130-400); RBC Distribution Width 16.1 % (11.5-14.5); White Blood Cell (WBC) Count 4.7 thou/uL (4.8-10.8)
[2020-10-25 07:45] LABS: Anion Gap 11 mmol/L (10-20); BUN (Urea Nitrogen) 21 mg/dL (9.8-20.1); Calc. Creatinine Clearance 19 mL/min (70-130); Calcium 9.7 mg/dL (7.8-10.44); Carbon Dioxide 30 mmol/L (22-29); Chloride 97 mmol/L (98-107); Glucose 76 mg/dL (70-105); Potassium 4.4 mmol/L (3.5-5.1); Sodium 134 mmol/L (136-145)
[2020-10-25] MEDS: Folic Acid/Vit B Comp W-C PO SCH (09:42)
[2020-10-25] MEDS: Phenazopyridine HCl 100 MG TAB PO SCH ×3 (09:42→18:44)
[2020-10-25] MEDS: Lisinopril 5 MG TAB PO SCH (09:43)
[2020-10-25] MEDS: Sevelamer Carbonate 800 MG TAB PO SCH ×3 (09:43→16:55)
[2020-10-25] MEDS: Carvedilol 6.25 MG TAB PO SCH ×2 (09:43→21:15)
[2020-10-25] MEDS: Famotidine 20 MG TAB PO SCH (09:44)
[2020-10-25] MEDS ORDERED: GoLYTELY 4,000 ml Bottle PO SCH (12:00)
[2020-10-25] MEDS: risperiDONE 1 MG TAB PO SCH (21:14)
[2020-10-25] MEDS: Heparin 5,000 UNITS/ML VIAL SC SCH (21:15)
[2020-10-26] MEDS: metroNIDAZOLE 500 MG in Premix Bag 1 BAG IVPB SCH ×5 (02:14→20:46)
[2020-10-26] MEDS: HYDROcodone/Acetaminophen 5/325 mg Tablet PO PRN (03:16)
[2020-10-26] MEDS: Carvedilol 6.25 MG TAB PO SCH ×2 (06:49→20:44)
[2020-10-26 09:35] LABS: Hemoglobin 9.6 g/dL (12.0-16.0); Mean Corpuscular Hemoglobin 28.4 pg (27.0-31.0); Mean Corpuscular Volume 94.9 fL (78.0-98.0); Mean Platelet Volume 7.6 fL (7.4-10.4); Platelet Count 281 thou/uL (130-400); RBC Distribution Width 16.2 % (11.5-14.5); Red Blood Cell (RBC) Count 3.38 mill/uL (4.20-5.40); White Blood Cell (WBC) Count 5.7 thou/uL (4.8-10.8)
[2020-10-26 10:03] LABS: Anion Gap 13 mmol/L (10-20); BUN (Urea Nitrogen) 11 mg/dL (9.8-20.1); Calc. Creatinine Clearance 26 mL/min (70-130); Calcium 9.3 mg/dL (7.8-10.44); Carbon Dioxide 30 mmol/L (22-29); Chloride 99 mmol/L (98-107); Glucose 77 mg/dL (70-105); Sodium 138 mmol/L (136-145)
[2020-10-26] MEDS ORDERED: Midazolam HCl 2 mg/2 ml Vial ONE (10:11)
[2020-10-26] MEDS ORDERED: Fentanyl 100 MCG/2 ML VIAL ONE ×5 (10:11→16:21)
[2020-10-26] MEDS: Famotidine 20 MG TAB PO SCH (10:49)
[2020-10-26] MEDS: Sevelamer Carbonate 800 MG TAB PO SCH ×2 (10:49→11:59)
[2020-10-26 10:56] LABS: #Basophils 0.1 thou/uL (0.0-0.2); #Eosinphils 0.1 thou/uL (0.0-0.7); #Lymphocytes 1.1 thou/uL (1.20-3.40); #Monocytes 0.7 thou/uL (0.11-0.59); #Neutrophils 3.7 thou/uL (1.40-6.50); %Basophils 1.1 % (0.0-1.0); %Eosinophils 2.6 % (0.0-10.0); %Lymphocytes 18.6 % (21.0-51.0); %Monocytes 12.7 % (0.0-10.0); %Neutrophils 64.9 % (42.0-75.0); Anisocytosis SLIGHT = 6-15 cells (100X) (0-5/hpf); Hypochromia SLIGHT = 6-15 cells (100X) (0-5/hpf); MDiff Complete? YES
[2020-10-26] MEDS ORDERED: Phenylephrine 10 MG/ML VIAL ONE (11:13)
[2020-10-26] MEDS: Phenazopyridine HCl 100 MG TAB PO SCH ×2 (11:16→11:59)
[2020-10-26] MEDS: Folic Acid/Vit B Comp W-C PO SCH (11:16)
[2020-10-26] MEDS: Heparin 5,000 UNITS/ML VIAL SC SCH ×3 (11:16→20:46)
[2020-10-26] MEDS: Lisinopril 5 MG TAB PO SCH (11:16)
[2020-10-26] MEDS ORDERED: Lidocaine 1% w/Epinephrine 1:100K 30 ML VIAL ONE (11:27)
[2020-10-26] MEDS ORDERED: Bupivacaine PF 0.5% 30 ML VIAL ONE (11:27)
[2020-10-26] MEDS ORDERED: Bupivacaine 0.25% HCL 30 ML VIAL ONE (11:35)
[2020-10-26] MEDS ORDERED: PROPOFOL 200 MG/20 ML VIAL ONE (11:49)
[2020-10-26] MEDS ORDERED: Rocuronium Bromide 10 MG/ML (10ML VIAL) ONE (11:49)
[2020-10-26] MEDS ORDERED: Ondansetron PF 4 MG/2 ML Vial ONE (11:49)
[2020-10-26] MEDS ORDERED: Dexamethasone 20 MG/5 ML VIAL ONE (11:49)
[2020-10-26] MEDS ORDERED: PHENYLEPHRINE-NS 100 MCG/ML 10 ML SYRINGE ONE (11:49)
[2020-10-26] MEDS ORDERED: Lidocaine 1% PF 5 ML VIAL ONE (11:49)
[2020-10-26] MEDS ORDERED: ePHEDrine 50 MG/ML VIAL ONE (11:49)
[2020-10-26] MEDS ORDERED: Bupivacaine HCl 0.5%/Epinephrine 1:200,000/PF 30 ml Vial ONE (11:49)
[2020-10-26] MEDS ORDERED: Sodium Chloride 0.9% 20 ML ONE (12:08)
[2020-10-26] MEDS ORDERED: Albumin 5% 500 ML ONE (13:39)
[2020-10-26] MEDS ORDERED: SUGAMMADEX SODIUM 200 MG/2 ML VIAL ONE ×2 (14:48→14:57)
[2020-10-26] MEDS ORDERED: HYDROmorphone 10 mg/100 ml CADD IVPB PRN (15:36)
[2020-10-26] MEDS ORDERED: Promethazine HCl 25 MG/ML VIAL IVPB PRN (15:36)
[2020-10-26] MEDS ORDERED: diphenhydrAMINE 25 MG CAP PO PRN (15:36)
[2020-10-26] MEDS ORDERED: diphenhydrAMINE 50 MG/ML VIAL IVP PRN (15:36)
[2020-10-26] MEDS ORDERED: Promethazine HCl 25 MG/ML VIAL IM PRN ×2 (15:36)
[2020-10-26] MEDS ORDERED: diphenhydrAMINE 50 MG/ML VIAL IM PRN (15:36)
[2020-10-26] MEDS ORDERED: Ondansetron HCl/PF 4 MG/2 ML Vial IVP PRN (15:36)
[2020-10-26] MEDS ORDERED: Zolpidem Tartrate 5 MG TAB PO PRN (15:36)
[2020-10-26] MEDS ORDERED: Naloxone HCl 0.4 mg/ml Vial IV PRN (15:36)
[2020-10-26] MEDS ORDERED: PCA Communication Order-Pharmacy FS SCH (15:45)
[2020-10-26] MEDS: Albumin 25% 25 GM/100 ML BOT IVPB SCH (18:31)
[2020-10-26] MEDS: risperiDONE 1 MG TAB PO SCH (20:44)
[2020-10-26] MEDS: Ondansetron PF 4 MG/2 ML Vial IVP PRN (20:57)
[2020-10-27 00:07] LABS: Anisocytosis SLIGHT = 6-15 cells (100X) (0-5/hpf); Band 22 % (5-11); Hemoglobin 10.5 g/dL (12.0-16.0); Lymphocytes 7 % (21-51); MDiff Complete? YES; Mean Corpuscular HGB CONC 30.1 g/dL (32.0-36.0); Mean Corpuscular Volume 92.9 fL (78.0-98.0); Mean Platelet Volume 8.1 fL (7.4-10.4); Monocytes 2 % (0-10); Neutrophil 69 % (42-75); Platelet Count 280 thou/uL (130-400); Platelet Morphology Comment Appears Adequate; RBC Distribution Width 18.2 % (11.5-14.5); Red Blood Cell (RBC) Count 3.77 mill/uL (4.20-5.40); White Blood Cell (WBC) Count 13.7 thou/uL (4.8-10.8)
[2020-10-27] MEDS: Albumin 25% 25 GM/100 ML BOT IVPB SCH ×4 (00:59→18:22)
[2020-10-27] MEDS: metroNIDAZOLE 500 MG in Premix Bag 1 BAG IVPB SCH ×4 (02:52→21:30)
[2020-10-27] MEDS: Ondansetron PF 4 MG/2 ML Vial IVP PRN ×2 (04:22→11:28)
[2020-10-27 06:10] LABS: #Lymphocytes 0.6 thou/uL (1.20-3.40); #Monocytes 0.9 thou/uL (0.11-0.59); #Neutrophils 8.5 thou/uL (1.40-6.50); %Basophils 0.1 % (0.0-1.0); %Lymphocytes 6.3 % (21.0-51.0); %Monocytes 8.6 % (0.0-10.0); Hemoglobin 8.6 g/dL (12.0-16.0); Mean Corpuscular HGB CONC 31.1 g/dL (32.0-36.0); Mean Corpuscular Volume 93.5 fL (78.0-98.0); Mean Platelet Volume 8.1 fL (7.4-10.4); Platelet Count 262 thou/uL (130-400); RBC Distribution Width 18.2 % (11.5-14.5); Red Blood Cell (RBC) Count 2.95 mill/uL (4.20-5.40)
[2020-10-27 06:33] LABS: Anion Gap 12 mmol/L (10-20); BUN (Urea Nitrogen) 19 mg/dL (9.8-20.1); Calc. Creatinine Clearance 22 mL/min (70-130); Calcium 8.5 mg/dL (7.8-10.44); Carbon Dioxide 26 mmol/L (22-29); Chloride 105 mmol/L (98-107); Glucose 135 mg/dL (70-105); Potassium 4.4 mmol/L (3.5-5.1); Sodium 139 mmol/L (136-145)
[2020-10-27] MEDS: Lisinopril 5 MG TAB PO SCH (09:04)
[2020-10-27] MEDS: Heparin 5,000 UNITS/ML VIAL SC SCH ×3 (09:04→21:36)
[2020-10-27] MEDS: Carvedilol 6.25 MG TAB PO SCH ×2 (09:04→21:30)
[2020-10-27] MEDS: risperiDONE 1 MG TAB PO SCH (21:31)
[2020-10-28] MEDS: metroNIDAZOLE 500 MG in Premix Bag 1 BAG IVPB SCH ×4 (01:43→20:29)
[2020-10-28] MEDS ORDERED: diphenhydrAMINE 50 MG/ML VIAL IVP SCH (09:15)
[2020-10-28] MEDS ORDERED: Famotidine/PF 20 mg/2ml Vial SLOW IVP SCH (09:15)
[2020-10-28] MEDS ORDERED: Hydrocortisone Sod Succ/PF 100 mg/2 ml Vial IVP SCH (09:15)
[2020-10-28] MEDS ORDERED: Activase 2 MG VIAL CATH SCH (09:30)
[2020-10-28] MEDS: Carvedilol 6.25 MG TAB PO SCH ×2 (10:03→20:30)
[2020-10-28] MEDS: Apixaban 2.5 MG TAB PO SCH ×2 (10:04→20:30)
[2020-10-28] MEDS: Lisinopril 5 MG TAB PO SCH (10:04)
[2020-10-28 13:01] LABS: SARS-CoV-2 PCR by NAA Not Detected (NotDetected)
[2020-10-28] MEDS: Heparin 5,000 UNITS/ML VIAL SC SCH ×2 (15:27→20:40)
[2020-10-28] MEDS ORDERED: Morphine 2 MG/ML VIAL SLOW IVP PRN (16:30)
[2020-10-28] MEDS ORDERED: Morphine 4 MG/ML VIAL SLOW IVP PRN (16:30)
[2020-10-28] MEDS ORDERED: Acetaminophen 500 MG TAB PO PRN (16:30)
[2020-10-28 18:12] LABS: Hemoglobin 8.3 g/dL (12.0-16.0); Platelet Count 232 thou/uL (130-400)
[2020-10-28] MEDS: risperiDONE 1 MG TAB PO SCH (20:39)
[2020-10-28] MEDS: traMADol HCl 50 MG TAB PO PRN (20:47)
[2020-10-29] MEDS: metroNIDAZOLE 500 MG in Premix Bag 1 BAG IVPB SCH ×2 (05:46→09:19)
[2020-10-29] MEDS ORDERED: HYDROcodone/Acetaminophen 7.5/325 mg Tablet PO PRN (08:14)
[2020-10-29] MEDS: Carvedilol 6.25 MG TAB PO SCH ×2 (09:25→21:13)
[2020-10-29] MEDS: Apixaban 2.5 MG TAB PO SCH ×2 (09:25→21:13)
[2020-10-29] MEDS: Lisinopril 5 MG TAB PO SCH (09:26)
[2020-10-29 11:36] LABS: HBSAg Index 0.21 S/CO (0-0.99); Hep B Surf Ag Non-Reactive S/CO (NonReactive)
[2020-10-29] MEDS: HYDROcodone/Acetaminophen 7.5/325 mg Tablet PO PRN (17:15)
[2020-10-29] MEDS: traMADol HCl 50 MG TAB PO PRN (18:35)
[2020-10-29] MEDS: risperiDONE 1 MG TAB PO SCH (21:14)
[2020-10-30 05:39] LABS: #Eosinphils 0.1 thou/uL (0.0-0.7); #Lymphocytes 0.6 thou/uL (1.20-3.40); #Monocytes 0.9 thou/uL (0.11-0.59); #Neutrophils 8.3 thou/uL (1.40-6.50); %Basophils 0.2 % (0.0-1.0); %Eosinophils 0.6 % (0.0-10.0); %Lymphocytes 6.4 % (21.0-51.0); %Monocytes 9.5 % (0.0-10.0); %Neutrophils 83.2 % (42.0-75.0); Hemoglobin 6.8 g/dL (12.0-16.0); Mean Corpuscular HGB CONC 30.1 g/dL (32.0-36.0); Mean Corpuscular Hemoglobin 28.4 pg (27.0-31.0); Mean Corpuscular Volume 94.3 fL (78.0-98.0); Mean Platelet Volume 7.7 fL (7.4-10.4); Platelet Count 243 thou/uL (130-400); RBC Distribution Width 17.4 % (11.5-14.5); White Blood Cell (WBC) Count 9.9 thou/uL (4.8-10.8)
[2020-10-30 05:57] LABS: Anion Gap 12 mmol/L (10-20); BUN (Urea Nitrogen) 34 mg/dL (9.8-20.1); Calc. Creatinine Clearance 16 mL/min (70-130); Calcium 8.8 mg/dL (7.8-10.44); Carbon Dioxide 30 mmol/L (22-29); Chloride 99 mmol/L (98-107); Glucose 106 mg/dL (70-105); Potassium 4.2 mmol/L (3.5-5.1); Sodium 137 mmol/L (136-145)
[2020-10-30 07:33] VITALS: TEMP 98.8
[2020-10-30 08:49] LABS: #Eosinphils 0.1 thou/uL (0.0-0.7); #Lymphocytes 0.8 thou/uL (1.20-3.40); #Monocytes 0.8 thou/uL (0.11-0.59); #Neutrophils 7.8 thou/uL (1.40-6.50); %Basophils 0.2 % (0.0-1.0); %Lymphocytes 8.3 % (21.0-51.0); %Monocytes 8.7 % (0.0-10.0); %Neutrophils 81.7 % (42.0-75.0); Hemoglobin 6.8 g/dL (12.0-16.0); Mean Corpuscular HGB CONC 30.5 g/dL (32.0-36.0); Mean Corpuscular Hemoglobin 28.5 pg (27.0-31.0); Mean Corpuscular Volume 93.5 fL (78.0-98.0); Mean Platelet Volume 8.1 fL (7.4-10.4); Platelet Count 237 thou/uL (130-400); RBC Distribution Width 17.6 % (11.5-14.5); Red Blood Cell (RBC) Count 2.37 mill/uL (4.20-5.40); White Blood Cell (WBC) Count 9.5 thou/uL (4.8-10.8)
[2020-10-30] MEDS: HYDROcodone/Acetaminophen 7.5/325 mg Tablet PO PRN ×2 (09:50→18:02)
[2020-10-30] MEDS: Carvedilol 6.25 MG TAB PO SCH (17:51)
[2020-10-30] MEDS: Lisinopril 5 MG TAB PO SCH (17:51)
[2020-10-30] MEDS: Apixaban 2.5 MG TAB PO SCH (17:51)
[2020-10-30 18:27] VITALS: BP 100/63
[2020-11-03 14:54] LABS: Actual Bicarbonate (HCO3a) 27.2 mEq/L (22-28); Analyzer IN Cardio OR; Base Excess (BEa) 3.5 mEq/L (-2.0 to +3.0); Calcium, Ionized (arterial) 1.19 mmol/L (1.12-1.30); Carboxyhemoglobin (COHb) 1.3 gm% (0.0-3.0); Potassium - ABG Lab 4.02 mmol/L (3.70-5.30); Puncture Site Arterial Line; pH, Arterial 7.47 (7.35-7.45)
== END 2020-10-30 19:45 | disposition home or self-care (01) | DRG 329 ==
LOC: ERS 03:36 → SJJU 06:26
PROVIDERS: ADMIT Internal Medicine; ATTEND Internal Medicine
PROC: 0DBN0ZZ Excision of Sigmoid Colon, Open Approach (ICD-10-PCS; principal; 2020-10-26)
PROC: 0D1B0Z4 Bypass Ileum to Cutaneous, Open Approach (ICD-10-PCS; 2020-10-26)
PROC: 05HY33Z Insertion of Infusion Device into Upper Vein, Percutaneous Approach (ICD-10-PCS; 2020-10-26)
PROC: 057Y0ZZ Dilation of Upper Vein, Open Approach (ICD-10-PCS; 2020-10-28)
PROC: 039 Upper Arteries, Drainage (ICD-10-PCS; 2020-10-28)
PROC: 3E03317 Introduction of Other Thrombolytic into Peripheral Vein, Percutaneous Approach (ICD-10-PCS; 2020-10-28)
PROC: B51W1ZZ Fluoroscopy of Dialysis Shunt/Fistula using Low Osmolar Contrast (ICD-10-PCS; 2020-10-28)
DX: K57.32 Diverticulitis of large intestine without perforation or abscess without bleeding (principal); N18.6 End stage renal disease; I13.2 Hypertensive heart and chronic kidney disease with heart failure and with stage 5 chronic kidney disease, or end stage renal disease; N32.1 Vesicointestinal fistula; T82.868A Thrombosis due to vascular prosthetic devices, implants and grafts, initial encounter; K56.7 Ileus, unspecified; Z20.822 Contact with and (suspected) exposure to COVID-19; J44.9 Chronic obstructive pulmonary disease, unspecified; F31.9 Bipolar disorder, unspecified; E11.22 Type 2 diabetes mellitus with diabetic chronic kidney disease; I50.9 Heart failure, unspecified; G89.29 Other chronic pain; M54.9 Dorsalgia, unspecified; G47.33 Obstructive sleep apnea (adult) (pediatric); D63.1 Anemia in chronic kidney disease; R35.0 Frequency of micturition; I07.1 Rheumatic tricuspid insufficiency; Y83.2 Surgical operation with anastomosis, bypass or graft as the cause of abnormal reaction of the patient, or of later complication, without mention of misadventure at the time of the procedure; E78.2 Mixed hyperlipidemia; F20.9 Schizophrenia, unspecified; Z92.3 Personal history of irradiation; Z88.8 Allergy status to other drugs, medicaments and biological substances; Z91.041 Radiographic dye allergy status; Z88.7 Allergy status to serum and vaccine; Z82.49 Family history of ischemic heart disease and other diseases of the circulatory system; Z99.2 Dependence on renal dialysis; Z79.01 Long term (current) use of anticoagulants; Z98.51 Tubal ligation status; Z87.440 Personal history of urinary (tract) infections; Z85.41 Personal history of malignant neoplasm of cervix uteri; Z90.49 Acquired absence of other specified parts of digestive tract; Z79.899 Other long term (current) drug therapy; Z88.0 Allergy status to penicillin; Z83.3 Family history of diabetes mellitus; Z95.0 Presence of cardiac pacemaker
CPT/HCPCS: 36415; 36416; 36430; 36901; 36905; 51600; 71045; 72131; 74176; 74430; 75902; 78452; 80048; 80053; 81003; 81015; 83690; 85014; 85018; 85025; 85049; 85730; 86850; 86900; 86901; 87086; 87340; 88307; 90935; 93017; 93306; 96365; 96367; 96375; A9500; C1725; C1751; C1757; G0257; J1100; J1200; J1644; J1720; J1956; J2250; J2270; J2370; J2405; J2704; J2785; J3010; J3490; P9016; P9045; P9047; Q9967; S0020; S0028; U0003; U0005

== ENCOUNTER 2020-11-09 07:26 | Emergency (ER) | payer OTHER | END 2020-11-09 08:45 | disposition home or self-care (01) | LOC: ERS 07:26 | DX: L76.82 Other postprocedural complications of skin and subcutaneous tissue (principal); I11.0 Hypertensive heart disease with heart failure; I50.9 Heart failure, unspecified; E78.5 Hyperlipidemia, unspecified; J44.9 Chronic obstructive pulmonary disease, unspecified; E11.9 Type 2 diabetes mellitus without complications; Z79.899 Other long term (current) drug therapy | CPT/HCPCS: 99283 ==

== ENCOUNTER 2020-12-04 07:44 | Inpatient (IN) | payer OTHER ==
[2020-12-04] MEDS ORDERED: Guaifenesin DM 100-10/5 ML UDCUP PO PRN (11:11)
[2020-12-04] MEDS ORDERED: Acetaminophen 325 MG TAB PO PRN (11:11)
[2020-12-04] MEDS ORDERED: Calcium Carbonate 500 MG ChewTAB PO PRN (11:11)
[2020-12-04] MEDS ORDERED: Bisacodyl 10 MG SUPP PR PRN (11:11)
[2020-12-04] MEDS ORDERED: Senokot S 8.6-50 MG TAB PO PRN (11:11)
[2020-12-04] MEDS ORDERED: Acetaminophen 500 MG TAB PO PRN (11:11)
[2020-12-04 11:12] LABS: #Basophils 0.1 thou/uL (0.0-0.2); #Eosinphils 0.3 thou/uL (0.0-0.7); #Lymphocytes 2.1 thou/uL (1.20-3.40); #Monocytes 1.2 thou/uL (0.11-0.59); #Neutrophils 6.7 thou/uL (1.40-6.50); %Eosinophils 3.1 % (0.0-10.0); %Lymphocytes 19.9 % (21.0-51.0); %Monocytes 11.4 % (0.0-10.0); %Neutrophils 64.7 % (42.0-75.0); Hemoglobin 9.5 g/dL (12.0-16.0); Mean Corpuscular HGB CONC 30.9 g/dL (32.0-36.0); Mean Corpuscular Hemoglobin 28.3 pg (27.0-31.0); Mean Corpuscular Volume 91.5 fL (78.0-98.0); Mean Platelet Volume 7.3 fL (7.4-10.4); Platelet Count 361 thou/uL (130-400); RBC Distribution Width 17.1 % (11.5-14.5); Red Blood Cell (RBC) Count 3.37 mill/uL (4.20-5.40); White Blood Cell (WBC) Count 10.4 thou/uL (4.8-10.8)
[2020-12-04 11:31] LABS: ALT (SGPT) 34 U/L (8-55); AST (SGOT) 29 U/L (5-34); Albumin 3.4 g/dL (3.5-5.0); Alkaline Phosphatase 326 U/L (40-110); Anion Gap 21 mmol/L (10-20); BUN (Urea Nitrogen) 48 mg/dL (9.8-20.1); Bilirubin, Total 0.5 mg/dL (0.2-1.2); Calc. Creatinine Clearance 0 mL/min (70-130); Calcium 9.8 mg/dL (7.8-10.44); Carbon Dioxide 23 mmol/L (22-29); Chloride 94 mmol/L (98-107); Globulin 3.7 g/dL (2.4-3.5); Glucose 110 mg/dL (70-105); Lipase 28 U/L (8-78); Magnesium 2.2 mg/dL (1.6-2.6); Protein, Total 7.1 g/dL (6.0-8.3); Sodium 133 mmol/L (136-145)
[2020-12-04] MEDS ORDERED: Dextrose 50% Abboject 50 ML SYRINGE SLOW IVP PRN (11:41)
[2020-12-04] MEDS ORDERED: Dextrose 5% in Water 1,000 ML IV PRN (11:41)
[2020-12-04] MEDS ORDERED: HumaLOG 300 UNITS/3 ML VIAL SC PRN ×2 (11:41)
[2020-12-04 11:42] LABS: SARS-CoV-2 NAA Rapid Test Not Detected (NotDetected)
[2020-12-04] MEDS: Sevelamer Carbonate 800 MG TAB PO SCH ×2 (14:29→17:40)
[2020-12-04] MEDS: Cholecalciferol 1,000 UNITS (25 MCG) TAB PO SCH (14:29)
[2020-12-04 14:35] VITALS: BMI 34.0
[2020-12-04] MEDS: Sodium Chloride 0.9% 1,000 ML IV SCH (15:14)
[2020-12-04] MEDS: metroNIDAZOLE 250 MG TAB PO SCH ×2 (15:14→20:37)
[2020-12-04] MEDS: HumuLIN 70/30 (300 UNITS/3 ML VIAL) SC SCH (17:39)
[2020-12-04] MEDS: risperiDONE 1 MG TAB PO SCH (20:38)
[2020-12-05] MEDS: Sodium Chloride 0.9% 1,000 ML IV SCH (02:05)
[2020-12-05 04:58] LABS: Hemoglobin 9.2 g/dL (12.0-16.0); Mean Corpuscular HGB CONC 32.5 g/dL (32.0-36.0); Mean Corpuscular Hemoglobin 29.9 pg (27.0-31.0); Mean Corpuscular Volume 91.9 fL (78.0-98.0); Mean Platelet Volume 7.6 fL (7.4-10.4); Platelet Count 304 thou/uL (130-400); Red Blood Cell (RBC) Count 3.09 mill/uL (4.20-5.40); White Blood Cell (WBC) Count 9.2 thou/uL (4.8-10.8)
[2020-12-05 05:18] LABS: Albumin 3.1 g/dL (3.5-5.0); Anion Gap 22 mmol/L (10-20); BUN (Urea Nitrogen) 60 mg/dL (9.8-20.1); BUN/Creatinine Ratio 7.61; Calc. Creatinine Clearance 11 mL/min (70-130); Calcium 9.2 mg/dL (7.8-10.44); Carbon Dioxide 21 mmol/L (22-29); Chloride 95 mmol/L (98-107); Glucose 136 mg/dL (70-105); Phosphorus 4.2 mg/dL (2.3-4.7); Potassium 4.8 mmol/L (3.5-5.1); Sodium 133 mmol/L (136-145)
[2020-12-05 05:24] LABS: Eosinophils 4 % (0-10); Lymphocytes 27 % (21-51); MDiff Complete? YES; Monocytes 16 % (0-10); Neutrophil 53 % (42-75)
[2020-12-05] MEDS: Folic Acid/Vit B Comp W-C PO SCH (08:31)
[2020-12-05] MEDS: metroNIDAZOLE 250 MG TAB PO SCH ×3 (08:31→20:13)
[2020-12-05] MEDS: Famotidine 20 MG TAB PO SCH (08:31)
[2020-12-05] MEDS: Benztropine 1 MG TAB PO SCH (08:31)
[2020-12-05] MEDS: Enoxaparin Sodium 40 MG/0.4 ML SYRINGE SC SCH (08:31)
[2020-12-05] MEDS: Sevelamer Carbonate 800 MG TAB PO SCH ×3 (08:31→18:32)
[2020-12-05] MEDS ORDERED: Prevnar 13-Val Conj/PF 0.5 ML SYRINGE IM ONE (09:00)
[2020-12-05] MEDS: HumuLIN 70/30 (300 UNITS/3 ML VIAL) SC SCH ×2 (11:14→18:32)
[2020-12-05 18:20] LABS: HBSAB Concentration Less than 8.00 mIU/mL; HBSAg Index 0.22 S/CO (0-0.99); Hep B Surf AB Non-Reactive (NonReactive); Hep B Surf Ag Non-Reactive S/CO (NonReactive)
[2020-12-05] MEDS: risperiDONE 1 MG TAB PO SCH (20:13)
[2020-12-06] MEDS: HYDROcodone/Acetaminophen 5/325 mg Tablet PO PRN (03:39)
[2020-12-06] MEDS: Sevelamer Carbonate 800 MG TAB PO SCH ×3 (09:17→15:46)
[2020-12-06] MEDS: Famotidine 20 MG TAB PO SCH (09:18)
[2020-12-06] MEDS: Benztropine 1 MG TAB PO SCH (09:18)
[2020-12-06] MEDS: Enoxaparin Sodium 40 MG/0.4 ML SYRINGE SC SCH (09:18)
[2020-12-06] MEDS: Folic Acid/Vit B Comp W-C PO SCH (09:18)
[2020-12-06] MEDS: metroNIDAZOLE 250 MG TAB PO SCH ×3 (09:18→20:12)
[2020-12-06] MEDS ORDERED: Vancomycin 1 GM in Premix Bag 1 BAG IVPB SCH ×2 (18:15→19:00)
[2020-12-06] MEDS ORDERED: HOLD VANCOMYCIN FOR LEVEL >20 FS SCH (19:00)
[2020-12-06] MEDS ORDERED: Vancomycin HCl 500 MG in Sodium Chloride 0.9% 100 ML IVPB SCH (19:00)
[2020-12-06] MEDS ORDERED: Vancomycin HCl 750 MG in Sodium Chloride 0.9% 250 ML 250 ML IVPB SCH (19:00)
[2020-12-06] MEDS ORDERED: Vancomycin HCl 1.25 GM in Sodium Chloride 0.9% 250 ML 250 ML IVPB SCH (19:00)
[2020-12-06] MEDS ORDERED: VANCOMYCIN 1.75 GM/350 ML BAG 1.75 GM in Premix Bag 1 BAG IVPB SCH (20:00)
[2020-12-06] MEDS: risperiDONE 1 MG TAB PO SCH (20:12)
[2020-12-07 11:07] LABS: #Eosinphils 0.3 thou/uL (0.0-0.7); #Lymphocytes 1.1 thou/uL (1.20-3.40); #Monocytes 0.9 thou/uL (0.11-0.59); #Neutrophils 5.4 thou/uL (1.40-6.50); %Basophils 0.6 % (0.0-1.0); %Eosinophils 3.6 % (0.0-10.0); %Lymphocytes 14.3 % (21.0-51.0); %Monocytes 11.5 % (0.0-10.0); Hemoglobin 8.5 g/dL (12.0-16.0); Mean Corpuscular HGB CONC 31.4 g/dL (32.0-36.0); Mean Corpuscular Volume 92.2 fL (78.0-98.0); Mean Platelet Volume 7.1 fL (7.4-10.4); Platelet Count 313 thou/uL (130-400); Red Blood Cell (RBC) Count 2.94 mill/uL (4.20-5.40); White Blood Cell (WBC) Count 7.7 thou/uL (4.8-10.8)
[2020-12-07 11:26] LABS: Anion Gap 15 mmol/L (10-20); BUN (Urea Nitrogen) 37 mg/dL (9.8-20.1); Calc. Creatinine Clearance 18 mL/min (70-130); Calcium 9.1 mg/dL (7.8-10.44); Carbon Dioxide 27 mmol/L (22-29); Chloride 100 mmol/L (98-107); Glucose 82 mg/dL (70-105); Potassium 3.9 mmol/L (3.5-5.1); Sodium 138 mmol/L (136-145)
[2020-12-07] MEDS: metroNIDAZOLE 250 MG TAB PO SCH ×3 (15:46→21:32)
[2020-12-07] MEDS: Famotidine 20 MG TAB PO SCH (15:47)
[2020-12-07] MEDS: Benztropine 1 MG TAB PO SCH (15:47)
[2020-12-07] MEDS: Sevelamer Carbonate 800 MG TAB PO SCH ×2 (15:47)
[2020-12-07] MEDS: Folic Acid/Vit B Comp W-C PO SCH (15:47)
[2020-12-07] MEDS: HYDROcodone/Acetaminophen 5/325 mg Tablet PO PRN (16:04)
[2020-12-07] MEDS: Enoxaparin Sodium 40 MG/0.4 ML SYRINGE SC SCH (16:30)
[2020-12-07 20:56] LABS: Vancomycin, Random 16.6 ug/mL (See Comment)
[2020-12-07] MEDS: risperiDONE 1 MG TAB PO SCH (21:32)
[2020-12-07] MEDS: cefTRIAXone\\ROCEPHIN 1 GM in Sodium Chloride 0.9% 100 ML IVPB SCH (21:40)
[2020-12-07] MEDS ORDERED: Vancomycin HCl 500 MG in Sodium Chloride 0.9% 100 ML IVPB SCH (23:00)
[2020-12-08] MEDS: Sevelamer Carbonate 800 MG TAB PO SCH ×3 (08:48→17:58)
[2020-12-08] MEDS: metroNIDAZOLE 250 MG TAB PO SCH ×3 (08:49→21:59)
[2020-12-08] MEDS: Famotidine 20 MG TAB PO SCH (08:49)
[2020-12-08] MEDS: Benztropine 1 MG TAB PO SCH ×2 (08:49→08:51)
[2020-12-08] MEDS: Folic Acid/Vit B Comp W-C PO SCH (08:49)
[2020-12-08] MEDS ORDERED: Enoxaparin Sodium 30 MG/0.3 ML SYRINGE SC SCH (09:00)
[2020-12-08] MEDS: HYDROcodone/Acetaminophen 5/325 mg Tablet PO PRN (09:44)
[2020-12-08] MEDS: Cholecalciferol 1,000 UNITS (25 MCG) TAB PO SCH (11:07)
[2020-12-08 12:27] LABS: #Basophils 0.1 thou/uL (0.0-0.2); #Eosinphils 0.2 thou/uL (0.0-0.7); #Lymphocytes 1.5 thou/uL (1.20-3.40); #Neutrophils 5.2 thou/uL (1.40-6.50); %Basophils 0.6 % (0.0-1.0); %Eosinophils 2.7 % (0.0-10.0); %Lymphocytes 19.1 % (21.0-51.0); %Monocytes 12.1 % (0.0-10.0); %Neutrophils 65.4 % (42.0-75.0); Hemoglobin 8.2 g/dL (12.0-16.0); Mean Corpuscular HGB CONC 31.5 g/dL (32.0-36.0); Mean Corpuscular Hemoglobin 29.1 pg (27.0-31.0); Mean Corpuscular Volume 92.4 fL (78.0-98.0); Platelet Count 280 thou/uL (130-400); RBC Distribution Width 16.6 % (11.5-14.5); Red Blood Cell (RBC) Count 2.82 mill/uL (4.20-5.40); White Blood Cell (WBC) Count 7.9 thou/uL (4.8-10.8)
[2020-12-08 12:38] LABS: Anion Gap 15 mmol/L (10-20); BUN (Urea Nitrogen) 26 mg/dL (9.8-20.1); Calc. Creatinine Clearance 15 mL/min (70-130); Calcium 9.5 mg/dL (7.8-10.44); Carbon Dioxide 28 mmol/L (22-29); Chloride 99 mmol/L (98-107); Glucose 108 mg/dL (70-105); Potassium 4.3 mmol/L (3.5-5.1)
[2020-12-08 12:40] LABS: Sodium 138 mmol/L (136-145)
[2020-12-08] MEDS ORDERED: Ondansetron PF 4 MG/2 ML Vial IVP PRN (17:10)
[2020-12-08] MEDS ORDERED: Ondansetron ODT 4 MG TAB PO PRN (17:10)
[2020-12-08] MEDS: risperiDONE 1 MG TAB PO SCH (21:59)
[2020-12-08] MEDS: cefTRIAXone\\ROCEPHIN 1 GM in Sodium Chloride 0.9% 100 ML IVPB SCH (22:01)
[2020-12-09 09:17] LABS: Vancomycin, Random 20.2 ug/mL (See Comment)
[2020-12-09] MEDS: Sevelamer Carbonate 800 MG TAB PO SCH ×3 (12:53→17:15)
[2020-12-09] MEDS: Apixaban 2.5 MG TAB PO SCH ×2 (12:53→20:58)
[2020-12-09] MEDS: Benztropine 1 MG TAB PO SCH (12:53)
[2020-12-09] MEDS: Folic Acid/Vit B Comp W-C PO SCH (12:54)
[2020-12-09] MEDS: metroNIDAZOLE 250 MG TAB PO SCH ×3 (12:54→20:58)
[2020-12-09] MEDS: Famotidine 20 MG TAB PO SCH (12:54)
[2020-12-09] MEDS: cefTRIAXone\\ROCEPHIN 1 GM in Sodium Chloride 0.9% 100 ML IVPB SCH (20:56)
[2020-12-09] MEDS: risperiDONE 1 MG TAB PO SCH (20:58)
[2020-12-10 04:44] LABS: #Eosinphils 0.2 thou/uL (0.0-0.7); #Lymphocytes 1.3 thou/uL (1.20-3.40); #Monocytes 0.7 thou/uL (0.11-0.59); #Neutrophils 3.2 thou/uL (1.40-6.50); %Basophils 0.6 % (0.0-1.0); %Eosinophils 4.5 % (0.0-10.0); %Lymphocytes 23.5 % (21.0-51.0); %Monocytes 12.8 % (0.0-10.0); %Neutrophils 58.5 % (42.0-75.0); Hemoglobin 8.8 g/dL (12.0-16.0); Mean Corpuscular HGB CONC 30.8 g/dL (32.0-36.0); Mean Corpuscular Hemoglobin 29.2 pg (27.0-31.0); Mean Corpuscular Volume 94.6 fL (78.0-98.0); Mean Platelet Volume 7.1 fL (7.4-10.4); Platelet Count 253 thou/uL (130-400); RBC Distribution Width 16.2 % (11.5-14.5); Red Blood Cell (RBC) Count 3.02 mill/uL (4.20-5.40); White Blood Cell (WBC) Count 5.5 thou/uL (4.8-10.8)
[2020-12-10 04:59] LABS: Anion Gap 14 mmol/L (10-20); BUN (Urea Nitrogen) 20 mg/dL (9.8-20.1); Calc. Creatinine Clearance 20 mL/min (70-130); Calcium 9.5 mg/dL (7.8-10.44); Carbon Dioxide 29 mmol/L (22-29); Chloride 102 mmol/L (98-107); Glucose 98 mg/dL (70-105); Potassium 3.9 mmol/L (3.5-5.1); Sodium 141 mmol/L (136-145)
[2020-12-10] MEDS: Sevelamer Carbonate 800 MG TAB PO SCH ×2 (08:15→11:53)
[2020-12-10] MEDS: Benztropine 1 MG TAB PO SCH (08:16)
[2020-12-10] MEDS: Famotidine 20 MG TAB PO SCH (08:16)
[2020-12-10] MEDS: Folic Acid/Vit B Comp W-C PO SCH (08:16)
[2020-12-10] MEDS: metroNIDAZOLE 250 MG TAB PO SCH (08:16)
[2020-12-10] MEDS: Apixaban 2.5 MG TAB PO SCH (08:16)
[2020-12-10] MEDS ORDERED: Cefdinir 300 MG CAP PO SCH (12:00)
[2020-12-10 12:50] VITALS: BP 118/72; TEMP 98.5
== END 2020-12-10 15:55 | disposition home health service (06) | DRG 862 ==
LOC: ERS 07:44 → 2NO 13:39 → OBSVTOIN 12-06 11:25
PROVIDERS: ADMIT Internal Medicine; ATTEND Internal Medicine
DX: T81.41XA Infection following a procedure, superficial incisional surgical site, initial encounter (principal); N18.6 End stage renal disease; A41.51 Sepsis due to Escherichia coli [E. coli]; I13.2 Hypertensive heart and chronic kidney disease with heart failure and with stage 5 chronic kidney disease, or end stage renal disease; I50.32 Chronic diastolic (congestive) heart failure; Z20.822 Contact with and (suspected) exposure to COVID-19; J44.9 Chronic obstructive pulmonary disease, unspecified; E11.22 Type 2 diabetes mellitus with diabetic chronic kidney disease; K21.9 Gastro-esophageal reflux disease without esophagitis; G47.33 Obstructive sleep apnea (adult) (pediatric); E78.2 Mixed hyperlipidemia; D63.1 Anemia in chronic kidney disease; E66.01 Morbid (severe) obesity due to excess calories; Y83.8 Other surgical procedures as the cause of abnormal reaction of the patient, or of later complication, without mention of misadventure at the time of the procedure; I95.9 Hypotension, unspecified; F25.0 Schizoaffective disorder, bipolar type; E86.0 Dehydration; Z79.4 Long term (current) use of insulin; Z79.891 Long term (current) use of opiate analgesic; Z79.899 Other long term (current) drug therapy; Z88.7 Allergy status to serum and vaccine; Z88.8 Allergy status to other drugs, medicaments and biological substances; Z88.0 Allergy status to penicillin; Z91.041 Radiographic dye allergy status; Z90.49 Acquired absence of other specified parts of digestive tract; Z85.41 Personal history of malignant neoplasm of cervix uteri; Z92.3 Personal history of irradiation; Z93.2 Ileostomy status; Z99.2 Dependence on renal dialysis; Z68.35 Body mass index [BMI] 35.0-35.9, adult; Z79.01 Long term (current) use of anticoagulants
CPT/HCPCS: 36415; 36416; 71045; 80048; 80053; 80069; 80202; 83690; 83735; 85025; 86140; 86706; 87040; 87070; 87077; 87086; 87186; 87205; 87340; 90935; 93005; 96372; G0257; G0378; J0696; J1650; J1815; J3370; J3490; J7050; U0002

== ENCOUNTER 2020-12-11 09:08 | Emergency (ER) | payer OTHER ==
[2020-12-11 10:07] LABS: #Basophils 0.1 thou/uL (0.0-0.2); #Eosinphils 0.2 thou/uL (0.0-0.7); #Lymphocytes 1.3 thou/uL (1.20-3.40); #Monocytes 0.7 thou/uL (0.11-0.59); %Eosinophils 2.2 % (0.0-10.0); %Lymphocytes 18.2 % (21.0-51.0); %Monocytes 10.2 % (0.0-10.0); %Neutrophils 68.4 % (42.0-75.0); Hemoglobin 9.7 g/dL (12.0-16.0); Mean Corpuscular HGB CONC 30.9 g/dL (32.0-36.0); Mean Corpuscular Hemoglobin 29.2 pg (27.0-31.0); Mean Corpuscular Volume 94.4 fL (78.0-98.0); Mean Platelet Volume 7.1 fL (7.4-10.4); Platelet Count 275 thou/uL (130-400); RBC Distribution Width 16.3 % (11.5-14.5); Red Blood Cell (RBC) Count 3.32 mill/uL (4.20-5.40); White Blood Cell (WBC) Count 7.3 thou/uL (4.8-10.8)
[2020-12-11 10:30] LABS: ALT (SGPT) 14 U/L (8-55); AST (SGOT) 18 U/L (5-34); Alkaline Phosphatase 212 U/L (40-110); Anion Gap 16 mmol/L (10-20); BUN (Urea Nitrogen) 25 mg/dL (9.8-20.1); Bilirubin, Total 0.4 mg/dL (0.2-1.2); Calc. Creatinine Clearance 0 mL/min (70-130); Calcium 9.6 mg/dL (7.8-10.44); Carbon Dioxide 27 mmol/L (22-29); Chloride 98 mmol/L (98-107); Globulin 3.4 g/dL (2.4-3.5); Glucose 99 mg/dL (70-105); Potassium 3.8 mmol/L (3.5-5.1); Protein, Total 6.4 g/dL (6.0-8.3); Sodium 137 mmol/L (136-145)
== END 2020-12-11 11:24 | disposition home or self-care (01) ==
LOC: ERS 09:08
DX: I13.2 Hypertensive heart and chronic kidney disease with heart failure and with stage 5 chronic kidney disease, or end stage renal disease (principal); I50.9 Heart failure, unspecified; E11.22 Type 2 diabetes mellitus with diabetic chronic kidney disease; N18.6 End stage renal disease; M79.601 Pain in right arm; E78.5 Hyperlipidemia, unspecified; J44.9 Chronic obstructive pulmonary disease, unspecified; Z99.2 Dependence on renal dialysis; Z79.899 Other long term (current) drug therapy
CPT/HCPCS: 36415; 80053; 85025; 99284

== ENCOUNTER → 2021-02-10 | Day surgery (SDC) | payer OTHER ==
[2021-02-09 15:54] VITALS: BMI 33.7
[~2021-02-10] MED LIST changes: +Fentanyl 100 MCG/2 ML VIAL ONE; +Iopamidol 300 61% 50 ML VIAL FS ONE; +Lidocaine 1% PF 5 ML VIAL ONE; +Midazolam HCl 2 mg/2 ml Vial ONE; +Sodium Bicarbonate 2.5 MEQ/5 ML VIAL ONE; -cloNIDine 0.1 MG TAB ONE; +diphenhydrAMINE 50 MG/ML VIAL IVP SCH; +methylPREDNISolone Sod Succ 40 MG VIAL IVP SCH
[2021-02-10 11:31] LABS: #Basophils 0.1 thou/uL (0.0-0.2); #Eosinphils 0.1 thou/uL (0.0-0.7); #Lymphocytes 1.6 thou/uL (1.20-3.40); #Monocytes 0.3 thou/uL (0.11-0.59); #Neutrophils 3.4 thou/uL (1.40-6.50); %Eosinophils 2.1 % (0.0-10.0); %Lymphocytes 28.5 % (21.0-51.0); %Monocytes 5.9 % (0.0-10.0); %Neutrophils 62.5 % (42.0-75.0); Hemoglobin 13.1 g/dL (12.0-16.0); Mean Corpuscular HGB CONC 31.3 g/dL (32.0-36.0); Mean Corpuscular Hemoglobin 29.8 pg (27.0-31.0); Mean Corpuscular Volume 95.3 fL (78.0-98.0); Platelet Count 208 thou/uL (130-400); RBC Distribution Width 16.2 % (11.5-14.5); White Blood Cell (WBC) Count 5.4 thou/uL (4.8-10.8)
[2021-02-10 11:51] LABS: Anion Gap 23 mmol/L (10-20); BUN (Urea Nitrogen) 122 mg/dL (9.8-20.1); Calc. Creatinine Clearance 5 mL/min (70-130); Calcium 10.4 mg/dL (7.8-10.44); Carbon Dioxide 15 mmol/L (22-29); Chloride 102 mmol/L (98-107); Glucose 87 mg/dL (70-105); Sodium 133 mmol/L (136-145)
[2021-02-10 12:44] VITALS: BP 183/89; TEMP 98.5
== END ==
LOC: SPEC 07:12
PROVIDERS: ATTEND Specialist
PROC: 03CY3ZZ Extirpation of Matter from Upper Artery, Percutaneous Approach (ICD-10-PCS; principal; 2021-02-10)
PROC: 3E05317 Introduction of Other Thrombolytic into Peripheral Artery, Percutaneous Approach (ICD-10-PCS; principal; 2021-02-10)
PROC: 05CY3ZZ Extirpation of Matter from Upper Vein, Percutaneous Approach (ICD-10-PCS; principal; 2021-02-10)
DX: T82.868A Thrombosis due to vascular prosthetic devices, implants and grafts, initial encounter (principal); E87.5 Hyperkalemia; I12.0 Hypertensive chronic kidney disease with stage 5 chronic kidney disease or end stage renal disease; E11.22 Type 2 diabetes mellitus with diabetic chronic kidney disease; N18.6 End stage renal disease; D63.1 Anemia in chronic kidney disease; J44.9 Chronic obstructive pulmonary disease, unspecified; K21.9 Gastro-esophageal reflux disease without esophagitis; G47.33 Obstructive sleep apnea (adult) (pediatric); E11.10 Type 2 diabetes mellitus with ketoacidosis without coma; E66.9 Obesity, unspecified; Z68.33 Body mass index [BMI] 33.0-33.9, adult; Z88.0 Allergy status to penicillin; Z88.7 Allergy status to serum and vaccine; Z88.8 Allergy status to other drugs, medicaments and biological substances; Z91.041 Radiographic dye allergy status; Z99.2 Dependence on renal dialysis
CPT/HCPCS: 36901; 36905; 76937; 80048; 85025; 90935; C1725; C1757; G0257; J1200; J2250; J2920; J2997; J3010; Q9967

== ENCOUNTER 2021-02-26 12:51 | Outpatient (CLI) | payer OTHER ==
[2021-02-27 12:54] LABS: SARS-CoV-2 PCR by NAA Not Detected (NotDetected)
== END 2021-02-26 12:52 | disposition home or self-care (01) ==
LOC: LABBT 12:51
PROVIDERS: ATTEND Specialist
DX: Z01.818 Encounter for other preprocedural examination (principal); T85.868A Thrombosis due to other internal prosthetic devices, implants and grafts, initial encounter; Z20.822 Contact with and (suspected) exposure to COVID-19
CPT/HCPCS: 93005; 93010; U0003; U0005